=== PATIENT | female | born 1940 | race Caucasian/White ===

== ENCOUNTER 2017-11-30 01:10 | Inpatient (IN) | payer MEDICARE, OTHER ==
[~2017-11-30] VITALS: Ht 162.6 cm; Wt 40.8 kg
--- NOTE | 2017-11-30 02:29 | PHYS DOC ---
Past Medical History Past Medical History: Anxiety, Dementia, Hypertension, Other Additional Past Medical Histor: Aortic Valve Insufficiency, overactive bladder Past Surgical History: Other Additional Past Surgical Histo: Unknown Alcohol Use: None Drug Use: None Adult General Chief Complaint Chief Complaint: MECHANICAL FALL HPI HPI Patient is a 77 year old was found on the floor at the retirement this morning. Patient complaints of right-sided hip pain, not able to stand up. Patient denied headache, no neck pain. Patient could not tell this provider what happened to her. She denies any back pain. Patient is confused, not able to tell this provider who her doctor is or when she lives. Review of Systems Review of Systems Constitutional: Denies fever or chills [] Eyes: Denies change in visual acuity, redness, or eye pain [] HENT: Denies nasal congestion or sore throat [] Respiratory: Denies cough or shortness of breath [] Cardiovascular: No additional information not addressed in HPI [] GI: Denies abdominal pain, nausea, vomiting, bloody stools or diarrhea [] : Denies dysuria or hematuria [] Musculoskeletal: Positive for right hip pain, no back pain, no headache, no neck pain. Integument: Denies rash or skin lesions [] Neurologic: Denies headache, focal weakness or sensory changes [] Endocrine: Denies polyuria or polydipsia [] All other systems were reviewed and found to be within normal limits, except as documented in this note. Physical Exam Physical Exam Constitutional: Well developed, well nourished, no acute distress, non-toxic appearance. [] HENT: Normocephalic, atraumatic, bilateral external ears normal, oropharynx moist, no oral exudates, nose normal. [] Eyes: PERRLA, EOMI, conjunctiva normal, no discharge. [] Neck: Normal range of motion, no tenderness, supple, no stridor. [] Cardiovascular:Heart rate regular rhythm, no murmur [] Lungs & Thorax: Bilateral breath sounds clear to auscultation [] Abdomen: Bowel sounds normal, soft, no tenderness, no masses, no pulsatile masses. [] Skin: Warm, dry, no erythema, no rash. [] Back: No tenderness, no CVA tenderness. [] Extremities: RIGHT SIDE PELVIC AND HIP TENDER TO PALPATION, RIGHT LEG IS SHORTEN AND EXTERNALLY ROTATED. Neurologic: Alert BUT VERY CONFUSED, DISORIENTED TO PLACE, TIME AND PERSON, normal motor function, normal sensory function, no focal deficits noted. [] Psychologic: Affect normal, judgement normal, mood normal. [] Current Patient Data Vital Signs Vital Signs Date Time Temp Pulse Resp B/P (MAP) Pulse Ox O2 Delivery O2 Flow Rate FiO2 11/30/17 02:18 92 98 11/30/17 01:10 97.9 18 139/47 (77) Nasal Cannula 2.0 97.9 EKG EKG EKG: HEART RATE OF 93 BPM, NO STEMI. Radiology/Procedures Radiology/Procedures XRAY OF RIGHT HIP: FEMORAL NECK FRACTURE. XRAY CHEST: NO PNEUMOTHORAX, NO OBVIOUS RIBS FRACTURE [facility] [address] [place] [address] IMAGING REPORT Signed PATIENT: TIA AGUILAR ACCOUNT: [id number] : 1940 LOCATION: ER AGE: 77 SEX: F EXAM STATUS: REG ER ORD. PHYSICIAN: BRIAN AWAD DO REASON: fell, confused, neck pain, headache PROCEDURE: CT HEAD AND CERVICAL SPINE WO INDICATION: PT FELL; PAIN COMPARISON: None. TECHNIQUE: Axial CT images obtained through the head and cervical spine without intravenous contrast. Coronal and sagittal reformats processed of cervical spine. One or more of the following individualized dose reduction techniques were utilized for this examination: 1. Automated exposure control; 2. Adjustment of the mA and/or kV according to patient size; 3. Use of iterative reconstruction technique. FINDINGS: Head: No evidence of midline shift. Diffuse prominence of the ventricles and sulci. Suprasellar cistern is not effaced. Moderate low-attenuation within white matter. No definite acute intracranial hemorrhage. Cervical spine: Scoliotic curvature of the cervical spine. Degenerative changes the cervical spine with multilevel osteophyte formation at the vertebral body endplates with disc protrusions and facet hypertrophy contributing to central canal neural foraminal stenosis. Suspected old left clavicle fracture. Calcification left lobe of thyroid. There are some probable small thyroid nodules. Follow scarring at lung apices. IMPRESSION: 1. No acute intracranial hemorrhage. 2. Scattered foci of low-attenuation within the white matter. Nonspecific but can be seen with chronic small vessel ischemic disease. 3. No definite acute fracture or dislocation of the cervical spine. 4. Degenerative changes of the cervical spine with multilevel central canal and neural foraminal stenosis. Electronically signed by: Micheal Carter MD (11/30/2017 2:50 AM) [facility] DICTATED and SIGNED BY: MICHEAL CARTER MD DATE: 11/30/17 0237 Impressions: RIGHT FEMORAL NECK FRACTURE Course & Med Decision Making Course & Med Decision Making Pertinent Labs and Imaging studies reviewed. (See chart for details) Patient was found to have right femoral neck fracture. Orthopedic surgeon was consulted, agreed to see patient in AM, WANTED PATIENT TO BE NPO. WOULD LIKE HOSPITALIST TO CLEAR HER PRIOR TO SURGERY. Dragon Disclaimer Dragon Disclaimer This electronic medical record was generated, in whole or in part, using a voice recognition dictation system. Departure Departure Disposition: 09 ADMITTED INPATIENT Admitting Physician: Patty Turner Condition: STABLE BRIAN AWAD DO Nov 30, 2017 02:29
[2017-11-30] MEDS ORDERED: ONDANSETRON PF 4 MG/2 ML VIAL. IV PRN ×2 (02:45→09:30)
--- NOTE | 2017-11-30 02:54 | RAD ---
INDICATION: PT FELL; PAIN COMPARISON: None. TECHNIQUE: Axial CT images obtained through the head and cervical spine without intravenous contrast. Coronal and sagittal reformats processed of cervical spine. One or more of the following individualized dose reduction techniques were utilized for this examination: 1. Automated exposure control; 2. Adjustment of the mA and/or kV according to patient size; 3. Use of iterative reconstruction technique. FINDINGS: Head: No evidence of midline shift. Diffuse prominence of the ventricles and sulci. Suprasellar cistern is not effaced. Moderate low-attenuation within white matter. No definite acute intracranial hemorrhage. Cervical spine: Scoliotic curvature of the cervical spine. Degenerative changes the cervical spine with multilevel osteophyte formation at the vertebral body endplates with disc protrusions and facet hypertrophy contributing to central canal neural foraminal stenosis. Suspected old left clavicle fracture. Calcification left lobe of thyroid. There are some probable small thyroid nodules. Follow scarring at lung apices. IMPRESSION: 1. No acute intracranial hemorrhage. 2. Scattered foci of low-attenuation within the white matter. Nonspecific but can be seen with chronic small vessel ischemic disease. 3. No definite acute fracture or dislocation of the cervical spine. 4. Degenerative changes of the cervical spine with multilevel central canal and neural foraminal stenosis. Electronically signed by: Herrera Chong MD (11/30/2017 2:50 AM) [facility]
[2017-11-30 03:16] LABS: BASO % 0 % (0-3); EOS % 0 % (0-3); HEMATOCRIT 32.9 % (36.0-47.0); HEMOGLOBIN 11.2 g/dL (12.0-15.5); LYMPH # 0.6 x10^3/uL (1.0-4.8); LYMPH % 6 % (24-48); MEAN CORPUSCULAR HEMOGLOBIN 30 pg (25-35); MEAN CORPUSCULAR HGB CONC 34 g/dL (31-37); MEAN CORPUSCULAR VOLUME 89 fL (79-100); MONO # 0.6 x10^3/uL (0.0-1.1); MONO % 6 % (0-9); NEUT # 9.1 x10^3uL (1.8-7.7); NEUT % 88 % (31-73); PLATELET COUNT 251 x10^3/uL (140-400); RED BLOOD COUNT 3.69 x10^6/uL (3.50-5.40); WHITE BLOOD COUNT 10.3 x10^3/uL (4.0-11.0)
[2017-11-30 03:23] LABS: BILIRUBIN,URINE NEGATIVE (NEG); CLARITY,URINE CLOUDY; COLOR,URINE YELLOW; NITRITE,URINE NEGATIVE (NEG); PH,URINE 7.5; PROTEIN,URINE 100 mg/dL (NEG-TRACE); UROBILINOGEN,URINE 0.2 mg/dL (0.2 mg/dL)
[2017-11-30 03:24] LABS: CALCIUM 9.3 mg/dL (8.5-10.1); CREATININE 1.1 mg/dL (0.6-1.0); GFR 48.3; POTASSIUM 4.3 mmol/L (3.5-5.1)
[2017-11-30 03:31] LABS: ALBUMIN 3.4 g/dL (3.4-5.0); ALBUMIN/GLOBULIN RATIO 0.9 (1.0-1.7); TOTAL BILIRUBIN 0.4 mg/dL (0.2-1.0); TOTAL PROTEIN 7.4 g/dL (6.4-8.2)
[2017-11-30 03:32] LABS: PROTHROMBIN TIME PATIENT 13.3 SEC (11.7-14.0)
[2017-11-30] MEDS: MORPHINE SULFATE 2 MG/ML DISP.SYRIN. IV PRN ×4 (03:34→23:21)
[2017-11-30 03:43] LABS: BACTERIA,URINE FEW /HPF (0-FEW); SQUAMOUS EPITHELIAL CELL,UR FEW /LPF; WBC,URINE TNTC /HPF (0-4)
[2017-11-30 03:50] VITALS: BP 142/54
[2017-11-30] MEDS ORDERED: OXYB5TAB PO (05:00)
[2017-11-30] MEDS ORDERED: CALC600T4 PO (05:00)
[2017-11-30] MEDS ORDERED: LEVO50TA5 PO (05:00)
[2017-11-30] MEDS ORDERED: LISI-130 PO (05:00)
[2017-11-30] MEDS ORDERED: ACET500T68 PO (05:00)
[2017-11-30] MEDS ORDERED: GUAI100L27 PO (05:00)
[2017-11-30] MEDS ORDERED: MEMA10TA PO (05:00)
[2017-11-30] MEDS ORDERED: RIVA1PAT22 TP (05:00)
[2017-11-30] MEDS ORDERED: ALPR0.254 PO (05:00)
[2017-11-30] MEDS ORDERED: AMLO5TAB2 PO (05:00)
[2017-11-30] MEDS ORDERED: MULT1TAB77 PO (05:00)
[2017-11-30 07:00] VITALS: BP 132/55
--- NOTE | 2017-11-30 07:22 | EKG ---
[facility] [address] [place] [address] Test Date: 2017-11-30 Test Time: 02:03:58 Pat Name: TIA AGUILAR Department: Room: Gender: F Etcher Hand: : 1940 Requested By: BRIAN AWAD Order Number: [id number] Reading MD: Measurements Intervals [place] Rate: 93 P: 61 SD: 122 QRS: 31 QRSD: 90 T: 36 QT: 346 QTc: 433 Interpretive Statements SINUS RHYTHM LEFT ATRIAL ABNORMALITY QRS(T) CONTOUR ABNORMALITY CONSIDER ANTEROSEPTAL MYOCARDIAL DAMAGE ST & T ABNORMALITY, CONSIDER ANTEROLATERAL ISCHEMIA OR LEFT VENTRICULAR STRAIN INFEROLATERAL ISCHEMIA OR LEFT VENTRICULAR STRAIN ABNORMAL ECG RI6.01 No previous ECG available for comparison
--- NOTE | 2017-11-30 08:10 | RAD ---
Examination: 2 views of the right hip HISTORY: History of fall, right hip pain COMPARISON: None available FINDINGS: The right femoral head is within the acetabulum. Moderate joint space loss identified in the right hip joint. There is a superior displaced fracture of the right femoral neck. Osseous demineralization limits evaluation. IMPRESSION: Superiorly displaced right femoral neck fracture. Electronically signed by: Bobby Burks MD (11/30/2017 8:07 AM) [facility]
--- NOTE | 2017-11-30 08:11 | RAD ---
EXAM: CHEST 1 VIEW History: Chest pain COMPARISON: None available. TECHNIQUE: Single portable radiograph of the chest FINDINGS: The cardiac silhouette is unremarkable. Mild prominent appearing bilateral interstitial lung markings. The costophrenic sulci are clear and well demarcated. IMPRESSION: Mild prominent appearing bilateral interstitial lung markings could be chronic interstitial changes or mild edema. Electronically signed by: Bobby Burks MD (11/30/2017 8:08 AM) [facility]
[2017-11-30 08:20] LABS: % BANDS 14 % (0-9); % LYMPHS 9 % (24-48); % MONOS 5 % (0-10); % SEGS 72 % (35-66); PLT ESTIMATE ADEQUATE (ADEQUATE)
[2017-11-30 08:21] LABS: OVALOCYTES FEW
[2017-11-30] MEDS ORDERED: ACETAMINOPHEN 500 MG TABLET PO PRN (09:30)
[2017-11-30] MEDS: amLODIPine BESYLATE 5 MG TABLET PO SCH (10:00)
[2017-11-30] MEDS: LISINOPRIL 20 MG TABLET PO SCH (10:00)
[2017-11-30] MEDS: MULTIVITAMIN with MINERAL TABLET. PO SCH (10:00)
[2017-11-30] MEDS: CALCIUM CARBONATE 500 MG TABLET PO SCH ×2 (10:00→21:00)
[2017-11-30] MEDS ORDERED: PIP/TAZO PER PHARMACY MC PRN (10:15)
[2017-11-30] MEDS: OXYBUTYNIN CHLORIDE 5 MG TABLET PO SCH ×2 (10:30→21:00)
[2017-11-30] MEDS: MEMANTINE 10 MG TABLET. PO SCH ×2 (10:30→21:00)
[2017-11-30 11:00] VITALS: BP 120/61
[2017-11-30] MEDS: LEVOTHYROXINE 50 MCG TABLET PO SCH (11:36)
[2017-11-30] MEDS: RIVASTIGMINE 4.6MG PATCH. TD SCH (11:37)
[2017-11-30] MEDS: PIPERACILLIN/TAZOBACTAM 2.25 GM in IV NORMAL SALINE 50ML 50 ML IV SCH ×3 (11:40→23:20)
--- NOTE | 2017-11-30 12:36 | PDOC1 ---
History and Physical Date of Admission Date of Admission DATE: 11/30/17 TIME: 12:32 Identification/Chief Complaint Chief Complaint fell at the long term Source Source: Caregiver, Chart review History of Present Illness History of Present Illness Very poor historian, significant dementia and SNU resident, 77 year old female, most of the history obtained from the ER chart. SHe fell in the long term. Son helps to fill in the gaps, recent UTI at [place]?. Prolonged antibiotics. But then again now, UTI still on labs. Patient is a full code per chart. Has a hip fracture after a fall. Discussed with orthopedics, plan for OR tomorrow pending clearance. We are getting records from [place]. Home meds reviewed, no significant cardiac pulmonary diseases I could get based on home meds We'll treat UTI, follow urine cultures and get records from [place]. Discussed with Dr. Yadav and Gabbie of ID Past Medical History Cardiovascular: HTN, Hyperlipidemia CENTRAL NERVOUS SYSTEM: Dementia Endocrine: Hypothyroidism Past Surgical History Past Surgical History: No pertinent history Family History Family History: Family History Unknown Social History Smoke: No ALCOHOL: none Drugs: None Current Medications Current Medications Current Medications Ondansetron HCl (Zofran) 4 mg PRN Q8HRS PRN IV NAUSEA/VOMITING 1ST CHOICE Last administered on 11/30/17at 03:35; Start 11/30/17 at 02:45; Stop 11/30/17 at 09:20; Status DC Morphine Sulfate (Morphine Sulfate) 2 mg PRN Q2HR PRN IV SEVERE PAIN Last administered on 11/30/17at 05:36; Start 11/30/17 at 02:45; Stop 12/01/17 at 02:44 Ondansetron HCl (Zofran) 4 mg PRN Q6HRS PRN IV NAUSEA/VOMITING 1ST CHOICE; Start 11/30/17 at 09:30 Acetaminophen (Tylenol) 500 mg PRN Q6HRS PRN PO TEMP; Start 11/30/17 at 09:30 Oxycodone/ Acetaminophen (Percocet 5/325) 1 tab PRN Q4HRS PRN PO MODERATE PAIN ; Start 11/30/17 at 09:30 Acetaminophen (Tylenol) 500 mg TID PO ; Start 11/30/17 at 14:00 Alprazolam (Xanax) 0.25 mg PRN TID PRN PO ANXIETY; Start 11/30/17 at 09:30 Amlodipine Besylate (Norvasc) 5 mg DAILY PO ; Start 11/30/17 at 10:00 Guaifenesin (Robitussin) 200 mg PRN Q6HRS PRN PO COUGH; Start 11/30/17 at 09:30 Lisinopril (Prinivil) 40 mg DAILY PO ; Start 11/30/17 at 10:00 Calcium Carbonate/ Glycine (Oscal) 1,000 mg BID PO ; Start 11/30/17 at 10:00 Levothyroxine Sodium (Synthroid) 50 mcg DAILY07 PO Last administered on at 11:36; Start 11/30/17 at 10:00 Memantine (Namenda) 10 mg BID PO ; Start 11/30/17 at 10:30 Multivitamins (Thera M Plus) 1 tab DAILY PO ; Start 11/30/17 at 10:00 Oxybutynin Chloride (Ditropan) 2.5 mg BID PO ; Start 11/30/17 at 10:30 Rivastigmine (Exelon) 1 patch DAILY TD Last administered on 11/30/17at 11:37; Start 11/30/17 at 10:00 Piperacillin Sod/ Tazobactam Sod (Zosyn Per Pharmacy) 1 each PRN DAILY PRN MC SEE COMMENTS; Start 11/30/17 at 10:15 Piperacillin Sod/ Tazobactam Sod 2.25 gm/Sodium Chloride 50 ml @ 100 mls/hr Q6HRS IV Last administered on 11/30/17at 11:40; Start 11/30/17 at 12:00 Active Scripts Active Reported Robafen (Guaifenesin) 100 Mg/5 Ml Liquid 200 Mg PO PRN Q6HRS PRN Levothyroxine Sodium 50 Mcg Tablet 1 Tab PO DAILY Alprazolam 0.25 Mg Tablet 1 Tab PO TID PRN Acetaminophen 500 Mg Tablet 500 Mg PO TID Namenda (Memantine Hcl) 10 Mg Tablet 1 Tab PO BID Calcium (Calcium Carbonate) 600 Mg Tablet 1,200 Mg PO BID Thera Tablet (Multivitamin with Folic Acid) 400 Mcg Tablet 400 Mcg PO DAILY EXELON 4.6mg/24hr (Rivastigmine) 1 Each Patch.td24 1 Patch TP DAILY Oxybutynin Chloride Er (Oxybutynin Chloride) 5 Mg Tab.er.24 1 Tab PO DAILY Lisinopril 40 Mg Tablet 1 Tab PO DAILY Amlodipine Besylate 5 Mg Tablet 5 Mg PO DAILY Allergies Allergies: Coded Allergies: No Known Drug Allergies (Unverified , 11/30/17) ROS Review of System Dementia is limited ROS Physical Exam General: No acute distress HEENT: Atraumatic, PERRLA, EOMI Lungs: Clear to auscultation, Normal air movement Heart: S1S2, RRR, no thrills, no rubs, no gallops, no murmurs Cardiovascular: S1, S2 Breasts: Normal, Rt breast nml w/o mass, Lt breast nml w/o mass, Nipples normal Abdomen: Normal bowel sounds, Soft, No tenderness, No hepatosplenomegaly, No masses Rectal Exam: not examined PELVIC: Nml ext genitalia Extremities: Other (right leg is externally rotated) Skin: No rashes, No breakdown, No significant lesion Vitals Vitals Vital Signs Date Time Temp Pulse Resp B/P (MAP) Pulse Ox O2 Delivery O2 Flow Rate FiO2 11/30/17 11:00 98.3 84 14 120/61 (80) 95 Nasal Cannula 2.0 98.3 Labs Labs Laboratory Tests Test 11/30/17 03:00 11/30/17 03:11 White Blood Count 10.3 x10^3/uL (4.0-11.0) Red Blood Count 3.69 x10^6/uL (3.50-5.40) Hemoglobin 11.2 g/dL (12.0-15.5) Hematocrit 32.9 % (36.0-47.0) Mean Corpuscular Volume 89 fL (79-100) Mean Corpuscular Hemoglobin 30 pg (25-35) Mean Corpuscular Hemoglobin Concent 34 g/dL (31-37) Red Cell Distribution Width 14.0 % (11.5-14.5) Platelet Count 251 x10^3/uL (140-400) Neutrophils (%) (Auto) 88 % (31-73) Lymphocytes (%) (Auto) 6 % (24-48) Monocytes (%) (Auto) 6 % (0-9) Eosinophils (%) (Auto) 0 % (0-3) Basophils (%) (Auto) 0 % (0-3) Neutrophils # (Auto) 9.1 x10^3uL (1.8-7.7) Lymphocytes # (Auto) 0.6 x10^3/uL (1.0-4.8) Monocytes # (Auto) 0.6 x10^3/uL (0.0-1.1) Eosinophils # (Auto) 0.0 x10^3/uL (0.0-0.7) Basophils # (Auto) 0.0 x10^3/uL (0.0-0.2) Segmented Neutrophils % 72 % (35-66) Band Neutrophils % 14 % (0-9) Lymphocytes % 9 % (24-48) Monocytes % 5 % (0-10) Platelet Estimate Adequate (ADEQUATE) Ovalocytes Few Prothrombin Time 13.3 SEC (11.7-14.0) Prothromb Time International Ratio 1.1 (0.8-1.1) Activated Partial Thromboplast Time 32 SEC (24-38) Sodium Level 131 mmol/L (136-145) Potassium Level 4.3 mmol/L (3.5-5.1) Chloride Level 96 mmol/L (98-107) Carbon Dioxide Level 29 mmol/L (21-32) Anion Gap 6 (6-14) Blood Urea Nitrogen 27 mg/dL (7-20) Creatinine 1.1 mg/dL (0.6-1.0) Estimated GFR (Cockcroft-Gault) 48.3 BUN/Creatinine Ratio 25 (6-20) Glucose Level 115 mg/dL (70-99) Calcium Level 9.3 mg/dL (8.5-10.1) Total Bilirubin 0.4 mg/dL (0.2-1.0) Aspartate Amino Transf (AST/SGOT) 23 U/L (15-37) Alanine Aminotransferase (ALT/SGPT) 21 U/L (14-59) Alkaline Phosphatase 76 U/L (46-116) Total Protein 7.4 g/dL (6.4-8.2) Albumin 3.4 g/dL (3.4-5.0) Albumin/Globulin Ratio 0.9 (1.0-1.7) Urine Collection Type U cath Urine Color Yellow Urine Clarity Cloudy Urine pH 7.5 Urine Specific [place] 1.015 Urine Protein 100 mg/dL (NEG-TRACE) Urine Glucose (UA) Negative mg/dL (NEG) Urine Ketones (Stick) Negative mg/dL (NEG) Urine Blood Small (NEG) Urine Nitrite Negative (NEG) Urine Bilirubin Negative (NEG) Urine Urobilinogen Dipstick 0.2 mg/dL (0.2 mg/dL) Urine Leukocyte Esterase Large (NEG) Urine RBC 11-20 /HPF (0-2) Urine WBC Tntc /HPF (0-4) Urine Squamous Epithelial Cells Few /LPF Urine Bacteria Few /HPF (0-FEW) Laboratory Tests Test 11/30/17 03:00 11/30/17 03:11 White Blood Count 10.3 x10^3/uL (4.0-11.0) Red Blood Count 3.69 x10^6/uL (3.50-5.40) Hemoglobin 11.2 g/dL (12.0-15.5) Hematocrit 32.9 % (36.0-47.0) Mean Corpuscular Volume 89 fL (79-100) Mean Corpuscular Hemoglobin 30 pg (25-35) Mean Corpuscular Hemoglobin Concent 34 g/dL (31-37) Red Cell Distribution Width 14.0 % (11.5-14.5) Platelet Count 251 x10^3/uL (140-400) Neutrophils (%) (Auto) 88 % (31-73) Lymphocytes (%) (Auto) 6 % (24-48) Monocytes (%) (Auto) 6 % (0-9) Eosinophils (%) (Auto) 0 % (0-3) Basophils (%) (Auto) 0 % (0-3) Neutrophils # (Auto) 9.1 x10^3uL (1.8-7.7) Lymphocytes # (Auto) 0.6 x10^3/uL (1.0-4.8) Monocytes # (Auto) 0.6 x10^3/uL (0.0-1.1) Eosinophils # (Auto) 0.0 x10^3/uL (0.0-0.7) Basophils # (Auto) 0.0 x10^3/uL (0.0-0.2) Segmented Neutrophils % 72 % (35-66) Band Neutrophils % 14 % (0-9) Lymphocytes % 9 % (24-48) Monocytes % 5 % (0-10) Platelet Estimate Adequate (ADEQUATE) Ovalocytes Few Prothrombin Time 13.3 SEC (11.7-14.0) Prothromb Time International Ratio 1.1 (0.8-1.1) Activated Partial Thromboplast Time 32 SEC (24-38) Sodium Level 131 mmol/L (136-145) Potassium Level 4.3 mmol/L (3.5-5.1) Chloride Level 96 mmol/L (98-107) Carbon Dioxide Level 29 mmol/L (21-32) Anion Gap 6 (6-14) Blood Urea Nitrogen 27 mg/dL (7-20) Creatinine 1.1 mg/dL (0.6-1.0) Estimated GFR (Cockcroft-Gault) 48.3 BUN/Creatinine Ratio 25 (6-20) Glucose Level 115 mg/dL (70-99) Calcium Level 9.3 mg/dL (8.5-10.1) Total Bilirubin 0.4 mg/dL (0.2-1.0) Aspartate Amino Transf (AST/SGOT) 23 U/L (15-37) Alanine Aminotransferase (ALT/SGPT) 21 U/L (14-59) Alkaline Phosphatase 76 U/L (46-116) Total Protein 7.4 g/dL (6.4-8.2) Albumin 3.4 g/dL (3.4-5.0) Albumin/Globulin Ratio 0.9 (1.0-1.7) Urine Collection Type U cath Urine Color Yellow Urine Clarity Cloudy Urine pH 7.5 Urine Specific [place] 1.015 Urine Protein 100 mg/dL (NEG-TRACE) Urine Glucose (UA) Negative mg/dL (NEG) Urine Ketones (Stick) Negative mg/dL (NEG) Urine Blood Small (NEG) Urine Nitrite Negative (NEG) Urine Bilirubin Negative (NEG) Urine Urobilinogen Dipstick 0.2 mg/dL (0.2 mg/dL) Urine Leukocyte Esterase Large (NEG) Urine RBC 11-20 /HPF (0-2) Urine WBC Tntc /HPF (0-4) Urine Squamous Epithelial Cells Few /LPF Urine Bacteria Few /HPF (0-FEW) VTE Prophylaxis Ordered VTE Prophylaxis Devices: Yes VTE Pharmacological Prophylaxi: Yes Assessment/Plan Assessment/Plan Right hip fracture, after a fall Fall mechanical traumatic SNU resident Significant dementia Hypertension controlled History of complicated UTI Hypothyroidism on Synthroid Dyslipidemia statin Plan: Nothing by mouth, IV fluids, orthopedics consult Check a UA, get records from [facility] ID consult Home meds I have reconciled Fall risk Full code per chart Start IV Zosyn per pharmacy dw ortho and iD LURDES CORRALES MD Nov 30, 2017 12:36
--- NOTE | 2017-11-30 13:11 | PDOC ---
Infectious Disease Note Vital Sign Vital Signs Vital Signs Date Time Temp Pulse Resp B/P (MAP) Pulse Ox O2 Delivery O2 Flow Rate FiO2 11/30/17 11:00 98.3 84 14 120/61 (80) 95 Nasal Cannula 2.0 98.3 Labs Lab Laboratory Tests Test 11/30/17 03:00 11/30/17 03:11 White Blood Count 10.3 x10^3/uL (4.0-11.0) Red Blood Count 3.69 x10^6/uL (3.50-5.40) Hemoglobin 11.2 g/dL (12.0-15.5) Hematocrit 32.9 % (36.0-47.0) Mean Corpuscular Volume 89 fL (79-100) Mean Corpuscular Hemoglobin 30 pg (25-35) Mean Corpuscular Hemoglobin Concent 34 g/dL (31-37) Red Cell Distribution Width 14.0 % (11.5-14.5) Platelet Count 251 x10^3/uL (140-400) Neutrophils (%) (Auto) 88 % (31-73) Lymphocytes (%) (Auto) 6 % (24-48) Monocytes (%) (Auto) 6 % (0-9) Eosinophils (%) (Auto) 0 % (0-3) Basophils (%) (Auto) 0 % (0-3) Neutrophils # (Auto) 9.1 x10^3uL (1.8-7.7) Lymphocytes # (Auto) 0.6 x10^3/uL (1.0-4.8) Monocytes # (Auto) 0.6 x10^3/uL (0.0-1.1) Eosinophils # (Auto) 0.0 x10^3/uL (0.0-0.7) Basophils # (Auto) 0.0 x10^3/uL (0.0-0.2) Segmented Neutrophils % 72 % (35-66) Band Neutrophils % 14 % (0-9) Lymphocytes % 9 % (24-48) Monocytes % 5 % (0-10) Platelet Estimate Adequate (ADEQUATE) Ovalocytes Few Prothrombin Time 13.3 SEC (11.7-14.0) Prothromb Time International Ratio 1.1 (0.8-1.1) Activated Partial Thromboplast Time 32 SEC (24-38) Sodium Level 131 mmol/L (136-145) Potassium Level 4.3 mmol/L (3.5-5.1) Chloride Level 96 mmol/L (98-107) Carbon Dioxide Level 29 mmol/L (21-32) Anion Gap 6 (6-14) Blood Urea Nitrogen 27 mg/dL (7-20) Creatinine 1.1 mg/dL (0.6-1.0) Estimated GFR (Cockcroft-Gault) 48.3 BUN/Creatinine Ratio 25 (6-20) Glucose Level 115 mg/dL (70-99) Calcium Level 9.3 mg/dL (8.5-10.1) Total Bilirubin 0.4 mg/dL (0.2-1.0) Aspartate Amino Transf (AST/SGOT) 23 U/L (15-37) Alanine Aminotransferase (ALT/SGPT) 21 U/L (14-59) Alkaline Phosphatase 76 U/L (46-116) Total Protein 7.4 g/dL (6.4-8.2) Albumin 3.4 g/dL (3.4-5.0) Albumin/Globulin Ratio 0.9 (1.0-1.7) Urine Collection Type U cath Urine Color Yellow Urine Clarity Cloudy Urine pH 7.5 Urine Specific [place] 1.015 Urine Protein 100 mg/dL (NEG-TRACE) Urine Glucose (UA) Negative mg/dL (NEG) Urine Ketones (Stick) Negative mg/dL (NEG) Urine Blood Small (NEG) Urine Nitrite Negative (NEG) Urine Bilirubin Negative (NEG) Urine Urobilinogen Dipstick 0.2 mg/dL (0.2 mg/dL) Urine Leukocyte Esterase Large (NEG) Urine RBC 11-20 /HPF (0-2) Urine WBC Tntc /HPF (0-4) Urine Squamous Epithelial Cells Few /LPF Urine Bacteria Few /HPF (0-FEW) Objective Assessment Pyuria -h/o E. coli-pansensitive in urine from 11/11. D/w LMH micro Bandemia Right hip fracture following a fall Dementia Overactive bladder - on oxybutynin Hypothyroidism Hypertension Plan Plan of Care For now continue Zosyn Awaiting ortho evaluation f/u cultures Supportive care Thank you [id number] Pt seen and examined on 11/30/2017 Patient seen, examined, I agree with above. Assessment and plan was formulated with NAPPER GRINDER. CIELO KESSLER APRN Nov 30, 2017 13:11 GOLD CINTRON MD Dec 01, 2017 16:11
[2017-11-30 15:00] VITALS: BP 138/55
[2017-11-30] MEDS: IV NORMAL SALINE 1000ML BAG 1,000 ML IV SCH ×2 (16:49→23:21)
[2017-11-30] MEDS: ACETAMINOPHEN 500 MG TABLET PO SCH ×2 (16:49→21:00)
[2017-11-30 19:16] VITALS: BP 117/56
[2017-11-30 23:00] VITALS: BP 115/54
[2017-12-01] VITALS (14 sets, daily range): BP systolic 85–141; BP diastolic 41–93
[2017-12-01] MEDS: LEVOTHYROXINE 50 MCG TABLET PO SCH (01:09)
[2017-12-01 04:16] LABS: BASO % 0 % (0-3); EOS # 0.1 x10^3/uL (0.0-0.7); EOS % 1 % (0-3); HEMATOCRIT 34.4 % (36.0-47.0); HEMOGLOBIN 11.4 g/dL (12.0-15.5); LYMPH # 0.9 x10^3/uL (1.0-4.8); LYMPH % 11 % (24-48); MEAN CORPUSCULAR HEMOGLOBIN 30 pg (25-35); MEAN CORPUSCULAR HGB CONC 33 g/dL (31-37); MEAN CORPUSCULAR VOLUME 89 fL (79-100); MONO # 0.4 x10^3/uL (0.0-1.1); MONO % 5 % (0-9); NEUT # 7.1 x10^3uL (1.8-7.7); NEUT % 83 % (31-73); PLATELET COUNT 234 x10^3/uL (140-400); RED BLOOD COUNT 3.85 x10^6/uL (3.50-5.40); RED CELL DISTRIBUTION WIDTH 14.3 % (11.5-14.5); WHITE BLOOD COUNT 8.6 x10^3/uL (4.0-11.0)
[2017-12-01 05:17] LABS: CREATININE 0.8 mg/dL (0.6-1.0); GFR 69.7; POTASSIUM 4.4 mmol/L (3.5-5.1)
[2017-12-01] MEDS: PIPERACILLIN/TAZOBACTAM 2.25 GM in IV NORMAL SALINE 50ML 50 ML IV SCH ×4 (06:12→23:09)
[2017-12-01] MEDS ORDERED: MORPHINE SULFATE 2 MG/ML DISP.SYRIN. IV PRN (07:00)
[2017-12-01] MEDS ORDERED: IV RINGERS,LACTATED 1000ML 1,000 ML IV SCH (07:00)
[2017-12-01] MEDS ORDERED: LIDOCAINE 1% PF 2 ML VIAL. ID PRN (07:00)
[2017-12-01] MEDS ORDERED: ONDANSETRON PF 4 MG/2 ML VIAL. IV PRN ×2 (07:00→10:15)
[2017-12-01] MEDS ORDERED: fentaNYL PF VIAL 100 MCG/2 ML VIAL IV PRN ×3 (07:00→10:15)
[2017-12-01] MEDS ORDERED: PROCHLORPERAZINE 10 MG/2 ML VIAL. IV PRN (07:00)
[2017-12-01] MEDS ORDERED: ROCURONIUM 50 MG/5 ML VIAL. ONE (07:12)
[2017-12-01] MEDS ORDERED: PROPOFOL 20 ML IV ONE (07:14)
[2017-12-01] MEDS ORDERED: PHENYLEPHRINE in 0.9% NACL PF 1 MG/10 ML SYRINGE. IV ONE (07:15)
[2017-12-01] MEDS ORDERED: LIDOCAINE 2% PF Vial for OR 5 ML VIAL. ONE (07:15)
[2017-12-01] MEDS ORDERED: ONDANSETRON PF 4 MG/2 ML VIAL. ONE (07:15)
[2017-12-01] MEDS ORDERED: MORPHINE SULFATE 5 MG, KETOROLAC 30MG VIAL 30 MG, ROPIVacaine 0.5% PF 60 ML, EPINEPHrin... INT ART ONE ×5 (08:30)
[2017-12-01] MEDS ORDERED: SEVOFLURANE 31 TO 60 MINUTES. IH ONE (08:39)
[2017-12-01] MEDS ORDERED: DEXAMETHASONE SOD PHOS 20 MG/5 ML VIAL. ONE (08:39)
[2017-12-01] MEDS ORDERED: KETOROLAC 30 MG/ML INJ FOR OR. INJ ONE (08:49)
[2017-12-01] MEDS: MEMANTINE 10 MG TABLET. PO SCH ×2 (09:00→23:10)
[2017-12-01] MEDS: CALCIUM CARBONATE 500 MG TABLET PO SCH ×2 (09:00→23:09)
[2017-12-01] MEDS: LISINOPRIL 20 MG TABLET PO SCH (09:00)
[2017-12-01] MEDS: ACETAMINOPHEN 500 MG TABLET PO SCH ×3 (09:00→17:15)
[2017-12-01] MEDS: MULTIVITAMIN with MINERAL TABLET. PO SCH (09:00)
[2017-12-01] MEDS: OXYBUTYNIN CHLORIDE 5 MG TABLET PO SCH ×2 (09:00→23:10)
[2017-12-01] MEDS: amLODIPine BESYLATE 5 MG TABLET PO SCH (09:00)
[2017-12-01] MEDS ORDERED: fentaNYL PF VIAL 100 MCG/2 ML VIAL ONE (09:38)
[2017-12-01] MEDS ORDERED: DEXTROSE 50% 25 GM / 50ML DISP.SYRIN. IV PRN (10:15)
[2017-12-01] MEDS ORDERED: oxyCODONE IR 5 MG TABLET PO PRN (10:15)
[2017-12-01] MEDS ORDERED: POLYETHYLENE GLYCOL 3350 17 GM PACKET. PO PRN (10:15)
--- NOTE | 2017-12-01 10:25 | PDOC4 ---
Operative Note Operative Note Date of surgery: 12/01/2017 Preoperative diagnosis: Displaced right femoral neck fracture Postoperative diagnosis: Same Operative procedure: Right hip hemiarthroplasty Surgeon: Vicenta Anesthesia: GenJuvenal Estimated blood loss: 500 mL Complications: None Drains: Hemovac drain and intra-articular pain catheter Operative indications: Anna is a 77-year-old female that fell at the long term sustaining a displaced right femoral neck fracture. She also had recent bout with urinary tract infection that appears not to be resolved despite a couple of weeks of antibiotics and therefore her planned surgical treatment was delayed until 24 hours of appropriate antibiotics were administered after infectious disease consult and recommendations. I had covered with her son who is power of consumer attorney the rationale for the procedure the risks benefits postoperative course and the possibility of infection nerve or blood vessel damage leg length inequality instability medical or other anesthetic complications among others all her questions were answered consent was obtained and he agrees to proceed with operative evaluation and treatment Operative text: Patient was identified procedure verified patient placed in the supine position on the operating table. After adequate amounts of general endotracheal anesthesia were administered patient was placed in the decubitus position right side up using the Stulberg hip positioner all bony prominences were well-padded and the right hip was prepped and draped in standard sterile fashion. After timeout was performed patient procedure identified and verified a standard posterior approach was carried out to the hip with a curvilinear incision centered over the greater trochanter iliotibial band and gluteal fascia were split in line with their fibers Charnley retractor was placed external rotators were divided from their insertion hip capsule was split in a T fashion femoral head was removed and sized at size 44 femoral neck cut was made and the femur was reamed and broached up to a size 11 which resulted in excellent reproduction of leg length offset and stability with a +0 44 mm bipolar trial implant. Trial components were removed thorough irrigation carried out distal cement restrictor was placed and a size 11 Synergy cemented femoral component was cemented in place with a 28 mm inner diameter 44 mm outer diameter bipolar hemiarthroplasty which was reduced after cement verified to be dry and again showed excellent reproduction of leg length offset and stability. Hip capsule was repaired with #5 Ethibond suture external rotators reattached transosseously with #5 Ethibond Hemovac drain and pain catheter were placed pain catheter mixture was injected throughout the joint capsule and surrounding structures fascia was closed with #1 PDS strata fix suture subcutaneous closure with buried Vicryl suture subcuticular 3-0 strata fix Monocryl and a ozzie drain was placed patient was returned recovery room in stable condition having tolerated procedure well LADY WADE MD Dec 01, 2017 10:25
--- NOTE | 2017-12-01 12:04 | CONS ---
DATE OF CONSULTATION: 11/30/2017 REFERRING PHYSICIAN: Dr. Turner. REASON FOR CONSULTATION: Complicated UTI. HISTORY OF PRESENT ILLNESS: This is a 77-year-old female, a skilled nursing resident with dementia who was sent to the ER after found on the floor this morning with right hip pain. An x-ray revealed a right femoral neck fracture. She reportedly is scheduled to have a surgical repair tomorrow pending clearance. The patient is confused, unable to provide additional history of present illness, past medical history or review of systems. Apparently, she was recently hospitalized at [facility]. I contacted their Microbiology Department and was told an E. coli pansensitive grew out in the urine on 11/11/2017. Medical records have been requested. On arrival to the ER, she had normal white blood cell count of 10,300 with segs 72% and bands 14%. Urinalysis showed wbc's too numerous to count, large leukocyte esterase, a few squamous epithelial cells and bacteria. Urine culture is pending. She was dosed with Zosyn. ID has been asked to consult for further evaluation and antibiotic management. PAST MEDICAL HISTORY: Dementia, overactive bladder on oxybutynin, hypertension, valvular heart disease, hypothyroidism and hyperlipidemia. PAST SURGICAL HISTORY: Unknown. FAMILY HISTORY: Unknown. SOCIAL HISTORY: [facility] resident. ALLERGIES: No known drug allergies. MEDICATIONS: Include Zosyn. Other medications are available and have been reviewed on the MAR. REVIEW OF SYSTEMS: Unobtainable as the patient is confused. No fever, vomiting or diarrhea reported. PHYSICAL EXAMINATION: GENERAL: The patient is slightly propped up in bed, sleeping. VITAL SIGNS: Temperature 98.3, blood pressure 120/61, heart rate 84, respiratory rate 14, pulse oximetry is 95% on 2 liters via nasal cannula. HEENT: Normal conjunctivae. Oral mucosa is pink and dry. Halitosis. LUNGS: Clear to auscultation. HEART: S1 and S2. ABDOMEN: Mildly distended. Bowel sounds active, soft, no grimace or guarding to palpation. GENITOURINARY: Indwelling Delaney in place. EXTREMITIES: No gross edema or cyanosis. SKIN: Warm without rash. NEUROLOGIC: Arouses easily to name. She can state her first name correctly; otherwise, confused and poor historian. LABORATORY DATA: WBC 10.3, hemoglobin 11.2, platelet count 251,000, segs 72%, bands 14%. Creatinine 1.1, BUN 27, sodium 131, potassium 4.3, total bilirubin 0.4, AST 23, ALT 21, albumin 3.4. Urinalysis per HPI. Urine culture and MRSA PCR pending. Hip/pelvis x-ray revealed superiorly displaced right femoral neck fracture. Head/cervical spine CT showed no acute intracranial hemorrhage; no definite acute fracture or dislocation of the cervical spine; degenerative changes of the cervical spine with multilevel central canal and neural foraminal stenosis. She had scattered foci of low attenuation within the white matter. Chest x-ray shows mild prominent appearing bilateral interstitial lung markings, could be chronic interstitial changes or mild edema. IMPRESSION: 1. Pyuria. 2. Bandemia. 3. Right hip fracture following a fall. 4. Dementia. 5. Overactive bladder. 6. Hypothyroidism. 7. Hypertension. PLAN: For now, continue the Zosyn. Awaiting Ortho evaluation. We will follow up on cultures. Supportive care. Thank you, Dr. Turner for asking us to participate in this patient's care. Should you have further questions or concerns, please call. GOLD CINTRON MD DR: KONSTANTIN/van JOB#: [id number] / [id number]
--- NOTE | 2017-12-01 12:19 | PDOC ---
PROGRESS NOTES Chief Complaint Chief Complaint Right hip fracture, after a fall s/p R hip carina arthroplasry -11/30/17 fevers Fall mechanical traumatic [facility] resident Significant dementia Hypertension controlled History of complicated UTI Hypothyroidism on Synthroid Dyslipidemia statin History of Present Illness History of Present Illness Just got back from surgery Vitals okay Wakes up to name But low-grade temperatures last night ID on board History of complicated UTI, recently in [place] per son, complicated UTI, prolonged course/antibiotics On IV Zosyn started by me Plan: Check vitamin D levels Check postop labs Await cultures, getting records from [place] Follow ID recs PT OT, IS 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 Les Will verify with the son Vitals Vitals Vital Signs Date Time Temp Pulse Resp B/P (MAP) Pulse Ox O2 Delivery O2 Flow Rate FiO2 12/01/17 11:00 97.9 113 14 102/51 (68) 90 Nasal Cannula 2.0 97.9 Physical Exam General: No acute distress Heart: Regular rate, Normal S1, Normal S2 Lungs: Clear Abdomen: Normal bowel sounds, Soft, No tenderness, No hepatosplenomegaly, No masses Extremities: Other (right leg is externally rotated) Skin: No rashes, No breakdown, No significant lesion Labs LABS Laboratory Tests Test 12/01/17 04:00 White Blood Count 8.6 x10^3/uL (4.0-11.0) Red Blood Count 3.85 x10^6/uL (3.50-5.40) Hemoglobin 11.4 g/dL (12.0-15.5) Hematocrit 34.4 % (36.0-47.0) Mean Corpuscular Volume 89 fL (79-100) Mean Corpuscular Hemoglobin 30 pg (25-35) Mean Corpuscular Hemoglobin Concent 33 g/dL (31-37) Red Cell Distribution Width 14.3 % (11.5-14.5) Platelet Count 234 x10^3/uL (140-400) Neutrophils (%) (Auto) 83 % (31-73) Lymphocytes (%) (Auto) 11 % (24-48) Monocytes (%) (Auto) 5 % (0-9) Eosinophils (%) (Auto) 1 % (0-3) Basophils (%) (Auto) 0 % (0-3) Neutrophils # (Auto) 7.1 x10^3uL (1.8-7.7) Lymphocytes # (Auto) 0.9 x10^3/uL (1.0-4.8) Monocytes # (Auto) 0.4 x10^3/uL (0.0-1.1) Eosinophils # (Auto) 0.1 x10^3/uL (0.0-0.7) Basophils # (Auto) 0.0 x10^3/uL (0.0-0.2) Sodium Level 134 mmol/L (136-145) Potassium Level 4.4 mmol/L (3.5-5.1) Chloride Level 100 mmol/L (98-107) Carbon Dioxide Level 28 mmol/L (21-32) Anion Gap 6 (6-14) Blood Urea Nitrogen 10 mg/dL (7-20) Creatinine 0.8 mg/dL (0.6-1.0) Estimated GFR (Cockcroft-Gault) 69.7 Glucose Level 92 mg/dL (70-99) Calcium Level 9.0 mg/dL (8.5-10.1) Review of Systems Review of Systems Sleep, from anesthesia, I did not awaken Comment Review of Relevant I have reviewed the following items fabian (where applicable) has been applied. Labs Laboratory Tests Test 11/30/17 03:00 11/30/17 03:11 11/30/17 04:15 12/01/17 04:00 White Blood Count 10.3 x10^3/uL (4.0-11.0) 8.6 x10^3/uL (4.0-11.0) Red Blood Count 3.69 x10^6/uL (3.50-5.40) 3.85 x10^6/uL (3.50-5.40) Hemoglobin 11.2 g/dL (12.0-15.5) 11.4 g/dL (12.0-15.5) Hematocrit 32.9 % (36.0-47.0) 34.4 % (36.0-47.0) Mean Corpuscular Volume 89 fL (79-100) 89 fL (79-100) Mean Corpuscular Hemoglobin 30 pg (25-35) 30 pg (25-35) Mean Corpuscular Hemoglobin Concent 34 g/dL (31-37) 33 g/dL (31-37) Red Cell Distribution Width 14.0 % (11.5-14.5) 14.3 % (11.5-14.5) Platelet Count 251 x10^3/uL (140-400) 234 x10^3/uL (140-400) Neutrophils (%) (Auto) 88 % (31-73) 83 % (31-73) Lymphocytes (%) (Auto) 6 % (24-48) 11 % (24-48) Monocytes (%) (Auto) 6 % (0-9) 5 % (0-9) Eosinophils (%) (Auto) 0 % (0-3) 1 % (0-3) Basophils (%) (Auto) 0 % (0-3) 0 % (0-3) Neutrophils # (Auto) 9.1 x10^3uL (1.8-7.7) 7.1 x10^3uL (1.8-7.7) Lymphocytes # (Auto) 0.6 x10^3/uL (1.0-4.8) 0.9 x10^3/uL (1.0-4.8) Monocytes # (Auto) 0.6 x10^3/uL (0.0-1.1) 0.4 x10^3/uL (0.0-1.1) Eosinophils # (Auto) 0.0 x10^3/uL (0.0-0.7) 0.1 x10^3/uL (0.0-0.7) Basophils # (Auto) 0.0 x10^3/uL (0.0-0.2) 0.0 x10^3/uL (0.0-0.2) Segmented Neutrophils % 72 % (35-66) Band Neutrophils % 14 % (0-9) Lymphocytes % 9 % (24-48) Monocytes % 5 % (0-10) Platelet Estimate Adequate (ADEQUATE) Ovalocytes Few Prothrombin Time 13.3 SEC (11.7-14.0) Prothromb Time International Ratio 1.1 (0.8-1.1) Activated Partial Thromboplast Time 32 SEC (24-38) Sodium Level 131 mmol/L (136-145) 134 mmol/L (136-145) Potassium Level 4.3 mmol/L (3.5-5.1) 4.4 mmol/L (3.5-5.1) Chloride Level 96 mmol/L (98-107) 100 mmol/L (98-107) Carbon Dioxide Level 29 mmol/L (21-32) 28 mmol/L (21-32) Anion Gap 6 (6-14) 6 (6-14) Blood Urea Nitrogen 27 mg/dL (7-20) 10 mg/dL (7-20) Creatinine 1.1 mg/dL (0.6-1.0) 0.8 mg/dL (0.6-1.0) Estimated GFR (Cockcroft-Gault) 48.3 69.7 BUN/Creatinine Ratio 25 (6-20) Glucose Level 115 mg/dL (70-99) 92 mg/dL (70-99) Calcium Level 9.3 mg/dL (8.5-10.1) 9.0 mg/dL (8.5-10.1) Total Bilirubin 0.4 mg/dL (0.2-1.0) Aspartate Amino Transf (AST/SGOT) 23 U/L (15-37) Alanine Aminotransferase (ALT/SGPT) 21 U/L (14-59) Alkaline Phosphatase 76 U/L (46-116) Total Protein 7.4 g/dL (6.4-8.2) Albumin 3.4 g/dL (3.4-5.0) Albumin/Globulin Ratio 0.9 (1.0-1.7) Urine Collection Type U cath Urine Color Yellow Urine Clarity Cloudy Urine pH 7.5 Urine Specific [place] 1.015 Urine Protein 100 mg/dL (NEG-TRACE) Urine Glucose (UA) Negative mg/dL (NEG) Urine Ketones (Stick) Negative mg/dL (NEG) Urine Blood Small (NEG) Urine Nitrite Negative (NEG) Urine Bilirubin Negative (NEG) Urine Urobilinogen Dipstick 0.2 mg/dL (0.2 mg/dL) Urine Leukocyte Esterase Large (NEG) Urine RBC 11-20 /HPF (0-2) Urine WBC Tntc /HPF (0-4) Urine Squamous Epithelial Cells Few /LPF Urine Bacteria Few /HPF (0-FEW) Nasal Screen MRSA (PCR) Negative (Negative) Laboratory Tests Test 12/01/17 04:00 White Blood Count 8.6 x10^3/uL (4.0-11.0) Red Blood Count 3.85 x10^6/uL (3.50-5.40) Hemoglobin 11.4 g/dL (12.0-15.5) Hematocrit 34.4 % (36.0-47.0) Mean Corpuscular Volume 89 fL (79-100) Mean Corpuscular Hemoglobin 30 pg (25-35) Mean Corpuscular Hemoglobin Concent 33 g/dL (31-37) Red Cell Distribution Width 14.3 % (11.5-14.5) Platelet Count 234 x10^3/uL (140-400) Neutrophils (%) (Auto) 83 % (31-73) Lymphocytes (%) (Auto) 11 % (24-48) Monocytes (%) (Auto) 5 % (0-9) Eosinophils (%) (Auto) 1 % (0-3) Basophils (%) (Auto) 0 % (0-3) Neutrophils # (Auto) 7.1 x10^3uL (1.8-7.7) Lymphocytes # (Auto) 0.9 x10^3/uL (1.0-4.8) Monocytes # (Auto) 0.4 x10^3/uL (0.0-1.1) Eosinophils # (Auto) 0.1 x10^3/uL (0.0-0.7) Basophils # (Auto) 0.0 x10^3/uL (0.0-0.2) Sodium Level 134 mmol/L (136-145) Potassium Level 4.4 mmol/L (3.5-5.1) Chloride Level 100 mmol/L (98-107) Carbon Dioxide Level 28 mmol/L (21-32) Anion Gap 6 (6-14) Blood Urea Nitrogen 10 mg/dL (7-20) Creatinine 0.8 mg/dL (0.6-1.0) Estimated GFR (Cockcroft-Gault) 69.7 Glucose Level 92 mg/dL (70-99) Calcium Level 9.0 mg/dL (8.5-10.1) Medications Current Medications Ondansetron HCl (Zofran) 4 mg PRN Q8HRS PRN IV NAUSEA/VOMITING 1ST CHOICE Last administered on 11/30/17at 03:35; Start 11/30/17 at 02:45; Stop 11/30/17 at 09:20; Status DC Morphine Sulfate (Morphine Sulfate) 2 mg PRN Q2HR PRN IV SEVERE PAIN Last administered on 11/30/17at 23:21; Start 11/30/17 at 02:45; Stop 12/01/17 at 02:44; Status DC Ondansetron HCl (Zofran) 4 mg PRN Q6HRS PRN IV NAUSEA/VOMITING 1ST CHOICE; Start 11/30/17 at 09:30; Stop 12/01/17 at 10:16; Status DC Acetaminophen (Tylenol) 500 mg PRN Q6HRS PRN PO TEMP; Start 11/30/17 at 09:30 Oxycodone/ Acetaminophen (Percocet 5/325) 1 tab PRN Q4HRS PRN PO MODERATE PAIN ; Start 11/30/17 at 09:30 Acetaminophen (Tylenol) 500 mg TID PO Last administered on 11/30/17at 16:49; Start 11/30/17 at 14:00 Alprazolam (Xanax) 0.25 mg PRN TID PRN PO ANXIETY; Start 11/30/17 at 09:30 Amlodipine Besylate (Norvasc) 5 mg DAILY PO ; Start 11/30/17 at 10:00 Guaifenesin (Robitussin) 200 mg PRN Q6HRS PRN PO COUGH; Start 11/30/17 at 09:30 Lisinopril (Prinivil) 40 mg DAILY PO ; Start 11/30/17 at 10:00 Calcium Carbonate/ Glycine (Oscal) 1,000 mg BID PO ; Start 11/30/17 at 10:00 Levothyroxine Sodium (Synthroid) 50 mcg DAILY07 PO Last administered on at 11:36; Start 11/30/17 at 10:00 Memantine (Namenda) 10 mg BID PO ; Start 11/30/17 at 10:30 Multivitamins (Thera M Plus) 1 tab DAILY PO ; Start 11/30/17 at 10:00 Oxybutynin Chloride (Ditropan) 2.5 mg BID PO ; Start 11/30/17 at 10:30 Rivastigmine (Exelon) 1 patch DAILY TD Last administered on 11/30/17at 11:37; Start 11/30/17 at 10:00 Piperacillin Sod/ Tazobactam Sod (Zosyn Per Pharmacy) 1 each PRN DAILY PRN MC SEE COMMENTS; Start 11/30/17 at 10:15 Piperacillin Sod/ Tazobactam Sod 2.25 gm/Sodium Chloride 50 ml @ 100 mls/hr Q6HRS IV Last administered on 12/01/17at 12:12; Start 11/30/17 at 12:00 Sodium Chloride 1,000 ml @ 80 mls/hr [id number] IV Last administered on 11/30/17at 23:21; Start 11/30/17 at 12:45 Prochlorperazine Edisylate (Compazine) 5 mg PACU PRN PRN IV NAUSEA, MRX1; Start 12/01/17 at 07:00; Stop 12/01/17 at 15:00 Lidocaine HCl (Xylocaine-Mpf 1% Vial) 2 ml PRN 1X PRN ID IV START; Start at 07:00; Stop 12/01/17 at 12:00; Status DC Ringer's Solution 1,000 ml @ 30 mls/hr Q24H IV ; Start 12/01/17 at 07:00; Stop 12/01/17 at 11:38; Status DC Morphine Sulfate (Morphine Sulfate) 1 mg PRN Q10MIN PRN IV SEVERE PAIN; Start 12/01/17 at 07:00; Stop 12/01/17 at 15:00 Fentanyl Citrate (Fentanyl 2ml Vial) 50 mcg PRN Q5MIN PRN IV MODERATE TO SEVERE PAIN; Start 12/01/17 at 07:00; Stop 12/01/17 at 15:00 Fentanyl Citrate (Fentanyl 2ml Vial) 25 mcg PRN Q5MIN PRN IV MILD PAIN; Start 12/01/17 at 07:00; Stop 12/01/17 at 15:00 Ondansetron HCl (Zofran) 4 mg PRN Q6HRS PRN IV NAUSEA/VOMITING; Start 12/01/17 at 07:00; Stop 12/01/17 at 15:00 Rocuronium [place] (Zemuron) 50 mg STK-MED ONCE .ROUTE ; Start 12/01/17 at 07:12 ; Stop 12/01/17 at 07:13; Status DC Propofol 20 ml @ As Directed STK-MED ONCE IV ; Start 12/01/17 at 07:14; Stop 12/01 at 07:16; Status DC Lidocaine HCl (Lidocaine Pf 2% Vial) 5 ml STK-MED ONCE .ROUTE ; Start 12/01/17 at 07:15; Stop 12/01/17 at 07:16; Status DC Ondansetron HCl (Zofran) 4 mg STK-MED ONCE .ROUTE ; Start 12/01/17 at 07:15; Stop 12/01/17 at 07:16; Status DC Phenylephrine HCl (PHENYLEPHRINE in 0.9% NACL PF) 1 mg STK-MED ONCE IV ; Start 12/01/17 at 07:15; Stop 12/01/17 at 07:16; Status DC Morphine Sulfate 5 mg/Ketorolac Tromethamine 30 mg/Ropivacaine 60 ml/ Epinephrine HCl 0.5 mg/Sodium Chloride 100 ml @ 100 mls/hr 1X ONCE INT ART Last administered on 12/01/17at 08:36; Start 12/01/17 at 08:30; Stop 12/01/17 at 09: 29; Status DC Sevoflurane (Ultane) 30 ml STK-MED ONCE IH ; Start 12/01/17 at 08:39; Stop at 08:40; Status DC Dexamethasone Sodium Phosphate (Decadron) 20 mg STK-MED ONCE .ROUTE ; Start 12/01 at 08:39; Stop 12/01/17 at 08:40; Status DC Ketorolac Tromethamine (Toradol For Or Only) 30 mg STK-MED ONCE INJ ; Start 12/01 at 08:49; Stop 12/01/17 at 08:50; Status DC Fentanyl Citrate (Fentanyl 2ml Vial) 100 mcg STK-MED ONCE .ROUTE ; Start at 09:38; Stop 12/01/17 at 09:39; Status DC Oxycodone HCl (Roxicodone) 5 mg PRN Q3HRS PRN PO PAIN; Start 12/01/17 at 10:15 Morphine Sulfate (Morphine Sulfate) 2 mg PRN Q1HR PRN IV PAIN; Start 12/01/17 at 10:15 Fentanyl Citrate (Fentanyl 2ml Vial) 25 mcg PRN Q1HR PRN IV PAIN; Start at 10:15 Senna/Docusate Sodium (Senna Plus) 1 tab DAILY PO ; Start 12/02/17 at 09:00 Polyethylene Glycol (miraLAX PACKET) 17 gm PRN DAILY PRN PO CONSTIPATION; Start 12/01/17 at 10:15 Ondansetron HCl (Zofran) 4 mg PRN Q4HRS PRN IV NAUSEA/VOMITING; Start 12/01/17 at 10:15 Warfarin Sodium (Coumadin) 5 mg 1X ONCE PO ; Start 12/01/17 at 16:00; Stop at 16:01 Warfarin Sodium (Coumadin Per Pharmacy) 1 each PRN DAILY PRN MC SEE COMMENTS; Start 12/02/17 at 10:15 Magnesium Hydroxide (Milk Of Magnesia) 2,400 mg 1X PRN PRN PO CONSTIPATION; Start 12/02/17 at 06:00; Stop 12/03/17 at 05:59 Bisacodyl (Dulcolax Supp) 10 mg 1X PRN PRN [place] CONSTIPATION; Start 12/02/17 at 16 :00; Stop 12/03/17 at 15:59 Acetaminophen/ Hydrocodone Bitart (Lortab 7.5/325) 1 tab PRN Q4HRS PRN PO PAIN ; Start 12/01/17 at 10:15 Dextrose (Dextrose 50%-Water Syringe) 12.5 gm PRN Q15MIN PRN IV SEE COMMENTS; Start 12/01/17 at 10:15 Cefazolin Sodium 1 gm/Dextrose 50 ml @ 100 mls/hr Q6H IV ; Start 12/01/17 at 15: 00; Stop 12/02/17 at 03:29; Status UNV Cefazolin Sodium (Ancef) 1 gm Q6H IVP ; Start 12/01/17 at 15:00; Stop 12/02/17 at 03:01 Active Scripts Active Reported Robafen (Guaifenesin) 100 Mg/5 Ml Liquid 200 Mg PO PRN Q6HRS PRN Levothyroxine Sodium 50 Mcg Tablet 1 Tab PO DAILY Alprazolam 0.25 Mg Tablet 1 Tab PO TID PRN Acetaminophen 500 Mg Tablet 500 Mg PO TID Namenda (Memantine Hcl) 10 Mg Tablet 1 Tab PO BID Calcium (Calcium Carbonate) 600 Mg Tablet 1,200 Mg PO BID Thera Tablet (Multivitamin with Folic Acid) 400 Mcg Tablet 400 Mcg PO DAILY EXELON 4.6mg/24hr (Rivastigmine) 1 Each Patch.td24 1 Patch TP DAILY Oxybutynin Chloride Er (Oxybutynin Chloride) 5 Mg Tab.er.24 1 Tab PO DAILY Lisinopril 40 Mg Tablet 1 Tab PO DAILY Amlodipine Besylate 5 Mg Tablet 5 Mg PO DAILY Vitals/I & O Vital Sign - Last 24 Hours 11/30/17 11/30/17 11/30/17 11/30/17 15:00 16:42 16:50 17:20 Temp 97.8 101.0 97.8 101.0 Pulse 92 Resp 14 22 20 B/P (MAP) 138/55 (82) Pulse Ox 97 O2 Delivery Nasal Cannula Room Air O2 Flow Rate 2.0 11/30/17 11/30/17 11/30/17 11/30/17 17:44 19:16 20:00 23:00 Temp 101.0 98.8 97.7 101.0 98.8 97.7 Pulse 92 81 Resp 18 18 B/P (MAP) 117/56 (76) 115/54 (74) Pulse Ox 91 96 O2 Delivery Room Air Nasal Cannula Nasal Cannula O2 Flow Rate 2.0 2.0 2.0 11/30/17 11/30/17 12/01/17 12/01/17 23:21 23:51 03:15 07:00 Temp 98.7 98.1 98.7 98.1 Pulse 89 92 Resp 18 16 B/P (MAP) 125/60 (81) 141/93 (109) Pulse Ox 99 94 O2 Delivery Nasal Cannula Nasal Cannula Nasal Cannula Nasal Cannula O2 Flow Rate 2.0 2.0 2.0 2.0 12/01/17 12/01/17 12/01/17 12/01/17 09:00 09:00 09:49 09:50 Temp 99.2 99.2 Pulse 105 105 104 Resp 16 B/P (MAP) 98/46 98/46 108/35 Pulse Ox 100 O2 Delivery Nasal Cannula Mask O2 Flow Rate 10 10 12/01/17 12/01/17 12/01/17 12/01/17 10:04 10:19 10:34 10:49 Temp 99.2 99.2 100.1 99.2 99.2 100.1 Pulse 92 105 109 105 Resp 17 18 18 18 B/P (MAP) 89/50 102/75 102/56 98/46 Pulse Ox 100 96 96 96 O2 Delivery Nasal Cannula Nasal Cannula Nasal Cannula Nasal Cannula O2 Flow Rate 10 2 2 2 12/01/17 11:00 Temp 97.9 97.9 Pulse 113 Resp 14 B/P (MAP) 102/51 (68) Pulse Ox 90 O2 Delivery Nasal Cannula O2 Flow Rate 2.0 Intake and Output 11/30/17 11/30/17 12/01/17 15:00 23:00 07:00 Intake Total 240 ml Output Total 1100 ml 300 ml Balance -1100 ml -60 ml LURDES CORRALES MD Dec 01, 2017 12:19
[2017-12-01] MEDS: IV NORMAL SALINE 1000ML BAG 1,000 ML IV SCH ×2 (13:45→23:10)
[2017-12-01] MEDS ORDERED: ceFAZolin SODIUM 1 GM in IV DEXTROSE 5% 50 ML IV SCH (15:00)
[2017-12-01] MEDS: RIVASTIGMINE 4.6MG PATCH. TD SCH (15:09)
[2017-12-01] MEDS: ceFAZolin SODIUM IV Push 1 GM VIAL. IVP SCH ×2 (15:16→23:09)
--- NOTE | 2017-12-01 15:24 | PDOC ---
Infectious Disease Note Subjective Subjective Fever Tmax 101.0 yesterday S/p hip repair this morning SpO2 95% on 2L O2 Vital Sign Vital Signs Vital Signs Date Time Temp Pulse Resp B/P (MAP) Pulse Ox O2 Delivery O2 Flow Rate FiO2 12/01/17 13:56 71 14 85/43 (57) 97 Nasal Cannula 2.0 12/01/17 11:00 97.9 97.9 Physical Exam PHYSICAL EXAM GENERAL: Sleeping, appears comfortable HEENT: Normal conjunctivae. Oral mucosa is pink and dry. Halitosis. LUNGS: Clear to auscultation. HEART: S1 and S2. ABDOMEN: Mildly distended. Bowel sounds active, soft, no grimace or guarding to palpation. GENITOURINARY: Indwelling Delaney in place. EXTREMITIES: No gross edema or cyanosis. Right lateral hip post-op dressing dry /intact. Hemovac and intra-articular cath intact. SKIN: Warm without rash. NEUROLOGIC: Arouses easily to name, confused. Labs Lab Laboratory Tests Test 12/01/17 04:00 White Blood Count 8.6 x10^3/uL (4.0-11.0) Red Blood Count 3.85 x10^6/uL (3.50-5.40) Hemoglobin 11.4 g/dL (12.0-15.5) Hematocrit 34.4 % (36.0-47.0) Mean Corpuscular Volume 89 fL (79-100) Mean Corpuscular Hemoglobin 30 pg (25-35) Mean Corpuscular Hemoglobin Concent 33 g/dL (31-37) Red Cell Distribution Width 14.3 % (11.5-14.5) Platelet Count 234 x10^3/uL (140-400) Neutrophils (%) (Auto) 83 % (31-73) Lymphocytes (%) (Auto) 11 % (24-48) Monocytes (%) (Auto) 5 % (0-9) Eosinophils (%) (Auto) 1 % (0-3) Basophils (%) (Auto) 0 % (0-3) Neutrophils # (Auto) 7.1 x10^3uL (1.8-7.7) Lymphocytes # (Auto) 0.9 x10^3/uL (1.0-4.8) Monocytes # (Auto) 0.4 x10^3/uL (0.0-1.1) Eosinophils # (Auto) 0.1 x10^3/uL (0.0-0.7) Basophils # (Auto) 0.0 x10^3/uL (0.0-0.2) Sodium Level 134 mmol/L (136-145) Potassium Level 4.4 mmol/L (3.5-5.1) Chloride Level 100 mmol/L (98-107) Carbon Dioxide Level 28 mmol/L (21-32) Anion Gap 6 (6-14) Blood Urea Nitrogen 10 mg/dL (7-20) Creatinine 0.8 mg/dL (0.6-1.0) Estimated GFR (Cockcroft-Gault) 69.7 Glucose Level 92 mg/dL (70-99) Calcium Level 9.0 mg/dL (8.5-10.1) Objective Assessment Fever Pyuria -h/o E. coli-pansensitive in urine from 11/11. D/w LMH micro Bandemia Right hip fracture following a fall. s/p Right hip hemiarthroplasty on 12/01 Dementia Overactive bladder - on oxybutynin Hypothyroidism Hypertension Warfarin therapy Plan Plan of Care Continue Zosyn s/p Decadron in OR BC UC pending Monitor temp/lab values Supportive care D/w RN Patient seen, examined, I agree with above. Assessment and plan was formulated with [employer]ANGING OPERATOR. CIELO KESSLER APRN Dec 01, 2017 15:24 GOLD CINTRON MD Dec 01, 2017 16:12
[2017-12-01] MEDS ORDERED: WARFARIN 5 MG TABLET. PO ONE (16:00)
--- NOTE | 2017-12-01 22:00 | CONS ---
DATE OF CONSULTATION: 11/30/2017 REQUESTING PHYSICIAN: Dr. Turner. REASON FOR CONSULTATION: Right hip fracture. HISTORY OF PRESENT ILLNESS: The patient is a 77-year-old female who is a custodial resident and fell at her custodial. History was obtained really from her son and medical record as she has significant dementia and really does not respond. Nevertheless, she has significant right hip pain, inability to bear weight since the injury. She had been reasonably ambulatory until a recent medical issue where she was admitted to [facility] with a urinary tract infection and subsequently has been treated on antibiotics, but still has been a bit more lethargic recently and has not really ambulated significantly since that setback. PAST MEDICAL HISTORY: Also significant for hypertension, hyperlipidemia, dementia, hypothyroidism. PAST SURGICAL HISTORY: Denies any significant past surgical history. FAMILY HISTORY: Unknown. SOCIAL HISTORY: A custodial resident. Denies smoking, alcohol or drug use. MEDICATIONS: List is reviewed. ALLERGIES: She has no known drug allergies. REVIEW OF SYSTEMS: Extremely limited due to her dementia, although there is an obvious facial grimacing with any attempted examination or motion of the right hip. PHYSICAL EXAMINATION: She is resting comfortably in bed, no ability to food runner her oriented status. She does spontaneously move her upper extremities, shoulder, elbow and wrist and has no obvious discomfort. No tenderness on palpation of her neck or back. There is obvious discomfort with any palpation or attempted motion or weightbearing of her right hip. Normal alignment and stability of bilateral knees and ankles. Normal examination of the contralateral left hip. IMAGING: X-rays of the right hip show a displaced femoral neck fracture. TREATMENT PLAN: I had a detailed discussion with the patient's son who is her power of compliance attorney about the significance of the fracture, the blood supply issues to the fracture, the usual treatment of hemiarthroplasty if this is going to be surgically treated and nonoperative complications that are immobility related, the possible surgical complications of infection, leg length inequality, instability, nerve or blood vessel damage, medical or other anesthetic complications among others, and the fact that we would attempt to further evaluate her urinary tract infection in particular as it does seem to be resistant and persistent despite her previous treatment. He agrees to proceed with hemiarthroplasty of the hip following administration of adequate antibiotics for a day per recommended guidelines. Therefore, surgery is scheduled for tomorrow. LADY WADE MD DR: URBAN/van JOB#: [id number] / [id number]
[2017-12-01] MEDS: oxyCODONE/APAP 5/325 1 TAB TABLET PO PRN (23:10)
[2017-12-02] VITALS (7 sets, daily range): BP systolic 85–139; BP diastolic 42–76
[2017-12-02] MEDS: MORPHINE SULFATE 2 MG/ML DISP.SYRIN. IV PRN ×2 (00:28→15:19)
[2017-12-02 05:14] LABS: BASO % 0 % (0-3); EOS % 0 % (0-3); HEMATOCRIT 24.6 % (36.0-47.0); HEMOGLOBIN 8.2 g/dL (12.0-15.5); LYMPH # 0.6 x10^3/uL (1.0-4.8); LYMPH % 5 % (24-48); MEAN CORPUSCULAR HEMOGLOBIN 30 pg (25-35); MEAN CORPUSCULAR HGB CONC 33 g/dL (31-37); MEAN CORPUSCULAR VOLUME 89 fL (79-100); MONO # 0.6 x10^3/uL (0.0-1.1); MONO % 5 % (0-9); NEUT # 10.8 x10^3uL (1.8-7.7); NEUT % 90 % (31-73); PLATELET COUNT 179 x10^3/uL (140-400); RED BLOOD COUNT 2.76 x10^6/uL (3.50-5.40); RED CELL DISTRIBUTION WIDTH 13.9 % (11.5-14.5); WHITE BLOOD COUNT 11.9 x10^3/uL (4.0-11.0)
[2017-12-02 05:20] LABS: PROTHROMBIN TIME PATIENT 15.9 SEC (11.7-14.0)
[2017-12-02 05:27] LABS: CALCIUM 8.3 mg/dL (8.5-10.1); CREATININE 1.1 mg/dL (0.6-1.0); GFR 48.3; POTASSIUM 4.1 mmol/L (3.5-5.1)
[2017-12-02] MEDS ORDERED: BUPIVACAINE MPF 0.25% INT ART ONE (06:00)
[2017-12-02] MEDS ORDERED: [UNRECOGNIZED DRUG - OTHER] INT ART ONE (06:00)
[2017-12-02] MEDS ORDERED: KETOROLAC INT ART ONE (06:00)
[2017-12-02] MEDS ORDERED: MAGNESIUM HYDROXIDE 2,400 MG/30 ML ORAL.SUSP. PO PRN (06:00)
[2017-12-02] MEDS ORDERED: EPINEPHRINE INT ART ONE (06:00)
[2017-12-02] MEDS: PIPERACILLIN/TAZOBACTAM 2.25 GM in IV NORMAL SALINE 50ML 50 ML IV SCH ×3 (06:05→18:21)
[2017-12-02] MEDS: ceFAZolin SODIUM IV Push 1 GM VIAL. IVP SCH (06:21)
[2017-12-02] MEDS: OXYBUTYNIN CHLORIDE 5 MG TABLET PO SCH ×2 (09:10→22:01)
[2017-12-02] MEDS: MEMANTINE 10 MG TABLET. PO SCH ×2 (09:10→22:01)
[2017-12-02] MEDS: IV NORMAL SALINE 1000ML BAG 1,000 ML IV SCH ×2 (09:10→22:02)
[2017-12-02] MEDS: ACETAMINOPHEN 500 MG TABLET PO SCH ×3 (09:11→22:02)
[2017-12-02] MEDS: LEVOTHYROXINE 50 MCG TABLET PO SCH (09:11)
[2017-12-02] MEDS: MULTIVITAMIN with MINERAL TABLET. PO SCH (09:13)
[2017-12-02] MEDS: CALCIUM CARBONATE 500 MG TABLET PO SCH ×2 (09:13→22:01)
[2017-12-02] MEDS: RIVASTIGMINE 4.6MG PATCH. TD SCH (09:15)
[2017-12-02] MEDS: SENNOSIDES/DOCUSATE 8.6/50MG TABLET. PO SCH (09:17)
[2017-12-02 10:49] LABS: % BANDS 7 % (0-9); % LYMPHS 3 % (24-48); % MONOS 5 % (0-10); % SEGS 85 % (35-66); PLT ESTIMATE ADEQUATE (ADEQUATE)
--- NOTE | 2017-12-02 12:45 | PDOC ---
Infectious Disease Note Subjective Subjective Being fed Only mumbles CHRISTIAN GONZALES Unable to obtain Vital Sign Vital Signs Vital Signs Date Time Temp Pulse Resp B/P (MAP) Pulse Ox O2 Delivery O2 Flow Rate FiO2 12/02/17 11:00 98.0 135 18 114/73 (87) 90 Room Air 98.0 12/01/17 16:02 2.0 Physical Exam PHYSICAL EXAM GENERAL: Alert but in a chair and eating HEENT: Normal conjunctivae. Oral mucosa is pink and dry. LUNGS: Clear to auscultation. HEART: S1 and S2. ABDOMEN: Mildly distended. Bowel sounds active, soft, no grimace or guarding to palpation. GENITOURINARY: Indwelling Delaney in place. EXTREMITIES: No gross edema or cyanosis. Right lateral hip post-op dressing dry /intact. Hemovac and intra-articular cath intact. SKIN: Warm without rash. NEUROLOGIC: Arouses easily to name, confused. Follows simple commands - opened mouth Labs Lab Laboratory Tests Test 12/02/17 03:10 12/02/17 03:15 12/02/17 03:35 Sodium Level 134 mmol/L (136-145) Potassium Level 4.1 mmol/L (3.5-5.1) Chloride Level 100 mmol/L (98-107) Carbon Dioxide Level 27 mmol/L (21-32) Anion Gap 7 (6-14) Blood Urea Nitrogen 20 mg/dL (7-20) Creatinine 1.1 mg/dL (0.6-1.0) Estimated GFR (Cockcroft-Gault) 48.3 Glucose Level 150 mg/dL (70-99) Calcium Level 8.3 mg/dL (8.5-10.1) White Blood Count 11.9 x10^3/uL (4.0-11.0) Red Blood Count 2.76 x10^6/uL (3.50-5.40) Hemoglobin 8.2 g/dL (12.0-15.5) Hematocrit 24.6 % (36.0-47.0) Mean Corpuscular Volume 89 fL (79-100) Mean Corpuscular Hemoglobin 30 pg (25-35) Mean Corpuscular Hemoglobin Concent 33 g/dL (31-37) Red Cell Distribution Width 13.9 % (11.5-14.5) Platelet Count 179 x10^3/uL (140-400) Neutrophils (%) (Auto) 90 % (31-73) Lymphocytes (%) (Auto) 5 % (24-48) Monocytes (%) (Auto) 5 % (0-9) Eosinophils (%) (Auto) 0 % (0-3) Basophils (%) (Auto) 0 % (0-3) Neutrophils # (Auto) 10.8 x10^3uL (1.8-7.7) Lymphocytes # (Auto) 0.6 x10^3/uL (1.0-4.8) Monocytes # (Auto) 0.6 x10^3/uL (0.0-1.1) Eosinophils # (Auto) 0.0 x10^3/uL (0.0-0.7) Basophils # (Auto) 0.0 x10^3/uL (0.0-0.2) Segmented Neutrophils % 85 % (35-66) Band Neutrophils % 7 % (0-9) Lymphocytes % 3 % (24-48) Monocytes % 5 % (0-10) Platelet Estimate Adequate (ADEQUATE) Prothrombin Time 15.9 SEC (11.7-14.0) Prothromb Time International Ratio 1.3 (0.8-1.1) Objective Assessment Fever - improved. ? post op vs ID Pyuria -h/o E. coli-pansensitive in urine from 11/11. D/w LMH micro Bandemia Right hip fracture following a fall. s/p Right hip hemiarthroplasty on 12/01 Dementia Overactive bladder - on oxybutynin Hypothyroidism Hypertension Warfarin therapy Plan Plan of Care Continue Zosyn s/p Decadron in OR BC pending Monitor temp/lab values Supportive care D/w MELISSA ARNDT MD Dec 02, 2017 12:45
[2017-12-02] MEDS: oxyCODONE/APAP 5/325 1 TAB TABLET PO PRN (13:33)
--- NOTE | 2017-12-02 14:20 | PDOC ---
PROGRESS NOTES Chief Complaint Chief Complaint Right hip fracture, after a fall s/p R hip carina arthroplasry -11/30/17 fevers with possible UTI Fall mechanical traumatic Hypertension now hypotension History of complicated UTI Hypothyroidism on Synthroid Dyslipidemia statin vitd deficiency [facility] resident Significant dementia plan: fu with ID, on zosyn, fu ucx fu with ortho has wound vac on ptot dc HTN meds cont IVF for now, consider dc if cont afebrile and eats well dvt ppx with coumadin as per ortho, INR daily told nurse to verify code status with family when available add vitd History of Present Illness History of Present Illness severe demented, arousable, but not follow commands or answer questions rt leg s/p sx, has wound vac on low BP yesterday eats ok afebrile, fever 11/30 ROS: no fever, chills, sob or chest pain Vitals Vitals Vital Signs Date Time Temp Pulse Resp B/P (MAP) Pulse Ox O2 Delivery O2 Flow Rate FiO2 12/02/17 13:33 Room Air 12/02/17 11:00 98.0 135 18 114/73 (87) 90 98.0 12/01/17 16:02 2.0 Physical Exam Physical Exam GENERAL: Alert but in a chair and eating HEENT: Normal conjunctivae. Oral mucosa is pink and dry. LUNGS: Clear to auscultation. HEART: S1 and S2. ABDOMEN: Mildly distended. Bowel sounds active, soft, no grimace or guarding to palpation. GENITOURINARY: Indwelling Delaney in place. EXTREMITIES: No gross edema or cyanosis. Right lateral hip post-op dressing dry /intact. Hemovac and intra-articular cath intact. SKIN: Warm without rash. NEUROLOGIC: Arouses easily to name, confused. Follows simple commands - opened mouth General: No acute distress Heart: Regular rate, Normal S1, Normal S2 Lungs: Clear Abdomen: Normal bowel sounds, Soft, No tenderness, No hepatosplenomegaly, No masses Extremities: Other (right leg is externally rotated) Skin: No rashes, No breakdown, No significant lesion Labs LABS Laboratory Tests Test 12/02/17 03:10 12/02/17 03:15 12/02/17 03:35 Sodium Level 134 mmol/L (136-145) Potassium Level 4.1 mmol/L (3.5-5.1) Chloride Level 100 mmol/L (98-107) Carbon Dioxide Level 27 mmol/L (21-32) Anion Gap 7 (6-14) Blood Urea Nitrogen 20 mg/dL (7-20) Creatinine 1.1 mg/dL (0.6-1.0) Estimated GFR (Cockcroft-Gault) 48.3 Glucose Level 150 mg/dL (70-99) Calcium Level 8.3 mg/dL (8.5-10.1) White Blood Count 11.9 x10^3/uL (4.0-11.0) Red Blood Count 2.76 x10^6/uL (3.50-5.40) Hemoglobin 8.2 g/dL (12.0-15.5) Hematocrit 24.6 % (36.0-47.0) Mean Corpuscular Volume 89 fL (79-100) Mean Corpuscular Hemoglobin 30 pg (25-35) Mean Corpuscular Hemoglobin Concent 33 g/dL (31-37) Red Cell Distribution Width 13.9 % (11.5-14.5) Platelet Count 179 x10^3/uL (140-400) Neutrophils (%) (Auto) 90 % (31-73) Lymphocytes (%) (Auto) 5 % (24-48) Monocytes (%) (Auto) 5 % (0-9) Eosinophils (%) (Auto) 0 % (0-3) Basophils (%) (Auto) 0 % (0-3) Neutrophils # (Auto) 10.8 x10^3uL (1.8-7.7) Lymphocytes # (Auto) 0.6 x10^3/uL (1.0-4.8) Monocytes # (Auto) 0.6 x10^3/uL (0.0-1.1) Eosinophils # (Auto) 0.0 x10^3/uL (0.0-0.7) Basophils # (Auto) 0.0 x10^3/uL (0.0-0.2) Segmented Neutrophils % 85 % (35-66) Band Neutrophils % 7 % (0-9) Lymphocytes % 3 % (24-48) Monocytes % 5 % (0-10) Platelet Estimate Adequate (ADEQUATE) Prothrombin Time 15.9 SEC (11.7-14.0) Prothromb Time International Ratio 1.3 (0.8-1.1) Comment Review of Relevant I have reviewed the following items fabian (where applicable) has been applied. Labs Laboratory Tests Test 12/01/17 04:00 12/02/17 03:10 12/02/17 03:15 12/02/17 03:35 White Blood Count 8.6 x10^3/uL (4.0-11.0) 11.9 x10^3/uL (4.0-11.0) Red Blood Count 3.85 x10^6/uL (3.50-5.40) 2.76 x10^6/uL (3.50-5.40) Hemoglobin 11.4 g/dL (12.0-15.5) 8.2 g/dL (12.0-15.5) Hematocrit 34.4 % (36.0-47.0) 24.6 % (36.0-47.0) Mean Corpuscular Volume 89 fL (79-100) 89 fL (79-100) Mean Corpuscular Hemoglobin 30 pg (25-35) 30 pg (25-35) Mean Corpuscular Hemoglobin Concent 33 g/dL (31-37) 33 g/dL (31-37) Red Cell Distribution Width 14.3 % (11.5-14.5) 13.9 % (11.5-14.5) Platelet Count 234 x10^3/uL (140-400) 179 x10^3/uL (140-400) Neutrophils (%) (Auto) 83 % (31-73) 90 % (31-73) Lymphocytes (%) (Auto) 11 % (24-48) 5 % (24-48) Monocytes (%) (Auto) 5 % (0-9) 5 % (0-9) Eosinophils (%) (Auto) 1 % (0-3) 0 % (0-3) Basophils (%) (Auto) 0 % (0-3) 0 % (0-3) Neutrophils # (Auto) 7.1 x10^3uL (1.8-7.7) 10.8 x10^3uL (1.8-7.7) Lymphocytes # (Auto) 0.9 x10^3/uL (1.0-4.8) 0.6 x10^3/uL (1.0-4.8) Monocytes # (Auto) 0.4 x10^3/uL (0.0-1.1) 0.6 x10^3/uL (0.0-1.1) Eosinophils # (Auto) 0.1 x10^3/uL (0.0-0.7) 0.0 x10^3/uL (0.0-0.7) Basophils # (Auto) 0.0 x10^3/uL (0.0-0.2) 0.0 x10^3/uL (0.0-0.2) Sodium Level 134 mmol/L (136-145) 134 mmol/L (136-145) Potassium Level 4.4 mmol/L (3.5-5.1) 4.1 mmol/L (3.5-5.1) Chloride Level 100 mmol/L (98-107) 100 mmol/L (98-107) Carbon Dioxide Level 28 mmol/L (21-32) 27 mmol/L (21-32) Anion Gap 6 (6-14) 7 (6-14) Blood Urea Nitrogen 10 mg/dL (7-20) 20 mg/dL (7-20) Creatinine 0.8 mg/dL (0.6-1.0) 1.1 mg/dL (0.6-1.0) Estimated GFR (Cockcroft-Gault) 69.7 48.3 Glucose Level 92 mg/dL (70-99) 150 mg/dL (70-99) Calcium Level 9.0 mg/dL (8.5-10.1) 8.3 mg/dL (8.5-10.1) Segmented Neutrophils % 85 % (35-66) Band Neutrophils % 7 % (0-9) Lymphocytes % 3 % (24-48) Monocytes % 5 % (0-10) Platelet Estimate Adequate (ADEQUATE) Prothrombin Time 15.9 SEC (11.7-14.0) Prothromb Time International Ratio 1.3 (0.8-1.1) Laboratory Tests Test 12/02/17 03:10 12/02/17 03:15 12/02/17 03:35 Sodium Level 134 mmol/L (136-145) Potassium Level 4.1 mmol/L (3.5-5.1) Chloride Level 100 mmol/L (98-107) Carbon Dioxide Level 27 mmol/L (21-32) Anion Gap 7 (6-14) Blood Urea Nitrogen 20 mg/dL (7-20) Creatinine 1.1 mg/dL (0.6-1.0) Estimated GFR (Cockcroft-Gault) 48.3 Glucose Level 150 mg/dL (70-99) Calcium Level 8.3 mg/dL (8.5-10.1) White Blood Count 11.9 x10^3/uL (4.0-11.0) Red Blood Count 2.76 x10^6/uL (3.50-5.40) Hemoglobin 8.2 g/dL (12.0-15.5) Hematocrit 24.6 % (36.0-47.0) Mean Corpuscular Volume 89 fL (79-100) Mean Corpuscular Hemoglobin 30 pg (25-35) Mean Corpuscular Hemoglobin Concent 33 g/dL (31-37) Red Cell Distribution Width 13.9 % (11.5-14.5) Platelet Count 179 x10^3/uL (140-400) Neutrophils (%) (Auto) 90 % (31-73) Lymphocytes (%) (Auto) 5 % (24-48) Monocytes (%) (Auto) 5 % (0-9) Eosinophils (%) (Auto) 0 % (0-3) Basophils (%) (Auto) 0 % (0-3) Neutrophils # (Auto) 10.8 x10^3uL (1.8-7.7) Lymphocytes # (Auto) 0.6 x10^3/uL (1.0-4.8) Monocytes # (Auto) 0.6 x10^3/uL (0.0-1.1) Eosinophils # (Auto) 0.0 x10^3/uL (0.0-0.7) Basophils # (Auto) 0.0 x10^3/uL (0.0-0.2) Segmented Neutrophils % 85 % (35-66) Band Neutrophils % 7 % (0-9) Lymphocytes % 3 % (24-48) Monocytes % 5 % (0-10) Platelet Estimate Adequate (ADEQUATE) Prothrombin Time 15.9 SEC (11.7-14.0) Prothromb Time International Ratio 1.3 (0.8-1.1) Medications Current Medications Ondansetron HCl (Zofran) 4 mg PRN Q8HRS PRN IV NAUSEA/VOMITING 1ST CHOICE Last administered on 11/30/17at 03:35; Start 11/30/17 at 02:45; Stop 11/30/17 at 09:20; Status DC Morphine Sulfate (Morphine Sulfate) 2 mg PRN Q2HR PRN IV SEVERE PAIN Last administered on 11/30/17at 23:21; Start 11/30/17 at 02:45; Stop 12/01/17 at 02:44; Status DC Ondansetron HCl (Zofran) 4 mg PRN Q6HRS PRN IV NAUSEA/VOMITING 1ST CHOICE; Start 11/30/17 at 09:30; Stop 12/01/17 at 10:16; Status DC Acetaminophen (Tylenol) 500 mg PRN Q6HRS PRN PO TEMP; Start 11/30/17 at 09:30 Oxycodone/ Acetaminophen (Percocet 5/325) 1 tab PRN Q4HRS PRN PO MODERATE PAIN Last administered on 12/02/17at 13:33; Start 11/30/17 at 09:30 Acetaminophen (Tylenol) 500 mg TID PO Last administered on 12/02/17at 13:33; Start 11/30/17 at 14:00 Alprazolam (Xanax) 0.25 mg PRN TID PRN PO ANXIETY; Start 11/30/17 at 09:30 Amlodipine Besylate (Norvasc) 5 mg DAILY PO ; Start 11/30/17 at 10:00; Stop at 08:04; Status DC Guaifenesin (Robitussin) 200 mg PRN Q6HRS PRN PO COUGH; Start 11/30/17 at 09:30 Lisinopril (Prinivil) 40 mg DAILY PO ; Start 11/30/17 at 10:00; Stop 12/02/17 at 08:04; Status DC Calcium Carbonate/ Glycine (Oscal) 1,000 mg BID PO Last administered on at 09:13; Start 11/30/17 at 10:00 Levothyroxine Sodium (Synthroid) 50 mcg DAILY07 PO Last administered on at 09:11; Start 11/30/17 at 10:00 Memantine (Namenda) 10 mg BID PO Last administered on 12/02/17at 09:10; Start 11/30/17 at 10:30 Multivitamins (Thera M Plus) 1 tab DAILY PO Last administered on 12/02/17at 09:13 ; Start 11/30/17 at 10:00 Oxybutynin Chloride (Ditropan) 2.5 mg BID PO Last administered on 12/02/17at 09: 10; Start 11/30/17 at 10:30 Rivastigmine (Exelon) 1 patch DAILY TD Last administered on 12/02/17at 09:15; Start 11/30/17 at 10:00 Piperacillin Sod/ Tazobactam Sod (Zosyn Per Pharmacy) 1 each PRN DAILY PRN MC SEE COMMENTS; Start 11/30/17 at 10:15 Piperacillin Sod/ Tazobactam Sod 2.25 gm/Sodium Chloride 50 ml @ 100 mls/hr Q6HRS IV Last administered on 12/02/17at 13:34; Start 11/30/17 at 12:00 Sodium Chloride 1,000 ml @ 80 mls/hr [id number] IV Last administered on 12/02/17at 09:10; Start 11/30/17 at 12:45 Prochlorperazine Edisylate (Compazine) 5 mg PACU PRN PRN IV NAUSEA, MRX1; Start 12/01/17 at 07:00; Stop 12/01/17 at 15:00; Status DC Lidocaine HCl (Xylocaine-Mpf 1% Vial) 2 ml PRN 1X PRN ID IV START; Start at 07:00; Stop 12/01/17 at 12:00; Status DC Ringer's Solution 1,000 ml @ 30 mls/hr Q24H IV ; Start 12/01/17 at 07:00; Stop 12/01/17 at 11:38; Status DC Morphine Sulfate (Morphine Sulfate) 1 mg PRN Q10MIN PRN IV SEVERE PAIN; Start 12/01/17 at 07:00; Stop 12/01/17 at 15:00; Status DC Fentanyl Citrate (Fentanyl 2ml Vial) 50 mcg PRN Q5MIN PRN IV MODERATE TO SEVERE PAIN; Start 12/01/17 at 07:00; Stop 12/01/17 at 15:00; Status DC Fentanyl Citrate (Fentanyl 2ml Vial) 25 mcg PRN Q5MIN PRN IV MILD PAIN; Start 12/01/17 at 07:00; Stop 12/01/17 at 15:00; Status DC Ondansetron HCl (Zofran) 4 mg PRN Q6HRS PRN IV NAUSEA/VOMITING; Start 12/01/17 at 07:00; Stop 12/01/17 at 15:00; Status DC Rocuronium [place] (Zemuron) 50 mg STK-MED ONCE .ROUTE ; Start 12/01/17 at 07:12 ; Stop 12/01/17 at 07:13; Status DC Propofol 20 ml @ As Directed STK-MED ONCE IV ; Start 12/01/17 at 07:14; Stop 12/01 at 07:16; Status DC Lidocaine HCl (Lidocaine Pf 2% Vial) 5 ml STK-MED ONCE .ROUTE ; Start 12/01/17 at 07:15; Stop 12/01/17 at 07:16; Status DC Ondansetron HCl (Zofran) 4 mg STK-MED ONCE .ROUTE ; Start 12/01/17 at 07:15; Stop 12/01/17 at 07:16; Status DC Phenylephrine HCl (PHENYLEPHRINE in 0.9% NACL PF) 1 mg STK-MED ONCE IV ; Start 12/01/17 at 07:15; Stop 12/01/17 at 07:16; Status DC Morphine Sulfate 5 mg/Ketorolac Tromethamine 30 mg/Ropivacaine 60 ml/ Epinephrine HCl 0.5 mg/Sodium Chloride 100 ml @ 100 mls/hr 1X ONCE INT ART Last administered on 12/01/17at 08:36; Start 12/01/17 at 08:30; Stop 12/01/17 at 09: 29; Status DC Sevoflurane (Ultane) 30 ml STK-MED ONCE IH ; Start 12/01/17 at 08:39; Stop at 08:40; Status DC Dexamethasone Sodium Phosphate (Decadron) 20 mg STK-MED ONCE .ROUTE ; Start 12/01 at 08:39; Stop 12/01/17 at 08:40; Status DC Ketorolac Tromethamine (Toradol For Or Only) 30 mg STK-MED ONCE INJ ; Start 12/01 at 08:49; Stop 12/01/17 at 08:50; Status DC Fentanyl Citrate (Fentanyl 2ml Vial) 100 mcg STK-MED ONCE .ROUTE ; Start at 09:38; Stop 12/01/17 at 09:39; Status DC Oxycodone HCl (Roxicodone) 5 mg PRN Q3HRS PRN PO PAIN; Start 12/01/17 at 10:15 Morphine Sulfate (Morphine Sulfate) 2 mg PRN Q1HR PRN IV PAIN Last administered on 12/02/17at 00:28; Start 12/01/17 at 10:15 Fentanyl Citrate (Fentanyl 2ml Vial) 25 mcg PRN Q1HR PRN IV PAIN; Start at 10:15 Senna/Docusate Sodium (Senna Plus) 1 tab DAILY PO Last administered on at 09:17; Start 12/02/17 at 09:00 Polyethylene Glycol (miraLAX PACKET) 17 gm PRN DAILY PRN PO CONSTIPATION; Start 12/01/17 at 10:15 Ondansetron HCl (Zofran) 4 mg PRN Q4HRS PRN IV NAUSEA/VOMITING Last administered on 12/02/17at 13:43; Start 12/01/17 at 10:15 Warfarin Sodium (Coumadin) 5 mg 1X ONCE PO Last administered on 12/01/17at 17:16 ; Start 12/01/17 at 16:00; Stop 12/01/17 at 16:01; Status DC Warfarin Sodium (Coumadin Per Pharmacy) 1 each PRN DAILY PRN MC SEE COMMENTS Last administered on 12/02/17at 10:32; Start 12/02/17 at 10:15 Magnesium Hydroxide (Milk Of Magnesia) 2,400 mg 1X PRN PRN PO CONSTIPATION; Start 12/02/17 at 06:00; Stop 12/03/17 at 05:59 Bisacodyl (Dulcolax Supp) 10 mg 1X PRN PRN IA CONSTIPATION; Start 12/02/17 at 16 :00; Stop 12/03/17 at 15:59 Acetaminophen/ Hydrocodone Bitart (Lortab 7.5/325) 1 tab PRN Q4HRS PRN PO PAIN ; Start 12/01/17 at 10:15 Dextrose (Dextrose 50%-Water Syringe) 12.5 gm PRN Q15MIN PRN IV SEE COMMENTS; Start 12/01/17 at 10:15 Cefazolin Sodium 1 gm/Dextrose 50 ml @ 100 mls/hr Q6H IV ; Start 12/01/17 at 15: 00; Stop 12/02/17 at 03:29; Status UNV Cefazolin Sodium (Ancef) 1 gm Q6H IVP Last administered on 12/02/17at 06:21; Start 12/01/17 at 15:00; Stop 12/02/17 at 03:01; Status DC Lorazepam (Ativan) 2 mg STK-MED ONCE .ROUTE ; Start 12/01/17 at 23:53; Stop at 23:54; Status DC Lorazepam (Ativan) 2 mg 1X ONCE IM Last administered on 12/02/17at 00:42; Start 12/02/17 at 01:00; Stop 12/02/17 at 01:01; Status DC Lorazepam (Ativan) 1 mg PRN Q4HRS PRN IV ANXIETY / AGITATION Last administered on 12/02/17at 06:27; Start 12/02/17 at 00:30 Haloperidol Lactate (Haldol Inj) 5 mg PRN Q6HRS PRN IVP AGITATION; Start at 00:30 Ketorolac Tromethamine 30 mg/Bupivacaine HCl 20 ml/ Epinephrine HCl 1 mg/ Miscellaneous 43.5 ml @ 522 mls/hr 1X ONCE INT ART Last administered on at 06:15; Start 12/02/17 at 06:00; Stop 12/02/17 at 06:04; Status DC Warfarin Sodium (Coumadin) 2.5 mg 1X WARF ONCE PO ; Start 12/02/17 at 16:00; Stop 12/02/17 at 16:01 Active Scripts Active Reported Robafen (Guaifenesin) 100 Mg/5 Ml Liquid 200 Mg PO PRN Q6HRS PRN Levothyroxine Sodium 50 Mcg Tablet 1 Tab PO DAILY Alprazolam 0.25 Mg Tablet 1 Tab PO TID PRN Acetaminophen 500 Mg Tablet 500 Mg PO TID Namenda (Memantine Hcl) 10 Mg Tablet 1 Tab PO BID Calcium (Calcium Carbonate) 600 Mg Tablet 1,200 Mg PO BID Thera Tablet (Multivitamin with Folic Acid) 400 Mcg Tablet 400 Mcg PO DAILY EXELON 4.6mg/24hr (Rivastigmine) 1 Each Patch.td24 1 Patch TP DAILY Oxybutynin Chloride Er (Oxybutynin Chloride) 5 Mg Tab.er.24 1 Tab PO DAILY Lisinopril 40 Mg Tablet 1 Tab PO DAILY Amlodipine Besylate 5 Mg Tablet 5 Mg PO DAILY Vitals/I & O Vital Sign - Last 24 Hours 12/01/17 12/01/17 12/01/17 12/01/17 14:56 15:00 16:02 17:20 Temp 99.1 99.1 Pulse 75 75 Resp 14 14 B/P (MAP) 95/44 (61) 95/44 (61) Pulse Ox 97 97 98 O2 Delivery Nasal Cannula Nasal Cannula Nasal Cannula O2 Flow Rate 2.0 2.0 2.0 12/01/17 12/01/17 12/01/17 12/02/17 19:00 23:00 23:10 00:10 Temp 97.5 98.4 97.5 98.4 Pulse 92 101 Resp 16 16 B/P (MAP) 127/56 (79) 131/84 (100) Pulse Ox 93 93 O2 Delivery Room Air Room Air Room Air Room Air 12/02/17 12/02/17 12/02/17 12/02/17 00:28 00:58 03:00 06:37 Temp 97.8 97.8 Pulse 72 119 Resp 12 B/P (MAP) 85/42 (56) 139/76 (97) Pulse Ox 96 O2 Delivery Room Air Room Air Room Air 12/02/17 12/02/17 11:00 13:33 Temp 98.0 98.0 Pulse 135 Resp 18 B/P (MAP) 114/73 (87) Pulse Ox 90 O2 Delivery Room Air Room Air Intake and Output 12/01/17 12/01/17 12/02/17 15:00 23:00 07:00 Intake Total 1350 ml 300 ml Output Total 700 ml 350 ml 100 ml Balance 650 ml -50 ml -100 ml LEO ZAIDI MD Dec 02, 2017 14:20
[2017-12-02] MEDS ORDERED: BISACODYL 10 MG SUPP.RECT. PR PRN (16:00)
[2017-12-02] MEDS ORDERED: WARFARIN 2.5 MG TABLET. PO ONE (16:00)
[2017-12-02] MEDS ORDERED: ONDANSETRON PF 4 MG/2 ML VIAL. IV PRN (16:30)
[2017-12-02] MEDS: PROCHLORPERAZINE 10 MG/2 ML VIAL. IV PRN (18:21)
[2017-12-02] MEDS: CHOLECALCIFEROL (VITAMIN D3) 1,000 UNIT TABLET PO SCH (18:21)
[2017-12-02] MEDS ORDERED: IV NORMAL SALINE 250ML 250 ML IV ONE (20:30)
[2017-12-02 20:40] LABS: BASO % 0 % (0-3); EOS % 0 % (0-3); HEMATOCRIT 22.7 % (36.0-47.0); HEMOGLOBIN 7.7 g/dL (12.0-15.5); LYMPH % 10 % (24-48); MEAN CORPUSCULAR HEMOGLOBIN 30 pg (25-35); MEAN CORPUSCULAR HGB CONC 34 g/dL (31-37); MEAN CORPUSCULAR VOLUME 89 fL (79-100); MONO # 0.7 x10^3/uL (0.0-1.1); MONO % 6 % (0-9); NEUT % 84 % (31-73); PLATELET COUNT 177 x10^3/uL (140-400); RED BLOOD COUNT 2.54 x10^6/uL (3.50-5.40); RED CELL DISTRIBUTION WIDTH 14.2 % (11.5-14.5); WHITE BLOOD COUNT 10.8 x10^3/uL (4.0-11.0)
[2017-12-02 21:28] LABS: CALCIUM 8.1 mg/dL (8.5-10.1); GFR 53.9; POTASSIUM 4.1 mmol/L (3.5-5.1)
[2017-12-02] MEDS ORDERED: ERTAPENEM 1GM IVPB FOR OMNI 50 ML IV SCH (21:45)
[2017-12-03] VITALS (11 sets, daily range): BP systolic 112–144; BP diastolic 62–88
[2017-12-03] MEDS: PIPERACILLIN/TAZOBACTAM 2.25 GM in IV NORMAL SALINE 50ML 50 ML IV SCH ×4 (00:39→17:15)
[2017-12-03 01:00] LABS: BASO % 0 % (0-3); EOS # 0.1 x10^3/uL (0.0-0.7); EOS % 1 % (0-3); HEMATOCRIT 21.7 % (36.0-47.0); HEMOGLOBIN 7.4 g/dL (12.0-15.5); LYMPH # 1.3 x10^3/uL (1.0-4.8); LYMPH % 16 % (24-48); MEAN CORPUSCULAR HEMOGLOBIN 30 pg (25-35); MEAN CORPUSCULAR HGB CONC 34 g/dL (31-37); MEAN CORPUSCULAR VOLUME 89 fL (79-100); MONO # 0.5 x10^3/uL (0.0-1.1); MONO % 7 % (0-9); NEUT # 5.9 x10^3uL (1.8-7.7); NEUT % 76 % (31-73); PLATELET COUNT 166 x10^3/uL (140-400); RED BLOOD COUNT 2.44 x10^6/uL (3.50-5.40); RED CELL DISTRIBUTION WIDTH 14.4 % (11.5-14.5); WHITE BLOOD COUNT 7.8 x10^3/uL (4.0-11.0)
[2017-12-03 01:12] LABS: CALCIUM 8.3 mg/dL (8.5-10.1); GFR 53.9; POTASSIUM 4.1 mmol/L (3.5-5.1)
[2017-12-03 01:14] LABS: PROTHROMBIN TIME PATIENT 24.9 SEC (11.7-14.0)
[2017-12-03] MEDS: MORPHINE SULFATE 2 MG/ML DISP.SYRIN. IV PRN ×4 (03:15→15:24)
[2017-12-03] MEDS: IV NORMAL SALINE 1000ML BAG 1,000 ML IV SCH ×2 (03:15→11:52)
--- NOTE | 2017-12-03 07:04 | PDOC ---
Infectious Disease Note Subjective Subjective Smiling. Feels better ROS ROS difficult to ascertain Vital Sign Vital Signs Vital Signs Date Time Temp Pulse Resp B/P (MAP) Pulse Ox O2 Delivery O2 Flow Rate FiO2 12/03/17 03:45 Room Air 12/03/17 03:00 96.4 107 18 134/62 (86) 96 96.4 12/02/17 18:07 2.0 Physical Exam PHYSICAL EXAM GENERAL: Alert, coop. smiling HEENT: Normal conjunctivae. Oral mucosa is pink and dry. LUNGS: Clear to auscultation. HEART: S1 and S2. ABDOMEN: Bowel sounds active but slightly decreased, soft, no grimace or guarding to palpation. GENITOURINARY: Indwelling Delaney in place. EXTREMITIES: No gross edema or cyanosis. Right lateral hip post-op dressing dry /intact. Hemovac and intra-articular cath intact. SKIN: Warm without rash. NEUROLOGIC: Seems less confused. Follows simple commands - opened mouth Labs Lab Laboratory Tests Test 12/02/17 20:20 12/03/17 00:50 White Blood Count 10.8 x10^3/uL (4.0-11.0) 7.8 x10^3/uL (4.0-11.0) Red Blood Count 2.54 x10^6/uL (3.50-5.40) 2.44 x10^6/uL (3.50-5.40) Hemoglobin 7.7 g/dL (12.0-15.5) 7.4 g/dL (12.0-15.5) Hematocrit 22.7 % (36.0-47.0) 21.7 % (36.0-47.0) Mean Corpuscular Volume 89 fL (79-100) 89 fL (79-100) Mean Corpuscular Hemoglobin 30 pg (25-35) 30 pg (25-35) Mean Corpuscular Hemoglobin Concent 34 g/dL (31-37) 34 g/dL (31-37) Red Cell Distribution Width 14.2 % (11.5-14.5) 14.4 % (11.5-14.5) Platelet Count 177 x10^3/uL (140-400) 166 x10^3/uL (140-400) Neutrophils (%) (Auto) 84 % (31-73) 76 % (31-73) Lymphocytes (%) (Auto) 10 % (24-48) 16 % (24-48) Monocytes (%) (Auto) 6 % (0-9) 7 % (0-9) Eosinophils (%) (Auto) 0 % (0-3) 1 % (0-3) Basophils (%) (Auto) 0 % (0-3) 0 % (0-3) Neutrophils # (Auto) 9.0 x10^3uL (1.8-7.7) 5.9 x10^3uL (1.8-7.7) Lymphocytes # (Auto) 1.0 x10^3/uL (1.0-4.8) 1.3 x10^3/uL (1.0-4.8) Monocytes # (Auto) 0.7 x10^3/uL (0.0-1.1) 0.5 x10^3/uL (0.0-1.1) Eosinophils # (Auto) 0.0 x10^3/uL (0.0-0.7) 0.1 x10^3/uL (0.0-0.7) Basophils # (Auto) 0.0 x10^3/uL (0.0-0.2) 0.0 x10^3/uL (0.0-0.2) Sodium Level 135 mmol/L (136-145) 133 mmol/L (136-145) Potassium Level 4.1 mmol/L (3.5-5.1) 4.1 mmol/L (3.5-5.1) Chloride Level 101 mmol/L (98-107) 102 mmol/L (98-107) Carbon Dioxide Level 26 mmol/L (21-32) 26 mmol/L (21-32) Anion Gap 8 (6-14) 5 (6-14) Blood Urea Nitrogen 18 mg/dL (7-20) 16 mg/dL (7-20) Creatinine 1.0 mg/dL (0.6-1.0) 1.0 mg/dL (0.6-1.0) Estimated GFR (Cockcroft-Gault) 53.9 53.9 Glucose Level 107 mg/dL (70-99) 92 mg/dL (70-99) Lactic Acid Level 2.2 mmol/L (0.4-2.0) 1.2 mmol/L (0.4-2.0) Calcium Level 8.1 mg/dL (8.5-10.1) 8.3 mg/dL (8.5-10.1) Prothrombin Time 24.9 SEC (11.7-14.0) Prothromb Time International Ratio 2.3 (0.8-1.1) Micro Microbiology 12/01/17 Blood Culture - Preliminary, Resulted NO GROWTH AFTER 1 DAY 11/30/17 Urine Culture - Preliminary, Resulted 11/30/17 Urine Culture Result 1 ([facility]) - Preliminary, Resulted Objective Assessment Fever - improved. ? post op vs ID Pyuria -h/o E. coli-pansensitive in urine from 11/11. D/w LMH micro now with Ecoli from 11/30 Bandemia - from fracture/UTI/steroids Right hip fracture following a fall. s/p Right hip hemiarthroplasty on 12/01 Dementia Overactive bladder - on oxybutynin Hypothyroidism Hypertension Warfarin therapy Plan Plan of Care Continue Zosyn f/u sensitivities s/p Decadron in OR BC UC pending Monitor temp/lab values Supportive care D/w MELISSA ARNDT MD Dec 03, 2017 07:04
[2017-12-03] MEDS: LEVOTHYROXINE 50 MCG TABLET PO SCH (07:25)
[2017-12-03] MEDS: RIVASTIGMINE 4.6MG PATCH. TD SCH (08:33)
[2017-12-03] MEDS: MEMANTINE 10 MG TABLET. PO SCH ×2 (08:34→20:23)
[2017-12-03] MEDS: SENNOSIDES/DOCUSATE 8.6/50MG TABLET. PO SCH ×2 (08:34→20:28)
[2017-12-03] MEDS: ACETAMINOPHEN 500 MG TABLET PO SCH ×3 (08:34→20:24)
[2017-12-03] MEDS: CHOLECALCIFEROL (VITAMIN D3) 1,000 UNIT TABLET PO SCH (08:34)
[2017-12-03] MEDS: CALCIUM CARBONATE 500 MG TABLET PO SCH ×2 (08:34→20:24)
[2017-12-03] MEDS: MULTIVITAMIN with MINERAL TABLET. PO SCH (08:34)
[2017-12-03] MEDS: OXYBUTYNIN CHLORIDE 5 MG TABLET PO SCH ×2 (08:35→20:24)
[2017-12-03] MEDS ORDERED: MAGNESIUM HYDROXIDE 2,400 MG/30 ML ORAL.SUSP. PO PRN (11:15)
[2017-12-03] MEDS: DOCUSATE SODIUM 100 MG CAPSULE. PO SCH ×2 (11:52→20:23)
--- NOTE | 2017-12-03 12:49 | PDOC ---
PROGRESS NOTES Chief Complaint Chief Complaint Right hip fracture, after a fall s/p R hip carina arthroplasry -11/30/17 fevers with possible UTI Fall mechanical traumatic Hypertension now hypotension History of complicated UTI Hypothyroidism on Synthroid Dyslipidemia statin vitd deficiency [facility] resident Significant dementia constipation anemia, post op plan: fu with ID, on zosyn, fu ucx + pseudomonas, hope change to po soon fu with ortho has wound vac on ptot dc HTN meds cont IVF, decreased to 80cc/h, add 1u PRBC transfusion, iron po dvt ppx with coumadin as per ortho, INR daily told nurse to verify code status with family when available add vitd add stool softner dc in 1-2 ds. History of Present Illness History of Present Illness severe demented, arousable, but not follow commands or answer questions rt leg s/p sx, has wound vac on, 50cc low BP better, hb 7.7 low po intake afebrile, fever /, still tachycardia some abd pain early today, now no pain, + gas, last BM 3ds ago ROS: no fever, chills, sob or chest pain Vitals Vitals Vital Signs Date Time Temp Pulse Resp B/P (MAP) Pulse Ox O2 Delivery O2 Flow Rate FiO2 12/03/17 12:03 18 Room Air 12/03/17 11:03 98.6 120 132/66 (88) 92 98.6 12/02/17 18:07 2.0 Physical Exam Physical Exam GENERAL: Alert, coop. smiling HEENT: Normal conjunctivae. Oral mucosa is pink and dry. LUNGS: Clear to auscultation. HEART: S1 and S2. ABDOMEN: Bowel sounds active soft, no grimace or guarding to palpation. mild distended. GENITOURINARY: Indwelling Delaney in place. EXTREMITIES: No gross edema or cyanosis. Right lateral hip post-op dressing dry /intact. Hemovac and intra-articular cath intact. SKIN: Warm without rash. NEUROLOGIC: Seems less confused. Follows simple commands - opened mouth General: No acute distress Heart: Regular rate, Normal S1, Normal S2 Lungs: Clear Abdomen: Normal bowel sounds, Soft, No tenderness, No hepatosplenomegaly, No masses Extremities: Other (right leg is externally rotated) Skin: No rashes, No breakdown, No significant lesion Labs LABS Laboratory Tests Test 12/02/17 20:20 8/7/18 00:50 White Blood Count 10.8 x10^3/uL (4.0-11.0) 7.8 x10^3/uL (4.0-11.0) Red Blood Count 2.54 x10^6/uL (3.50-5.40) 2.44 x10^6/uL (3.50-5.40) Hemoglobin 7.7 g/dL (12.0-15.5) 7.4 g/dL (12.0-15.5) Hematocrit 22.7 % (36.0-47.0) 21.7 % (36.0-47.0) Mean Corpuscular Volume 89 fL (79-100) 89 fL (79-100) Mean Corpuscular Hemoglobin 30 pg (25-35) 30 pg (25-35) Mean Corpuscular Hemoglobin Concent 34 g/dL (31-37) 34 g/dL (31-37) Red Cell Distribution Width 14.2 % (11.5-14.5) 14.4 % (11.5-14.5) Platelet Count 177 x10^3/uL (140-400) 166 x10^3/uL (140-400) Neutrophils (%) (Auto) 84 % (31-73) 76 % (31-73) Lymphocytes (%) (Auto) 10 % (24-48) 16 % (24-48) Monocytes (%) (Auto) 6 % (0-9) 7 % (0-9) Eosinophils (%) (Auto) 0 % (0-3) 1 % (0-3) Basophils (%) (Auto) 0 % (0-3) 0 % (0-3) Neutrophils # (Auto) 9.0 x10^3uL (1.8-7.7) 5.9 x10^3uL (1.8-7.7) Lymphocytes # (Auto) 1.0 x10^3/uL (1.0-4.8) 1.3 x10^3/uL (1.0-4.8) Monocytes # (Auto) 0.7 x10^3/uL (0.0-1.1) 0.5 x10^3/uL (0.0-1.1) Eosinophils # (Auto) 0.0 x10^3/uL (0.0-0.7) 0.1 x10^3/uL (0.0-0.7) Basophils # (Auto) 0.0 x10^3/uL (0.0-0.2) 0.0 x10^3/uL (0.0-0.2) Sodium Level 135 mmol/L (136-145) 133 mmol/L (136-145) Potassium Level 4.1 mmol/L (3.5-5.1) 4.1 mmol/L (3.5-5.1) Chloride Level 101 mmol/L (98-107) 102 mmol/L (98-107) Carbon Dioxide Level 26 mmol/L (21-32) 26 mmol/L (21-32) Anion Gap 8 (6-14) 5 (6-14) Blood Urea Nitrogen 18 mg/dL (7-20) 16 mg/dL (7-20) Creatinine 1.0 mg/dL (0.6-1.0) 1.0 mg/dL (0.6-1.0) Estimated GFR (Cockcroft-Gault) 53.9 53.9 Glucose Level 107 mg/dL (70-99) 92 mg/dL (70-99) Lactic Acid Level 2.2 mmol/L (0.4-2.0) 1.2 mmol/L (0.4-2.0) Calcium Level 8.1 mg/dL (8.5-10.1) 8.3 mg/dL (8.5-10.1) Prothrombin Time 24.9 SEC (11.7-14.0) Prothromb Time International Ratio 2.3 (0.8-1.1) Comment Review of Relevant I have reviewed the following items fabian (where applicable) has been applied. Labs Laboratory Tests Test 12/02/17 03:10 12/02/17 03:15 12/02/17 03:35 12/02/17 20:20 Sodium Level 134 mmol/L (136-145) 135 mmol/L (136-145) Potassium Level 4.1 mmol/L (3.5-5.1) 4.1 mmol/L (3.5-5.1) Chloride Level 100 mmol/L (98-107) 101 mmol/L (98-107) Carbon Dioxide Level 27 mmol/L (21-32) 26 mmol/L (21-32) Anion Gap 7 (6-14) 8 (6-14) Blood Urea Nitrogen 20 mg/dL (7-20) 18 mg/dL (7-20) Creatinine 1.1 mg/dL (0.6-1.0) 1.0 mg/dL (0.6-1.0) Estimated GFR (Cockcroft-Gault) 48.3 53.9 Glucose Level 150 mg/dL (70-99) 107 mg/dL (70-99) Calcium Level 8.3 mg/dL (8.5-10.1) 8.1 mg/dL (8.5-10.1) White Blood Count 11.9 x10^3/uL (4.0-11.0) 10.8 x10^3/uL (4.0-11.0) Red Blood Count 2.76 x10^6/uL (3.50-5.40) 2.54 x10^6/uL (3.50-5.40) Hemoglobin 8.2 g/dL (12.0-15.5) 7.7 g/dL (12.0-15.5) Hematocrit 24.6 % (36.0-47.0) 22.7 % (36.0-47.0) Mean Corpuscular Volume 89 fL (79-100) 89 fL (79-100) Mean Corpuscular Hemoglobin 30 pg (25-35) 30 pg (25-35) Mean Corpuscular Hemoglobin Concent 33 g/dL (31-37) 34 g/dL (31-37) Red Cell Distribution Width 13.9 % (11.5-14.5) 14.2 % (11.5-14.5) Platelet Count 179 x10^3/uL (140-400) 177 x10^3/uL (140-400) Neutrophils (%) (Auto) 90 % (31-73) 84 % (31-73) Lymphocytes (%) (Auto) 5 % (24-48) 10 % (24-48) Monocytes (%) (Auto) 5 % (0-9) 6 % (0-9) Eosinophils (%) (Auto) 0 % (0-3) 0 % (0-3) Basophils (%) (Auto) 0 % (0-3) 0 % (0-3) Neutrophils # (Auto) 10.8 x10^3uL (1.8-7.7) 9.0 x10^3uL (1.8-7.7) Lymphocytes # (Auto) 0.6 x10^3/uL (1.0-4.8) 1.0 x10^3/uL (1.0-4.8) Monocytes # (Auto) 0.6 x10^3/uL (0.0-1.1) 0.7 x10^3/uL (0.0-1.1) Eosinophils # (Auto) 0.0 x10^3/uL (0.0-0.7) 0.0 x10^3/uL (0.0-0.7) Basophils # (Auto) 0.0 x10^3/uL (0.0-0.2) 0.0 x10^3/uL (0.0-0.2) Segmented Neutrophils % 85 % (35-66) Band Neutrophils % 7 % (0-9) Lymphocytes % 3 % (24-48) Monocytes % 5 % (0-10) Platelet Estimate Adequate (ADEQUATE) Prothrombin Time 15.9 SEC (11.7-14.0) Prothromb Time International Ratio 1.3 (0.8-1.1) Lactic Acid Level 2.2 mmol/L (0.4-2.0) Test 12/03/17 00:50 White Blood Count 7.8 x10^3/uL (4.0-11.0) Red Blood Count 2.44 x10^6/uL (3.50-5.40) Hemoglobin 7.4 g/dL (12.0-15.5) Hematocrit 21.7 % (36.0-47.0) Mean Corpuscular Volume 89 fL (79-100) Mean Corpuscular Hemoglobin 30 pg (25-35) Mean Corpuscular Hemoglobin Concent 34 g/dL (31-37) Red Cell Distribution Width 14.4 % (11.5-14.5) Platelet Count 166 x10^3/uL (140-400) Neutrophils (%) (Auto) 76 % (31-73) Lymphocytes (%) (Auto) 16 % (24-48) Monocytes (%) (Auto) 7 % (0-9) Eosinophils (%) (Auto) 1 % (0-3) Basophils (%) (Auto) 0 % (0-3) Neutrophils # (Auto) 5.9 x10^3uL (1.8-7.7) Lymphocytes # (Auto) 1.3 x10^3/uL (1.0-4.8) Monocytes # (Auto) 0.5 x10^3/uL (0.0-1.1) Eosinophils # (Auto) 0.1 x10^3/uL (0.0-0.7) Basophils # (Auto) 0.0 x10^3/uL (0.0-0.2) Prothrombin Time 24.9 SEC (11.7-14.0) Prothromb Time International Ratio 2.3 (0.8-1.1) Sodium Level 133 mmol/L (136-145) Potassium Level 4.1 mmol/L (3.5-5.1) Chloride Level 102 mmol/L (98-107) Carbon Dioxide Level 26 mmol/L (21-32) Anion Gap 5 (6-14) Blood Urea Nitrogen 16 mg/dL (7-20) Creatinine 1.0 mg/dL (0.6-1.0) Estimated GFR (Cockcroft-Gault) 53.9 Glucose Level 92 mg/dL (70-99) Lactic Acid Level 1.2 mmol/L (0.4-2.0) Calcium Level 8.3 mg/dL (8.5-10.1) Laboratory Tests Test 12/02/17 20:20 12/03/17 00:50 White Blood Count 10.8 x10^3/uL (4.0-11.0) 7.8 x10^3/uL (4.0-11.0) Red Blood Count 2.54 x10^6/uL (3.50-5.40) 2.44 x10^6/uL (3.50-5.40) Hemoglobin 7.7 g/dL (12.0-15.5) 7.4 g/dL (12.0-15.5) Hematocrit 22.7 % (36.0-47.0) 21.7 % (36.0-47.0) Mean Corpuscular Volume 89 fL (79-100) 89 fL (79-100) Mean Corpuscular Hemoglobin 30 pg (25-35) 30 pg (25-35) Mean Corpuscular Hemoglobin Concent 34 g/dL (31-37) 34 g/dL (31-37) Red Cell Distribution Width 14.2 % (11.5-14.5) 14.4 % (11.5-14.5) Platelet Count 177 x10^3/uL (140-400) 166 x10^3/uL (140-400) Neutrophils (%) (Auto) 84 % (31-73) 76 % (31-73) Lymphocytes (%) (Auto) 10 % (24-48) 16 % (24-48) Monocytes (%) (Auto) 6 % (0-9) 7 % (0-9) Eosinophils (%) (Auto) 0 % (0-3) 1 % (0-3) Basophils (%) (Auto) 0 % (0-3) 0 % (0-3) Neutrophils # (Auto) 9.0 x10^3uL (1.8-7.7) 5.9 x10^3uL (1.8-7.7) Lymphocytes # (Auto) 1.0 x10^3/uL (1.0-4.8) 1.3 x10^3/uL (1.0-4.8) Monocytes # (Auto) 0.7 x10^3/uL (0.0-1.1) 0.5 x10^3/uL (0.0-1.1) Eosinophils # (Auto) 0.0 x10^3/uL (0.0-0.7) 0.1 x10^3/uL (0.0-0.7) Basophils # (Auto) 0.0 x10^3/uL (0.0-0.2) 0.0 x10^3/uL (0.0-0.2) Sodium Level 135 mmol/L (136-145) 133 mmol/L (136-145) Potassium Level 4.1 mmol/L (3.5-5.1) 4.1 mmol/L (3.5-5.1) Chloride Level 101 mmol/L (98-107) 102 mmol/L (98-107) Carbon Dioxide Level 26 mmol/L (21-32) 26 mmol/L (21-32) Anion Gap 8 (6-14) 5 (6-14) Blood Urea Nitrogen 18 mg/dL (7-20) 16 mg/dL (7-20) Creatinine 1.0 mg/dL (0.6-1.0) 1.0 mg/dL (0.6-1.0) Estimated GFR (Cockcroft-Gault) 53.9 53.9 Glucose Level 107 mg/dL (70-99) 92 mg/dL (70-99) Lactic Acid Level 2.2 mmol/L (0.4-2.0) 1.2 mmol/L (0.4-2.0) Calcium Level 8.1 mg/dL (8.5-10.1) 8.3 mg/dL (8.5-10.1) Prothrombin Time 24.9 SEC (11.7-14.0) Prothromb Time International Ratio 2.3 (0.8-1.1) Microbiology 12/01/17 Blood Culture - Preliminary, Resulted NO GROWTH AFTER 1 DAY 11/30/17 Urine Culture - Final, Complete 11/30/17 Urine Culture Result 1 (OLGA) - Final, Complete 11/30/17 Antimicrobic Susceptibility - Final, Complete Medications Current Medications Ondansetron HCl (Zofran) 4 mg PRN Q8HRS PRN IV NAUSEA/VOMITING 1ST CHOICE Last administered on 11/30/17at 03:35; Start 11/30/17 at 02:45; Stop 11/30/17 at 09:20; Status DC Morphine Sulfate (Morphine Sulfate) 2 mg PRN Q2HR PRN IV SEVERE PAIN Last administered on 11/30/17at 23:21; Start 11/30/17 at 02:45; Stop 12/01/17 at 02:44; Status DC Ondansetron HCl (Zofran) 4 mg PRN Q6HRS PRN IV NAUSEA/VOMITING 1ST CHOICE; Start 11/30/17 at 09:30; Stop 12/01/17 at 10:16; Status DC Acetaminophen (Tylenol) 500 mg PRN Q6HRS PRN PO TEMP; Start 11/30/17 at 09:30 Oxycodone/ Acetaminophen (Percocet 5/325) 1 tab PRN Q4HRS PRN PO MODERATE PAIN Last administered on 12/02/17at 13:33; Start 11/30/17 at 09:30 Acetaminophen (Tylenol) 500 mg TID PO Last administered on 12/03/17at 08:34; Start 11/30/17 at 14:00 Alprazolam (Xanax) 0.25 mg PRN TID PRN PO ANXIETY; Start 11/30/17 at 09:30 Amlodipine Besylate (Norvasc) 5 mg DAILY PO ; Start 11/30/17 at 10:00; Stop at 08:04; Status DC Guaifenesin (Robitussin) 200 mg PRN Q6HRS PRN PO COUGH; Start 11/30/17 at 09:30 Lisinopril (Prinivil) 40 mg DAILY PO ; Start 11/30/17 at 10:00; Stop 12/02/17 at 08:04; Status DC Calcium Carbonate/ Glycine (Oscal) 1,000 mg BID PO Last administered on at 08:34; Start 11/30/17 at 10:00 Levothyroxine Sodium (Synthroid) 50 mcg DAILY07 PO Last administered on at 07:25; Start 11/30/17 at 10:00 Memantine (Namenda) 10 mg BID PO Last administered on 12/03/17 08:34; Start 11/30/17 at 10:30 Multivitamins (Thera M Plus) 1 tab DAILY PO Last administered on 12/03/17 08:34 ; Start 11/30/17 at 10:00 Oxybutynin Chloride (Ditropan) 2.5 mg BID PO Last administered on 12/03/17at 08: 35; Start 11/30/17 at 10:30 Rivastigmine (Exelon) 1 patch DAILY TD Last administered on 12/03/17at 08:33; Start 11/30/17 at 10:00 Piperacillin Sod/ Tazobactam Sod (Zosyn Per Pharmacy) 1 each PRN DAILY PRN MC SEE COMMENTS; Start 11/30/17 at 10:15 Piperacillin Sod/ Tazobactam Sod 2.25 gm/Sodium Chloride 50 ml @ 100 mls/hr Q6HRS IV Last administered on 12/02/17at 18:21; Start 11/30/17 at 12:00; Stop 12/02 at 21:38; Status DC Sodium Chloride 1,000 ml @ 80 mls/hr [id number] IV Last administered on 12/02/17at 09:10; Start 11/30/17 at 12:45; Stop 12/02/17 at 22:01; Status DC Prochlorperazine Edisylate (Compazine) 5 mg PACU PRN PRN IV NAUSEA, MRX1; Start 12/01/17 at 07:00; Stop 12/01/17 at 15:00; Status DC Lidocaine HCl (Xylocaine-Mpf 1% Vial) 2 ml PRN 1X PRN ID IV START; Start at 07:00; Stop 12/01/17 at 12:00; Status DC Ringer's Solution 1,000 ml @ 30 mls/hr Q24H IV ; Start 12/01/17 at 07:00; Stop 12/01/17 at 11:38; Status DC Morphine Sulfate (Morphine Sulfate) 1 mg PRN Q10MIN PRN IV SEVERE PAIN; Start 12/01/17 at 07:00; Stop 12/01/17 at 15:00; Status DC Fentanyl Citrate (Fentanyl 2ml Vial) 50 mcg PRN Q5MIN PRN IV MODERATE TO SEVERE PAIN; Start 12/01/17 at 07:00; Stop 12/01/17 at 15:00; Status DC Fentanyl Citrate (Fentanyl 2ml Vial) 25 mcg PRN Q5MIN PRN IV MILD PAIN; Start 12/01/17 at 07:00; Stop 12/01/17 at 15:00; Status DC Ondansetron HCl (Zofran) 4 mg PRN Q6HRS PRN IV NAUSEA/VOMITING; Start 12/01/17 at 07:00; Stop 12/01/17 at 15:00; Status DC Rocuronium [place] (Zemuron) 50 mg STK-MED ONCE .ROUTE ; Start 12/01/17 at 07:12 ; Stop 12/01/17 at 07:13; Status DC Propofol 20 ml @ As Directed STK-MED ONCE IV ; Start 12/01/17 at 07:14; Stop 12/01 at 07:16; Status DC Lidocaine HCl (Lidocaine Pf 2% Vial) 5 ml STK-MED ONCE .ROUTE ; Start 12/01/17 at 07:15; Stop 12/01/17 at 07:16; Status DC Ondansetron HCl (Zofran) 4 mg STK-MED ONCE .ROUTE ; Start 12/01/17 at 07:15; Stop 12/01/17 at 07:16; Status DC Phenylephrine HCl (PHENYLEPHRINE in 0.9% NACL PF) 1 mg STK-MED ONCE IV ; Start 12/01/17 at 07:15; Stop 12/01/17 at 07:16; Status DC Morphine Sulfate 5 mg/Ketorolac Tromethamine 30 mg/Ropivacaine 60 ml/ Epinephrine HCl 0.5 mg/Sodium Chloride 100 ml @ 100 mls/hr 1X ONCE INT ART Last administered on 12/01/17at 08:36; Start 12/01/17 at 08:30; Stop 12/01/17 at 09: 29; Status DC Sevoflurane (Ultane) 30 ml STK-MED ONCE IH ; Start 12/01/17 at 08:39; Stop at 08:40; Status DC Dexamethasone Sodium Phosphate (Decadron) 20 mg STK-MED ONCE .ROUTE ; Start 12/01 at 08:39; Stop 12/01/17 at 08:40; Status DC Ketorolac Tromethamine (Toradol For Or Only) 30 mg STK-MED ONCE INJ ; Start 12/01 at 08:49; Stop 12/01/17 at 08:50; Status DC Fentanyl Citrate (Fentanyl 2ml Vial) 100 mcg STK-MED ONCE .ROUTE ; Start at 09:38; Stop 12/01/17 at 09:39; Status DC Oxycodone HCl (Roxicodone) 5 mg PRN Q3HRS PRN PO PAIN; Start 12/01/17 at 10:15 Morphine Sulfate (Morphine Sulfate) 2 mg PRN Q1HR PRN IV PAIN Last administered on 12/03/17at 12:03; Start 12/01/17 at 10:15 Fentanyl Citrate (Fentanyl 2ml Vial) 25 mcg PRN Q1HR PRN IV PAIN; Start at 10:15 Senna/Docusate Sodium (Senna Plus) 1 tab DAILY PO Last administered on at 08:34; Start 12/02/17 at 09:00 Polyethylene Glycol (miraLAX PACKET) 17 gm PRN DAILY PRN PO CONSTIPATION; Start 12/01/17 at 10:15 Ondansetron HCl (Zofran) 4 mg PRN Q4HRS PRN IV NAUSEA/VOMITING Last administered on 12/02/17at 13:43; Start 12/01/17 at 10:15; Stop 12/02/17 at 16:31; Status DC Warfarin Sodium (Coumadin) 5 mg 1X ONCE PO Last administered on 12/01/17at 17:16 ; Start 12/01/17 at 16:00; Stop 12/01/17 at 16:01; Status DC Warfarin Sodium (Coumadin Per Pharmacy) 1 each PRN DAILY PRN MC SEE COMMENTS Last administered on 12/02/17at 10:32; Start 12/02/17 at 10:15 Magnesium Hydroxide (Milk Of Magnesia) 2,400 mg 1X PRN PRN PO CONSTIPATION; Start 12/02/17 at 06:00; Stop 12/03/17 at 06:00; Status DC Bisacodyl (Dulcolax Supp) 10 mg 1X PRN PRN [place] CONSTIPATION; Start 12/02/17 at 16 :00; Stop 12/03/17 at 15:59 Acetaminophen/ Hydrocodone Bitart (Lortab 7.5/325) 1 tab PRN Q4HRS PRN PO PAIN ; Start 12/01/17 at 10:15 Dextrose (Dextrose 50%-Water Syringe) 12.5 gm PRN Q15MIN PRN IV SEE COMMENTS; Start 12/01/17 at 10:15 Cefazolin Sodium 1 gm/Dextrose 50 ml @ 100 mls/hr Q6H IV ; Start 12/01/17 at 15: 00; Stop 12/02/17 at 03:29; Status UNV Cefazolin Sodium (Ancef) 1 gm Q6H IVP Last administered on 12/02/17at 06:21; Start 12/01/17 at 15:00; Stop 12/02/17 at 03:01; Status DC Lorazepam (Ativan) 2 mg STK-MED ONCE .ROUTE ; Start 12/01/17 at 23:53; Stop at 23:54; Status DC Lorazepam (Ativan) 2 mg 1X ONCE IM Last administered on 12/02/17at 00:42; Start 12/02/17 at 01:00; Stop 12/02/17 at 01:01; Status DC Lorazepam (Ativan) 1 mg PRN Q4HRS PRN IV ANXIETY / AGITATION Last administered on 12/02/17at 06:27; Start 12/02/17 at 00:30 Haloperidol Lactate (Haldol Inj) 5 mg PRN Q6HRS PRN IVP AGITATION; Start at 00:30 Ketorolac Tromethamine 30 mg/Bupivacaine HCl 20 ml/ Epinephrine HCl 1 mg/ Miscellaneous 43.5 ml @ 522 mls/hr 1X ONCE INT ART Last administered on at 06:15; Start 12/02/17 at 06:00; Stop 12/02/17 at 06:04; Status DC Warfarin Sodium (Coumadin) 2.5 mg 1X WARF ONCE PO Last administered on at 18:20; Start 12/02/17 at 16:00; Stop 12/02/17 at 16:01; Status DC Vitamin D (Vitamin D3) 1,000 unit DAILY PO Last administered on 12/03/17at 08:34 ; Start 12/02/17 at 15:00 Ondansetron HCl (Zofran) 4 mg PRN Q6HRS PRN IV NAUSEA/VOMITING 1ST CHOICE Last administered on 12/03/17at 12:01; Start 12/02/17 at 16:30 Prochlorperazine Edisylate (Compazine) 10 mg PRN Q6HRS PRN IV NAUSEA/VOMITING 2ND CHOICE Last administered on 12/02/17at 18:21; Start 12/02/17 at 18:00 Sodium Chloride 250 ml @ 250 mls/hr 1X ONCE IV Last administered on 12/02/17at 20:30; Start 12/02/17 at 20:30; Stop 12/02/17 at 21:29; Status DC Sodium Chloride 1,000 ml @ 125 mls/hr Q8H IV Last administered on 12/03/17at 11: 52; Start 12/02/17 at 20:30 Ertapenem 50 ml @ 100 mls/hr DAILY IV ; Start 12/02/17 at 21:45; Status UNV Piperacillin Sod/ Tazobactam Sod 2.25 gm/Sodium Chloride 50 ml @ 100 mls/hr Q6HRS IV Last administered on 12/03/17at 11:48; Start 12/03/17 at 00:00 Lactobacillus Rhamnosus (Culturelle) 1 cap BID PO ; Start 12/03/17 at 21:00 Senna/Docusate Sodium (Senna Plus) 1 tab BID PO ; Start 12/03/17 at 21:00 Docusate Sodium (Colace) 100 mg BID PO Last administered on 12/03/17at 11:52; Start 12/03/17 at 11:00 Magnesium Hydroxide (Milk Of Magnesia) 2,400 mg PRN Q12HR PRN PO CONSTIPATION; Start 12/03/17 at 11:15 Ferrous Sulfate (Feosol) 325 mg BID PO ; Start 12/03/17 at 21:00 Active Scripts Active Reported Robafen (Guaifenesin) 100 Mg/5 Ml Liquid 200 Mg PO PRN Q6HRS PRN Levothyroxine Sodium 50 Mcg Tablet 1 Tab PO DAILY Alprazolam 0.25 Mg Tablet 1 Tab PO TID PRN Acetaminophen 500 Mg Tablet 500 Mg PO TID Namenda (Memantine Hcl) 10 Mg Tablet 1 Tab PO BID Calcium (Calcium Carbonate) 600 Mg Tablet 1,200 Mg PO BID Thera Tablet (Multivitamin with Folic Acid) 400 Mcg Tablet 400 Mcg PO DAILY EXELON 4.6mg/24hr (Rivastigmine) 1 Each Patch.td24 1 Patch TP DAILY Oxybutynin Chloride Er (Oxybutynin Chloride) 5 Mg Tab.er.24 1 Tab PO DAILY Lisinopril 40 Mg Tablet 1 Tab PO DAILY Amlodipine Besylate 5 Mg Tablet 5 Mg PO DAILY Vitals/I & O Vital Sign - Last 24 Hours 12/02/17 12/02/17 12/02/17 12/02/17 13:33 14:52 15:00 15:19 Temp 97.9 97.9 Pulse 113 Resp 18 B/P (MAP) 100/58 (72) Pulse Ox 90 O2 Delivery Room Air Room Air Room Air Room Air 12/02/17 12/02/17 12/02/17 12/03/17 18:07 19:00 23:00 03:00 Temp 97.9 97.5 97.7 96.4 97.9 97.5 97.7 96.4 Pulse 113 117 80 107 Resp 18 18 18 B/P (MAP) 100/58 (72) 92/53 (66) 92/53 (66) 134/62 (86) Pulse Ox 90 93 94 96 O2 Delivery Room Air Room Air Room Air Room Air O2 Flow Rate 2.0 12/03/17 12/03/17 12/03/17 12/03/17 03:15 07:00 07:26 07:56 Temp 98.5 98.5 Pulse 107 Resp B/P (MAP) 112/71 (85) Pulse Ox 91 O2 Delivery Room Air Room Air Room Air Room Air 12/03/17 12/03/17 12/03/17 08:00 11:03 12:03 Temp 98.6 98.6 Pulse 120 Resp 18 B/P (MAP) 132/66 (88) Pulse Ox 92 O2 Delivery Room Air Room Air Room Air Intake and Output 12/02/17 12/02/17 12/03/17 15:00 23:00 07:00 Intake Total 1100 ml Output Total 300 ml 300 ml Balance 1100 ml -300 ml -300 ml LEO ZAIDI MD Dec 03, 2017 12:49
[2017-12-03] MEDS: PROCHLORPERAZINE 10 MG/2 ML VIAL. IV PRN (15:24)
[2017-12-03 18:10] LABS: HEMATOCRIT 32.7 % (36.0-47.0); HEMOGLOBIN 10.8 g/dL (12.0-15.5)
[2017-12-03] MEDS: FERROUS SULFATE 325 MG TABLET. PO SCH (20:23)
[2017-12-03] MEDS: LACTOBACILLUS RHAMNOSUS GG 1 CAPSULE. PO SCH (20:23)
[2017-12-04] MEDS: PIPERACILLIN/TAZOBACTAM 2.25 GM in IV NORMAL SALINE 50ML 50 ML IV SCH ×2 (00:39→06:05)
[2017-12-04] MEDS: IV NORMAL SALINE 1000ML BAG 1,000 ML IV SCH ×2 (00:39→13:21)
[2017-12-04 03:00] VITALS: BP 134/75
[2017-12-04 05:06] LABS: BASO % 0 % (0-3); EOS # 0.1 x10^3/uL (0.0-0.7); EOS % 1 % (0-3); HEMATOCRIT 31.4 % (36.0-47.0); HEMOGLOBIN 10.7 g/dL (12.0-15.5); LYMPH % 10 % (24-48); MEAN CORPUSCULAR HEMOGLOBIN 30 pg (25-35); MEAN CORPUSCULAR HGB CONC 34 g/dL (31-37); MEAN CORPUSCULAR VOLUME 87 fL (79-100); MONO # 0.5 x10^3/uL (0.0-1.1); MONO % 6 % (0-9); NEUT % 83 % (31-73); PLATELET COUNT 230 x10^3/uL (140-400); RED BLOOD COUNT 3.63 x10^6/uL (3.50-5.40); RED CELL DISTRIBUTION WIDTH 15.6 % (11.5-14.5); WHITE BLOOD COUNT 9.7 x10^3/uL (4.0-11.0)
[2017-12-04 05:28] LABS: CREATININE 0.8 mg/dL (0.6-1.0); GFR 69.7
[2017-12-04 07:00] VITALS: BP 146/93
[2017-12-04] MEDS: HALOPERIDOL LACTATE 5 MG/ML VIAL. IVP PRN ×2 (08:19→16:48)
--- NOTE | 2017-12-04 08:20 | PDOC ---
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 LUNGS: Clear to auscultation. HEART: S1 and S2. ABDOMEN: Bowel sounds active soft, no grimace or guarding to palpation. mild distended. GENITOURINARY: Indwelling John in place. EXTREMITIES: No gross edema or cyanosis. Right lateral hip post-op dressing dry /intact SKIN: Warm without rash. NEUROLOGIC: Confused. Follows but follows simple commands. A little agitated Labs Lab Laboratory Tests Test 12/03/17 17:55 12/04/17 04:15 Hemoglobin 10.8 g/dL (12.0-15.5) 10.7 g/dL (12.0-15.5) Hematocrit 32.7 % (36.0-47.0) 31.4 % (36.0-47.0) White Blood Count 9.7 x10^3/uL (4.0-11.0) Red Blood Count 3.63 x10^6/uL (3.50-5.40) Mean Corpuscular Volume 87 fL (79-100) Mean Corpuscular Hemoglobin 30 pg (25-35) Mean Corpuscular Hemoglobin Concent 34 g/dL (31-37) Red Cell Distribution Width 15.6 % (11.5-14.5) Platelet Count 230 x10^3/uL (140-400) Neutrophils (%) (Auto) 83 % (31-73) Lymphocytes (%) (Auto) 10 % (24-48) Monocytes (%) (Auto) 6 % (0-9) Eosinophils (%) (Auto) 1 % (0-3) Basophils (%) (Auto) 0 % (0-3) Neutrophils # (Auto) 8.0 x10^3uL (1.8-7.7) Lymphocytes # (Auto) 1.0 x10^3/uL (1.0-4.8) Monocytes # (Auto) 0.5 x10^3/uL (0.0-1.1) Eosinophils # (Auto) 0.1 x10^3/uL (0.0-0.7) Basophils # (Auto) 0.0 x10^3/uL (0.0-0.2) Prothrombin Time 26.0 SEC (11.7-14.0) Prothromb Time International Ratio 2.5 (0.8-1.1) Sodium Level 133 mmol/L (136-145) Potassium Level 4.0 mmol/L (3.5-5.1) Chloride Level 102 mmol/L (98-107) Carbon Dioxide Level 25 mmol/L (21-32) Anion Gap 6 (6-14) Blood Urea Nitrogen 9 mg/dL (7-20) Creatinine 0.8 mg/dL (0.6-1.0) Estimated GFR (Cockcroft-Gault) 69.7 Glucose Level 105 mg/dL (70-99) Calcium Level 8.0 mg/dL (8.5-10.1) Micro Microbiology 12/01/17 Blood Culture - Preliminary, Resulted NO GROWTH AFTER 1 DAY 11/30/17 Urine Culture - Preliminary, Resulted 11/30/17 Urine Culture Result 1 ([facility]) - Preliminary, Resulted Pseudomonas aeruginosa 50,000-100,000 colony forming units per mL ANTIMICROBIAL SUSCEPTIBILITY Final Comment S = Susceptible; I = Intermediate; R = Resistant P = Positive; N = Negative MICS are expressed in micrograms per mL Antibiotic RSLT#1 RSLT#2 RSLT#3 RSLT#4 Amikacin S<=2 Cefepime S<=1 Ceftazidime S =4 Ciprofloxacin S<=0.25 Gentamicin S<=1 Imipenem S =2 Levofloxacin S =0.25 Meropenem S =0.5 Piperacillin S<=4 Ticarcillin S =32 Tobramycin S<=1 Performed at: [facility] Objective Assessment Fever - improved. ? post op vs ID Pyuria -h/o E. coli-pansensitive in urine from 11/11. D/w LMH micro now with Ecoli from 11/30 Bandemia - from fracture/UTI/steroids Right hip fracture following a fall. s/p Right hip hemiarthroplasty on 12/01 Dementia Overactive bladder - on oxybutynin Hypothyroidism Hypertension Warfarin therapy Plan Plan of Care Discontinue Zosyn Would dose Cipro for 4 days given Pseudomonas and use 500 mg but given rapid increase in INR will change to Cefepime to narrow therapy - d/w pharmacy to remove Cipro. Currently in process and would not allow me to remove. Will need 4 days of abx from today Hopefully INR may stabilize and can change to po Cipro Will need to monitor INR - per primary ? d/c john Monitor temp/lab values Supportive care D/w MELISSA ARNDT MD Dec 04, 2017 08:20
[2017-12-04] MEDS ORDERED: CEFEPIME HCL 1 GM in IV DEXTROSE 5% 50 ML IV SCH (08:30)
[2017-12-04] MEDS: SENNOSIDES/DOCUSATE 8.6/50MG TABLET. PO SCH ×2 (09:00→20:00)
[2017-12-04] MEDS ORDERED: CIPROFLOXACIN HCL 250 MG TABLET. PO SCH (09:00)
[2017-12-04] MEDS: ACETAMINOPHEN 500 MG TABLET PO SCH ×3 (09:00→20:01)
[2017-12-04] MEDS: FERROUS SULFATE 325 MG TABLET. PO SCH ×2 (09:00→20:01)
[2017-12-04] MEDS: CHOLECALCIFEROL (VITAMIN D3) 1,000 UNIT TABLET PO SCH (09:00)
[2017-12-04] MEDS: MULTIVITAMIN with MINERAL TABLET. PO SCH (09:00)
[2017-12-04] MEDS: CALCIUM CARBONATE 500 MG TABLET PO SCH ×2 (09:00→20:01)
[2017-12-04] MEDS: DOCUSATE SODIUM 100 MG CAPSULE. PO SCH ×2 (09:00→20:01)
[2017-12-04 11:00] VITALS: BP 130/70
[2017-12-04] MEDS: RIVASTIGMINE 4.6MG PATCH. TD SCH (11:55)
[2017-12-04] MEDS: MEMANTINE 10 MG TABLET. PO SCH ×2 (11:55→20:01)
[2017-12-04] MEDS: LACTOBACILLUS RHAMNOSUS GG 1 CAPSULE. PO SCH ×2 (11:56→20:01)
[2017-12-04] MEDS: LEVOTHYROXINE 50 MCG TABLET PO SCH (11:57)
[2017-12-04] MEDS: OXYBUTYNIN CHLORIDE 5 MG TABLET PO SCH ×2 (11:57→20:01)
[2017-12-04] MEDS: ALPRAZolam 0.25 MG TABLET PO PRN (11:58)
[2017-12-04] MEDS: CEFEPIME HCL IV Push 1 GM VIAL. IVP SCH ×3 (12:52→22:16)
--- NOTE | 2017-12-04 13:05 | PDOC ---
PROGRESS NOTES Chief Complaint Chief Complaint Right hip fracture, after a fall s/p R hip carina arthroplasry -11/30/17 fevers with possible UTI Fall mechanical traumatic Hypertension now hypotension History of complicated UTI Hypothyroidism on Synthroid Dyslipidemia statin vitd deficiency [facility] resident Significant dementia constipation anemia, post op plan: fu with ID, iv cefipime q 8 hrs 1 gm, fu ucx + pseudomonas, hope change to po soon fu with ortho has wound vac on ptot dc HTN meds cont IVF, decreased to 80cc/h, add 1u PRBC transfusion, iron po dvt ppx with coumadin as per ortho, INR daily add vitd add stool softner dc in 1-2 ds. History of Present Illness History of Present Illness severe demented, arousable, but not follow commands or answer questions rt leg s/p sx, has wound vac on, 50cc low BP better, hb 7.7 low po intake afebrile, fever 8/4, still tachycardia some abd pain early today, now no pain, + gas, last BM 3ds ago ROS: no fever, chills, sob or chest pain Vitals Vitals Vital Signs Date Time Temp Pulse Resp B/P (MAP) Pulse Ox O2 Delivery O2 Flow Rate FiO2 12/04/17 11:00 98.1 104 16 130/70 (90) 95 Room Air 98.1 Physical Exam Physical Exam GENERAL: Alert, NAD, in chair HEENT: Normal conjunctivae. LUNGS: Clear to auscultation. HEART: S1 and S2. ABDOMEN: Bowel sounds active soft, no grimace or guarding to palpation. mild distended. GENITOURINARY: Indwelling Delaney in place. EXTREMITIES: No gross edema or cyanosis. Right lateral hip post-op dressing dry /intact SKIN: Warm without rash. NEUROLOGIC: Confused. Follows but follows simple commands. A little agitated General: Cooperative, No acute distress Heart: Regular rate, Normal S1, Normal S2 Lungs: Clear Abdomen: Normal bowel sounds, Soft, No tenderness, No hepatosplenomegaly, No masses Extremities: Other (right leg is externally rotated) Skin: No rashes, No breakdown, No significant lesion Labs LABS Pseudomonas aeruginosa 50,000-100,000 colony forming units per mL ANTIMICROBIAL SUSCEPTIBILITY Final Comment S = Susceptible; I = Intermediate; R = Resistant P = Positive; N = Negative MICS are expressed in micrograms per mL Antibiotic RSLT#1 RSLT#2 RSLT#3 RSLT#4 Amikacin S<=2 Cefepime S<=1 Ceftazidime S =4 Ciprofloxacin S<=0.25 Gentamicin S<=1 Imipenem S =2 Levofloxacin S =0.25 Meropenem S =0.5 Piperacillin S<=4 Ticarcillin S =32 Tobramycin S<=1 [facility]: [facility] Test 12/03/17 17:55 12/04/17 04:15 Hemoglobin 10.8 g/dL (12.0-15.5) 10.7 g/dL (12.0-15.5) Hematocrit 32.7 % (36.0-47.0) 31.4 % (36.0-47.0) White Blood Count 9.7 x10^3/uL (4.0-11.0) Red Blood Count 3.63 x10^6/uL (3.50-5.40) Mean Corpuscular Volume 87 fL (79-100) Mean Corpuscular Hemoglobin 30 pg (25-35) Mean Corpuscular Hemoglobin Concent 34 g/dL (31-37) Red Cell Distribution Width 15.6 % (11.5-14.5) Platelet Count 230 x10^3/uL (140-400) Neutrophils (%) (Auto) 83 % (31-73) Lymphocytes (%) (Auto) 10 % (24-48) Monocytes (%) (Auto) 6 % (0-9) Eosinophils (%) (Auto) 1 % (0-3) Basophils (%) (Auto) 0 % (0-3) Neutrophils # (Auto) 8.0 x10^3uL (1.8-7.7) Lymphocytes # (Auto) 1.0 x10^3/uL (1.0-4.8) Monocytes # (Auto) 0.5 x10^3/uL (0.0-1.1) Eosinophils # (Auto) 0.1 x10^3/uL (0.0-0.7) Basophils # (Auto) 0.0 x10^3/uL (0.0-0.2) Prothrombin Time 26.0 SEC (11.7-14.0) Prothromb Time International Ratio 2.5 (0.8-1.1) Sodium Level 133 mmol/L (136-145) Potassium Level 4.0 mmol/L (3.5-5.1) Chloride Level 102 mmol/L (98-107) Carbon Dioxide Level 25 mmol/L (21-32) Anion Gap 6 (6-14) Blood Urea Nitrogen 9 mg/dL (7-20) Creatinine 0.8 mg/dL (0.6-1.0) Estimated GFR (Cockcroft-Gault) 69.7 Glucose Level 105 mg/dL (70-99) Calcium Level 8.0 mg/dL (8.5-10.1) Comment Review of Relevant I have reviewed the following items fabian (where applicable) has been applied. Labs Laboratory Tests Test 12/02/17 20:20 12/03/17 00:50 12/03/17 17:55 12/04/17 04:15 White Blood Count 10.8 x10^3/uL (4.0-11.0) 7.8 x10^3/uL (4.0-11.0) 9.7 x10^3/uL (4.0-11.0) Red Blood Count 2.54 x10^6/uL (3.50-5.40) 2.44 x10^6/uL (3.50-5.40) 3.63 x10^6/uL (3.50-5.40) Hemoglobin 7.7 g/dL (12.0-15.5) 7.4 g/dL (12.0-15.5) 10.8 g/dL (12.0-15.5) 10.7 g/dL (12.0-15.5) Hematocrit 22.7 % (36.0-47.0) 21.7 % (36.0-47.0) 32.7 % (36.0-47.0) 31.4 % (36.0-47.0) Mean Corpuscular Volume 89 fL (79-100) 89 fL (79-100) 87 fL (79-100) Mean Corpuscular Hemoglobin 30 pg (25-35) 30 pg (25-35) 30 pg (25-35) Mean Corpuscular Hemoglobin Concent 34 g/dL (31-37) 34 g/dL (31-37) 34 g/dL (31-37) Red Cell Distribution Width 14.2 % (11.5-14.5) 14.4 % (11.5-14.5) 15.6 % (11.5-14.5) Platelet Count 177 x10^3/uL (140-400) 166 x10^3/uL (140-400) 230 x10^3/uL (140-400) Neutrophils (%) (Auto) 84 % (31-73) 76 % (31-73) 83 % (31-73) Lymphocytes (%) (Auto) 10 % (24-48) 16 % (24-48) 10 % (24-48) Monocytes (%) (Auto) 6 % (0-9) 7 % (0-9) 6 % (0-9) Eosinophils (%) (Auto) 0 % (0-3) 1 % (0-3) 1 % (0-3) Basophils (%) (Auto) 0 % (0-3) 0 % (0-3) 0 % (0-3) Neutrophils # (Auto) 9.0 x10^3uL (1.8-7.7) 5.9 x10^3uL (1.8-7.7) 8.0 x10^3uL (1.8-7.7) Lymphocytes # (Auto) 1.0 x10^3/uL (1.0-4.8) 1.3 x10^3/uL (1.0-4.8) 1.0 x10^3/uL (1.0-4.8) Monocytes # (Auto) 0.7 x10^3/uL (0.0-1.1) 0.5 x10^3/uL (0.0-1.1) 0.5 x10^3/uL (0.0-1.1) Eosinophils # (Auto) 0.0 x10^3/uL (0.0-0.7) 0.1 x10^3/uL (0.0-0.7) 0.1 x10^3/uL (0.0-0.7) Basophils # (Auto) 0.0 x10^3/uL (0.0-0.2) 0.0 x10^3/uL (0.0-0.2) 0.0 x10^3/uL (0.0-0.2) Sodium Level 135 mmol/L (136-145) 133 mmol/L (136-145) 133 mmol/L (136-145) Potassium Level 4.1 mmol/L (3.5-5.1) 4.1 mmol/L (3.5-5.1) 4.0 mmol/L (3.5-5.1) Chloride Level 101 mmol/L (98-107) 102 mmol/L (98-107) 102 mmol/L (98-107) Carbon Dioxide Level 26 mmol/L (21-32) 26 mmol/L (21-32) 25 mmol/L (21-32) Anion Gap 8 (6-14) 5 (6-14) 6 (6-14) Blood Urea Nitrogen 18 mg/dL (7-20) 16 mg/dL (7-20) 9 mg/dL (7-20) Creatinine 1.0 mg/dL (0.6-1.0) 1.0 mg/dL (0.6-1.0) 0.8 mg/dL (0.6-1.0) Estimated GFR (Cockcroft-Gault) 53.9 53.9 69.7 Glucose Level 107 mg/dL (70-99) 92 mg/dL (70-99) 105 mg/dL (70-99) Lactic Acid Level 2.2 mmol/L (0.4-2.0) 1.2 mmol/L (0.4-2.0) Calcium Level 8.1 mg/dL (8.5-10.1) 8.3 mg/dL (8.5-10.1) 8.0 mg/dL (8.5-10.1) Prothrombin Time 24.9 SEC (11.7-14.0) 26.0 SEC (11.7-14.0) Prothromb Time International Ratio 2.3 (0.8-1.1) 2.5 (0.8-1.1) Laboratory Tests Test 12/03/17 17:55 12/04/17 04:15 Hemoglobin 10.8 g/dL (12.0-15.5) 10.7 g/dL (12.0-15.5) Hematocrit 32.7 % (36.0-47.0) 31.4 % (36.0-47.0) White Blood Count 9.7 x10^3/uL (4.0-11.0) Red Blood Count 3.63 x10^6/uL (3.50-5.40) Mean Corpuscular Volume 87 fL (79-100) Mean Corpuscular Hemoglobin 30 pg (25-35) Mean Corpuscular Hemoglobin Concent 34 g/dL (31-37) Red Cell Distribution Width 15.6 % (11.5-14.5) Platelet Count 230 x10^3/uL (140-400) Neutrophils (%) (Auto) 83 % (31-73) Lymphocytes (%) (Auto) 10 % (24-48) Monocytes (%) (Auto) 6 % (0-9) Eosinophils (%) (Auto) 1 % (0-3) Basophils (%) (Auto) 0 % (0-3) Neutrophils # (Auto) 8.0 x10^3uL (1.8-7.7) Lymphocytes # (Auto) 1.0 x10^3/uL (1.0-4.8) Monocytes # (Auto) 0.5 x10^3/uL (0.0-1.1) Eosinophils # (Auto) 0.1 x10^3/uL (0.0-0.7) Basophils # (Auto) 0.0 x10^3/uL (0.0-0.2) Prothrombin Time 26.0 SEC (11.7-14.0) Prothromb Time International Ratio 2.5 (0.8-1.1) Sodium Level 133 mmol/L (136-145) Potassium Level 4.0 mmol/L (3.5-5.1) Chloride Level 102 mmol/L (98-107) Carbon Dioxide Level 25 mmol/L (21-32) Anion Gap 6 (6-14) Blood Urea Nitrogen 9 mg/dL (7-20) Creatinine 0.8 mg/dL (0.6-1.0) Estimated GFR (Cockcroft-Gault) 69.7 Glucose Level 105 mg/dL (70-99) Calcium Level 8.0 mg/dL (8.5-10.1) Microbiology 12/02/17 Blood Culture - Preliminary, Resulted NO GROWTH AFTER 1 DAY 11/30/17 Urine Culture - Final, Complete 11/30/17 Urine Culture Result 1 ([facility]) - Final, Complete 11/30/17 Antimicrobic Susceptibility - Final, Complete Medications Current Medications Ondansetron HCl (Zofran) 4 mg PRN Q8HRS PRN IV NAUSEA/VOMITING 1ST CHOICE Last administered on 11/30/17at 03:35; Start 11/30/17 at 02:45; Stop 11/30/17 at 09:20; Status DC Morphine Sulfate (Morphine Sulfate) 2 mg PRN Q2HR PRN IV SEVERE PAIN Last administered on 11/30/17at 23:21; Start 11/30/17 at 02:45; Stop 12/01/17 at 02:44; Status DC Ondansetron HCl (Zofran) 4 mg PRN Q6HRS PRN IV NAUSEA/VOMITING 1ST CHOICE; Start 11/30/17 at 09:30; Stop 12/01/17 at 10:16; Status DC Acetaminophen (Tylenol) 500 mg PRN Q6HRS PRN PO TEMP; Start 11/30/17 at 09:30 Oxycodone/ Acetaminophen (Percocet 5/325) 1 tab PRN Q4HRS PRN PO MODERATE PAIN Last administered on 12/02/17at 13:33; Start 11/30/17 at 09:30 Acetaminophen (Tylenol) 500 mg TID PO Last administered on 12/03/17at 20:24; Start 11/30/17 at 14:00 Alprazolam (Xanax) 0.25 mg PRN TID PRN PO ANXIETY Last administered on at 11:58; Start 11/30/17 at 09:30 Amlodipine Besylate (Norvasc) 5 mg DAILY PO ; Start 11/30/17 at 10:00; Stop at 08:04; Status DC Guaifenesin (Robitussin) 200 mg PRN Q6HRS PRN PO COUGH; Start 11/30/17 at 09:30 Lisinopril (Prinivil) 40 mg DAILY PO ; Start 11/30/17 at 10:00; Stop 12/02/17 at 08:04; Status DC Calcium Carbonate/ Glycine (Oscal) 1,000 mg BID PO Last administered on at 20:24; Start 11/30/17 at 10:00 Levothyroxine Sodium (Synthroid) 50 mcg DAILY07 PO Last administered on at 11:57; Start 11/30/17 at 10:00 Memantine (Namenda) 10 mg BID PO Last administered on 12/04/17at 11:55; Start 11/30/17 at 10:30 Multivitamins (Thera M Plus) 1 tab DAILY PO Last administered on 12/03/17at 08:34 ; Start 11/30/17 at 10:00 Oxybutynin Chloride (Ditropan) 2.5 mg BID PO Last administered on 12/04/17 11: 57; Start 11/30/17 at 10:30 Rivastigmine (Exelon) 1 patch DAILY TD Last administered on 12/04/17at 11:55; Start 11/30/17 at 10:00 Piperacillin Sod/ Tazobactam Sod (Zosyn Per Pharmacy) 1 each PRN DAILY PRN MC SEE COMMENTS; Start 11/30/17 at 10:15 Piperacillin Sod/ Tazobactam Sod 2.25 gm/Sodium Chloride 50 ml @ 100 mls/hr Q6HRS IV Last administered on 12/02/17at 18:21; Start 11/30/17 at 12:00; Stop 12/02 at 21:38; Status DC Sodium Chloride 1,000 ml @ 80 mls/hr [id number] IV Last administered on 12/02/17at 09:10; Start 11/30/17 at 12:45; Stop 12/02/17 at 22:01; Status DC Prochlorperazine Edisylate (Compazine) 5 mg PACU PRN PRN IV NAUSEA, MRX1; Start 12/01/17 at 07:00; Stop 12/01/17 at 15:00; Status DC Lidocaine HCl (Xylocaine-Mpf 1% Vial) 2 ml PRN 1X PRN ID IV START; Start at 07:00; Stop 12/01/17 at 12:00; Status DC Ringer's Solution 1,000 ml @ 30 mls/hr Q24H IV ; Start 12/01/17 at 07:00; Stop 12/01/17 at 11:38; Status DC Morphine Sulfate (Morphine Sulfate) 1 mg PRN Q10MIN PRN IV SEVERE PAIN; Start 12/01/17 at 07:00; Stop 12/01/17 at 15:00; Status DC Fentanyl Citrate (Fentanyl 2ml Vial) 50 mcg PRN Q5MIN PRN IV MODERATE TO SEVERE PAIN; Start 12/01/17 at 07:00; Stop 12/01/17 at 15:00; Status DC Fentanyl Citrate (Fentanyl 2ml Vial) 25 mcg PRN Q5MIN PRN IV MILD PAIN; Start 12/01/17 at 07:00; Stop 12/01/17 at 15:00; Status DC Ondansetron HCl (Zofran) 4 mg PRN Q6HRS PRN IV NAUSEA/VOMITING; Start 12/01/17 at 07:00; Stop 12/01/17 at 15:00; Status DC Rocuronium Wells (Zemuron) 50 mg STK-MED ONCE .ROUTE ; Start 12/01/17 at 07:12 ; Stop 12/01/17 at 07:13; Status DC Propofol 20 ml @ As Directed STK-MED ONCE IV ; Start 12/01/17 at 07:14; Stop 12/01 at 07:16; Status DC Lidocaine HCl (Lidocaine Pf 2% Vial) 5 ml STK-MED ONCE .ROUTE ; Start 12/01/17 at 07:15; Stop 12/01/17 at 07:16; Status DC Ondansetron HCl (Zofran) 4 mg STK-MED ONCE .ROUTE ; Start 12/01/17 at 07:15; Stop 12/01/17 at 07:16; Status DC Phenylephrine HCl (PHENYLEPHRINE in 0.9% NACL PF) 1 mg STK-MED ONCE IV ; Start 12/01/17 at 07:15; Stop 12/01/17 at 07:16; Status DC Morphine Sulfate 5 mg/Ketorolac Tromethamine 30 mg/Ropivacaine 60 ml/ Epinephrine HCl 0.5 mg/Sodium Chloride 100 ml @ 100 mls/hr 1X ONCE INT ART Last administered on 12/01/17at 08:36; Start 12/01/17 at 08:30; Stop 12/01/17 at 09: 29; Status DC Sevoflurane (Ultane) 30 ml STK-MED ONCE IH ; Start 12/01/17 at 08:39; Stop at 08:40; Status DC Dexamethasone Sodium Phosphate (Decadron) 20 mg STK-MED ONCE .ROUTE ; Start 12/01 at 08:39; Stop 12/01/17 at 08:40; Status DC Ketorolac Tromethamine (Toradol For Or Only) 30 mg STK-MED ONCE INJ ; Start 12/01 at 08:49; Stop 12/01/17 at 08:50; Status DC Fentanyl Citrate (Fentanyl 2ml Vial) 100 mcg STK-MED ONCE .ROUTE ; Start at 09:38; Stop 12/01/17 at 09:39; Status DC Oxycodone HCl (Roxicodone) 5 mg PRN Q3HRS PRN PO PAIN Moderate 2nd Choice; Start 12/01/17 at 10:15 Morphine Sulfate (Morphine Sulfate) 2 mg PRN Q1HR PRN IV PAIN SEVERE 1st CHOICE Last administered on 12/03/17at 15:24; Start 12/01/17 at 10:15 Fentanyl Citrate (Fentanyl 2ml Vial) 25 mcg PRN Q1HR PRN IV PAIN Severe 2nd Choice; Start 12/01/17 at 10:15 Senna/Docusate Sodium (Senna Plus) 1 tab DAILY PO Last administered on at 08:34; Start 12/02/17 at 09:00; Stop 12/04/17 at 11:02; Status DC Polyethylene Glycol (miraLAX PACKET) 17 gm PRN DAILY PRN PO CONSTIPATION; Start 12/01/17 at 10:15 Ondansetron HCl (Zofran) 4 mg PRN Q4HRS PRN IV NAUSEA/VOMITING Last administered on 12/02/17at 13:43; Start 12/01/17 at 10:15; Stop 12/02/17 at 16:31; Status DC Warfarin Sodium (Coumadin) 5 mg 1X ONCE PO Last administered on 12/01/17at 17:16 ; Start 12/01/17 at 16:00; Stop 12/01/17 at 16:01; Status DC Warfarin Sodium (Coumadin Per Pharmacy) 1 each PRN DAILY PRN MC SEE COMMENTS Last administered on 12/04/17at 11:22; Start 12/02/17 at 10:15 Magnesium Hydroxide (Milk Of Magnesia) 2,400 mg 1X PRN PRN PO CONSTIPATION; Start 12/02/17 at 06:00; Stop 12/03/17 at 06:00; Status DC Bisacodyl (Dulcolax Supp) 10 mg 1X PRN PRN NE CONSTIPATION; Start 12/02/17 at 16 :00; Stop 12/03/17 at 15:59; Status DC Acetaminophen/ Hydrocodone Bitart (Lortab 7.5/325) 1 tab PRN Q4HRS PRN PO PAIN Mod to Severe 3rd Choice; Start 12/01/17 at 10:15 Dextrose (Dextrose 50%-Water Syringe) 12.5 gm PRN Q15MIN PRN IV SEE COMMENTS; Start 12/01/17 at 10:15 Cefazolin Sodium 1 gm/Dextrose 50 ml @ 100 mls/hr Q6H IV ; Start 12/01/17 at 15: 00; Stop 12/02/17 at 03:29; Status UNV Cefazolin Sodium (Ancef) 1 gm Q6H IVP Last administered on 12/02/17at 06:21; Start 12/01/17 at 15:00; Stop 12/02/17 at 03:01; Status DC Lorazepam (Ativan) 2 mg STK-MED ONCE .ROUTE ; Start 12/01/17 at 23:53; Stop at 23:54; Status DC Lorazepam (Ativan) 2 mg 1X ONCE IM Last administered on 12/02/17at 00:42; Start 12/02/17 at 01:00; Stop 12/02/17 at 01:01; Status DC Lorazepam (Ativan) 1 mg PRN Q4HRS PRN IV ANXIETY / AGITATION Last administered on 12/02/17at 06:27; Start 12/02/17 at 00:30 Haloperidol Lactate (Haldol Inj) 5 mg PRN Q6HRS PRN IVP AGITATION Last administered on 12/04/17at 08:19; Start 12/02/17 at 00:30 Ketorolac Tromethamine 30 mg/Bupivacaine HCl 20 ml/ Epinephrine HCl 1 mg/ Miscellaneous 43.5 ml @ 522 mls/hr 1X ONCE INT ART Last administered on at 06:15; Start 12/02/17 at 06:00; Stop 12/02/17 at 06:04; Status DC Warfarin Sodium (Coumadin) 2.5 mg 1X WARF ONCE PO Last administered on 18:20; Start 12/02/17 at 16:00; Stop 12/02/17 at 16:01; Status DC Vitamin D (Vitamin D3) 1,000 unit DAILY PO Last administered on 12/03/17at 08:34 ; Start 12/02/17 at 15:00 Ondansetron HCl (Zofran) 4 mg PRN Q6HRS PRN IV NAUSEA/VOMITING 1ST CHOICE Last administered on 12/03/17at 12:01; Start 12/02/17 at 16:30 Prochlorperazine Edisylate (Compazine) 10 mg PRN Q6HRS PRN IV NAUSEA/VOMITING 2ND CHOICE Last administered on 12/03/17 15:24; Start 12/02/17 at 18:00 Sodium Chloride 250 ml @ 250 mls/hr 1X ONCE IV Last administered on 12/02/17 20:30; Start 12/02/17 at 20:30; Stop 12/02/17 at 21:29; Status DC Sodium Chloride 1,000 ml @ 80 mls/hr [id number] IV Last administered on 12/04/17 00:39; Start 12/02/17 at 20:30 Ertapenem 50 ml @ 100 mls/hr DAILY IV ; Start 12/02/17 at 21:45; Status UNV Piperacillin Sod/ Tazobactam Sod 2.25 gm/Sodium Chloride 50 ml @ 100 mls/hr Q6HRS IV Last administered on 12/04/17 06:05; Start 12/03/17 at 00:00; Stop 12/04 at 08:23; Status DC Lactobacillus Rhamnosus (Culturelle) 1 cap BID PO Last administered on 11:56; Start 12/03/17 at 21:00 Senna/Docusate Sodium (Senna Plus) 1 tab BID PO Last administered on 12/03/17 20:28; Start 12/03/17 at 21:00 Docusate Sodium (Colace) 100 mg BID PO Last administered on 12/03/17at 20:23; Start 12/03/17 at 11:00 Magnesium Hydroxide (Milk Of Magnesia) 2,400 mg PRN Q12HR PRN PO CONSTIPATION; Start 12/03/17 at 11:15 Ferrous Sulfate (Feosol) 325 mg BID PO Last administered on 12/03/17at 20:23; Start 12/03/17 at 21:00 Warfarin Sodium (Coumadin - No Dose Today) 1 each 1X WARF ONCE MC ; Start at 16:00; Stop 12/03/17 at 16:01; Status DC Ciprofloxacin (Cipro) 500 mg BID PO ; Start 12/04/17 at 09:00; Status UNV Cefepime HCl 1 gm/ Dextrose 50 ml @ 100 mls/hr Q8HRS IV ; Start 12/04/17 at 08: 30; Status UNV Cefepime HCl (Maxipime) 1 gm Q8HRS IVP Last administered on 12/04/17at 12:52; Start 12/04/17 at 09:00 Warfarin Sodium (Coumadin) 1 mg 1X WARF ONCE PO ; Start 12/04/17 at 16:00; Stop 12/04/17 at 16:01 Active Scripts Active Reported Robafen (Guaifenesin) 100 Mg/5 Ml Liquid 200 Mg PO PRN Q6HRS PRN Levothyroxine Sodium 50 Mcg Tablet 1 Tab PO DAILY Alprazolam 0.25 Mg Tablet 1 Tab PO TID PRN Acetaminophen 500 Mg Tablet 500 Mg PO TID Namenda (Memantine Hcl) 10 Mg Tablet 1 Tab PO BID Calcium (Calcium Carbonate) 600 Mg Tablet 1,200 Mg PO BID Thera Tablet (Multivitamin with Folic Acid) 400 Mcg Tablet 400 Mcg PO DAILY EXELON 4.6mg/24hr (Rivastigmine) 1 Each Patch.td24 1 Patch TP DAILY Oxybutynin Chloride Er (Oxybutynin Chloride) 5 Mg Tab.er.24 1 Tab PO DAILY Lisinopril 40 Mg Tablet 1 Tab PO DAILY Amlodipine Besylate 5 Mg Tablet 5 Mg PO DAILY Vitals/I & O Vital Sign - Last 24 Hours 12/03/17 12/03/17 12/03/17 12/03/17 14:26 14:41 15:04 15:24 Temp 97.9 96.9 97.2 97.9 96.9 97.2 Pulse 109 105 108 Resp 18 18 16 18 B/P (MAP) 128/68 130/69 127/64 (85) Pulse Ox 94 O2 Delivery Room Air Room Air 12/03/17 12/03/17 12/03/17 12/03/17 15:41 15:55 16:41 17:41 Temp 97.9 97.9 98.1 97.9 97.9 98.1 Pulse 119 125 113 Resp 18 18 20 18 B/P (MAP) 136/73 144/78 136/82 O2 Delivery Room Air 12/03/17 12/03/17 12/03/17 12/04/17 19:00 20:00 23:00 03:00 Temp 97.9 98.1 97.9 97.9 98.1 97.9 Pulse 117 117 115 Resp 18 B/P (MAP) 135/87 (103) 134/88 (103) 134/75 (94) Pulse Ox 92 92 94 O2 Delivery Room Air Room Air Room Air Room Air 12/04/17 12/04/17 12/04/17 07:00 08:00 11:00 Temp 97.7 98.1 97.7 98.1 Pulse 81 104 Resp 18 16 B/P (MAP) 146/93 (110) 130/70 (90) Pulse Ox 90 95 O2 Delivery Room Air Room Air Room Air Intake and Output 12/03/17 12/03/17 12/04/17 15:00 23:00 07:00 Intake Total 300 ml 825 ml 120 ml Output Total 400 ml 1250 ml Balance 300 ml 425 ml -1130 ml STEPHANI QUIJANO MD Dec 04, 2017 13:05
[2017-12-04 14:52] VITALS: BP 121/66
[2017-12-04] MEDS ORDERED: WARFARIN 1 MG TABLET. PO ONE (16:00)
[2017-12-04 19:00] VITALS: BP 127/65
[2017-12-04 23:00] VITALS: BP 119/72
[2017-12-05 03:00] VITALS: BP 134/75
[2017-12-05] MEDS: ACETAMINOPHEN 500 MG TABLET PO SCH ×3 (03:38→21:28)
[2017-12-05] MEDS: IV NORMAL SALINE 1000ML BAG 1,000 ML IV SCH ×2 (03:42→14:21)
[2017-12-05] MEDS: CEFEPIME HCL IV Push 1 GM VIAL. IVP SCH ×3 (06:00→22:10)
[2017-12-05 07:25] VITALS: BP 133/76
[2017-12-05 07:45] LABS: PROTHROMBIN TIME PATIENT 27.5 SEC (11.7-14.0)
[2017-12-05] MEDS: LEVOTHYROXINE 50 MCG TABLET PO SCH (07:49)
[2017-12-05] MEDS: CALCIUM CARBONATE 500 MG TABLET PO SCH ×2 (07:49→21:28)
[2017-12-05] MEDS: LACTOBACILLUS RHAMNOSUS GG 1 CAPSULE. PO SCH ×2 (07:49→21:28)
[2017-12-05] MEDS: CHOLECALCIFEROL (VITAMIN D3) 1,000 UNIT TABLET PO SCH (07:50)
[2017-12-05] MEDS: RIVASTIGMINE 4.6MG PATCH. TD SCH (07:50)
[2017-12-05] MEDS: DOCUSATE SODIUM 100 MG CAPSULE. PO SCH ×2 (07:50→21:29)
[2017-12-05] MEDS: SENNOSIDES/DOCUSATE 8.6/50MG TABLET. PO SCH ×2 (07:50→21:29)
[2017-12-05] MEDS: MEMANTINE 10 MG TABLET. PO SCH ×2 (07:51→21:29)
[2017-12-05] MEDS: OXYBUTYNIN CHLORIDE 5 MG TABLET PO SCH ×2 (07:51→21:29)
[2017-12-05] MEDS: MULTIVITAMIN with MINERAL TABLET. PO SCH (07:52)
[2017-12-05] MEDS: HYDROcodone/APAP 7.5/325MG 1 TAB TABLET PO PRN (07:52)
[2017-12-05] MEDS: FERROUS SULFATE 325 MG TABLET. PO SCH ×2 (07:52→21:29)
[2017-12-05] MEDS: ALPRAZolam 0.25 MG TABLET PO PRN ×2 (08:16→16:05)
--- NOTE | 2017-12-05 10:09 | PDOC ---
Infectious Disease Note Subjective Subjective Appears doing ok ROS ROS unable to obtain Vital Sign Vital Signs Vital Signs Date Time Temp Pulse Resp B/P (MAP) Pulse Ox O2 Delivery O2 Flow Rate FiO2 12/05/17 09:30 Room Air 12/05/17 07:25 97.9 112 14 133/76 (95) 100 97.9 Physical Exam PHYSICAL EXAM GENERAL: Alert, NAD, in bed HEENT: Normal conjunctivae. LUNGS: Clear to auscultation. HEART: S1 and S2. ABDOMEN: Bowel sounds active soft, no grimace or guarding to palpation. mild distended. GENITOURINARY: Indwelling Delaney in place. EXTREMITIES: No gross edema or cyanosis. Right lateral hip post-op dressing dry /intact SKIN: Warm without rash. NEUROLOGIC: Confused. Follows but follows simple commands. Labs Lab Laboratory Tests Test 12/05/17 06:53 Prothrombin Time 27.5 SEC (11.7-14.0) Prothromb Time International Ratio 2.7 (0.8-1.1) Micro Microbiology 12/01/17 Blood Culture - Preliminary, Resulted NO GROWTH AFTER 1 DAY 11/30/17 Urine Culture - Preliminary, Resulted 11/30/17 Urine Culture Result 1 ([facility]) - Preliminary, Resulted Pseudomonas aeruginosa 50,000-100,000 colony forming units per mL ANTIMICROBIAL SUSCEPTIBILITY Final Comment S = Susceptible; I = Intermediate; R = Resistant P = Positive; N = Negative MICS are expressed in micrograms per mL Antibiotic RSLT#1 RSLT#2 RSLT#3 RSLT#4 Amikacin S<=2 Cefepime S<=1 Ceftazidime S =4 Ciprofloxacin S<=0.25 Gentamicin S<=1 Imipenem S =2 Levofloxacin S =0.25 Meropenem S =0.5 Piperacillin S<=4 Ticarcillin S =32 Tobramycin S<=1 [facility] Fever - improved. ? post op vs ID Pyuria -h/o E. coli-pansensitive in urine from 11/11. D/w LMH micro now with Ecoli from 11/30 Bandemia - from fracture/UTI/steroids Right hip fracture following a fall. s/p Right hip hemiarthroplasty on 12/01 Dementia Overactive bladder - on oxybutynin Hypothyroidism Hypertension Warfarin therapy Plan Plan of Care Discontinue Zosyn Will need 3 days of abx from today Hopefully INR may stabilize and can change to po Cipro currently still increasing Will need to monitor INR - per primary bladder scan pending Monitor temp/lab values Supportive care D/w MELISSA ARNDT MD Dec 05, 2017 10:09
[2017-12-05 10:43] VITALS: BP 137/75
--- NOTE | 2017-12-05 10:58 | PDOC ---
PROGRESS NOTES Chief Complaint Chief Complaint Right hip fracture, after a fall s/p R hip carina arthroplasTy -12/01/17 fevers with possible UTI Fall mechanical traumatic Hypertension now hypotension History of complicated UTI Hypothyroidism on Synthroid Dyslipidemia statin ACUTE encephalopathy vitd deficiency [facility] resident mod-severe dementia constipation anemia, post op Pyuria -h/o E. coli-pansensitive in urine from 11/11. D/w LMH micro now with Ecoli from 11/30 Bandemia - from fracture/UTI/steroids Right hip fracture following a fall. s/p Right hip hemiarthroplasty on 12/01 plan: coumadin per pharmacy fu with ID, iv cefipime q 8 hrs 1 gm, fu ucx + pseudomonas, change to po soon fu with ortho has wound vac on ptot dc HTN meds cont IVF, decreased to 80cc/h, iron po dvt ppx with coumadin as per ortho, INR daily add vitd add stool softner dc SNF SOON History of Present Illness History of Present Illness severe demented, arousable, but not follow commands or answer questions rt leg s/p sx, has wound vac on, 50cc low BP better, hb 7.7 low po intake afebrile, fever 11/30, still tachycardia some abd pain early today, now no pain, + gas, last BM 3ds ago ROS: no fever, chills, sob or chest pain Vitals Vitals Vital Signs Date Time Temp Pulse Resp B/P (MAP) Pulse Ox O2 Delivery O2 Flow Rate FiO2 12/05/17 10:43 97.9 127 18 137/75 (95) 96 Room Air 97.9 Physical Exam Physical Exam GENERAL: Alert, NAD, in bed HEENT: Normal conjunctivae. LUNGS: Clear to auscultation. HEART: S1 and S2. ABDOMEN: Bowel sounds active soft, no grimace or guarding to palpation. mild distended. GENITOURINARY: Indwelling Delaney in place. EXTREMITIES: No gross edema or cyanosis. Right lateral hip post-op dressing dry /intact SKIN: Warm without rash. NEUROLOGIC: Confused. Follows but follows simple commands. General: Cooperative, No acute distress, mild distress Heart: Regular rate, Normal S1, Normal S2 Lungs: Clear Abdomen: Normal bowel sounds, Soft, No tenderness, No hepatosplenomegaly, No masses Extremities: Other (right leg is externally rotated) Skin: No rashes, No breakdown, No significant lesion Labs LABS Laboratory Tests Test 12/05/17 06:53 Prothrombin Time 27.5 SEC (11.7-14.0) Prothromb Time International Ratio 2.7 (0.8-1.1) Comment Review of Relevant I have reviewed the following items fabian (where applicable) has been applied. Labs Laboratory Tests Test 12/03/17 17:55 12/04/17 04:15 12/05/17 06:53 Hemoglobin 10.8 g/dL (12.0-15.5) 10.7 g/dL (12.0-15.5) Hematocrit 32.7 % (36.0-47.0) 31.4 % (36.0-47.0) White Blood Count 9.7 x10^3/uL (4.0-11.0) Red Blood Count 3.63 x10^6/uL (3.50-5.40) Mean Corpuscular Volume 87 fL (79-100) Mean Corpuscular Hemoglobin 30 pg (25-35) Mean Corpuscular Hemoglobin Concent 34 g/dL (31-37) Red Cell Distribution Width 15.6 % (11.5-14.5) Platelet Count 230 x10^3/uL (140-400) Neutrophils (%) (Auto) 83 % (31-73) Lymphocytes (%) (Auto) 10 % (24-48) Monocytes (%) (Auto) 6 % (0-9) Eosinophils (%) (Auto) 1 % (0-3) Basophils (%) (Auto) 0 % (0-3) Neutrophils # (Auto) 8.0 x10^3uL (1.8-7.7) Lymphocytes # (Auto) 1.0 x10^3/uL (1.0-4.8) Monocytes # (Auto) 0.5 x10^3/uL (0.0-1.1) Eosinophils # (Auto) 0.1 x10^3/uL (0.0-0.7) Basophils # (Auto) 0.0 x10^3/uL (0.0-0.2) Prothrombin Time 26.0 SEC (11.7-14.0) 27.5 SEC (11.7-14.0) Prothromb Time International Ratio 2.5 (0.8-1.1) 2.7 (0.8-1.1) Sodium Level 133 mmol/L (136-145) Potassium Level 4.0 mmol/L (3.5-5.1) Chloride Level 102 mmol/L (98-107) Carbon Dioxide Level 25 mmol/L (21-32) Anion Gap 6 (6-14) Blood Urea Nitrogen 9 mg/dL (7-20) Creatinine 0.8 mg/dL (0.6-1.0) Estimated GFR (Cockcroft-Gault) 69.7 Glucose Level 105 mg/dL (70-99) Calcium Level 8.0 mg/dL (8.5-10.1) Laboratory Tests Test 12/05/17 06:53 Prothrombin Time 27.5 SEC (11.7-14.0) Prothromb Time International Ratio 2.7 (0.8-1.1) Microbiology 12/02/17 Blood Culture - Preliminary, Resulted NO GROWTH AFTER 2 DAYS 11/30/17 Urine Culture - Final, Complete 11/30/17 Urine Culture Result 1 (OLGA) - Final, Complete 11/30/17 Antimicrobic Susceptibility - Final, Complete Medications Current Medications Ondansetron HCl (Zofran) 4 mg PRN Q8HRS PRN IV NAUSEA/VOMITING 1ST CHOICE Last administered on 11/30/17at 03:35; Start 11/30/17 at 02:45; Stop 11/30/17 at 09:20; Status DC Morphine Sulfate (Morphine Sulfate) 2 mg PRN Q2HR PRN IV SEVERE PAIN Last administered on 11/30/17at 23:21; Start 11/30/17 at 02:45; Stop 12/01/17 at 02:44; Status DC Ondansetron HCl (Zofran) 4 mg PRN Q6HRS PRN IV NAUSEA/VOMITING 1ST CHOICE; Start 11/30/17 at 09:30; Stop 12/01/17 at 10:16; Status DC Acetaminophen (Tylenol) 500 mg PRN Q6HRS PRN PO TEMP; Start 11/30/17 at 09:30 Oxycodone/ Acetaminophen (Percocet 5/325) 1 tab PRN Q4HRS PRN PO MODERATE PAIN Last administered on 12/02/17at 13:33; Start 11/30/17 at 09:30 Acetaminophen (Tylenol) 500 mg TID PO Last administered on 12/05/17at 03:38; Start 11/30/17 at 14:00 Alprazolam (Xanax) 0.25 mg PRN TID PRN PO ANXIETY Last administered on at 08:16; Start 11/30/17 at 09:30 Amlodipine Besylate (Norvasc) 5 mg DAILY PO ; Start 11/30/17 at 10:00; Stop at 08:04; Status DC Guaifenesin (Robitussin) 200 mg PRN Q6HRS PRN PO COUGH; Start 11/30/17 at 09:30 Lisinopril (Prinivil) 40 mg DAILY PO ; Start 11/30/17 at 10:00; Stop 12/02/17 at 08:04; Status DC Calcium Carbonate/ Glycine (Oscal) 1,000 mg BID PO Last administered on at 07:49; Start 11/30/17 at 10:00 Levothyroxine Sodium (Synthroid) 50 mcg DAILY07 PO Last administered on at 07:49; Start 11/30/17 at 10:00 Memantine (Namenda) 10 mg BID PO Last administered on 12/05/17 07:51; Start 11/30/17 at 10:30 Multivitamins (Thera M Plus) 1 tab DAILY PO Last administered on 12/05/17at 07:52 ; Start 11/30/17 at 10:00 Oxybutynin Chloride (Ditropan) 2.5 mg BID PO Last administered on 12/05/17at 07: 51; Start 11/30/17 at 10:30 Rivastigmine (Exelon) 1 patch DAILY TD Last administered on 12/05/17at 07:50; Start 11/30/17 at 10:00 Piperacillin Sod/ Tazobactam Sod (Zosyn Per Pharmacy) 1 each PRN DAILY PRN MC SEE COMMENTS; Start 11/30/17 at 10:15; Stop 12/04/17 at 18:57; Status DC Piperacillin Sod/ Tazobactam Sod 2.25 gm/Sodium Chloride 50 ml @ 100 mls/hr Q6HRS IV Last administered on 12/02/17at 18:21; Start 11/30/17 at 12:00; Stop 12/02 at 21:38; Status DC Sodium Chloride 1,000 ml @ 80 mls/hr [id number] IV Last administered on 12/02/17at 09:10; Start 11/30/17 at 12:45; Stop 12/02/17 at 22:01; Status DC Prochlorperazine Edisylate (Compazine) 5 mg PACU PRN PRN IV NAUSEA, MRX1; Start 12/01/17 at 07:00; Stop 12/01/17 at 15:00; Status DC Lidocaine HCl (Xylocaine-Mpf 1% Vial) 2 ml PRN 1X PRN ID IV START; Start at 07:00; Stop 12/01/17 at 12:00; Status DC Ringer's Solution 1,000 ml @ 30 mls/hr Q24H IV ; Start 12/01/17 at 07:00; Stop 12/01/17 at 11:38; Status DC Morphine Sulfate (Morphine Sulfate) 1 mg PRN Q10MIN PRN IV SEVERE PAIN; Start 12/01/17 at 07:00; Stop 12/01/17 at 15:00; Status DC Fentanyl Citrate (Fentanyl 2ml Vial) 50 mcg PRN Q5MIN PRN IV MODERATE TO SEVERE PAIN; Start 12/01/17 at 07:00; Stop 12/01/17 at 15:00; Status DC Fentanyl Citrate (Fentanyl 2ml Vial) 25 mcg PRN Q5MIN PRN IV MILD PAIN; Start 12/01/17 at 07:00; Stop 12/01/17 at 15:00; Status DC Ondansetron HCl (Zofran) 4 mg PRN Q6HRS PRN IV NAUSEA/VOMITING; Start 12/01/17 at 07:00; Stop 12/01/17 at 15:00; Status DC Rocuronium Preston (Zemuron) 50 mg STK-MED ONCE .ROUTE ; Start 12/01/17 at 07:12 ; Stop 12/01/17 at 07:13; Status DC Propofol 20 ml @ As Directed STK-MED ONCE IV ; Start 12/01/17 at 07:14; Stop 12/01 at 07:16; Status DC Lidocaine HCl (Lidocaine Pf 2% Vial) 5 ml STK-MED ONCE .ROUTE ; Start 12/01/17 at 07:15; Stop 12/01/17 at 07:16; Status DC Ondansetron HCl (Zofran) 4 mg STK-MED ONCE .ROUTE ; Start 12/01/17 at 07:15; Stop 12/01/17 at 07:16; Status DC Phenylephrine HCl (PHENYLEPHRINE in 0.9% NACL PF) 1 mg STK-MED ONCE IV ; Start 12/01/17 at 07:15; Stop 12/01/17 at 07:16; Status DC Morphine Sulfate 5 mg/Ketorolac Tromethamine 30 mg/Ropivacaine 60 ml/ Epinephrine HCl 0.5 mg/Sodium Chloride 100 ml @ 100 mls/hr 1X ONCE INT ART Last administered on 12/01/17at 08:36; Start 12/01/17 at 08:30; Stop 12/01/17 at 09: 29; Status DC Sevoflurane (Ultane) 30 ml STK-MED ONCE IH ; Start 12/01/17 at 08:39; Stop at 08:40; Status DC Dexamethasone Sodium Phosphate (Decadron) 20 mg STK-MED ONCE .ROUTE ; Start 12/01 at 08:39; Stop 12/01/17 at 08:40; Status DC Ketorolac Tromethamine (Toradol For Or Only) 30 mg STK-MED ONCE INJ ; Start 12/01 at 08:49; Stop 12/01/17 at 08:50; Status DC Fentanyl Citrate (Fentanyl 2ml Vial) 100 mcg STK-MED ONCE .ROUTE ; Start at 09:38; Stop 12/01/17 at 09:39; Status DC Oxycodone HCl (Roxicodone) 5 mg PRN Q3HRS PRN PO PAIN Moderate 2nd Choice; Start 12/01/17 at 10:15 Morphine Sulfate (Morphine Sulfate) 2 mg PRN Q1HR PRN IV PAIN SEVERE 1st CHOICE Last administered on 12/03/17at 15:24; Start 12/01/17 at 10:15 Fentanyl Citrate (Fentanyl 2ml Vial) 25 mcg PRN Q1HR PRN IV PAIN Severe 2nd Choice; Start 12/01/17 at 10:15 Senna/Docusate Sodium (Senna Plus) 1 tab DAILY PO Last administered on at 08:34; Start 12/02/17 at 09:00; Stop 12/04/17 at 11:02; Status DC Polyethylene Glycol (miraLAX PACKET) 17 gm PRN DAILY PRN PO CONSTIPATION; Start 12/01/17 at 10:15 Ondansetron HCl (Zofran) 4 mg PRN Q4HRS PRN IV NAUSEA/VOMITING Last administered on 12/02/17at 13:43; Start 12/01/17 at 10:15; Stop 12/02/17 at 16:31; Status DC Warfarin Sodium (Coumadin) 5 mg 1X ONCE PO Last administered on 12/01/17at 17:16 ; Start 12/01/17 at 16:00; Stop 12/01/17 at 16:01; Status DC Warfarin Sodium (Coumadin Per Pharmacy) 1 each PRN DAILY PRN MC SEE COMMENTS Last administered on 12/05/17at 10:36; Start 12/02/17 at 10:15 Magnesium Hydroxide (Milk Of Magnesia) 2,400 mg 1X PRN PRN PO CONSTIPATION; Start 12/02/17 at 06:00; Stop 12/03/17 at 06:00; Status DC Bisacodyl (Dulcolax Supp) 10 mg 1X PRN PRN IN CONSTIPATION; Start 12/02/17 at 16 :00; Stop 12/03/17 at 15:59; Status DC Acetaminophen/ Hydrocodone Bitart (Lortab 7.5/325) 1 tab PRN Q4HRS PRN PO PAIN Mod to Severe 3rd Choice Last administered on 12/05/17at 07:52; Start 12/01/17 at 10:15 Dextrose (Dextrose 50%-Water Syringe) 12.5 gm PRN Q15MIN PRN IV SEE COMMENTS; Start 12/01/17 at 10:15 Cefazolin Sodium 1 gm/Dextrose 50 ml @ 100 mls/hr Q6H IV ; Start 12/01/17 at 15: 00; Stop 12/02/17 at 03:29; Status UNV Cefazolin Sodium (Ancef) 1 gm Q6H IVP Last administered on 12/02/17at 06:21; Start 12/01/17 at 15:00; Stop 12/02/17 at 03:01; Status DC Lorazepam (Ativan) 2 mg STK-MED ONCE .ROUTE ; Start 12/01/17 at 23:53; Stop at 23:54; Status DC Lorazepam (Ativan) 2 mg 1X ONCE IM Last administered on 12/02/17at 00:42; Start 12/02/17 at 01:00; Stop 12/02/17 at 01:01; Status DC Lorazepam (Ativan) 1 mg PRN Q4HRS PRN IV ANXIETY / AGITATION Last administered on 12/02/17 06:27; Start 12/02/17 at 00:30 Haloperidol Lactate (Haldol Inj) 5 mg PRN Q6HRS PRN IVP AGITATION Last administered on 12/04/17 16:48; Start 12/02/17 at 00:30 Ketorolac Tromethamine 30 mg/Bupivacaine HCl 20 ml/ Epinephrine HCl 1 mg/ Miscellaneous 43.5 ml @ 522 mls/hr 1X ONCE INT ART Last administered on 06:15; Start 12/02/17 at 06:00; Stop 12/02/17 at 06:04; Status DC Warfarin Sodium (Coumadin) 2.5 mg 1X WARF ONCE PO Last administered on 18:20; Start 12/02/17 at 16:00; Stop 12/02/17 at 16:01; Status DC Vitamin D (Vitamin D3) 1,000 unit DAILY PO Last administered on 12/05/17 07:50 ; Start 12/02/17 at 15:00 Ondansetron HCl (Zofran) 4 mg PRN Q6HRS PRN IV NAUSEA/VOMITING 1ST CHOICE Last administered on 12/03/17 12:01; Start 12/02/17 at 16:30 Prochlorperazine Edisylate (Compazine) 10 mg PRN Q6HRS PRN IV NAUSEA/VOMITING 2ND CHOICE Last administered on 12/03/17 15:24; Start 12/02/17 at 18:00 Sodium Chloride 250 ml @ 250 mls/hr 1X ONCE IV Last administered on 12/02/17at 20:30; Start 12/02/17 at 20:30; Stop 12/02/17 at 21:29; Status DC Sodium Chloride 1,000 ml @ 80 mls/hr [id number] IV Last administered on 12/05/17 03:42; Start 12/02/17 at 20:30 Ertapenem 50 ml @ 100 mls/hr DAILY IV ; Start 12/02/17 at 21:45; Status UNV Piperacillin Sod/ Tazobactam Sod 2.25 gm/Sodium Chloride 50 ml @ 100 mls/hr Q6HRS IV Last administered on 12/04/17at 06:05; Start 12/03/17 at 00:00; Stop 12/04 at 08:23; Status DC Lactobacillus Rhamnosus (Culturelle) 1 cap BID PO Last administered on at 07:49; Start 12/03/17 at 21:00 Senna/Docusate Sodium (Senna Plus) 1 tab BID PO Last administered on 12/05/17at 07:50; Start 12/03/17 at 21:00 Docusate Sodium (Colace) 100 mg BID PO Last administered on 12/05/17at 07:50; Start 12/03/17 at 11:00 Magnesium Hydroxide (Milk Of Magnesia) 2,400 mg PRN Q12HR PRN PO CONSTIPATION; Start 12/03/17 at 11:15 Ferrous Sulfate (Feosol) 325 mg BID PO Last administered on 12/05/17at 07:52; Start 12/03/17 at 21:00 Warfarin Sodium (Coumadin - No Dose Today) 1 each 1X WARF ONCE MC ; Start at 16:00; Stop 12/03/17 at 16:01; Status DC Ciprofloxacin (Cipro) 500 mg BID PO ; Start 12/04/17 at 09:00; Status UNV Cefepime HCl 1 gm/ Dextrose 50 ml @ 100 mls/hr Q8HRS IV ; Start 12/04/17 at 08: 30; Status UNV Cefepime HCl (Maxipime) 1 gm Q8HRS IVP Last administered on 12/05/17at 06:00; Start 12/04/17 at 09:00 Warfarin Sodium (Coumadin) 1 mg 1X WARF ONCE PO Last administered on 12/04/17at 16:46; Start 12/04/17 at 16:00; Stop 12/04/17 at 16:01; Status DC Warfarin Sodium (Coumadin) 1 mg 1X WARF ONCE PO ; Start 12/05/17 at 16:00; Stop 12/05/17 at 16:01 Active Scripts Active Reported Robafen (Guaifenesin) 100 Mg/5 Ml Liquid 200 Mg PO PRN Q6HRS PRN Levothyroxine Sodium 50 Mcg Tablet 1 Tab PO DAILY Alprazolam 0.25 Mg Tablet 1 Tab PO TID PRN Acetaminophen 500 Mg Tablet 500 Mg PO TID Namenda (Memantine Hcl) 10 Mg Tablet 1 Tab PO BID Calcium (Calcium Carbonate) 600 Mg Tablet 1,200 Mg PO BID Thera Tablet (Multivitamin with Folic Acid) 400 Mcg Tablet 400 Mcg PO DAILY EXELON 4.6mg/24hr (Rivastigmine) 1 Each Patch.td24 1 Patch TP DAILY Oxybutynin Chloride Er (Oxybutynin Chloride) 5 Mg Tab.er.24 1 Tab PO DAILY Lisinopril 40 Mg Tablet 1 Tab PO DAILY Amlodipine Besylate 5 Mg Tablet 5 Mg PO DAILY Vitals/I & O Vital Sign - Last 24 Hours 12/04/17 12/04/17 12/04/17 12/04/17 11:00 14:52 19:00 20:00 Temp 98.1 98.1 98.1 98.1 98.1 98.1 Pulse 104 100 102 Resp 16 16 18 B/P (MAP) 130/70 (90) 121/66 (84) 127/65 (85) Pulse Ox 95 96 97 O2 Delivery Room Air Room Air Room Air Room Air 12/04/17 12/05/17 12/05/17 12/05/17 23:00 03:00 07:25 07:37 Temp 97.7 98.1 97.9 97.7 98.1 97.9 Pulse 108 107 112 Resp 16 16 14 B/P (MAP) 119/72 (88) 134/75 (94) 133/76 (95) Pulse Ox 97 95 100 O2 Delivery Room Air Room Air Room Air Room Air 12/05/17 12/05/17 12/05/17 07:52 09:30 10:43 Temp 97.9 97.9 Pulse 127 Resp 18 B/P (MAP) 137/75 (95) Pulse Ox 96 O2 Delivery Room Air Room Air Room Air Intake and Output 12/04/17 12/04/17 12/05/17 15:00 23:00 07:00 Intake Total 100 ml 1308 ml Output Total 750 ml Balance 100 ml 558 ml STEPHANI QUIJANO MD Dec 05, 2017 10:58
[2017-12-05] MEDS: oxyCODONE/APAP 5/325 1 TAB TABLET PO PRN ×2 (14:06→21:29)
[2017-12-05] MEDS: guaiFENesin ORAL 200 MG/10 ML LIQUID. PO PRN (14:10)
--- NOTE | 2017-12-05 14:14 | PATHOLOGY ---
[facility] Accession Number: [id number] . 01 Material submitted: . RIGHT HIP BONE AND TISSUE . 01 Clinical history: . Right hip fracture . 02 Diagnosis: Femoral head and segments of bone and soft tissue, right hip hemiarthroplasty: - Focal fragmentation of bony trabeculae and recent intertrabecular hemorrhage consistent with fracture. [facility]/12/05/2017 . 02 Comment: There is no evidence of malignancy. . (JPM:mml; 12/05/17) . 02 Electronically signed: . Feng Baca MD, Pathologist NPI- [id number] . 01 Gross description: . The specimen is received in formalin, labeled "Anna Pleitez and right hip bone and tissue", is a femoral head measuring 4.2 x 4.0 x 3.3 cm with a lee, predominantly smooth articular surface. There is a 3.1 x 0.8 x 0.2 cm lee-white fibrous area present. Sectioning reveals a predominantly lee--red trabeculated bone with the distal most aspect hemorrhagic, consistent with a fracture site. Also received within the container are several irregular fragments of predominantly hemorrhagic bone and a fragment of neck measuring 3.7 x 3.0 x 1.2 cm in aggregate. Top Spotter sections are submitted in A1 after decalcification. . ([facility]; 12/03/2017) SHS/SHS . 02 Pathologist provided ICD-10: S72.091A . 02 CPT . 308116, [id number] Performed at: 01 [facility] [address] [facility] [address], [place] [id number] MD Hayden Rubio MD Phone: [phone] Performed at: 02 [facility] [address] [place], [place] [id number] MD Feng Baca MD Phone: [phone]
[2017-12-05 15:00] VITALS: BP 138/77
[2017-12-05] MEDS ORDERED: WARFARIN 1 MG TABLET. PO ONE (16:00)
[2017-12-05] MEDS ORDERED: BISACODYL 10 MG SUPP.RECT. PR PRN (16:15)
[2017-12-05 19:00] VITALS: BP 142/80
--- NOTE | 2017-12-05 20:10 | EKG ---
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
[2017-12-05] MEDS: METOPROLOL TARTRATE 5 MG/5 ML VIAL. IVP PRN (21:42)
[2017-12-05 23:00] VITALS: BP 127/70
[2017-12-06] MEDS: ALPRAZolam 0.25 MG TABLET PO PRN ×2 (01:25→20:18)
[2017-12-06] MEDS: IV NORMAL SALINE 1000ML BAG 1,000 ML IV SCH ×2 (03:05→15:13)
[2017-12-06] MEDS: CEFEPIME HCL IV Push 1 GM VIAL. IVP SCH ×4 (05:24→22:18)
[2017-12-06] MEDS: oxyCODONE/APAP 5/325 1 TAB TABLET PO PRN (06:04)
[2017-12-06] MEDS: LEVOTHYROXINE 50 MCG TABLET PO SCH (06:05)
[2017-12-06 06:12] VITALS: BP 143/80
[2017-12-06] MEDS: METOPROLOL TARTRATE 5 MG/5 ML VIAL. IVP PRN (06:17)
[2017-12-06 07:00] VITALS: BP 132/70
[2017-12-06 08:08] LABS: ALBUMIN 2.1 g/dL (3.4-5.0); ALBUMIN/GLOBULIN RATIO 0.6 (1.0-1.7); CALCIUM 7.8 mg/dL (8.5-10.1); CREATININE 0.7 mg/dL (0.6-1.0); GFR 81.4; POTASSIUM 3.7 mmol/L (3.5-5.1); TOTAL BILIRUBIN 0.5 mg/dL (0.2-1.0); TOTAL PROTEIN 5.4 g/dL (6.4-8.2)
[2017-12-06 08:10] LABS: BASO # 0.1 x10^3/uL (0.0-0.2); BASO % 0 % (0-3); EOS # 0.2 x10^3/uL (0.0-0.7); EOS % 1 % (0-3); HEMATOCRIT 32.8 % (36.0-47.0); LYMPH # 1.6 x10^3/uL (1.0-4.8); LYMPH % 8 % (24-48); MEAN CORPUSCULAR HEMOGLOBIN 29 pg (25-35); MEAN CORPUSCULAR HGB CONC 34 g/dL (31-37); MEAN CORPUSCULAR VOLUME 87 fL (79-100); MONO # 0.8 x10^3/uL (0.0-1.1); MONO % 4 % (0-9); NEUT # 16.4 x10^3uL (1.8-7.7); NEUT % 86 % (31-73); PLATELET COUNT 302 x10^3/uL (140-400); RED BLOOD COUNT 3.76 x10^6/uL (3.50-5.40); RED CELL DISTRIBUTION WIDTH 15.7 % (11.5-14.5); WHITE BLOOD COUNT 19.1 x10^3/uL (4.0-11.0)
[2017-12-06 08:38] LABS: PROTHROMBIN TIME PATIENT 30.9 SEC (11.7-14.0)
--- NOTE | 2017-12-06 09:08 | PDOC ---
PROGRESS NOTES Chief Complaint Chief Complaint Right hip fracture, after a fall s/p R hip carina arthroplasTy -12/01/17 Pseudomonas UTI Fall mechanical traumatic Hypertension now hypotension History of complicated UTI Hypothyroidism on Synthroid Dyslipidemia statin ACUTE encephalopathy vitd deficiency SNU resident mod-severe dementia constipation anemia, post op History of Present Illness History of Present Illness severe demented, arousable, but not follow commands or answer questions sitter at bedside Very weak, appears confused Pseudomonas UTI, needs IV cefepime until 12/07/17 then can DC to snu Full code on chart Plan: Keep in house for IV cefepime until 12/07/17 per ID Involve palliative, CODE STATUS, Goals of care? Patient is nonambulatory, confused, no quality of life Otherwise , cleared by ortho for SNU Vitals Vitals Vital Signs Date Time Temp Pulse Resp B/P (MAP) Pulse Ox O2 Delivery O2 Flow Rate FiO2 12/06/17 07:04 Room Air 12/06/17 07:00 98.2 106 18 132/70 (90) 97 98.2 Physical Exam Physical Exam GENERAL: Alert, NAD, in bed HEENT: Normal conjunctivae. LUNGS: Clear to auscultation. HEART: S1 and S2. ABDOMEN: Bowel sounds active soft, no grimace or guarding to palpation. mild distended. GENITOURINARY: Indwelling Delaney in place. EXTREMITIES: No gross edema or cyanosis. Right lateral hip post-op dressing dry /intact SKIN: Warm without rash. NEUROLOGIC: Confused. Follows but follows simple commands. General: Cooperative, No acute distress, mild distress Heart: Regular rate, Normal S1, Normal S2 Lungs: Clear Abdomen: Normal bowel sounds, Soft, No tenderness, No hepatosplenomegaly, No masses Extremities: Other (right leg is externally rotated) Skin: No rashes, No breakdown, No significant lesion Labs LABS Laboratory Tests Test 12/06/17 07:25 White Blood Count 19.1 x10^3/uL (4.0-11.0) Red Blood Count 3.76 x10^6/uL (3.50-5.40) Hemoglobin 11.0 g/dL (12.0-15.5) Hematocrit 32.8 % (36.0-47.0) Mean Corpuscular Volume 87 fL (79-100) Mean Corpuscular Hemoglobin 29 pg (25-35) Mean Corpuscular Hemoglobin Concent 34 g/dL (31-37) Red Cell Distribution Width 15.7 % (11.5-14.5) Platelet Count 302 x10^3/uL (140-400) Neutrophils (%) (Auto) 86 % (31-73) Lymphocytes (%) (Auto) 8 % (24-48) Monocytes (%) (Auto) 4 % (0-9) Eosinophils (%) (Auto) 1 % (0-3) Basophils (%) (Auto) 0 % (0-3) Neutrophils # (Auto) 16.4 x10^3uL (1.8-7.7) Lymphocytes # (Auto) 1.6 x10^3/uL (1.0-4.8) Monocytes # (Auto) 0.8 x10^3/uL (0.0-1.1) Eosinophils # (Auto) 0.2 x10^3/uL (0.0-0.7) Basophils # (Auto) 0.1 x10^3/uL (0.0-0.2) Prothrombin Time 30.9 SEC (11.7-14.0) Prothromb Time International Ratio 3.1 (0.8-1.1) Sodium Level 131 mmol/L (136-145) Potassium Level 3.7 mmol/L (3.5-5.1) Chloride Level 100 mmol/L (98-107) Carbon Dioxide Level 23 mmol/L (21-32) Anion Gap 8 (6-14) Blood Urea Nitrogen 7 mg/dL (7-20) Creatinine 0.7 mg/dL (0.6-1.0) Estimated GFR (Cockcroft-Gault) 81.4 BUN/Creatinine Ratio 10 (6-20) Glucose Level 116 mg/dL (70-99) Calcium Level 7.8 mg/dL (8.5-10.1) Total Bilirubin 0.5 mg/dL (0.2-1.0) Aspartate Amino Transf (AST/SGOT) 35 U/L (15-37) Alanine Aminotransferase (ALT/SGPT) 19 U/L (14-59) Alkaline Phosphatase 73 U/L (46-116) Total Protein 5.4 g/dL (6.4-8.2) Albumin 2.1 g/dL (3.4-5.0) Albumin/Globulin Ratio 0.6 (1.0-1.7) Review of Systems Review of Systems confused demented Comment Review of Relevant I have reviewed the following items fabian (where applicable) has been applied. Labs Laboratory Tests Test 12/05/17 06:53 12/06/17 07:25 Prothrombin Time 27.5 SEC (11.7-14.0) 30.9 SEC (11.7-14.0) Prothromb Time International Ratio 2.7 (0.8-1.1) 3.1 (0.8-1.1) White Blood Count 19.1 x10^3/uL (4.0-11.0) Red Blood Count 3.76 x10^6/uL (3.50-5.40) Hemoglobin 11.0 g/dL (12.0-15.5) Hematocrit 32.8 % (36.0-47.0) Mean Corpuscular Volume 87 fL (79-100) Mean Corpuscular Hemoglobin 29 pg (25-35) Mean Corpuscular Hemoglobin Concent 34 g/dL (31-37) Red Cell Distribution Width 15.7 % (11.5-14.5) Platelet Count 302 x10^3/uL (140-400) Neutrophils (%) (Auto) 86 % (31-73) Lymphocytes (%) (Auto) 8 % (24-48) Monocytes (%) (Auto) 4 % (0-9) Eosinophils (%) (Auto) 1 % (0-3) Basophils (%) (Auto) 0 % (0-3) Neutrophils # (Auto) 16.4 x10^3uL (1.8-7.7) Lymphocytes # (Auto) 1.6 x10^3/uL (1.0-4.8) Monocytes # (Auto) 0.8 x10^3/uL (0.0-1.1) Eosinophils # (Auto) 0.2 x10^3/uL (0.0-0.7) Basophils # (Auto) 0.1 x10^3/uL (0.0-0.2) Sodium Level 131 mmol/L (136-145) Potassium Level 3.7 mmol/L (3.5-5.1) Chloride Level 100 mmol/L (98-107) Carbon Dioxide Level 23 mmol/L (21-32) Anion Gap 8 (6-14) Blood Urea Nitrogen 7 mg/dL (7-20) Creatinine 0.7 mg/dL (0.6-1.0) Estimated GFR (Cockcroft-Gault) 81.4 BUN/Creatinine Ratio 10 (6-20) Glucose Level 116 mg/dL (70-99) Calcium Level 7.8 mg/dL (8.5-10.1) Total Bilirubin 0.5 mg/dL (0.2-1.0) Aspartate Amino Transf (AST/SGOT) 35 U/L (15-37) Alanine Aminotransferase (ALT/SGPT) 19 U/L (14-59) Alkaline Phosphatase 73 U/L (46-116) Total Protein 5.4 g/dL (6.4-8.2) Albumin 2.1 g/dL (3.4-5.0) Albumin/Globulin Ratio 0.6 (1.0-1.7) Laboratory Tests Test 12/06/17 07:25 White Blood Count 19.1 x10^3/uL (4.0-11.0) Red Blood Count 3.76 x10^6/uL (3.50-5.40) Hemoglobin 11.0 g/dL (12.0-15.5) Hematocrit 32.8 % (36.0-47.0) Mean Corpuscular Volume 87 fL (79-100) Mean Corpuscular Hemoglobin 29 pg (25-35) Mean Corpuscular Hemoglobin Concent 34 g/dL (31-37) Red Cell Distribution Width 15.7 % (11.5-14.5) Platelet Count 302 x10^3/uL (140-400) Neutrophils (%) (Auto) 86 % (31-73) Lymphocytes (%) (Auto) 8 % (24-48) Monocytes (%) (Auto) 4 % (0-9) Eosinophils (%) (Auto) 1 % (0-3) Basophils (%) (Auto) 0 % (0-3) Neutrophils # (Auto) 16.4 x10^3uL (1.8-7.7) Lymphocytes # (Auto) 1.6 x10^3/uL (1.0-4.8) Monocytes # (Auto) 0.8 x10^3/uL (0.0-1.1) Eosinophils # (Auto) 0.2 x10^3/uL (0.0-0.7) Basophils # (Auto) 0.1 x10^3/uL (0.0-0.2) Prothrombin Time 30.9 SEC (11.7-14.0) Prothromb Time International Ratio 3.1 (0.8-1.1) Sodium Level 131 mmol/L (136-145) Potassium Level 3.7 mmol/L (3.5-5.1) Chloride Level 100 mmol/L (98-107) Carbon Dioxide Level 23 mmol/L (21-32) Anion Gap 8 (6-14) Blood Urea Nitrogen 7 mg/dL (7-20) Creatinine 0.7 mg/dL (0.6-1.0) Estimated GFR (Cockcroft-Gault) 81.4 BUN/Creatinine Ratio 10 (6-20) Glucose Level 116 mg/dL (70-99) Calcium Level 7.8 mg/dL (8.5-10.1) Total Bilirubin 0.5 mg/dL (0.2-1.0) Aspartate Amino Transf (AST/SGOT) 35 U/L (15-37) Alanine Aminotransferase (ALT/SGPT) 19 U/L (14-59) Alkaline Phosphatase 73 U/L (46-116) Total Protein 5.4 g/dL (6.4-8.2) Albumin 2.1 g/dL (3.4-5.0) Albumin/Globulin Ratio 0.6 (1.0-1.7) Microbiology 12/02/17 Blood Culture - Preliminary, Resulted NO GROWTH AFTER 3 DAYS 11/30/17 Urine Culture - Final, Complete 11/30/17 Urine Culture Result 1 ([facility]) - Final, Complete 11/30/17 Antimicrobic Susceptibility - Final, Complete Medications Current Medications Ondansetron HCl (Zofran) 4 mg PRN Q8HRS PRN IV NAUSEA/VOMITING 1ST CHOICE Last administered on 11/30/17at 03:35; Start 11/30/17 at 02:45; Stop 11/30/17 at 09:20; Status DC Morphine Sulfate (Morphine Sulfate) 2 mg PRN Q2HR PRN IV SEVERE PAIN Last administered on 11/30/17at 23:21; Start 11/30/17 at 02:45; Stop 12/01/17 at 02:44; Status DC Ondansetron HCl (Zofran) 4 mg PRN Q6HRS PRN IV NAUSEA/VOMITING 1ST CHOICE; Start 11/30/17 at 09:30; Stop 12/01/17 at 10:16; Status DC Acetaminophen (Tylenol) 500 mg PRN Q6HRS PRN PO TEMP; Start 11/30/17 at 09:30 Oxycodone/ Acetaminophen (Percocet 5/325) 1 tab PRN Q4HRS PRN PO MODERATE PAIN Last administered on 12/06/17 06:04; Start 11/30/17 at 09:30 Acetaminophen (Tylenol) 500 mg TID PO Last administered on 12/05/17 21:28; Start 11/30/17 at 14:00 Alprazolam (Xanax) 0.25 mg PRN TID PRN PO ANXIETY Last administered on 01:25; Start 11/30/17 at 09:30 Amlodipine Besylate (Norvasc) 5 mg DAILY PO ; Start 11/30/17 at 10:00; Stop at 08:04; Status DC Guaifenesin (Robitussin) 200 mg PRN Q6HRS PRN PO COUGH Last administered on 12/05 14:10; Start 11/30/17 at 09:30 Lisinopril (Prinivil) 40 mg DAILY PO ; Start 11/30/17 at 10:00; Stop 12/02/17 at 08:04; Status DC Calcium Carbonate/ Glycine (Oscal) 1,000 mg BID PO Last administered on 21:28; Start 11/30/17 at 10:00 Levothyroxine Sodium (Synthroid) 50 mcg DAILY07 PO Last administered on 06:05; Start 11/30/17 at 10:00 Memantine (Namenda) 10 mg BID PO Last administered on 12/05/17 21:29; Start 11/30/17 at 10:30 Multivitamins (Thera M Plus) 1 tab DAILY PO Last administered on 12/05/17 07:52 ; Start 11/30/17 at 10:00 Oxybutynin Chloride (Ditropan) 2.5 mg BID PO Last administered on 8/9/18at 21: 29; Start 11/30/17 at 10:30 Rivastigmine (Exelon) 1 patch DAILY TD Last administered on 12/05/17at 07:50; Start 11/30/17 at 10:00 Piperacillin Sod/ Tazobactam Sod (Zosyn Per Pharmacy) 1 each PRN DAILY PRN MC SEE COMMENTS; Start 11/30/17 at 10:15; Stop 12/04/17 at 18:57; Status DC Piperacillin Sod/ Tazobactam Sod 2.25 gm/Sodium Chloride 50 ml @ 100 mls/hr Q6HRS IV Last administered on 12/02/17at 18:21; Start 11/30/17 at 12:00; Stop 12/02 at 21:38; Status DC Sodium Chloride 1,000 ml @ 80 mls/hr [id number] IV Last administered on 12/02/17at 09:10; Start 11/30/17 at 12:45; Stop 12/02/17 at 22:01; Status DC Prochlorperazine Edisylate (Compazine) 5 mg PACU PRN PRN IV NAUSEA, MRX1; Start 12/01/17 at 07:00; Stop 12/01/17 at 15:00; Status DC Lidocaine HCl (Xylocaine-Mpf 1% Vial) 2 ml PRN 1X PRN ID IV START; Start at 07:00; Stop 12/01/17 at 12:00; Status DC Ringer's Solution 1,000 ml @ 30 mls/hr Q24H IV ; Start 12/01/17 at 07:00; Stop 12/01/17 at 11:38; Status DC Morphine Sulfate (Morphine Sulfate) 1 mg PRN Q10MIN PRN IV SEVERE PAIN; Start 12/01/17 at 07:00; Stop 12/01/17 at 15:00; Status DC Fentanyl Citrate (Fentanyl 2ml Vial) 50 mcg PRN Q5MIN PRN IV MODERATE TO SEVERE PAIN; Start 12/01/17 at 07:00; Stop 12/01/17 at 15:00; Status DC Fentanyl Citrate (Fentanyl 2ml Vial) 25 mcg PRN Q5MIN PRN IV MILD PAIN; Start 12/01/17 at 07:00; Stop 12/01/17 at 15:00; Status DC Ondansetron HCl (Zofran) 4 mg PRN Q6HRS PRN IV NAUSEA/VOMITING; Start 12/01/17 at 07:00; Stop 12/01/17 at 15:00; Status DC Rocuronium [place] (Zemuron) 50 mg STK-MED ONCE .ROUTE ; Start 12/01/17 at 07:12 ; Stop 12/01/17 at 07:13; Status DC Propofol 20 ml @ As Directed STK-MED ONCE IV ; Start 12/01/17 at 07:14; Stop 12/01 at 07:16; Status DC Lidocaine HCl (Lidocaine Pf 2% Vial) 5 ml STK-MED ONCE .ROUTE ; Start 12/01/17 at 07:15; Stop 12/01/17 at 07:16; Status DC Ondansetron HCl (Zofran) 4 mg STK-MED ONCE .ROUTE ; Start 12/01/17 at 07:15; Stop 12/01/17 at 07:16; Status DC Phenylephrine HCl (PHENYLEPHRINE in 0.9% NACL PF) 1 mg STK-MED ONCE IV ; Start 12/01/17 at 07:15; Stop 12/01/17 at 07:16; Status DC Morphine Sulfate 5 mg/Ketorolac Tromethamine 30 mg/Ropivacaine 60 ml/ Epinephrine HCl 0.5 mg/Sodium Chloride 100 ml @ 100 mls/hr 1X ONCE INT ART Last administered on 12/01/17at 08:36; Start 12/01/17 at 08:30; Stop 12/01/17 at 09: 29; Status DC Sevoflurane (Ultane) 30 ml STK-MED ONCE IH ; Start 12/01/17 at 08:39; Stop at 08:40; Status DC Dexamethasone Sodium Phosphate (Decadron) 20 mg STK-MED ONCE .ROUTE ; Start 12/01 at 08:39; Stop 12/01/17 at 08:40; Status DC Ketorolac Tromethamine (Toradol For Or Only) 30 mg STK-MED ONCE INJ ; Start 12/01 at 08:49; Stop 12/01/17 at 08:50; Status DC Fentanyl Citrate (Fentanyl 2ml Vial) 100 mcg STK-MED ONCE .ROUTE ; Start at 09:38; Stop 12/01/17 at 09:39; Status DC Oxycodone HCl (Roxicodone) 5 mg PRN Q3HRS PRN PO PAIN Moderate 2nd Choice; Start 12/01/17 at 10:15 Morphine Sulfate (Morphine Sulfate) 2 mg PRN Q1HR PRN IV PAIN SEVERE 1st CHOICE Last administered on 12/03/17at 15:24; Start 12/01/17 at 10:15 Fentanyl Citrate (Fentanyl 2ml Vial) 25 mcg PRN Q1HR PRN IV PAIN Severe 2nd Choice; Start 12/01/17 at 10:15 Senna/Docusate Sodium (Senna Plus) 1 tab DAILY PO Last administered on at 08:34; Start 12/02/17 at 09:00; Stop 12/04/17 at 11:02; Status DC Polyethylene Glycol (miraLAX PACKET) 17 gm PRN DAILY PRN PO CONSTIPATION Last administered on 12/05/17at 14:06; Start 12/01/17 at 10:15 Ondansetron HCl (Zofran) 4 mg PRN Q4HRS PRN IV NAUSEA/VOMITING Last administered on 12/02/17at 13:43; Start 12/01/17 at 10:15; Stop 12/02/17 at 16:31; Status DC Warfarin Sodium (Coumadin) 5 mg 1X ONCE PO Last administered on 12/01/17at 17:16 ; Start 12/01/17 at 16:00; Stop 12/01/17 at 16:01; Status DC Warfarin Sodium (Coumadin Per Pharmacy) 1 each PRN DAILY PRN MC SEE COMMENTS Last administered on 12/05/17at 10:36; Start 12/02/17 at 10:15 Magnesium Hydroxide (Milk Of Magnesia) 2,400 mg 1X PRN PRN PO CONSTIPATION; Start 12/02/17 at 06:00; Stop 12/03/17 at 06:00; Status DC Bisacodyl (Dulcolax Supp) 10 mg 1X PRN PRN [place] CONSTIPATION; Start 12/02/17 at 16 :00; Stop 12/03/17 at 15:59; Status DC Acetaminophen/ Hydrocodone Bitart (Lortab 7.5/325) 1 tab PRN Q4HRS PRN PO PAIN Mod to Severe 3rd Choice Last administered on 12/05/17at 07:52; Start 12/01/17 at 10:15 Dextrose (Dextrose 50%-Water Syringe) 12.5 gm PRN Q15MIN PRN IV SEE COMMENTS; Start 12/01/17 at 10:15 Cefazolin Sodium 1 gm/Dextrose 50 ml @ 100 mls/hr Q6H IV ; Start 12/01/17 at 15: 00; Stop 12/02/17 at 03:29; Status UNV Cefazolin Sodium (Ancef) 1 gm Q6H IVP Last administered on 12/02/17at 06:21; Start 12/01/17 at 15:00; Stop 12/02/17 at 03:01; Status DC Lorazepam (Ativan) 2 mg STK-MED ONCE .ROUTE ; Start 12/01/17 at 23:53; Stop at 23:54; Status DC Lorazepam (Ativan) 2 mg 1X ONCE IM Last administered on 12/02/17at 00:42; Start 12/02/17 at 01:00; Stop 12/02/17 at 01:01; Status DC Lorazepam (Ativan) 1 mg PRN Q4HRS PRN IV ANXIETY / AGITATION Last administered on 12/02/17at 06:27; Start 12/02/17 at 00:30 Haloperidol Lactate (Haldol Inj) 5 mg PRN Q6HRS PRN IVP AGITATION Last administered on 12/04/17at 16:48; Start 12/02/17 at 00:30 Ketorolac Tromethamine 30 mg/Bupivacaine HCl 20 ml/ Epinephrine HCl 1 mg/ Miscellaneous 43.5 ml @ 522 mls/hr 1X ONCE INT ART Last administered on at 06:15; Start 12/02/17 at 06:00; Stop 12/02/17 at 06:04; Status DC Warfarin Sodium (Coumadin) 2.5 mg 1X WARF ONCE PO Last administered on at 18:20; Start 12/02/17 at 16:00; Stop 12/02/17 at 16:01; Status DC Vitamin D (Vitamin D3) 1,000 unit DAILY PO Last administered on 12/05/17at 07:50 ; Start 12/02/17 at 15:00 Ondansetron HCl (Zofran) 4 mg PRN Q6HRS PRN IV NAUSEA/VOMITING 1ST CHOICE Last administered on 12/03/17 12:01; Start 12/02/17 at 16:30 Prochlorperazine Edisylate (Compazine) 10 mg PRN Q6HRS PRN IV NAUSEA/VOMITING 2ND CHOICE Last administered on 12/03/17 15:24; Start 12/02/17 at 18:00 Sodium Chloride 250 ml @ 250 mls/hr 1X ONCE IV Last administered on 12/02/17at 20:30; Start 12/02/17 at 20:30; Stop 12/02/17 at 21:29; Status DC Sodium Chloride 1,000 ml @ 80 mls/hr [id number] IV Last administered on 03:05; Start 12/02/17 at 20:30 Ertapenem 50 ml @ 100 mls/hr DAILY IV ; Start 12/02/17 at 21:45; Status UNV Piperacillin Sod/ Tazobactam Sod 2.25 gm/Sodium Chloride 50 ml @ 100 mls/hr Q6HRS IV Last administered on 12/04/17at 06:05; Start 12/03/17 at 00:00; Stop 12/04 at 08:23; Status DC Lactobacillus Rhamnosus (Culturelle) 1 cap BID PO Last administered on 21:28; Start 12/03/17 at 21:00 Senna/Docusate Sodium (Senna Plus) 1 tab BID PO Last administered on 12/05/17at 07:50; Start 12/03/17 at 21:00 Docusate Sodium (Colace) 100 mg BID PO Last administered on 12/05/17at 07:50; Start 12/03/17 at 11:00 Magnesium Hydroxide (Milk Of Magnesia) 2,400 mg PRN Q12HR PRN PO CONSTIPATION Last administered on 12/05/17 14:10; Start 12/03/17 at 11:15 Ferrous Sulfate (Feosol) 325 mg BID PO Last administered on 12/05/17 21:29; Start 12/03/17 at 21:00 Warfarin Sodium (Coumadin - No Dose Today) 1 each 1X WARF ONCE MC ; Start at 16:00; Stop 12/03/17 at 16:01; Status DC Ciprofloxacin (Cipro) 500 mg BID PO ; Start 12/04/17 at 09:00; Status UNV Cefepime HCl 1 gm/ Dextrose 50 ml @ 100 mls/hr Q8HRS IV ; Start 12/04/17 at 08: 30; Status UNV Cefepime HCl (Maxipime) 1 gm Q8HRS IVP Last administered on 12/06/17at 05:24; Start 12/04/17 at 09:00 Warfarin Sodium (Coumadin) 1 mg 1X WARF ONCE PO Last administered on 12/04/17at 16:46; Start 12/04/17 at 16:00; Stop 12/04/17 at 16:01; Status DC Warfarin Sodium (Coumadin) 1 mg 1X WARF ONCE PO Last administered on 12/05/17at 15:10; Start 12/05/17 at 16:00; Stop 12/05/17 at 16:01; Status DC Bisacodyl (Dulcolax Supp) 10 mg PRN DAILY PRN [place] CONSTIPATION Last administered on 12/05/17at 17:45; Start 12/05/17 at 16:15 Metoprolol Tartrate (Lopressor Vial) 5 mg Q8HRS PRN IVP TACYCARDIA; HR > 120 Last administered on 12/06/17at 06:17; Start 12/05/17 at 21:00 Active Scripts Active Reported Robafen (Guaifenesin) 100 Mg/5 Ml Liquid 200 Mg PO PRN Q6HRS PRN Levothyroxine Sodium 50 Mcg Tablet 1 Tab PO DAILY Alprazolam 0.25 Mg Tablet 1 Tab PO TID PRN Acetaminophen 500 Mg Tablet 500 Mg PO TID Namenda (Memantine Hcl) 10 Mg Tablet 1 Tab PO BID Calcium (Calcium Carbonate) 600 Mg Tablet 1,200 Mg PO BID Thera Tablet (Multivitamin with Folic Acid) 400 Mcg Tablet 400 Mcg PO DAILY EXELON 4.6mg/24hr (Rivastigmine) 1 Each Patch.td24 1 Patch TP DAILY Oxybutynin Chloride Er (Oxybutynin Chloride) 5 Mg Tab.er.24 1 Tab PO DAILY Lisinopril 40 Mg Tablet 1 Tab PO DAILY Amlodipine Besylate 5 Mg Tablet 5 Mg PO DAILY Vitals/I & O Vital Sign - Last 24 Hours 12/05/17 12/05/17 12/05/17 12/05/17 09:30 10:43 14:06 15:00 Temp 97.9 97.7 97.9 97.7 Pulse 127 128 Resp 18 16 B/P (MAP) 137/75 (95) 138/77 (97) Pulse Ox 96 97 O2 Delivery Room Air Room Air Room Air Room Air 12/05/17 12/05/17 12/05/17 12/05/17 19:00 20:00 21:29 21:42 Temp 97.9 97.9 Pulse 125 128 Resp 18 B/P (MAP) 142/80 (100) 141/87 Pulse Ox 95 95 O2 Delivery Room Air Room Air Room Air 12/05/17 12/05/17 12/06/17 12/06/17 22:29 23:00 06:04 06:12 Temp 98.2 98.2 Pulse 97 118 Resp 18 18 B/P (MAP) 127/70 (89) 143/80 (101) Pulse Ox 95 94 94 93 O2 Delivery Room Air Room Air Room Air 12/06/17 12/06/17 12/06/17 06:17 07:00 07:04 Temp 98.2 98.2 Pulse 118 106 Resp 18 B/P (MAP) 143/80 132/70 (90) Pulse Ox 97 O2 Delivery Room Air Room Air Intake and Output 12/05/17 12/05/17 12/06/17 15:00 23:00 07:00 Intake Total 50 ml Output Total 720 ml 1200 ml Balance -670 ml -1200 ml LURDES CORRALES MD Dec 06, 2017 09:08
--- NOTE | 2017-12-06 09:09 | PDOC ---
Infectious Disease Note Subjective Subjective Appears doing ok. in bed ROS ROS unobtainable Vital Sign Vital Signs Vital Signs Date Time Temp Pulse Resp B/P (MAP) Pulse Ox O2 Delivery O2 Flow Rate FiO2 12/06/17 07:04 Room Air 12/06/17 07:00 98.2 106 18 132/70 (90) 97 98.2 Physical Exam PHYSICAL EXAM GENERAL: Alert, NAD, in bed, smiling HEENT: Normal conjunctivae. LUNGS: Clear to auscultation. HEART: S1 and S2. ABDOMEN: Bowel sounds active soft, no grimace or guarding to palpation. mild distended. GENITOURINARY: Indwelling Delaney in place.again EXTREMITIES: No gross edema or cyanosis. Right lateral hip post-op dressing dry /intact SKIN: Warm without rash. NEUROLOGIC: Confused. Follows but follows simple commands. Labs Lab Laboratory Tests Test 12/06/17 07:25 White Blood Count 19.1 x10^3/uL (4.0-11.0) Red Blood Count 3.76 x10^6/uL (3.50-5.40) Hemoglobin 11.0 g/dL (12.0-15.5) Hematocrit 32.8 % (36.0-47.0) Mean Corpuscular Volume 87 fL (79-100) Mean Corpuscular Hemoglobin 29 pg (25-35) Mean Corpuscular Hemoglobin Concent 34 g/dL (31-37) Red Cell Distribution Width 15.7 % (11.5-14.5) Platelet Count 302 x10^3/uL (140-400) Neutrophils (%) (Auto) 86 % (31-73) Lymphocytes (%) (Auto) 8 % (24-48) Monocytes (%) (Auto) 4 % (0-9) Eosinophils (%) (Auto) 1 % (0-3) Basophils (%) (Auto) 0 % (0-3) Neutrophils # (Auto) 16.4 x10^3uL (1.8-7.7) Lymphocytes # (Auto) 1.6 x10^3/uL (1.0-4.8) Monocytes # (Auto) 0.8 x10^3/uL (0.0-1.1) Eosinophils # (Auto) 0.2 x10^3/uL (0.0-0.7) Basophils # (Auto) 0.1 x10^3/uL (0.0-0.2) Prothrombin Time 30.9 SEC (11.7-14.0) Prothromb Time International Ratio 3.1 (0.8-1.1) Sodium Level 131 mmol/L (136-145) Potassium Level 3.7 mmol/L (3.5-5.1) Chloride Level 100 mmol/L (98-107) Carbon Dioxide Level 23 mmol/L (21-32) Anion Gap 8 (6-14) Blood Urea Nitrogen 7 mg/dL (7-20) Creatinine 0.7 mg/dL (0.6-1.0) Estimated GFR (Cockcroft-Gault) 81.4 BUN/Creatinine Ratio 10 (6-20) Glucose Level 116 mg/dL (70-99) Calcium Level 7.8 mg/dL (8.5-10.1) Total Bilirubin 0.5 mg/dL (0.2-1.0) Aspartate Amino Transf (AST/SGOT) 35 U/L (15-37) Alanine Aminotransferase (ALT/SGPT) 19 U/L (14-59) Alkaline Phosphatase 73 U/L (46-116) Total Protein 5.4 g/dL (6.4-8.2) Albumin 2.1 g/dL (3.4-5.0) Albumin/Globulin Ratio 0.6 (1.0-1.7) Micro Microbiology 12/01/17 Blood Culture - Preliminary, Resulted NO GROWTH AFTER 1 DAY 11/30/17 Urine Culture - Preliminary, Resulted 11/30/17 Urine Culture Result 1 ([facility]) - Preliminary, Resulted Pseudomonas aeruginosa 50,000-100,000 colony forming units per mL ANTIMICROBIAL SUSCEPTIBILITY Final Comment S = Susceptible; I = Intermediate; R = Resistant P = Positive; N = Negative MICS are expressed in micrograms per mL Antibiotic RSLT#1 RSLT#2 RSLT#3 RSLT#4 Amikacin S<=2 Cefepime S<=1 Ceftazidime S =4 Ciprofloxacin S<=0.25 Gentamicin S<=1 Imipenem S =2 Levofloxacin S =0.25 Meropenem S =0.5 Piperacillin S<=4 Ticarcillin S =32 Tobramycin S<=1 Performed at: [facility] [place] Objective Assessment Fever - improved. ? post op vs ID Pyuria -h/o E. coli-pansensitive in urine from 11/11. D/w LMH micro now with Ecoli from 11/30 Bandemia - from fracture/UTI/steroids Right hip fracture following a fall. s/p Right hip hemiarthroplasty on 12/01 Dementia Overactive bladder - on oxybutynin Hypothyroidism Hypertension Warfarin therapy Plan Plan of Care Cont Cefepime through tomorrow then can d/c ID to sign off MELISSA NEWSOME MD Dec 06, 2017 09:09
[2017-12-06] MEDS: ACETAMINOPHEN 500 MG TABLET PO SCH ×3 (09:29→20:19)
[2017-12-06] MEDS: LACTOBACILLUS RHAMNOSUS GG 1 CAPSULE. PO SCH ×2 (09:30→20:18)
[2017-12-06] MEDS: MEMANTINE 10 MG TABLET. PO SCH ×2 (09:30→20:18)
[2017-12-06] MEDS: DOCUSATE SODIUM 100 MG CAPSULE. PO SCH ×2 (09:30→20:20)
[2017-12-06] MEDS: MULTIVITAMIN with MINERAL TABLET. PO SCH (09:30)
[2017-12-06] MEDS: CHOLECALCIFEROL (VITAMIN D3) 1,000 UNIT TABLET PO SCH (09:30)
[2017-12-06] MEDS: SENNOSIDES/DOCUSATE 8.6/50MG TABLET. PO SCH ×2 (09:30→20:20)
[2017-12-06] MEDS: FERROUS SULFATE 325 MG TABLET. PO SCH ×2 (09:31→20:19)
[2017-12-06] MEDS: OXYBUTYNIN CHLORIDE 5 MG TABLET PO SCH ×2 (09:31→20:19)
[2017-12-06] MEDS: CALCIUM CARBONATE 500 MG TABLET PO SCH ×2 (09:31→20:18)
[2017-12-06] MEDS: RIVASTIGMINE 4.6MG PATCH. TD SCH (09:33)
--- NOTE | 2017-12-06 09:35 | PDOC2 ---
PALLIATIVE CARE Palliative Care Note Palliative Care Consult requested by Dr. Turner to address Code Status and goals of care. Medical Assessment per record Fall --fractured R hip post op arthroplasty 12/01/2017 Dementia UTI Hypothyroidism Encephalopathy Vit D deficiency hypothyroidism Constipation Anemia--post transfusion Patient 1:1. Resting quietly Attempted to reach Annette to arrange family meeting. No answer Reviewed copy of Living Will on record. Full Code LULY MEANRD Dec 06, 2017 09:35
[2017-12-06 11:00] VITALS: BP 130/80
--- NOTE | 2017-12-06 14:19 | RAD ---
Portable chest, 12/06/2017: HISTORY: Aspiration Comparison is made to a study from 11/30/2017. Moderate bilateral lower chest pulmonary opacities have developed obscuring the hemidiaphragms and the cardiac margins. The appearance suggests a combination of infiltrate and probable pleural fluid. Prominent pulmonary interstitial markings persist. IMPRESSION: Worsening congestive heart failure with moderate bibasilar pulmonary edema and probable pleural effusions. Pneumonia is less likely. Electronically signed by: Betito Guillaume MD (12/06/2017 2:16 PM) [facility]
[2017-12-06 15:00] VITALS: BP 126/72
[2017-12-06 19:00] VITALS: BP 147/89
[2017-12-06] MEDS: guaiFENesin ORAL 200 MG/10 ML LIQUID. PO PRN (22:28)
[2017-12-06 23:00] VITALS: BP 142/73
[2017-12-07] MEDS: IV NORMAL SALINE 1000ML BAG 1,000 ML IV SCH ×2 (03:19→15:34)
[2017-12-07] MEDS: CEFEPIME HCL IV Push 1 GM VIAL. IVP SCH ×2 (05:38→13:43)
[2017-12-07 06:09] LABS: PROTHROMBIN TIME PATIENT 26.8 SEC (11.7-14.0)
[2017-12-07] MEDS: LEVOTHYROXINE 50 MCG TABLET PO SCH (07:19)
[2017-12-07 07:27] VITALS: BP 140/75
[2017-12-07] MEDS: FERROUS SULFATE 325 MG TABLET. PO SCH ×2 (08:03→22:36)
[2017-12-07] MEDS: CALCIUM CARBONATE 500 MG TABLET PO SCH ×2 (08:03→22:36)
[2017-12-07] MEDS: RIVASTIGMINE 4.6MG PATCH. TD SCH (08:03)
[2017-12-07] MEDS: MULTIVITAMIN with MINERAL TABLET. PO SCH (08:04)
[2017-12-07] MEDS: LACTOBACILLUS RHAMNOSUS GG 1 CAPSULE. PO SCH ×2 (08:04→22:36)
[2017-12-07] MEDS: ACETAMINOPHEN 500 MG TABLET PO SCH ×3 (08:04→22:36)
[2017-12-07] MEDS: OXYBUTYNIN CHLORIDE 5 MG TABLET PO SCH ×2 (08:04→22:36)
[2017-12-07] MEDS: CHOLECALCIFEROL (VITAMIN D3) 1,000 UNIT TABLET PO SCH (08:04)
[2017-12-07] MEDS: MEMANTINE 10 MG TABLET. PO SCH ×2 (08:05→22:36)
[2017-12-07] MEDS: SENNOSIDES/DOCUSATE 8.6/50MG TABLET. PO SCH ×2 (08:05→22:36)
[2017-12-07] MEDS: DOCUSATE SODIUM 100 MG CAPSULE. PO SCH ×2 (08:05→22:36)
--- NOTE | 2017-12-07 08:18 | PDOC ---
Infectious Disease Note Subjective Subjective Appears doing ok. in bed Vital Sign Vital Signs Vital Signs Date Time Temp Pulse Resp B/P (MAP) Pulse Ox O2 Delivery O2 Flow Rate FiO2 12/07/17 07:27 98.6 105 16 140/75 (96) 96 Room Air 98.6 Physical Exam PHYSICAL EXAM GENERAL: Alert, NAD, in bed, smiling HEENT: Normal conjunctivae. LUNGS: Clear to auscultation. HEART: S1 and S2. ABDOMEN: Bowel sounds active soft, no grimace or guarding to palpation. mild distended. GENITOURINARY: Indwelling Delaney in place.again EXTREMITIES: No gross edema or cyanosis. Right lateral hip post-op dressing dry /intact SKIN: Warm without rash. NEUROLOGIC: Confused. Follows but follows simple commands. Labs Lab Laboratory Tests Test 12/07/17 04:50 Prothrombin Time 26.8 SEC (11.7-14.0) Prothromb Time International Ratio 2.6 (0.8-1.1) Micro Microbiology 12/01/17 Blood Culture - Preliminary, Resulted NO GROWTH AFTER 1 DAY 11/30/17 Urine Culture - Preliminary, Resulted 11/30/17 Urine Culture Result 1 ([facility]) - Preliminary, Resulted Pseudomonas aeruginosa 50,000-100,000 colony forming units per mL ANTIMICROBIAL SUSCEPTIBILITY Final Comment S = Susceptible; I = Intermediate; R = Resistant P = Positive; N = Negative MICS are expressed in micrograms per mL Antibiotic RSLT#1 RSLT#2 RSLT#3 RSLT#4 Amikacin S<=2 Cefepime S<=1 Ceftazidime S =4 Ciprofloxacin S<=0.25 Gentamicin S<=1 Imipenem S =2 Levofloxacin S =0.25 Meropenem S =0.5 Piperacillin S<=4 Ticarcillin S =32 Tobramycin S<=1 [facility]: [facility] Leukocytosis ? reactive to urinary retention clinically looks well. CXR CHF Fever - improved. ? post op vs ID Pyuria -h/o E. coli-pansensitive in urine from 11/11. D/w LMH micro now with Ecoli from 11/30 Bandemia - from fracture/UTI/steroids Right hip fracture following a fall. s/p Right hip hemiarthroplasty on 12/01 Dementia Overactive bladder - on oxybutynin Hypothyroidism Hypertension Warfarin therapy Plan Plan of Care Cont Cefepime Labs this am MELISSA NEWSOME MD Dec 07, 2017 08:18
[2017-12-07 08:23] LABS: CALCIUM 7.9 mg/dL (8.5-10.1); CREATININE 0.6 mg/dL (0.6-1.0); GFR 97.2; POTASSIUM 3.6 mmol/L (3.5-5.1)
[2017-12-07 08:28] LABS: BASO # 0.1 x10^3/uL (0.0-0.2); BASO % 1 % (0-3); EOS # 0.2 x10^3/uL (0.0-0.7); EOS % 2 % (0-3); HEMATOCRIT 29.2 % (36.0-47.0); HEMOGLOBIN 9.8 g/dL (12.0-15.5); LYMPH # 1.2 x10^3/uL (1.0-4.8); LYMPH % 12 % (24-48); MEAN CORPUSCULAR HEMOGLOBIN 30 pg (25-35); MEAN CORPUSCULAR HGB CONC 34 g/dL (31-37); MEAN CORPUSCULAR VOLUME 88 fL (79-100); MONO # 0.6 x10^3/uL (0.0-1.1); MONO % 5 % (0-9); NEUT # 8.6 x10^3uL (1.8-7.7); NEUT % 81 % (31-73); PLATELET COUNT 229 x10^3/uL (140-400); RED BLOOD COUNT 3.33 x10^6/uL (3.50-5.40); RED CELL DISTRIBUTION WIDTH 15.6 % (11.5-14.5); WHITE BLOOD COUNT 10.7 x10^3/uL (4.0-11.0)
[2017-12-07 10:25] VITALS: BP 151/86
[2017-12-07 14:45] VITALS: BP 132/70
--- NOTE | 2017-12-07 14:58 | PDOC ---
PROGRESS NOTES Chief Complaint Chief Complaint Right hip fracture, after a fall s/p R hip carina arthroplasTy -12/01/17 Pseudomonas UTI Fall mechanical traumatic Hypertension now hypotension History of complicated UTI Hypothyroidism on Synthroid Dyslipidemia statin ACUTE encephalopathy vitd deficiency [facility] resident mod-severe dementia constipation anemia, post op urinary retention, john now plan: fu with ID, on cefepime, PTOT gentle IVf with low po intake pain control plan dc on Saturday History of Present Illness History of Present Illness severe demented, arousable, but not follow commands or answer questions sitter at bedside Very weak, appears confused, albe to walk with PT with a walker Pseudomonas UTI, needs IV cefepime until 12/07/17 then can DC to [facility] Full code on chart Vitals Vitals Vital Signs Date Time Temp Pulse Resp B/P (MAP) Pulse Ox O2 Delivery O2 Flow Rate FiO2 12/07/17 14:45 98.1 100 17 132/70 (90) 96 Room Air 98.1 Physical Exam Physical Exam GENERAL: Alert, NAD, in bed, smiling HEENT: Normal conjunctivae. LUNGS: Clear to auscultation. HEART: S1 and S2. ABDOMEN: Bowel sounds active soft, no grimace or guarding to palpation. mild distended. GENITOURINARY: Indwelling John in place.again EXTREMITIES: No gross edema or cyanosis. Right lateral hip post-op dressing dry /intact SKIN: Warm without rash. NEUROLOGIC: Confused. Follows but follows simple commands. General: Cooperative, No acute distress, mild distress Heart: Regular rate, Normal S1, Normal S2 Lungs: Clear Abdomen: Normal bowel sounds, Soft, No tenderness, No hepatosplenomegaly, No masses Extremities: Other (right leg is externally rotated) Skin: No rashes, No breakdown, No significant lesion Labs LABS Laboratory Tests Test 12/07/17 04:50 White Blood Count 10.7 x10^3/uL (4.0-11.0) Red Blood Count 3.33 x10^6/uL (3.50-5.40) Hemoglobin 9.8 g/dL (12.0-15.5) Hematocrit 29.2 % (36.0-47.0) Mean Corpuscular Volume 88 fL (79-100) Mean Corpuscular Hemoglobin 30 pg (25-35) Mean Corpuscular Hemoglobin Concent 34 g/dL (31-37) Red Cell Distribution Width 15.6 % (11.5-14.5) Platelet Count 229 x10^3/uL (140-400) Neutrophils (%) (Auto) 81 % (31-73) Lymphocytes (%) (Auto) 12 % (24-48) Monocytes (%) (Auto) 5 % (0-9) Eosinophils (%) (Auto) 2 % (0-3) Basophils (%) (Auto) 1 % (0-3) Neutrophils # (Auto) 8.6 x10^3uL (1.8-7.7) Lymphocytes # (Auto) 1.2 x10^3/uL (1.0-4.8) Monocytes # (Auto) 0.6 x10^3/uL (0.0-1.1) Eosinophils # (Auto) 0.2 x10^3/uL (0.0-0.7) Basophils # (Auto) 0.1 x10^3/uL (0.0-0.2) Prothrombin Time 26.8 SEC (11.7-14.0) Prothromb Time International Ratio 2.6 (0.8-1.1) Sodium Level 132 mmol/L (136-145) Potassium Level 3.6 mmol/L (3.5-5.1) Chloride Level 102 mmol/L (98-107) Carbon Dioxide Level 24 mmol/L (21-32) Anion Gap 6 (6-14) Blood Urea Nitrogen 8 mg/dL (7-20) Creatinine 0.6 mg/dL (0.6-1.0) Estimated GFR (Cockcroft-Gault) 97.2 Glucose Level 87 mg/dL (70-99) Calcium Level 7.9 mg/dL (8.5-10.1) Comment Review of Relevant I have reviewed the following items fabian (where applicable) has been applied. Labs Laboratory Tests Test 12/06/17 07:25 12/07/17 04:50 White Blood Count 19.1 x10^3/uL (4.0-11.0) 10.7 x10^3/uL (4.0-11.0) Red Blood Count 3.76 x10^6/uL (3.50-5.40) 3.33 x10^6/uL (3.50-5.40) Hemoglobin 11.0 g/dL (12.0-15.5) 9.8 g/dL (12.0-15.5) Hematocrit 32.8 % (36.0-47.0) 29.2 % (36.0-47.0) Mean Corpuscular Volume 87 fL (79-100) 88 fL (79-100) Mean Corpuscular Hemoglobin 29 pg (25-35) 30 pg (25-35) Mean Corpuscular Hemoglobin Concent 34 g/dL (31-37) 34 g/dL (31-37) Red Cell Distribution Width 15.7 % (11.5-14.5) 15.6 % (11.5-14.5) Platelet Count 302 x10^3/uL (140-400) 229 x10^3/uL (140-400) Neutrophils (%) (Auto) 86 % (31-73) 81 % (31-73) Lymphocytes (%) (Auto) 8 % (24-48) 12 % (24-48) Monocytes (%) (Auto) 4 % (0-9) 5 % (0-9) Eosinophils (%) (Auto) 1 % (0-3) 2 % (0-3) Basophils (%) (Auto) 0 % (0-3) 1 % (0-3) Neutrophils # (Auto) 16.4 x10^3uL (1.8-7.7) 8.6 x10^3uL (1.8-7.7) Lymphocytes # (Auto) 1.6 x10^3/uL (1.0-4.8) 1.2 x10^3/uL (1.0-4.8) Monocytes # (Auto) 0.8 x10^3/uL (0.0-1.1) 0.6 x10^3/uL (0.0-1.1) Eosinophils # (Auto) 0.2 x10^3/uL (0.0-0.7) 0.2 x10^3/uL (0.0-0.7) Basophils # (Auto) 0.1 x10^3/uL (0.0-0.2) 0.1 x10^3/uL (0.0-0.2) Prothrombin Time 30.9 SEC (11.7-14.0) 26.8 SEC (11.7-14.0) Prothromb Time International Ratio 3.1 (0.8-1.1) 2.6 (0.8-1.1) Sodium Level 131 mmol/L (136-145) 132 mmol/L (136-145) Potassium Level 3.7 mmol/L (3.5-5.1) 3.6 mmol/L (3.5-5.1) Chloride Level 100 mmol/L (98-107) 102 mmol/L (98-107) Carbon Dioxide Level 23 mmol/L (21-32) 24 mmol/L (21-32) Anion Gap 8 (6-14) 6 (6-14) Blood Urea Nitrogen 7 mg/dL (7-20) 8 mg/dL (7-20) Creatinine 0.7 mg/dL (0.6-1.0) 0.6 mg/dL (0.6-1.0) Estimated GFR (Cockcroft-Gault) 81.4 97.2 BUN/Creatinine Ratio 10 (6-20) Glucose Level 116 mg/dL (70-99) 87 mg/dL (70-99) Calcium Level 7.8 mg/dL (8.5-10.1) 7.9 mg/dL (8.5-10.1) Total Bilirubin 0.5 mg/dL (0.2-1.0) Aspartate Amino Transf (AST/SGOT) 35 U/L (15-37) Alanine Aminotransferase (ALT/SGPT) 19 U/L (14-59) Alkaline Phosphatase 73 U/L (46-116) Total Protein 5.4 g/dL (6.4-8.2) Albumin 2.1 g/dL (3.4-5.0) Albumin/Globulin Ratio 0.6 (1.0-1.7) Laboratory Tests Test 12/07/17 04:50 White Blood Count 10.7 x10^3/uL (4.0-11.0) Red Blood Count 3.33 x10^6/uL (3.50-5.40) Hemoglobin 9.8 g/dL (12.0-15.5) Hematocrit 29.2 % (36.0-47.0) Mean Corpuscular Volume 88 fL (79-100) Mean Corpuscular Hemoglobin 30 pg (25-35) Mean Corpuscular Hemoglobin Concent 34 g/dL (31-37) Red Cell Distribution Width 15.6 % (11.5-14.5) Platelet Count 229 x10^3/uL (140-400) Neutrophils (%) (Auto) 81 % (31-73) Lymphocytes (%) (Auto) 12 % (24-48) Monocytes (%) (Auto) 5 % (0-9) Eosinophils (%) (Auto) 2 % (0-3) Basophils (%) (Auto) 1 % (0-3) Neutrophils # (Auto) 8.6 x10^3uL (1.8-7.7) Lymphocytes # (Auto) 1.2 x10^3/uL (1.0-4.8) Monocytes # (Auto) 0.6 x10^3/uL (0.0-1.1) Eosinophils # (Auto) 0.2 x10^3/uL (0.0-0.7) Basophils # (Auto) 0.1 x10^3/uL (0.0-0.2) Prothrombin Time 26.8 SEC (11.7-14.0) Prothromb Time International Ratio 2.6 (0.8-1.1) Sodium Level 132 mmol/L (136-145) Potassium Level 3.6 mmol/L (3.5-5.1) Chloride Level 102 mmol/L (98-107) Carbon Dioxide Level 24 mmol/L (21-32) Anion Gap 6 (6-14) Blood Urea Nitrogen 8 mg/dL (7-20) Creatinine 0.6 mg/dL (0.6-1.0) Estimated GFR (Cockcroft-Gault) 97.2 Glucose Level 87 mg/dL (70-99) Calcium Level 7.9 mg/dL (8.5-10.1) Microbiology 12/02/17 Blood Culture - Preliminary, Resulted NO GROWTH AFTER 4 DAYS 11/30/17 Urine Culture - Final, Complete 11/30/17 Urine Culture Result 1 ([facility]) - Final, Complete 11/30/17 Antimicrobic Susceptibility - Final, Complete Medications Current Medications Ondansetron HCl (Zofran) 4 mg PRN Q8HRS PRN IV NAUSEA/VOMITING 1ST CHOICE Last administered on 11/30/17at 03:35; Start 11/30/17 at 02:45; Stop 11/30/17 at 09:20; Status DC Morphine Sulfate (Morphine Sulfate) 2 mg PRN Q2HR PRN IV SEVERE PAIN Last administered on 11/30/17at 23:21; Start 11/30/17 at 02:45; Stop 12/01/17 at 02:44; Status DC Ondansetron HCl (Zofran) 4 mg PRN Q6HRS PRN IV NAUSEA/VOMITING 1ST CHOICE; Start 11/30/17 at 09:30; Stop 12/01/17 at 10:16; Status DC Acetaminophen (Tylenol) 500 mg PRN Q6HRS PRN PO TEMP; Start 11/30/17 at 09:30 Oxycodone/ Acetaminophen (Percocet 5/325) 1 tab PRN Q4HRS PRN PO MODERATE PAIN 1st Choice Last administered on 12/06/17at 06:04; Start 11/30/17 at 09:30 Acetaminophen (Tylenol) 500 mg TID PO Last administered on 12/07/17at 13:41; Start 11/30/17 at 14:00 Alprazolam (Xanax) 0.25 mg PRN TID PRN PO ANXIETY Last administered on at 20:18; Start 11/30/17 at 09:30 Amlodipine Besylate (Norvasc) 5 mg DAILY PO ; Start 11/30/17 at 10:00; Stop at 08:04; Status DC Guaifenesin (Robitussin) 200 mg PRN Q6HRS PRN PO COUGH Last administered on 02/13at 22:28; Start 11/30/17 at 09:30 Lisinopril (Prinivil) 40 mg DAILY PO ; Start 11/30/17 at 10:00; Stop 12/02/17 at 08:04; Status DC Calcium Carbonate/ Glycine (Oscal) 1,000 mg BID PO Last administered on at 08:03; Start 11/30/17 at 10:00 Levothyroxine Sodium (Synthroid) 50 mcg DAILY07 PO Last administered on at 07:19; Start 11/30/17 at 10:00 Memantine (Namenda) 10 mg BID PO Last administered on 12/07/17at 08:05; Start at 10:30 Multivitamins (Thera M Plus) 1 tab DAILY PO Last administered on 12/07/17at 08: 04; Start 11/30/17 at 10:00 Oxybutynin Chloride (Ditropan) 2.5 mg BID PO Last administered on 12/07/17at 08: 04; Start 11/30/17 at 10:30 Rivastigmine (Exelon) 1 patch DAILY TD Last administered on 12/07/17at 08:03; Start 11/30/17 at 10:00 Piperacillin Sod/ Tazobactam Sod (Zosyn Per Pharmacy) 1 each PRN DAILY PRN MC SEE COMMENTS; Start 11/30/17 at 10:15; Stop 12/04/17 at 18:57; Status DC Piperacillin Sod/ Tazobactam Sod 2.25 gm/Sodium Chloride 50 ml @ 100 mls/hr Q6HRS IV Last administered on 12/02/17at 18:21; Start 11/30/17 at 12:00; Stop 12/02 at 21:38; Status DC Sodium Chloride 1,000 ml @ 80 mls/hr [id number] IV Last administered on 12/02/17at 09:10; Start 11/30/17 at 12:45; Stop 12/02/17 at 22:01; Status DC Prochlorperazine Edisylate (Compazine) 5 mg PACU PRN PRN IV NAUSEA, MRX1; Start 12/01/17 at 07:00; Stop 12/01/17 at 15:00; Status DC Lidocaine HCl (Xylocaine-Mpf 1% Vial) 2 ml PRN 1X PRN ID IV START; Start at 07:00; Stop 12/01/17 at 12:00; Status DC Ringer's Solution 1,000 ml @ 30 mls/hr Q24H IV ; Start 12/01/17 at 07:00; Stop 12/01/17 at 11:38; Status DC Morphine Sulfate (Morphine Sulfate) 1 mg PRN Q10MIN PRN IV SEVERE PAIN; Start 12/01/17 at 07:00; Stop 12/01/17 at 15:00; Status DC Fentanyl Citrate (Fentanyl 2ml Vial) 50 mcg PRN Q5MIN PRN IV MODERATE TO SEVERE PAIN; Start 12/01/17 at 07:00; Stop 12/01/17 at 15:00; Status DC Fentanyl Citrate (Fentanyl 2ml Vial) 25 mcg PRN Q5MIN PRN IV MILD PAIN; Start 12/01/17 at 07:00; Stop 12/01/17 at 15:00; Status DC Ondansetron HCl (Zofran) 4 mg PRN Q6HRS PRN IV NAUSEA/VOMITING; Start 12/01/17 at 07:00; Stop 12/01/17 at 15:00; Status DC Rocuronium [place] (Zemuron) 50 mg STK-MED ONCE .ROUTE ; Start 12/01/17 at 07:12 ; Stop 12/01/17 at 07:13; Status DC Propofol 20 ml @ As Directed STK-MED ONCE IV ; Start 12/01/17 at 07:14; Stop 12/01 at 07:16; Status DC Lidocaine HCl (Lidocaine Pf 2% Vial) 5 ml STK-MED ONCE .ROUTE ; Start 12/01/17 at 07:15; Stop 12/01/17 at 07:16; Status DC Ondansetron HCl (Zofran) 4 mg STK-MED ONCE .ROUTE ; Start 12/01/17 at 07:15; Stop 12/01/17 at 07:16; Status DC Phenylephrine HCl (PHENYLEPHRINE in 0.9% NACL PF) 1 mg STK-MED ONCE IV ; Start 12/01/17 at 07:15; Stop 12/01/17 at 07:16; Status DC Morphine Sulfate 5 mg/Ketorolac Tromethamine 30 mg/Ropivacaine 60 ml/ Epinephrine HCl 0.5 mg/Sodium Chloride 100 ml @ 100 mls/hr 1X ONCE INT ART Last administered on 12/01/17at 08:36; Start 12/01/17 at 08:30; Stop 12/01/17 at 09: 29; Status DC Sevoflurane (Ultane) 30 ml STK-MED ONCE IH ; Start 12/01/17 at 08:39; Stop at 08:40; Status DC Dexamethasone Sodium Phosphate (Decadron) 20 mg STK-MED ONCE .ROUTE ; Start 12/01 at 08:39; Stop 12/01/17 at 08:40; Status DC Ketorolac Tromethamine (Toradol For Or Only) 30 mg STK-MED ONCE INJ ; Start 12/01 at 08:49; Stop 12/01/17 at 08:50; Status DC Fentanyl Citrate (Fentanyl 2ml Vial) 100 mcg STK-MED ONCE .ROUTE ; Start at 09:38; Stop 12/01/17 at 09:39; Status DC Oxycodone HCl (Roxicodone) 5 mg PRN Q3HRS PRN PO PAIN Moderate 2nd Choice; Start 12/01/17 at 10:15 Morphine Sulfate (Morphine Sulfate) 2 mg PRN Q1HR PRN IV PAIN SEVERE 1st CHOICE Last administered on 12/03/17at 15:24; Start 12/01/17 at 10:15 Fentanyl Citrate (Fentanyl 2ml Vial) 25 mcg PRN Q1HR PRN IV PAIN Severe 2nd Choice; Start 12/01/17 at 10:15 Senna/Docusate Sodium (Senna Plus) 1 tab DAILY PO Last administered on at 08:34; Start 12/02/17 at 09:00; Stop 12/04/17 at 11:02; Status DC Polyethylene Glycol (miraLAX PACKET) 17 gm PRN DAILY PRN PO CONSTIPATION 1st Choice Last administered on 12/05/17at 14:06; Start 12/01/17 at 10:15 Ondansetron HCl (Zofran) 4 mg PRN Q4HRS PRN IV NAUSEA/VOMITING Last administered on 12/02/17at 13:43; Start 12/01/17 at 10:15; Stop 12/02/17 at 16:31; Status DC Warfarin Sodium (Coumadin) 5 mg 1X ONCE PO Last administered on 12/01/17at 17:16 ; Start 12/01/17 at 16:00; Stop 12/01/17 at 16:01; Status DC Warfarin Sodium (Coumadin Per Pharmacy) 1 each PRN DAILY PRN MC SEE COMMENTS Last administered on 12/07/17at 12:04; Start 12/02/17 at 10:15 Magnesium Hydroxide (Milk Of Magnesia) 2,400 mg 1X PRN PRN PO CONSTIPATION; Start 12/02/17 at 06:00; Stop 12/03/17 at 06:00; Status DC Bisacodyl (Dulcolax Supp) 10 mg 1X PRN PRN [place] CONSTIPATION; Start 12/02/17 at 16 :00; Stop 12/03/17 at 15:59; Status DC Acetaminophen/ Hydrocodone Bitart (Lortab 7.5/325) 1 tab PRN Q4HRS PRN PO PAIN Mod to Severe 3rd Choice Last administered on 12/05/17at 07:52; Start 12/01/17 at 10:15 Dextrose (Dextrose 50%-Water Syringe) 12.5 gm PRN Q15MIN PRN IV SEE COMMENTS; Start 12/01/17 at 10:15 Cefazolin Sodium 1 gm/Dextrose 50 ml @ 100 mls/hr Q6H IV ; Start 12/01/17 at 15: 00; Stop 12/02/17 at 03:29; Status UNV Cefazolin Sodium (Ancef) 1 gm Q6H IVP Last administered on 12/02/17at 06:21; Start 12/01/17 at 15:00; Stop 12/02/17 at 03:01; Status DC Lorazepam (Ativan) 2 mg STK-MED ONCE .ROUTE ; Start 12/01/17 at 23:53; Stop at 23:54; Status DC Lorazepam (Ativan) 2 mg 1X ONCE IM Last administered on 12/02/17at 00:42; Start 12/02/17 at 01:00; Stop 12/02/17 at 01:01; Status DC Lorazepam (Ativan) 1 mg PRN Q4HRS PRN IV ANXIETY / AGITATION Last administered on 12/02/17at 06:27; Start 12/02/17 at 00:30 Haloperidol Lactate (Haldol Inj) 5 mg PRN Q6HRS PRN IVP AGITATION Last administered on 12/04/17at 16:48; Start 12/02/17 at 00:30 Ketorolac Tromethamine 30 mg/Bupivacaine HCl 20 ml/ Epinephrine HCl 1 mg/ Miscellaneous 43.5 ml @ 522 mls/hr 1X ONCE INT ART Last administered on at 06:15; Start 12/02/17 at 06:00; Stop 12/02/17 at 06:04; Status DC Warfarin Sodium (Coumadin) 2.5 mg 1X WARF ONCE PO Last administered on at 18:20; Start 12/02/17 at 16:00; Stop 12/02/17 at 16:01; Status DC Vitamin D (Vitamin D3) 1,000 unit DAILY PO Last administered on 12/07/17 08:04 ; Start 12/02/17 at 15:00 Ondansetron HCl (Zofran) 4 mg PRN Q6HRS PRN IV NAUSEA/VOMITING 1ST CHOICE Last administered on 12/03/17 12:01; Start 12/02/17 at 16:30 Prochlorperazine Edisylate (Compazine) 10 mg PRN Q6HRS PRN IV NAUSEA/VOMITING 2ND CHOICE Last administered on 12/03/17 15:24; Start 12/02/17 at 18:00 Sodium Chloride 250 ml @ 250 mls/hr 1X ONCE IV Last administered on 12/02/17 20:30; Start 12/02/17 at 20:30; Stop 12/02/17 at 21:29; Status DC Sodium Chloride 1,000 ml @ 80 mls/hr [id number] IV Last administered on 03:19; Start 12/02/17 at 20:30 Ertapenem 50 ml @ 100 mls/hr DAILY IV ; Start 12/02/17 at 21:45; Status UNV Piperacillin Sod/ Tazobactam Sod 2.25 gm/Sodium Chloride 50 ml @ 100 mls/hr Q6HRS IV Last administered on 12/04/17 06:05; Start 12/03/17 at 00:00; Stop 12/04 at 08:23; Status DC Lactobacillus Rhamnosus (Culturelle) 1 cap BID PO Last administered on at 08:04; Start 12/03/17 at 21:00 Senna/Docusate Sodium (Senna Plus) 1 tab BID PO Last administered on 12/06/17 09:30; Start 12/03/17 at 21:00 Docusate Sodium (Colace) 100 mg BID PO Last administered on 12/06/17 09:30; Start 12/03/17 at 11:00 Magnesium Hydroxide (Milk Of Magnesia) 2,400 mg PRN Q12HR PRN PO CONSTIPATION 2nd Choice Last administered on 12/05/17 14:10; Start 12/03/17 at 11:15 Ferrous Sulfate (Feosol) 325 mg BID PO Last administered on 12/07/17at 08:03; Start 12/03/17 at 21:00 Warfarin Sodium (Coumadin - No Dose Today) 1 each 1X WARF ONCE MC ; Start at 16:00; Stop 12/03/17 at 16:01; Status DC Ciprofloxacin (Cipro) 500 mg BID PO ; Start 12/04/17 at 09:00; Status UNV Cefepime HCl 1 gm/ Dextrose 50 ml @ 100 mls/hr Q8HRS IV ; Start 12/04/17 at 08: 30; Status UNV Cefepime HCl (Maxipime) 1 gm Q8HRS IVP Last administered on 12/07/17at 13:43; Start 12/04/17 at 09:00; Stop 12/07/17 at 19:00 Warfarin Sodium (Coumadin) 1 mg 1X WARF ONCE PO Last administered on 12/04/17at 16:46; Start 12/04/17 at 16:00; Stop 12/04/17 at 16:01; Status DC Warfarin Sodium (Coumadin) 1 mg 1X WARF ONCE PO Last administered on 12/05/17at 15:10; Start 12/05/17 at 16:00; Stop 12/05/17 at 16:01; Status DC Bisacodyl (Dulcolax Supp) 10 mg PRN DAILY PRN [place] CONSTIPATION Last administered on 12/05/17at 17:45; Start 12/05/17 at 16:15 Metoprolol Tartrate (Lopressor Vial) 5 mg Q8HRS PRN IVP TACYCARDIA; HR > 120 Last administered on 12/06/17at 06:17; Start 12/05/17 at 21:00 Warfarin Sodium (Coumadin - No Dose Today) 1 each 1X WARF ONCE MC Last administered on 12/06/17at 15:13; Start 12/06/17 at 16:00; Stop 12/06/17 at 16:01 ; Status DC Warfarin Sodium (Coumadin) 1 mg 1X WARF ONCE PO ; Start 12/07/17 at 16:00; Stop 12/07/17 at 16:01 Active Scripts Active Reported Robafen (Guaifenesin) 100 Mg/5 Ml Liquid 200 Mg PO PRN Q6HRS PRN Levothyroxine Sodium 50 Mcg Tablet 1 Tab PO DAILY Alprazolam 0.25 Mg Tablet 1 Tab PO TID PRN Acetaminophen 500 Mg Tablet 500 Mg PO TID Namenda (Memantine Hcl) 10 Mg Tablet 1 Tab PO BID Calcium (Calcium Carbonate) 600 Mg Tablet 1,200 Mg PO BID Thera Tablet (Multivitamin with Folic Acid) 400 Mcg Tablet 400 Mcg PO DAILY EXELON 4.6mg/24hr (Rivastigmine) 1 Each Patch.td24 1 Patch TP DAILY Oxybutynin Chloride Er (Oxybutynin Chloride) 5 Mg Tab.er.24 1 Tab PO DAILY Lisinopril 40 Mg Tablet 1 Tab PO DAILY Amlodipine Besylate 5 Mg Tablet 5 Mg PO DAILY Vitals/I & O Vital Sign - Last 24 Hours 12/06/17 12/06/17 12/06/17 12/06/17 15:00 19:00 19:25 23:00 Temp 98.0 97.5 97.9 98.0 97.5 97.9 Pulse 106 117 112 Resp 18 18 18 B/P (MAP) 126/72 (90) 147/89 (108) 142/73 (96) Pulse Ox 92 95 96 O2 Delivery Room Air Room Air Room Air Room Air 12/07/17 12/07/17 12/07/17 12/07/17 03:00 05:40 07:27 08:00 Temp 98.6 98.6 Pulse 88 105 Resp 16 B/P (MAP) 140/75 (96) Pulse Ox 96 O2 Delivery Room Air Room Air Room Air 12/07/17 12/07/17 10:25 14:45 Temp 98.8 98.1 98.8 98.1 Pulse 111 100 Resp 18 17 B/P (MAP) 151/86 (107) 132/70 (90) Pulse Ox 95 96 O2 Delivery Room Air Room Air Intake and Output 12/06/17 12/06/17 12/07/17 15:00 23:00 07:00 Intake Total 1244 ml Output Total 1250 ml 700 ml Balance -6 ml -700 ml Nutrition Consultation Dietary Evaluation: Recommendations by RD: Increase Calorie Intake, Protein supplementation Comments: rec add supplements per [employer] diet recommendations Expected Outcomes/Goals: to meet > 75% est nutr needs via po diet Malnutrition Findings: Body Fat Depletion (Non Severe: Mild Depletion Weight Status: Underweight LEO ZAIDI MD Dec 07, 2017 14:58
[2017-12-07] MEDS: HYDROcodone/APAP 7.5/325MG 1 TAB TABLET PO PRN (15:32)
[2017-12-07] MEDS ORDERED: WARFARIN 1 MG TABLET. PO ONE (16:00)
[2017-12-07 19:00] VITALS: BP 138/79
[2017-12-07 22:31] VITALS: BP 155/83
[2017-12-08] MEDS: oxyCODONE/APAP 5/325 1 TAB TABLET PO PRN ×3 (00:41→16:14)
[2017-12-08 03:00] VITALS: BP 145/80
[2017-12-08] MEDS: IV NORMAL SALINE 1000ML BAG 1,000 ML IV SCH ×2 (04:08→23:31)
[2017-12-08 05:25] LABS: BASO # 0.1 x10^3/uL (0.0-0.2); BASO % 0 % (0-3); EOS # 0.2 x10^3/uL (0.0-0.7); EOS % 2 % (0-3); HEMATOCRIT 30.9 % (36.0-47.0); HEMOGLOBIN 10.4 g/dL (12.0-15.5); LYMPH # 1.2 x10^3/uL (1.0-4.8); LYMPH % 10 % (24-48); MEAN CORPUSCULAR HEMOGLOBIN 30 pg (25-35); MEAN CORPUSCULAR HGB CONC 34 g/dL (31-37); MEAN CORPUSCULAR VOLUME 88 fL (79-100); MONO # 0.7 x10^3/uL (0.0-1.1); MONO % 5 % (0-9); NEUT # 10.4 x10^3uL (1.8-7.7); NEUT % 83 % (31-73); PLATELET COUNT 272 x10^3/uL (140-400); RED BLOOD COUNT 3.51 x10^6/uL (3.50-5.40); RED CELL DISTRIBUTION WIDTH 15.8 % (11.5-14.5); WHITE BLOOD COUNT 12.6 x10^3/uL (4.0-11.0)
[2017-12-08 05:35] LABS: PROTHROMBIN TIME PATIENT 21.2 SEC (11.7-14.0)
[2017-12-08 05:41] LABS: CALCIUM 8.3 mg/dL (8.5-10.1); CREATININE 0.7 mg/dL (0.6-1.0); GFR 81.4; POTASSIUM 3.3 mmol/L (3.5-5.1)
[2017-12-08 07:13] VITALS: BP 146/80
[2017-12-08] MEDS: LEVOTHYROXINE 50 MCG TABLET PO SCH (08:49)
[2017-12-08] MEDS: DOCUSATE SODIUM 100 MG CAPSULE. PO SCH ×2 (08:50→23:31)
[2017-12-08] MEDS: FERROUS SULFATE 325 MG TABLET. PO SCH ×2 (08:52→23:31)
[2017-12-08] MEDS: MULTIVITAMIN with MINERAL TABLET. PO SCH (08:52)
[2017-12-08] MEDS: CHOLECALCIFEROL (VITAMIN D3) 1,000 UNIT TABLET PO SCH (08:52)
[2017-12-08] MEDS: ACETAMINOPHEN 500 MG TABLET PO SCH ×3 (08:52→23:31)
[2017-12-08] MEDS: SENNOSIDES/DOCUSATE 8.6/50MG TABLET. PO SCH ×2 (08:53→23:31)
[2017-12-08] MEDS: CALCIUM CARBONATE 500 MG TABLET PO SCH ×2 (08:53→23:30)
[2017-12-08] MEDS: RIVASTIGMINE 4.6MG PATCH. TD SCH (08:54)
[2017-12-08] MEDS: MEMANTINE 10 MG TABLET. PO SCH ×2 (08:55→23:30)
[2017-12-08] MEDS: LACTOBACILLUS RHAMNOSUS GG 1 CAPSULE. PO SCH ×2 (08:57→23:31)
[2017-12-08] MEDS: OXYBUTYNIN CHLORIDE 5 MG TABLET PO SCH ×2 (08:58→23:31)
[2017-12-08 10:49] VITALS: BP 123/65
[2017-12-08] MEDS ORDERED: POTASSIUM CHLORIDE 20 MEQ TABLET.ER. PO ONE (12:30)
--- NOTE | 2017-12-08 14:30 | PDOC ---
PROGRESS NOTES Chief Complaint Chief Complaint Right hip fracture, after a fall s/p R hip carina arthroplasTy -12/01/17 Pseudomonas UTI Fall mechanical traumatic Hypertension now hypotension History of complicated UTI Hypothyroidism on Synthroid Dyslipidemia statin ACUTE encephalopathy vitd deficiency [facility] resident mod-severe dementia constipation anemia, post op urinary retention, john now plan: fu with ID, on cefepime, PTOT gentle IVf with low po intake, decrease to 50cc/h pain control plan dc on Saturday History of Present Illness History of Present Illness severe demented, arousable, but not follow commands or answer questions sitter at bedside Very weak, appears confused, albe to walk with PT with a walker Pseudomonas UTI, needs IV cefepime until 12/07/17 then can DC to [facility] Full code on chart low po intake, looks calm, no sob, mild crackles Vitals Vitals Vital Signs Date Time Temp Pulse Resp B/P (MAP) Pulse Ox O2 Delivery O2 Flow Rate FiO2 12/08/17 10:49 97.8 111 18 123/65 (84) 95 Room Air 97.8 Physical Exam Physical Exam GENERAL: Alert, NAD, in bed, smiling HEENT: Normal conjunctivae. LUNGS: Clear to auscultation. HEART: S1 and S2. ABDOMEN: Bowel sounds active soft, no grimace or guarding to palpation. mild distended. GENITOURINARY: Indwelling John in place.again EXTREMITIES: No gross edema or cyanosis. Right lateral hip post-op dressing dry /intact SKIN: Warm without rash. NEUROLOGIC: Confused. Follows but follows simple commands. General: Cooperative, No acute distress, mild distress Heart: Regular rate, Normal S1, Normal S2 Lungs: Clear Abdomen: Normal bowel sounds, Soft, No tenderness, No hepatosplenomegaly, No masses Extremities: Other (right leg is externally rotated) Skin: No rashes, No breakdown, No significant lesion Labs LABS Laboratory Tests Test 12/08/17 03:50 White Blood Count 12.6 x10^3/uL (4.0-11.0) Red Blood Count 3.51 x10^6/uL (3.50-5.40) Hemoglobin 10.4 g/dL (12.0-15.5) Hematocrit 30.9 % (36.0-47.0) Mean Corpuscular Volume 88 fL (79-100) Mean Corpuscular Hemoglobin 30 pg (25-35) Mean Corpuscular Hemoglobin Concent 34 g/dL (31-37) Red Cell Distribution Width 15.8 % (11.5-14.5) Platelet Count 272 x10^3/uL (140-400) Neutrophils (%) (Auto) 83 % (31-73) Lymphocytes (%) (Auto) 10 % (24-48) Monocytes (%) (Auto) 5 % (0-9) Eosinophils (%) (Auto) 2 % (0-3) Basophils (%) (Auto) 0 % (0-3) Neutrophils # (Auto) 10.4 x10^3uL (1.8-7.7) Lymphocytes # (Auto) 1.2 x10^3/uL (1.0-4.8) Monocytes # (Auto) 0.7 x10^3/uL (0.0-1.1) Eosinophils # (Auto) 0.2 x10^3/uL (0.0-0.7) Basophils # (Auto) 0.1 x10^3/uL (0.0-0.2) Prothrombin Time 21.2 SEC (11.7-14.0) Prothromb Time International Ratio 1.9 (0.8-1.1) Sodium Level 132 mmol/L (136-145) Potassium Level 3.3 mmol/L (3.5-5.1) Chloride Level 102 mmol/L (98-107) Carbon Dioxide Level 24 mmol/L (21-32) Anion Gap 6 (6-14) Blood Urea Nitrogen 7 mg/dL (7-20) Creatinine 0.7 mg/dL (0.6-1.0) Estimated GFR (Cockcroft-Gault) 81.4 Glucose Level 92 mg/dL (70-99) Calcium Level 8.3 mg/dL (8.5-10.1) Comment Review of Relevant I have reviewed the following items fabian (where applicable) has been applied. Labs Laboratory Tests Test 12/07/17 04:50 12/08/17 03:50 White Blood Count 10.7 x10^3/uL (4.0-11.0) 12.6 x10^3/uL (4.0-11.0) Red Blood Count 3.33 x10^6/uL (3.50-5.40) 3.51 x10^6/uL (3.50-5.40) Hemoglobin 9.8 g/dL (12.0-15.5) 10.4 g/dL (12.0-15.5) Hematocrit 29.2 % (36.0-47.0) 30.9 % (36.0-47.0) Mean Corpuscular Volume 88 fL (79-100) 88 fL (79-100) Mean Corpuscular Hemoglobin 30 pg (25-35) 30 pg (25-35) Mean Corpuscular Hemoglobin Concent 34 g/dL (31-37) 34 g/dL (31-37) Red Cell Distribution Width 15.6 % (11.5-14.5) 15.8 % (11.5-14.5) Platelet Count 229 x10^3/uL (140-400) 272 x10^3/uL (140-400) Neutrophils (%) (Auto) 81 % (31-73) 83 % (31-73) Lymphocytes (%) (Auto) 12 % (24-48) 10 % (24-48) Monocytes (%) (Auto) 5 % (0-9) 5 % (0-9) Eosinophils (%) (Auto) 2 % (0-3) 2 % (0-3) Basophils (%) (Auto) 1 % (0-3) 0 % (0-3) Neutrophils # (Auto) 8.6 x10^3uL (1.8-7.7) 10.4 x10^3uL (1.8-7.7) Lymphocytes # (Auto) 1.2 x10^3/uL (1.0-4.8) 1.2 x10^3/uL (1.0-4.8) Monocytes # (Auto) 0.6 x10^3/uL (0.0-1.1) 0.7 x10^3/uL (0.0-1.1) Eosinophils # (Auto) 0.2 x10^3/uL (0.0-0.7) 0.2 x10^3/uL (0.0-0.7) Basophils # (Auto) 0.1 x10^3/uL (0.0-0.2) 0.1 x10^3/uL (0.0-0.2) Prothrombin Time 26.8 SEC (11.7-14.0) 21.2 SEC (11.7-14.0) Prothromb Time International Ratio 2.6 (0.8-1.1) 1.9 (0.8-1.1) Sodium Level 132 mmol/L (136-145) 132 mmol/L (136-145) Potassium Level 3.6 mmol/L (3.5-5.1) 3.3 mmol/L (3.5-5.1) Chloride Level 102 mmol/L (98-107) 102 mmol/L (98-107) Carbon Dioxide Level 24 mmol/L (21-32) 24 mmol/L (21-32) Anion Gap 6 (6-14) 6 (6-14) Blood Urea Nitrogen 8 mg/dL (7-20) 7 mg/dL (7-20) Creatinine 0.6 mg/dL (0.6-1.0) 0.7 mg/dL (0.6-1.0) Estimated GFR (Cockcroft-Gault) 97.2 81.4 Glucose Level 87 mg/dL (70-99) 92 mg/dL (70-99) Calcium Level 7.9 mg/dL (8.5-10.1) 8.3 mg/dL (8.5-10.1) Laboratory Tests Test 12/08/17 03:50 White Blood Count 12.6 x10^3/uL (4.0-11.0) Red Blood Count 3.51 x10^6/uL (3.50-5.40) Hemoglobin 10.4 g/dL (12.0-15.5) Hematocrit 30.9 % (36.0-47.0) Mean Corpuscular Volume 88 fL (79-100) Mean Corpuscular Hemoglobin 30 pg (25-35) Mean Corpuscular Hemoglobin Concent 34 g/dL (31-37) Red Cell Distribution Width 15.8 % (11.5-14.5) Platelet Count 272 x10^3/uL (140-400) Neutrophils (%) (Auto) 83 % (31-73) Lymphocytes (%) (Auto) 10 % (24-48) Monocytes (%) (Auto) 5 % (0-9) Eosinophils (%) (Auto) 2 % (0-3) Basophils (%) (Auto) 0 % (0-3) Neutrophils # (Auto) 10.4 x10^3uL (1.8-7.7) Lymphocytes # (Auto) 1.2 x10^3/uL (1.0-4.8) Monocytes # (Auto) 0.7 x10^3/uL (0.0-1.1) Eosinophils # (Auto) 0.2 x10^3/uL (0.0-0.7) Basophils # (Auto) 0.1 x10^3/uL (0.0-0.2) Prothrombin Time 21.2 SEC (11.7-14.0) Prothromb Time International Ratio 1.9 (0.8-1.1) Sodium Level 132 mmol/L (136-145) Potassium Level 3.3 mmol/L (3.5-5.1) Chloride Level 102 mmol/L (98-107) Carbon Dioxide Level 24 mmol/L (21-32) Anion Gap 6 (6-14) Blood Urea Nitrogen 7 mg/dL (7-20) Creatinine 0.7 mg/dL (0.6-1.0) Estimated GFR (Cockcroft-Gault) 81.4 Glucose Level 92 mg/dL (70-99) Calcium Level 8.3 mg/dL (8.5-10.1) Microbiology 12/02/17 Blood Culture - Final, Complete NO GROWTH AFTER 5 DAYS 11/30/17 Urine Culture - Final, Complete 11/30/17 Urine Culture Result 1 (OLGA) - Final, Complete 11/30/17 Antimicrobic Susceptibility - Final, Complete Medications Current Medications Ondansetron HCl (Zofran) 4 mg PRN Q8HRS PRN IV NAUSEA/VOMITING 1ST CHOICE Last administered on 11/30/17at 03:35; Start 11/30/17 at 02:45; Stop 11/30/17 at 09:20; Status DC Morphine Sulfate (Morphine Sulfate) 2 mg PRN Q2HR PRN IV SEVERE PAIN Last administered on 11/30/17at 23:21; Start 11/30/17 at 02:45; Stop 12/01/17 at 02:44; Status DC Ondansetron HCl (Zofran) 4 mg PRN Q6HRS PRN IV NAUSEA/VOMITING 1ST CHOICE; Start 11/30/17 at 09:30; Stop 12/01/17 at 10:16; Status DC Acetaminophen (Tylenol) 500 mg PRN Q6HRS PRN PO TEMP; Start 11/30/17 at 09:30 Oxycodone/ Acetaminophen (Percocet 5/325) 1 tab PRN Q4HRS PRN PO MODERATE PAIN 1st Choice Last administered on 12/08/17at 09:46; Start 11/30/17 at 09:30 Acetaminophen (Tylenol) 500 mg TID PO Last administered on 12/08/17 08:52; Start 11/30/17 at 14:00 Alprazolam (Xanax) 0.25 mg PRN TID PRN PO ANXIETY Last administered on 20:18; Start 11/30/17 at 09:30 Amlodipine Besylate (Norvasc) 5 mg DAILY PO ; Start 11/30/17 at 10:00; Stop at 08:04; Status DC Guaifenesin (Robitussin) 200 mg PRN Q6HRS PRN PO COUGH Last administered on 02/13at 22:28; Start 11/30/17 at 09:30 Lisinopril (Prinivil) 40 mg DAILY PO ; Start 11/30/17 at 10:00; Stop 12/02/17 at 08:04; Status DC Calcium Carbonate/ Glycine (Oscal) 1,000 mg BID PO Last administered on at 08:53; Start 11/30/17 at 10:00 Levothyroxine Sodium (Synthroid) 50 mcg DAILY07 PO Last administered on at 08:49; Start 11/30/17 at 10:00 Memantine (Namenda) 10 mg BID PO Last administered on 12/08/17 08:55; Start at 10:30 Multivitamins (Thera M Plus) 1 tab DAILY PO Last administered on 12/08/17at 08: 52; Start 11/30/17 at 10:00 Oxybutynin Chloride (Ditropan) 2.5 mg BID PO Last administered on 12/08/17at 08: 58; Start 11/30/17 at 10:30 Rivastigmine (Exelon) 1 patch DAILY TD Last administered on 12/08/17at 08:54; Start 11/30/17 at 10:00 Piperacillin Sod/ Tazobactam Sod (Zosyn Per Pharmacy) 1 each PRN DAILY PRN MC SEE COMMENTS; Start 11/30/17 at 10:15; Stop 12/04/17 at 18:57; Status DC Piperacillin Sod/ Tazobactam Sod 2.25 gm/Sodium Chloride 50 ml @ 100 mls/hr Q6HRS IV Last administered on 12/02/17at 18:21; Start 11/30/17 at 12:00; Stop 12/02 at 21:38; Status DC Sodium Chloride 1,000 ml @ 80 mls/hr [id number] IV Last administered on 12/02/17at 09:10; Start 11/30/17 at 12:45; Stop 12/02/17 at 22:01; Status DC Prochlorperazine Edisylate (Compazine) 5 mg PACU PRN PRN IV NAUSEA, MRX1; Start 12/01/17 at 07:00; Stop 12/01/17 at 15:00; Status DC Lidocaine HCl (Xylocaine-Mpf 1% Vial) 2 ml PRN 1X PRN ID IV START; Start at 07:00; Stop 12/01/17 at 12:00; Status DC Ringer's Solution 1,000 ml @ 30 mls/hr Q24H IV ; Start 12/01/17 at 07:00; Stop 12/01/17 at 11:38; Status DC Morphine Sulfate (Morphine Sulfate) 1 mg PRN Q10MIN PRN IV SEVERE PAIN; Start 12/01/17 at 07:00; Stop 12/01/17 at 15:00; Status DC Fentanyl Citrate (Fentanyl 2ml Vial) 50 mcg PRN Q5MIN PRN IV MODERATE TO SEVERE PAIN; Start 12/01/17 at 07:00; Stop 12/01/17 at 15:00; Status DC Fentanyl Citrate (Fentanyl 2ml Vial) 25 mcg PRN Q5MIN PRN IV MILD PAIN; Start 12/01/17 at 07:00; Stop 12/01/17 at 15:00; Status DC Ondansetron HCl (Zofran) 4 mg PRN Q6HRS PRN IV NAUSEA/VOMITING; Start 12/01/17 at 07:00; Stop 12/01/17 at 15:00; Status DC Rocuronium [place] (Zemuron) 50 mg STK-MED ONCE .ROUTE ; Start 12/01/17 at 07:12 ; Stop 12/01/17 at 07:13; Status DC Propofol 20 ml @ As Directed STK-MED ONCE IV ; Start 12/01/17 at 07:14; Stop 12/01 at 07:16; Status DC Lidocaine HCl (Lidocaine Pf 2% Vial) 5 ml STK-MED ONCE .ROUTE ; Start 12/01/17 at 07:15; Stop 12/01/17 at 07:16; Status DC Ondansetron HCl (Zofran) 4 mg STK-MED ONCE .ROUTE ; Start 12/01/17 at 07:15; Stop 12/01/17 at 07:16; Status DC Phenylephrine HCl (PHENYLEPHRINE in 0.9% NACL PF) 1 mg STK-MED ONCE IV ; Start 12/01/17 at 07:15; Stop 12/01/17 at 07:16; Status DC Morphine Sulfate 5 mg/Ketorolac Tromethamine 30 mg/Ropivacaine 60 ml/ Epinephrine HCl 0.5 mg/Sodium Chloride 100 ml @ 100 mls/hr 1X ONCE INT ART Last administered on 12/01/17at 08:36; Start 12/01/17 at 08:30; Stop 12/01/17 at 09: 29; Status DC Sevoflurane (Ultane) 30 ml STK-MED ONCE IH ; Start 12/01/17 at 08:39; Stop at 08:40; Status DC Dexamethasone Sodium Phosphate (Decadron) 20 mg STK-MED ONCE .ROUTE ; Start 12/01 at 08:39; Stop 12/01/17 at 08:40; Status DC Ketorolac Tromethamine (Toradol For Or Only) 30 mg STK-MED ONCE INJ ; Start 12/01 at 08:49; Stop 12/01/17 at 08:50; Status DC Fentanyl Citrate (Fentanyl 2ml Vial) 100 mcg STK-MED ONCE .ROUTE ; Start at 09:38; Stop 12/01/17 at 09:39; Status DC Oxycodone HCl (Roxicodone) 5 mg PRN Q3HRS PRN PO PAIN Moderate 2nd Choice; Start 12/01/17 at 10:15 Morphine Sulfate (Morphine Sulfate) 2 mg PRN Q1HR PRN IV PAIN SEVERE 1st CHOICE Last administered on 12/03/17at 15:24; Start 12/01/17 at 10:15 Fentanyl Citrate (Fentanyl 2ml Vial) 25 mcg PRN Q1HR PRN IV PAIN Severe 2nd Choice; Start 12/01/17 at 10:15 Senna/Docusate Sodium (Senna Plus) 1 tab DAILY PO Last administered on at 08:34; Start 12/02/17 at 09:00; Stop 12/04/17 at 11:02; Status DC Polyethylene Glycol (miraLAX PACKET) 17 gm PRN DAILY PRN PO CONSTIPATION 1st Choice Last administered on 12/05/17at 14:06; Start 12/01/17 at 10:15 Ondansetron HCl (Zofran) 4 mg PRN Q4HRS PRN IV NAUSEA/VOMITING Last administered on 12/02/17at 13:43; Start 12/01/17 at 10:15; Stop 12/02/17 at 16:31; Status DC Warfarin Sodium (Coumadin) 5 mg 1X ONCE PO Last administered on 12/01/17at 17:16 ; Start 12/01/17 at 16:00; Stop 12/01/17 at 16:01; Status DC Warfarin Sodium (Coumadin Per Pharmacy) 1 each PRN DAILY PRN MC SEE COMMENTS Last administered on 12/08/17at 12:30; Start 12/02/17 at 10:15 Magnesium Hydroxide (Milk Of Magnesia) 2,400 mg 1X PRN PRN PO CONSTIPATION; Start 12/02/17 at 06:00; Stop 12/03/17 at 06:00; Status DC Bisacodyl (Dulcolax Supp) 10 mg 1X PRN PRN ID CONSTIPATION; Start 12/02/17 at 16 :00; Stop 12/03/17 at 15:59; Status DC Acetaminophen/ Hydrocodone Bitart (Lortab 7.5/325) 1 tab PRN Q4HRS PRN PO PAIN Mod to Severe 3rd Choice Last administered on 12/07/17at 15:32; Start 12/01/17 at 10:15 Dextrose (Dextrose 50%-Water Syringe) 12.5 gm PRN Q15MIN PRN IV SEE COMMENTS; Start 12/01/17 at 10:15 Cefazolin Sodium 1 gm/Dextrose 50 ml @ 100 mls/hr Q6H IV ; Start 12/01/17 at 15: 00; Stop 12/02/17 at 03:29; Status UNV Cefazolin Sodium (Ancef) 1 gm Q6H IVP Last administered on 12/02/17at 06:21; Start 12/01/17 at 15:00; Stop 12/02/17 at 03:01; Status DC Lorazepam (Ativan) 2 mg STK-MED ONCE .ROUTE ; Start 12/01/17 at 23:53; Stop at 23:54; Status DC Lorazepam (Ativan) 2 mg 1X ONCE IM Last administered on 12/02/17at 00:42; Start 12/02/17 at 01:00; Stop 12/02/17 at 01:01; Status DC Lorazepam (Ativan) 1 mg PRN Q4HRS PRN IV ANXIETY / AGITATION Last administered on 12/02/17at 06:27; Start 12/02/17 at 00:30 Haloperidol Lactate (Haldol Inj) 5 mg PRN Q6HRS PRN IVP AGITATION Last administered on 12/04/17at 16:48; Start 12/02/17 at 00:30 Ketorolac Tromethamine 30 mg/Bupivacaine HCl 20 ml/ Epinephrine HCl 1 mg/ Miscellaneous 43.5 ml @ 522 mls/hr 1X ONCE INT ART Last administered on at 06:15; Start 12/02/17 at 06:00; Stop 12/02/17 at 06:04; Status DC Warfarin Sodium (Coumadin) 2.5 mg 1X WARF ONCE PO Last administered on at 18:20; Start 12/02/17 at 16:00; Stop 12/02/17 at 16:01; Status DC Vitamin D (Vitamin D3) 1,000 unit DAILY PO Last administered on 12/08/17at 08:52 ; Start 12/02/17 at 15:00 Ondansetron HCl (Zofran) 4 mg PRN Q6HRS PRN IV NAUSEA/VOMITING 1ST CHOICE Last administered on 12/03/17at 12:01; Start 12/02/17 at 16:30 Prochlorperazine Edisylate (Compazine) 10 mg PRN Q6HRS PRN IV NAUSEA/VOMITING 2ND CHOICE Last administered on 12/03/17 15:24; Start 12/02/17 at 18:00 Sodium Chloride 250 ml @ 250 mls/hr 1X ONCE IV Last administered on 12/02/17at 20:30; Start 12/02/17 at 20:30; Stop 12/02/17 at 21:29; Status DC Sodium Chloride 1,000 ml @ 50 mls/hr Q20H IV Last administered on 12/08/17at 04 :08; Start 12/02/17 at 20:30 Ertapenem 50 ml @ 100 mls/hr DAILY IV ; Start 12/02/17 at 21:45; Status UNV Piperacillin Sod/ Tazobactam Sod 2.25 gm/Sodium Chloride 50 ml @ 100 mls/hr Q6HRS IV Last administered on 12/04/17at 06:05; Start 12/03/17 at 00:00; Stop 12/04 at 08:23; Status DC Lactobacillus Rhamnosus (Culturelle) 1 cap BID PO Last administered on at 08:57; Start 12/03/17 at 21:00 Senna/Docusate Sodium (Senna Plus) 1 tab BID PO Last administered on 12/07/17at 22:36; Start 12/03/17 at 21:00 Docusate Sodium (Colace) 100 mg BID PO Last administered on 12/07/17at 22:36; Start 12/03/17 at 11:00 Magnesium Hydroxide (Milk Of Magnesia) 2,400 mg PRN Q12HR PRN PO CONSTIPATION 2nd Choice Last administered on 12/05/17at 14:10; Start 12/03/17 at 11:15 Ferrous Sulfate (Feosol) 325 mg BID PO Last administered on 12/08/17at 08:52; Start 12/03/17 at 21:00 Warfarin Sodium (Coumadin - No Dose Today) 1 each 1X WARF ONCE MC ; Start at 16:00; Stop 12/03/17 at 16:01; Status DC Ciprofloxacin (Cipro) 500 mg BID PO ; Start 12/04/17 at 09:00; Status UNV Cefepime HCl 1 gm/ Dextrose 50 ml @ 100 mls/hr Q8HRS IV ; Start 12/04/17 at 08: 30; Status UNV Cefepime HCl (Maxipime) 1 gm Q8HRS IVP Last administered on 12/07/17at 13:43; Start 12/04/17 at 09:00; Stop 12/07/17 at 19:00; Status DC Warfarin Sodium (Coumadin) 1 mg 1X WARF ONCE PO Last administered on 12/04/17at 16:46; Start 12/04/17 at 16:00; Stop 12/04/17 at 16:01; Status DC Warfarin Sodium (Coumadin) 1 mg 1X WARF ONCE PO Last administered on 12/05/17at 15:10; Start 12/05/17 at 16:00; Stop 12/05/17 at 16:01; Status DC Bisacodyl (Dulcolax Supp) 10 mg PRN DAILY PRN ID CONSTIPATION Last administered on 12/05/17at 17:45; Start 12/05/17 at 16:15 Metoprolol Tartrate (Lopressor Vial) 5 mg Q8HRS PRN IVP TACYCARDIA; HR > 120 Last administered on 12/06/17at 06:17; Start 12/05/17 at 21:00 Warfarin Sodium (Coumadin - No Dose Today) 1 each 1X WARF ONCE MC Last administered on 12/06/17at 15:13; Start 12/06/17 at 16:00; Stop 12/06/17 at 16:01 ; Status DC Warfarin Sodium (Coumadin) 1 mg 1X WARF ONCE PO Last administered on at 15:33; Start 12/07/17 at 16:00; Stop 12/07/17 at 16:01; Status DC Potassium Chloride (Klor-Con) 40 meq 1X ONCE PO ; Start 12/08/17 at 12:30; Stop 12/08/17 at 12:31; Status DC Warfarin Sodium (Coumadin) 2 mg 1X WARF ONCE PO ; Start 12/08/17 at 16:00; Stop 12/08/17 at 16:01 Active Scripts Active Reported Robafen (Guaifenesin) 100 Mg/5 Ml Liquid 200 Mg PO PRN Q6HRS PRN Levothyroxine Sodium 50 Mcg Tablet 1 Tab PO DAILY Alprazolam 0.25 Mg Tablet 1 Tab PO TID PRN Acetaminophen 500 Mg Tablet 500 Mg PO TID Namenda (Memantine Hcl) 10 Mg Tablet 1 Tab PO BID Calcium (Calcium Carbonate) 600 Mg Tablet 1,200 Mg PO BID Thera Tablet (Multivitamin with Folic Acid) 400 Mcg Tablet 400 Mcg PO DAILY EXELON 4.6mg/24hr (Rivastigmine) 1 Each Patch.td24 1 Patch TP DAILY Oxybutynin Chloride Er (Oxybutynin Chloride) 5 Mg Tab.er.24 1 Tab PO DAILY Lisinopril 40 Mg Tablet 1 Tab PO DAILY Amlodipine Besylate 5 Mg Tablet 5 Mg PO DAILY Vitals/I & O Vital Sign - Last 24 Hours 12/07/17 12/07/17 12/07/17 12/07/17 14:45 15:32 16:27 19:00 Temp 98.1 98.4 98.1 98.4 Pulse 100 108 Resp 17 18 B/P (MAP) 132/70 (90) 138/79 (98) Pulse Ox 96 94 O2 Delivery Room Air Room Air Room Air 12/07/17 12/07/17 12/08/17 12/08/17 20:00 22:31 03:00 07:13 Temp 98.1 98.1 98.1 98.1 98.1 98.1 Pulse 117 105 105 Resp 18 B/P (MAP) 155/83 (107) 145/80 (101) 146/80 (102) Pulse Ox 94 95 95 O2 Delivery Room Air Room Air Room Air Room Air 12/08/17 12/08/17 12/08/17 12/08/17 08:00 09:46 10:46 10:49 Temp 97.8 97.8 Pulse 111 Resp 18 B/P (MAP) 123/65 (84) Pulse Ox 95 95 95 O2 Delivery Room Air Room Air Room Air Room Air Intake and Output 12/07/17 12/07/17 12/08/17 15:00 23:00 07:00 Intake Total 330 ml 1510 ml 120 ml Output Total 520 ml 700 ml Balance 330 ml 990 ml -580 ml Nutrition Consultation Dietary Evaluation: Recommendations by RD: Increase Calorie Intake, Protein supplementation Comments: rec add supplements per [employer] diet recommendations Expected Outcomes/Goals: to meet > 75% est nutr needs via po diet Malnutrition Findings: Body Fat Depletion (Non Severe: Mild Depletion Weight Status: Underweight LEO ZAIDI MD Dec 08, 2017 14:30
[2017-12-08 15:15] VITALS: BP 147/83
[2017-12-08] MEDS ORDERED: WARFARIN 2 MG TABLET. PO ONE (16:00)
[2017-12-08 19:00] VITALS: BP 140/81
[2017-12-08 22:55] VITALS: BP 147/86
[2017-12-09 02:59] VITALS: BP 141/73
[2017-12-09 04:31] LABS: BASO % 0 % (0-3); EOS # 0.1 x10^3/uL (0.0-0.7); EOS % 1 % (0-3); HEMATOCRIT 30.7 % (36.0-47.0); HEMOGLOBIN 10.4 g/dL (12.0-15.5); LYMPH % 8 % (24-48); MEAN CORPUSCULAR HEMOGLOBIN 30 pg (25-35); MEAN CORPUSCULAR HGB CONC 34 g/dL (31-37); MEAN CORPUSCULAR VOLUME 88 fL (79-100); MONO # 0.5 x10^3/uL (0.0-1.1); MONO % 4 % (0-9); NEUT # 10.9 x10^3uL (1.8-7.7); NEUT % 87 % (31-73); PLATELET COUNT 285 x10^3/uL (140-400); RED BLOOD COUNT 3.48 x10^6/uL (3.50-5.40); RED CELL DISTRIBUTION WIDTH 15.7 % (11.5-14.5); WHITE BLOOD COUNT 12.7 x10^3/uL (4.0-11.0)
[2017-12-09 04:44] LABS: CALCIUM 8.7 mg/dL (8.5-10.1); CREATININE 0.7 mg/dL (0.6-1.0); GFR 81.4; POTASSIUM 3.8 mmol/L (3.5-5.1)
[2017-12-09 05:08] LABS: PROTHROMBIN TIME PATIENT 21.6 SEC (11.7-14.0)
[2017-12-09 07:00] VITALS: BP 147/76
[2017-12-09] MEDS: LEVOTHYROXINE 50 MCG TABLET PO SCH ×2 (07:00→11:27)
--- NOTE | 2017-12-09 08:37 | PDOC ---
Infectious Disease Note Subjective Subjective Appears doing ok. in bed ROS ROS no n/v/d/sob/fever Vital Sign Vital Signs Vital Signs Date Time Temp Pulse Resp B/P (MAP) Pulse Ox O2 Delivery O2 Flow Rate FiO2 12/09/17 07:00 99.1 105 18 147/76 (99) 95 Room Air 99.1 Physical Exam PHYSICAL EXAM GENERAL: Alert, NAD, in bed, smiling HEENT: Normal conjunctivae. LUNGS: Clear to auscultation. HEART: S1 and S2. ABDOMEN: Bowel sounds active soft, no grimace or guarding to palpation. mild distended. GENITOURINARY: Indwelling Delaney in place.again EXTREMITIES: No gross edema or cyanosis. Right lateral hip post-op dressing dry /intact SKIN: Warm without rash. NEUROLOGIC: Confused. Follows but follows simple commands. Labs Lab Laboratory Tests Test 12/09/17 03:15 White Blood Count 12.7 x10^3/uL (4.0-11.0) Red Blood Count 3.48 x10^6/uL (3.50-5.40) Hemoglobin 10.4 g/dL (12.0-15.5) Hematocrit 30.7 % (36.0-47.0) Mean Corpuscular Volume 88 fL (79-100) Mean Corpuscular Hemoglobin 30 pg (25-35) Mean Corpuscular Hemoglobin Concent 34 g/dL (31-37) Red Cell Distribution Width 15.7 % (11.5-14.5) Platelet Count 285 x10^3/uL (140-400) Neutrophils (%) (Auto) 87 % (31-73) Lymphocytes (%) (Auto) 8 % (24-48) Monocytes (%) (Auto) 4 % (0-9) Eosinophils (%) (Auto) 1 % (0-3) Basophils (%) (Auto) 0 % (0-3) Neutrophils # (Auto) 10.9 x10^3uL (1.8-7.7) Lymphocytes # (Auto) 1.0 x10^3/uL (1.0-4.8) Monocytes # (Auto) 0.5 x10^3/uL (0.0-1.1) Eosinophils # (Auto) 0.1 x10^3/uL (0.0-0.7) Basophils # (Auto) 0.0 x10^3/uL (0.0-0.2) Prothrombin Time 21.6 SEC (11.7-14.0) Prothromb Time International Ratio 2.0 (0.8-1.1) Sodium Level 131 mmol/L (136-145) Potassium Level 3.8 mmol/L (3.5-5.1) Chloride Level 101 mmol/L (98-107) Carbon Dioxide Level 25 mmol/L (21-32) Anion Gap 5 (6-14) Blood Urea Nitrogen 6 mg/dL (7-20) Creatinine 0.7 mg/dL (0.6-1.0) Estimated GFR (Cockcroft-Gault) 81.4 Glucose Level 91 mg/dL (70-99) Calcium Level 8.7 mg/dL (8.5-10.1) Micro Microbiology 12/02/17 Blood Culture - Final, Complete NO GROWTH AFTER 5 DAYS 11/30/17 Urine Culture - Final, Complete 11/30/17 Urine Culture Result 1 (OLGA) - Final, Complete 11/30/17 Antimicrobic Susceptibility - Final, Complete Objective Assessment Leukocytosis ? reactive to urinary retention clinically looks well. CXR CHF Fever - improved. ? post op vs ID Pyuria -h/o E. coli-pansensitive in urine from 11/11. D/w LMH micro now with Ecoli from 11/30 Bandemia - from fracture/UTI/steroids Right hip fracture following a fall. s/p Right hip hemiarthroplasty on 12/01 Dementia Overactive bladder - on oxybutynin Hypothyroidism Hypertension Warfarin therapy Plan Plan of Care off antibiotics now Labs this am ok to d/c to [facility] MD Dec 09, 2017 08:37
[2017-12-09 11:00] VITALS: BP 152/78
[2017-12-09] MEDS: ALPRAZolam 0.25 MG TABLET PO PRN (11:14)
[2017-12-09] MEDS: RIVASTIGMINE 4.6MG PATCH. TD SCH (11:14)
[2017-12-09] MEDS: OXYBUTYNIN CHLORIDE 5 MG TABLET PO SCH (11:16)
[2017-12-09] MEDS: ACETAMINOPHEN 500 MG TABLET PO SCH ×2 (11:19→16:28)
[2017-12-09] MEDS: FERROUS SULFATE 325 MG TABLET. PO SCH (11:22)
[2017-12-09] MEDS: LACTOBACILLUS RHAMNOSUS GG 1 CAPSULE. PO SCH (11:22)
[2017-12-09] MEDS: MEMANTINE 10 MG TABLET. PO SCH (11:24)
[2017-12-09] MEDS: SENNOSIDES/DOCUSATE 8.6/50MG TABLET. PO SCH (11:24)
[2017-12-09] MEDS: DOCUSATE SODIUM 100 MG CAPSULE. PO SCH (11:25)
[2017-12-09] MEDS: MULTIVITAMIN with MINERAL TABLET. PO SCH (11:25)
[2017-12-09] MEDS: CHOLECALCIFEROL (VITAMIN D3) 1,000 UNIT TABLET PO SCH (11:25)
[2017-12-09] MEDS: CALCIUM CARBONATE 500 MG TABLET PO SCH (11:25)
--- NOTE | 2017-12-09 11:40 | PDOC ---
PROGRESS NOTES Chief Complaint Chief Complaint Right hip fracture, after a fall s/p R hip carina arthroplasTy -12/01/17 Pseudomonas UTI Fall mechanical traumatic Hypertension now hypotension History of complicated UTI Hypothyroidism on Synthroid Dyslipidemia statin ACUTE encephalopathy vitd deficiency [facility] resident mod-severe dementia constipation anemia, post op urinary retention, john now plan: fu with ID, on cefepime, PTOT gentle IVf with low po intake, decrease to 50cc/h pain control plan dc on Saturday History of Present Illness History of Present Illness Pt is resting in bed NAD Moderate to severe dementia, unable to answer questions MARIA L RN Full code on chart Vitals Vitals Vital Signs Date Time Temp Pulse Resp B/P (MAP) Pulse Ox O2 Delivery O2 Flow Rate FiO2 12/09/17 07:00 99.1 105 18 147/76 (99) 95 Room Air 99.1 Physical Exam Physical Exam GENERAL: Alert, NAD, in bed, smiling HEENT: Normal conjunctivae. LUNGS: Clear to auscultation. HEART: S1 and S2. ABDOMEN: Bowel sounds active soft, no grimace or guarding to palpation. mild distended. GENITOURINARY: Indwelling John in place.again EXTREMITIES: No gross edema or cyanosis. Right lateral hip post-op dressing dry /intact SKIN: Warm without rash. NEUROLOGIC: Confused. Follows but follows simple commands. General: Cooperative, No acute distress Heart: Regular rate, Normal S1, Normal S2 Lungs: Clear Abdomen: Normal bowel sounds, Soft, No tenderness, No hepatosplenomegaly, No masses Extremities: Other (right leg is externally rotated) Skin: No rashes, No breakdown, No significant lesion Labs LABS Laboratory Tests Test 12/09/17 03:15 White Blood Count 12.7 x10^3/uL (4.0-11.0) Red Blood Count 3.48 x10^6/uL (3.50-5.40) Hemoglobin 10.4 g/dL (12.0-15.5) Hematocrit 30.7 % (36.0-47.0) Mean Corpuscular Volume 88 fL (79-100) Mean Corpuscular Hemoglobin 30 pg (25-35) Mean Corpuscular Hemoglobin Concent 34 g/dL (31-37) Red Cell Distribution Width 15.7 % (11.5-14.5) Platelet Count 285 x10^3/uL (140-400) Neutrophils (%) (Auto) 87 % (31-73) Lymphocytes (%) (Auto) 8 % (24-48) Monocytes (%) (Auto) 4 % (0-9) Eosinophils (%) (Auto) 1 % (0-3) Basophils (%) (Auto) 0 % (0-3) Neutrophils # (Auto) 10.9 x10^3uL (1.8-7.7) Lymphocytes # (Auto) 1.0 x10^3/uL (1.0-4.8) Monocytes # (Auto) 0.5 x10^3/uL (0.0-1.1) Eosinophils # (Auto) 0.1 x10^3/uL (0.0-0.7) Basophils # (Auto) 0.0 x10^3/uL (0.0-0.2) Prothrombin Time 21.6 SEC (11.7-14.0) Prothromb Time International Ratio 2.0 (0.8-1.1) Sodium Level 131 mmol/L (136-145) Potassium Level 3.8 mmol/L (3.5-5.1) Chloride Level 101 mmol/L (98-107) Carbon Dioxide Level 25 mmol/L (21-32) Anion Gap 5 (6-14) Blood Urea Nitrogen 6 mg/dL (7-20) Creatinine 0.7 mg/dL (0.6-1.0) Estimated GFR (Cockcroft-Gault) 81.4 Glucose Level 91 mg/dL (70-99) Calcium Level 8.7 mg/dL (8.5-10.1) Review of Systems Review of Systems Denies N/V complains of leg/hip discomfort Assessment and Plan Assessmemt and Plan Right hip fracture, after a fall s/p R hip carina arthroplasTy -12/01/17 Pseudomonas UTI Fall mechanical traumatic Hypertension now hypotension History of complicated UTI Hypothyroidism on Synthroid Dyslipidemia statin ACUTE encephalopathy vitd deficiency [facility]U resident mod-severe dementia constipation anemia, post op urinary retention, john now plan: Labs PT/OT IV Fluids outpatient urology probable D/C to LTC Comment Review of Relevant I have reviewed the following items fabian (where applicable) has been applied. Labs Laboratory Tests Test 12/08/17 03:50 12/09/17 03:15 White Blood Count 12.6 x10^3/uL (4.0-11.0) 12.7 x10^3/uL (4.0-11.0) Red Blood Count 3.51 x10^6/uL (3.50-5.40) 3.48 x10^6/uL (3.50-5.40) Hemoglobin 10.4 g/dL (12.0-15.5) 10.4 g/dL (12.0-15.5) Hematocrit 30.9 % (36.0-47.0) 30.7 % (36.0-47.0) Mean Corpuscular Volume 88 fL (79-100) 88 fL (79-100) Mean Corpuscular Hemoglobin 30 pg (25-35) 30 pg (25-35) Mean Corpuscular Hemoglobin Concent 34 g/dL (31-37) 34 g/dL (31-37) Red Cell Distribution Width 15.8 % (11.5-14.5) 15.7 % (11.5-14.5) Platelet Count 272 x10^3/uL (140-400) 285 x10^3/uL (140-400) Neutrophils (%) (Auto) 83 % (31-73) 87 % (31-73) Lymphocytes (%) (Auto) 10 % (24-48) 8 % (24-48) Monocytes (%) (Auto) 5 % (0-9) 4 % (0-9) Eosinophils (%) (Auto) 2 % (0-3) 1 % (0-3) Basophils (%) (Auto) 0 % (0-3) 0 % (0-3) Neutrophils # (Auto) 10.4 x10^3uL (1.8-7.7) 10.9 x10^3uL (1.8-7.7) Lymphocytes # (Auto) 1.2 x10^3/uL (1.0-4.8) 1.0 x10^3/uL (1.0-4.8) Monocytes # (Auto) 0.7 x10^3/uL (0.0-1.1) 0.5 x10^3/uL (0.0-1.1) Eosinophils # (Auto) 0.2 x10^3/uL (0.0-0.7) 0.1 x10^3/uL (0.0-0.7) Basophils # (Auto) 0.1 x10^3/uL (0.0-0.2) 0.0 x10^3/uL (0.0-0.2) Prothrombin Time 21.2 SEC (11.7-14.0) 21.6 SEC (11.7-14.0) Prothromb Time International Ratio 1.9 (0.8-1.1) 2.0 (0.8-1.1) Sodium Level 132 mmol/L (136-145) 131 mmol/L (136-145) Potassium Level 3.3 mmol/L (3.5-5.1) 3.8 mmol/L (3.5-5.1) Chloride Level 102 mmol/L (98-107) 101 mmol/L (98-107) Carbon Dioxide Level 24 mmol/L (21-32) 25 mmol/L (21-32) Anion Gap 6 (6-14) 5 (6-14) Blood Urea Nitrogen 7 mg/dL (7-20) 6 mg/dL (7-20) Creatinine 0.7 mg/dL (0.6-1.0) 0.7 mg/dL (0.6-1.0) Estimated GFR (Cockcroft-Gault) 81.4 81.4 Glucose Level 92 mg/dL (70-99) 91 mg/dL (70-99) Calcium Level 8.3 mg/dL (8.5-10.1) 8.7 mg/dL (8.5-10.1) Laboratory Tests Test 12/09/17 03:15 White Blood Count 12.7 x10^3/uL (4.0-11.0) Red Blood Count 3.48 x10^6/uL (3.50-5.40) Hemoglobin 10.4 g/dL (12.0-15.5) Hematocrit 30.7 % (36.0-47.0) Mean Corpuscular Volume 88 fL (79-100) Mean Corpuscular Hemoglobin 30 pg (25-35) Mean Corpuscular Hemoglobin Concent 34 g/dL (31-37) Red Cell Distribution Width 15.7 % (11.5-14.5) Platelet Count 285 x10^3/uL (140-400) Neutrophils (%) (Auto) 87 % (31-73) Lymphocytes (%) (Auto) 8 % (24-48) Monocytes (%) (Auto) 4 % (0-9) Eosinophils (%) (Auto) 1 % (0-3) Basophils (%) (Auto) 0 % (0-3) Neutrophils # (Auto) 10.9 x10^3uL (1.8-7.7) Lymphocytes # (Auto) 1.0 x10^3/uL (1.0-4.8) Monocytes # (Auto) 0.5 x10^3/uL (0.0-1.1) Eosinophils # (Auto) 0.1 x10^3/uL (0.0-0.7) Basophils # (Auto) 0.0 x10^3/uL (0.0-0.2) Prothrombin Time 21.6 SEC (11.7-14.0) Prothromb Time International Ratio 2.0 (0.8-1.1) Sodium Level 131 mmol/L (136-145) Potassium Level 3.8 mmol/L (3.5-5.1) Chloride Level 101 mmol/L (98-107) Carbon Dioxide Level 25 mmol/L (21-32) Anion Gap 5 (6-14) Blood Urea Nitrogen 6 mg/dL (7-20) Creatinine 0.7 mg/dL (0.6-1.0) Estimated GFR (Cockcroft-Gault) 81.4 Glucose Level 91 mg/dL (70-99) Calcium Level 8.7 mg/dL (8.5-10.1) Microbiology 12/02/17 Blood Culture - Final, Complete NO GROWTH AFTER 5 DAYS 11/30/17 Urine Culture - Final, Complete 11/30/17 Urine Culture Result 1 (OLGA) - Final, Complete 11/30/17 Antimicrobic Susceptibility - Final, Complete Medications Current Medications Ondansetron HCl (Zofran) 4 mg PRN Q8HRS PRN IV NAUSEA/VOMITING 1ST CHOICE Last administered on 11/30/17at 03:35; Start 11/30/17 at 02:45; Stop 11/30/17 at 09:20; Status DC Morphine Sulfate (Morphine Sulfate) 2 mg PRN Q2HR PRN IV SEVERE PAIN Last administered on 11/30/17at 23:21; Start 11/30/17 at 02:45; Stop 12/01/17 at 02:44; Status DC Ondansetron HCl (Zofran) 4 mg PRN Q6HRS PRN IV NAUSEA/VOMITING 1ST CHOICE; Start 11/30/17 at 09:30; Stop 12/01/17 at 10:16; Status DC Acetaminophen (Tylenol) 500 mg PRN Q6HRS PRN PO TEMP; Start 11/30/17 at 09:30 Oxycodone/ Acetaminophen (Percocet 5/325) 1 tab PRN Q4HRS PRN PO MODERATE PAIN 1st Choice Last administered on 12/08/17 16:14; Start 11/30/17 at 09:30 Acetaminophen (Tylenol) 500 mg TID PO Last administered on 12/09/17 11:19; Start 11/30/17 at 14:00 Alprazolam (Xanax) 0.25 mg PRN TID PRN PO ANXIETY Last administered on at 11:14; Start 11/30/17 at 09:30 Amlodipine Besylate (Norvasc) 5 mg DAILY PO ; Start 11/30/17 at 10:00; Stop at 08:04; Status DC Guaifenesin (Robitussin) 200 mg PRN Q6HRS PRN PO COUGH Last administered on 02/13at 22:28; Start 11/30/17 at 09:30 Lisinopril (Prinivil) 40 mg DAILY PO ; Start 11/30/17 at 10:00; Stop 12/02/17 at 08:04; Status DC Calcium Carbonate/ Glycine (Oscal) 1,000 mg BID PO Last administered on 11:25; Start 11/30/17 at 10:00 Levothyroxine Sodium (Synthroid) 50 mcg DAILY07 PO Last administered on 11:27; Start 11/30/17 at 10:00 Memantine (Namenda) 10 mg BID PO Last administered on 12/09/17at 11:24; Start at 10:30 Multivitamins (Thera M Plus) 1 tab DAILY PO Last administered on 12/09/17 11: 25; Start 11/30/17 at 10:00 Oxybutynin Chloride (Ditropan) 2.5 mg BID PO Last administered on 12/09/17at 11: 16; Start 11/30/17 at 10:30 Rivastigmine (Exelon) 1 patch DAILY TD Last administered on 12/09/17at 11:14; Start 11/30/17 at 10:00 Piperacillin Sod/ Tazobactam Sod (Zosyn Per Pharmacy) 1 each PRN DAILY PRN MC SEE COMMENTS; Start 11/30/17 at 10:15; Stop 12/04/17 at 18:57; Status DC Piperacillin Sod/ Tazobactam Sod 2.25 gm/Sodium Chloride 50 ml @ 100 mls/hr Q6HRS IV Last administered on 12/02/17at 18:21; Start 11/30/17 at 12:00; Stop 12/02 at 21:38; Status DC Sodium Chloride 1,000 ml @ 80 mls/hr [id number] IV Last administered on 12/02/17at 09:10; Start 11/30/17 at 12:45; Stop 12/02/17 at 22:01; Status DC Prochlorperazine Edisylate (Compazine) 5 mg PACU PRN PRN IV NAUSEA, MRX1; Start 12/01/17 at 07:00; Stop 12/01/17 at 15:00; Status DC Lidocaine HCl (Xylocaine-Mpf 1% Vial) 2 ml PRN 1X PRN ID IV START; Start at 07:00; Stop 12/01/17 at 12:00; Status DC Ringer's Solution 1,000 ml @ 30 mls/hr Q24H IV ; Start 12/01/17 at 07:00; Stop 12/01/17 at 11:38; Status DC Morphine Sulfate (Morphine Sulfate) 1 mg PRN Q10MIN PRN IV SEVERE PAIN; Start 12/01/17 at 07:00; Stop 12/01/17 at 15:00; Status DC Fentanyl Citrate (Fentanyl 2ml Vial) 50 mcg PRN Q5MIN PRN IV MODERATE TO SEVERE PAIN; Start 12/01/17 at 07:00; Stop 12/01/17 at 15:00; Status DC Fentanyl Citrate (Fentanyl 2ml Vial) 25 mcg PRN Q5MIN PRN IV MILD PAIN; Start 12/01/17 at 07:00; Stop 12/01/17 at 15:00; Status DC Ondansetron HCl (Zofran) 4 mg PRN Q6HRS PRN IV NAUSEA/VOMITING; Start 12/01/17 at 07:00; Stop 12/01/17 at 15:00; Status DC Rocuronium [place] (Zemuron) 50 mg STK-MED ONCE .ROUTE ; Start 12/01/17 at 07:12 ; Stop 12/01/17 at 07:13; Status DC Propofol 20 ml @ As Directed STK-MED ONCE IV ; Start 12/01/17 at 07:14; Stop 12/01 at 07:16; Status DC Lidocaine HCl (Lidocaine Pf 2% Vial) 5 ml STK-MED ONCE .ROUTE ; Start 12/01/17 at 07:15; Stop 12/01/17 at 07:16; Status DC Ondansetron HCl (Zofran) 4 mg STK-MED ONCE .ROUTE ; Start 12/01/17 at 07:15; Stop 12/01/17 at 07:16; Status DC Phenylephrine HCl (PHENYLEPHRINE in 0.9% NACL PF) 1 mg STK-MED ONCE IV ; Start 12/01/17 at 07:15; Stop 12/01/17 at 07:16; Status DC Morphine Sulfate 5 mg/Ketorolac Tromethamine 30 mg/Ropivacaine 60 ml/ Epinephrine HCl 0.5 mg/Sodium Chloride 100 ml @ 100 mls/hr 1X ONCE INT ART Last administered on 12/01/17at 08:36; Start 12/01/17 at 08:30; Stop 12/01/17 at 09: 29; Status DC Sevoflurane (Ultane) 30 ml STK-MED ONCE IH ; Start 12/01/17 at 08:39; Stop at 08:40; Status DC Dexamethasone Sodium Phosphate (Decadron) 20 mg STK-MED ONCE .ROUTE ; Start 12/01 at 08:39; Stop 12/01/17 at 08:40; Status DC Ketorolac Tromethamine (Toradol For Or Only) 30 mg STK-MED ONCE INJ ; Start 12/01 at 08:49; Stop 12/01/17 at 08:50; Status DC Fentanyl Citrate (Fentanyl 2ml Vial) 100 mcg STK-MED ONCE .ROUTE ; Start at 09:38; Stop 12/01/17 at 09:39; Status DC Oxycodone HCl (Roxicodone) 5 mg PRN Q3HRS PRN PO PAIN Moderate 2nd Choice; Start 12/01/17 at 10:15 Morphine Sulfate (Morphine Sulfate) 2 mg PRN Q1HR PRN IV PAIN SEVERE 1st CHOICE Last administered on 12/03/17at 15:24; Start 12/01/17 at 10:15 Fentanyl Citrate (Fentanyl 2ml Vial) 25 mcg PRN Q1HR PRN IV PAIN Severe 2nd Choice; Start 12/01/17 at 10:15 Senna/Docusate Sodium (Senna Plus) 1 tab DAILY PO Last administered on at 08:34; Start 12/02/17 at 09:00; Stop 12/04/17 at 11:02; Status DC Polyethylene Glycol (miraLAX PACKET) 17 gm PRN DAILY PRN PO CONSTIPATION 1st Choice Last administered on 12/05/17at 14:06; Start 12/01/17 at 10:15 Ondansetron HCl (Zofran) 4 mg PRN Q4HRS PRN IV NAUSEA/VOMITING Last administered on 12/02/17at 13:43; Start 12/01/17 at 10:15; Stop 12/02/17 at 16:31; Status DC Warfarin Sodium (Coumadin) 5 mg 1X ONCE PO Last administered on 12/01/17at 17:16 ; Start 12/01/17 at 16:00; Stop 12/01/17 at 16:01; Status DC Warfarin Sodium (Coumadin Per Pharmacy) 1 each PRN DAILY PRN MC SEE COMMENTS Last administered on 12/09/17at 10:49; Start 12/02/17 at 10:15 Magnesium Hydroxide (Milk Of Magnesia) 2,400 mg 1X PRN PRN PO CONSTIPATION; Start 12/02/17 at 06:00; Stop 12/03/17 at 06:00; Status DC Bisacodyl (Dulcolax Supp) 10 mg 1X PRN PRN NC CONSTIPATION; Start 12/02/17 at 16 :00; Stop 12/03/17 at 15:59; Status DC Acetaminophen/ Hydrocodone Bitart (Lortab 7.5/325) 1 tab PRN Q4HRS PRN PO PAIN Mod to Severe 3rd Choice Last administered on 12/07/17at 15:32; Start 12/01/17 at 10:15 Dextrose (Dextrose 50%-Water Syringe) 12.5 gm PRN Q15MIN PRN IV SEE COMMENTS; Start 12/01/17 at 10:15 Cefazolin Sodium 1 gm/Dextrose 50 ml @ 100 mls/hr Q6H IV ; Start 12/01/17 at 15: 00; Stop 12/02/17 at 03:29; Status UNV Cefazolin Sodium (Ancef) 1 gm Q6H IVP Last administered on 12/02/17at 06:21; Start 12/01/17 at 15:00; Stop 12/02/17 at 03:01; Status DC Lorazepam (Ativan) 2 mg STK-MED ONCE .ROUTE ; Start 12/01/17 at 23:53; Stop at 23:54; Status DC Lorazepam (Ativan) 2 mg 1X ONCE IM Last administered on 12/02/17at 00:42; Start 12/02/17 at 01:00; Stop 12/02/17 at 01:01; Status DC Lorazepam (Ativan) 1 mg PRN Q4HRS PRN IV ANXIETY / AGITATION 1ST CHOICE Last administered on 12/02/17at 06:27; Start 12/02/17 at 00:30 Haloperidol Lactate (Haldol Inj) 5 mg PRN Q6HRS PRN IVP AGITATION 2ND CHOICE Last administered on 12/04/17at 16:48; Start 12/02/17 at 00:30 Ketorolac Tromethamine 30 mg/Bupivacaine HCl 20 ml/ Epinephrine HCl 1 mg/ Miscellaneous 43.5 ml @ 522 mls/hr 1X ONCE INT ART Last administered on at 06:15; Start 12/02/17 at 06:00; Stop 12/02/17 at 06:04; Status DC Warfarin Sodium (Coumadin) 2.5 mg 1X WARF ONCE PO Last administered on at 18:20; Start 12/02/17 at 16:00; Stop 12/02/17 at 16:01; Status DC Vitamin D (Vitamin D3) 1,000 unit DAILY PO Last administered on 12/09/17at 11:25 ; Start 12/02/17 at 15:00 Ondansetron HCl (Zofran) 4 mg PRN Q6HRS PRN IV NAUSEA/VOMITING 1ST CHOICE Last administered on 12/03/17 12:01; Start 12/02/17 at 16:30 Prochlorperazine Edisylate (Compazine) 10 mg PRN Q6HRS PRN IV NAUSEA/VOMITING 2ND CHOICE Last administered on 12/03/17 15:24; Start 12/02/17 at 18:00 Sodium Chloride 250 ml @ 250 mls/hr 1X ONCE IV Last administered on 12/02/17at 20:30; Start 12/02/17 at 20:30; Stop 12/02/17 at 21:29; Status DC Sodium Chloride 1,000 ml @ 50 mls/hr Q20H IV Last administered on 12/08/17 23 :31; Start 12/02/17 at 20:30 Ertapenem 50 ml @ 100 mls/hr DAILY IV ; Start 12/02/17 at 21:45; Status UNV Piperacillin Sod/ Tazobactam Sod 2.25 gm/Sodium Chloride 50 ml @ 100 mls/hr Q6HRS IV Last administered on 12/04/17 06:05; Start 12/03/17 at 00:00; Stop 12/04 at 08:23; Status DC Lactobacillus Rhamnosus (Culturelle) 1 cap BID PO Last administered on 11:22; Start 12/03/17 at 21:00 Senna/Docusate Sodium (Senna Plus) 1 tab BID PO Last administered on 12/09/17 11:24; Start 12/03/17 at 21:00 Docusate Sodium (Colace) 100 mg BID PO Last administered on 12/09/17 11:25; Start 12/03/17 at 11:00 Magnesium Hydroxide (Milk Of Magnesia) 2,400 mg PRN Q12HR PRN PO CONSTIPATION 2nd Choice Last administered on 12/05/17 14:10; Start 12/03/17 at 11:15 Ferrous Sulfate (Feosol) 325 mg BID PO Last administered on 12/09/17 11:22; Start 12/03/17 at 21:00 Warfarin Sodium (Coumadin - No Dose Today) 1 each 1X WARF ONCE MC ; Start at 16:00; Stop 12/03/17 at 16:01; Status DC Ciprofloxacin (Cipro) 500 mg BID PO ; Start 12/04/17 at 09:00; Status UNV Cefepime HCl 1 gm/ Dextrose 50 ml @ 100 mls/hr Q8HRS IV ; Start 12/04/17 at 08: 30; Status UNV Cefepime HCl (Maxipime) 1 gm Q8HRS IVP Last administered on 12/07/17at 13:43; Start 12/04/17 at 09:00; Stop 12/07/17 at 19:00; Status DC Warfarin Sodium (Coumadin) 1 mg 1X WARF ONCE PO Last administered on 12/04/17at 16:46; Start 12/04/17 at 16:00; Stop 12/04/17 at 16:01; Status DC Warfarin Sodium (Coumadin) 1 mg 1X WARF ONCE PO Last administered on 12/05/17at 15:10; Start 12/05/17 at 16:00; Stop 12/05/17 at 16:01; Status DC Bisacodyl (Dulcolax Supp) 10 mg PRN DAILY PRN NC CONSTIPATION Last administered on 12/05/17at 17:45; Start 12/05/17 at 16:15 Metoprolol Tartrate (Lopressor Vial) 5 mg Q8HRS PRN IVP TACYCARDIA; HR > 120 Last administered on 12/06/17at 06:17; Start 12/05/17 at 21:00 Warfarin Sodium (Coumadin - No Dose Today) 1 each 1X WARF ONCE MC Last administered on 12/06/17at 15:13; Start 12/06/17 at 16:00; Stop 12/06/17 at 16:01 ; Status DC Warfarin Sodium (Coumadin) 1 mg 1X WARF ONCE PO Last administered on at 15:33; Start 12/07/17 at 16:00; Stop 12/07/17 at 16:01; Status DC Potassium Chloride (Klor-Con) 40 meq 1X ONCE PO Last administered on at 16:15; Start 12/08/17 at 12:30; Stop 12/08/17 at 12:31; Status DC Warfarin Sodium (Coumadin) 2 mg 1X WARF ONCE PO Last administered on at 16:16; Start 12/08/17 at 16:00; Stop 12/08/17 at 16:01; Status DC Warfarin Sodium (Coumadin) 2 mg 1X WARF ONCE PO ; Start 12/09/17 at 16:00; Stop 12/09/17 at 16:01 Active Scripts Active Reported Robafen (Guaifenesin) 100 Mg/5 Ml Liquid 200 Mg PO PRN Q6HRS PRN Levothyroxine Sodium 50 Mcg Tablet 1 Tab PO DAILY Alprazolam 0.25 Mg Tablet 1 Tab PO TID PRN Acetaminophen 500 Mg Tablet 500 Mg PO TID Namenda (Memantine Hcl) 10 Mg Tablet 1 Tab PO BID Calcium (Calcium Carbonate) 600 Mg Tablet 1,200 Mg PO BID Thera Tablet (Multivitamin with Folic Acid) 400 Mcg Tablet 400 Mcg PO DAILY EXELON 4.6mg/24hr (Rivastigmine) 1 Each Patch.td24 1 Patch TP DAILY Oxybutynin Chloride Er (Oxybutynin Chloride) 5 Mg Tab.er.24 1 Tab PO DAILY Lisinopril 40 Mg Tablet 1 Tab PO DAILY Amlodipine Besylate 5 Mg Tablet 5 Mg PO DAILY Vitals/I & O Vital Sign - Last 24 Hours 12/08/17 12/08/17 12/08/17 12/08/17 15:15 16:14 17:14 19:00 Temp 97.5 98.2 97.5 98.2 Pulse 115 115 Resp 18 18 18 18 B/P (MAP) 147/83 (104) 140/81 (100) Pulse Ox 96 95 95 94 O2 Delivery Room Air Room Air Room Air Room Air 12/08/17 12/08/17 12/09/17 12/09/17 20:00 22:55 02:59 07:00 Temp 98.8 98.8 99.1 98.8 98.8 99.1 Pulse 120 114 105 Resp 18 18 18 B/P (MAP) 147/86 (106) 141/73 (95) 147/76 (99) Pulse Ox 94 92 95 O2 Delivery Room Air Room Air Room Air Room Air Intake and Output 12/08/17 12/08/17 12/09/17 15:00 23:00 07:00 Intake Total 120 ml Output Total 750 ml 650 ml Balance -630 ml -650 ml Nutrition Consultation Dietary Evaluation: Recommendations by RD: Increase Calorie Intake, Protein supplementation Comments: added magic cup bid Expected Outcomes/Goals: to meet > 75% est nutr needs via po diet- goal ongoing Malnutrition Findings: Body Fat Depletion (Non Severe: Mild Depletion Weight Status: Underweight HELEN ZAMORA III DO Dec 09, 2017 11:40
[2017-12-09 15:00] VITALS: BP 137/77
[2017-12-09] MEDS ORDERED: WARFARIN 2 MG TABLET. PO ONE (16:00)
[2017-12-09] MEDS: IV NORMAL SALINE 1000ML BAG 1,000 ML IV SCH (16:22)
--- NOTE | 2017-12-09 16:48 | DS ---
DATE OF DISCHARGE: 12/09/2017 ADMISSION DIAGNOSIS: Fall with right femoral neck fracture. DISCHARGE DIAGNOSIS: Postop open reduction internal fixation of the femoral neck fracture, advanced dementia. HOSPITAL COURSE: The patient is a pleasant 77-year-old female who has advanced dementia. She fell and broke her arm. She was admitted. We consulted Orthopedics. She was taken for ORIF. Post-procedure, she has done well. We plan to discharge back to long-term care. DISPOSITION: Monitor long-term [facility]. ACTIVITY: As tolerated. DIET: Low sodium. MEDICATIONS: Please see the MRAD. TOTAL TIME: 34 minutes. HELEN ZAMORA DO DR: FRANCISCO/van JOB#: [id number] / [id number]
== END 2017-12-09 16:50 | DRG 853 ==
LOC: ER 01:10 → 4 NORTH 02:28
PROVIDERS: ADMIT Internal Medicine; ATTEND Internal Medicine
PROC: 0SRR0J9 Replacement of Right Hip Joint, Femoral Surface with Synthetic Substitute, Cemented, Open Approach (ICD-10-PCS; principal; 2017-12-01 08:00)
PROC: 30233N1 Transfusion of Nonautologous Red Blood Cells into Peripheral Vein, Percutaneous Approach (ICD-10-PCS; 2017-12-02)
DX: A41.9 Sepsis, unspecified organism (principal); S72.001A Fracture of unspecified part of neck of right femur, initial encounter for closed fracture; G93.40 Encephalopathy, unspecified; N39.0 Urinary tract infection, site not specified; B96.5 Pseudomonas (aeruginosa) (mallei) (pseudomallei) as the cause of diseases classified elsewhere; D64.9 Anemia, unspecified; E03.9 Hypothyroidism, unspecified; E78.5 Hyperlipidemia, unspecified; F03.90 Unspecified dementia, unspecified severity, without behavioral disturbance, psychotic disturbance, mood disturbance, and anxiety; I11.0 Hypertensive heart disease with heart failure; I35.1 Nonrheumatic aortic (valve) insufficiency; I50.9 Heart failure, unspecified; B96.20 Unspecified Escherichia coli [E. coli] as the cause of diseases classified elsewhere; W18.39XA Other fall on same level, initial encounter; F41.9 Anxiety disorder, unspecified; Z79.899 Other long term (current) drug therapy; I95.9 Hypotension, unspecified; K59.00 Constipation, unspecified; Z96.641 Presence of right artificial hip joint; M48.00 Spinal stenosis, site unspecified; N32.81 Overactive bladder; Z79.2 Long term (current) use of antibiotics; Y93.89 Activity, other specified; Y92.89 Other specified places as the place of occurrence of the external cause; Y99.8 Other external cause status
CPT/HCPCS: 36415; 51702; 70450; 71045; 72125; 73502; 80048; 80053; 81001; 82306; 83605; 85007; 85014; 85018; 85025; 85610; 85730; 86850; 86900; 86901; 86920; 87040; 87086; 87186; 87641; 88305; 88311; 93005; 96374; C1713; G0238; J0171; J0690; J0692; J0780; J1100; J1630; J1885; J2001; J2060; J2270; J2370; J2405; J2543; J2704; J2795; J3010; J3490; J7030; J7050; P9016; 92526; 92610; 97110; 97116; 97530; 97535; 99285-25

== ENCOUNTER 2018-01-02 20:54 | Inpatient (IN) | payer MEDICARE, OTHER ==
[~2018-01-02] VITALS: Ht 160 cm; Wt 46.5 kg
[~2018-01-02 20:54] MED LIST: ACET500T68 PO; ALPR0.254 PO; AMLO5TAB7 PO; CALC600T4 PO; GUAI100L27 PO; LEVO50TA5 PO; LISI-130 PO; MEMA10TA PO; MULT1TAB77 PO; OXYB5TAB PO; RIVA1PAT22 TP
[2018-01-02] MEDS ORDERED: IV NORMAL SALINE 1000ML BAG 1,000 ML IV SCH (21:15)
--- NOTE | 2018-01-02 21:17 | PHYS DOC ---
Past Medical History Past Medical History: Anxiety, Dementia, Hypertension, Other Additional Past Medical Histor: Aortic Valve Insufficiency, overactive bladder Past Surgical History: Other Additional Past Surgical Histo: Unknown Alcohol Use: None Drug Use: None Adult General Chief Complaint Chief Complaint: MECHANICAL FALL HPI HPI Patient is a 77-year-old female with a history of advanced dementia, who presents to the emergency department for evaluation. Apparently she fell out of a wheelchair at the nursing facility at some point today, although exactly when is unclear. She appears to have pain in her left hip, with shortening and rotation. She does have a past history of a right hip fracture and recent surgery according to EMS report. The patient is awake and alert, but is unable to provide any meaningful history due to her underlying dementia although she does follow some basic commands. She is not able to localize a verbalize any other complaints. There are no alleviating or exacerbating factors to her symptoms although movement of her left hip seems to worsen her pain. The patient was given 50 g of fentanyl by EMS. Review of Systems Review of Systems Unable to obtain review of systems secondary to dementia. Current Medications Current Medications Current Medications Medications (Trade) Dose Ordered Sig/Zafar Start Time Stop Time Status Last Admin Dose Admin Sodium Chloride 1,000 ml @ 100 mls/hr Q10H 01/02/18 21:15 01/03/18 01:25 DC 01/02/18 22:17 100 MLS/HR Allergies Allergies Allergies Coded Allergies Type Severity Reaction Last Updated Verified No Known Drug Allergies 11/30/17 No Physical Exam Physical Exam PHYSICAL EXAM: CONSTITUTIONAL: Well developed, well nourished HEAD: normocephalic, atraumatic EENT: PERRL, EOMI. Conjunctivae normal color, sclerae non-icteric; moist mucous membranes. NECK: Supple, non-tender; no meningismus. LUNGS: Lungs CTA, breathing even and unlabored. Normal air movement. HEART: Regular rate and rhythm, no murmur CHEST: No deformity; non-tender ABDOMEN: The abdomen is soft, and non-tender, no masses or bruits. EXTREM: There is shortening and rotation, lateral, left leg relative to the right. There is tenderness to palpation at left hip. The remainder of the extremities are atraumatic, demonstrating Normal ROM; no deformity, no calf tenderness. Normal pulses palpable in all extremities. There is no pedal edema. SKIN: No rash; no diaphoresis NEURO: Alert;, impaired cognition secondary to dementia; CN's grossly intact; strength grossly intact without focal deficit. BACK: No CVA TTP. Current Patient Data Vital Signs Vital Signs Date Time Temp Pulse Resp B/P (MAP) Pulse Ox O2 Delivery O2 Flow Rate FiO2 01/02/18 22:12 109 98 01/02/18 21:12 98.0 17 188/86 (120) Room Air 98.0 EKG EKG Normal sinus rhythm at a rate of 103 bpm, normal axis, normal intervals, there is lateral T wave inversion, without acute ischemic ST elevation or other changes noted. The patient's EKG is not significantly changed compared to her prior EKG. Radiology/Procedures Radiology/Procedures [PROCEDURE: CT HEAD AND CERVICAL SPINE WO Examination: CT head and cervical spine without contrast HISTORY: History of fall, dementia COMPARISON: 11/30/2017 Exposure: One or more of the following individualized dose reduction techniques were utilized for this examination: 1. Automated exposure control 2. Adjustment of the mA and/or kV according to patient size 3. Use of iterative reconstruction technique CT HEAD INDICATION: fall, dementia, priors sent from last month TECHNIQUE: 5 mm contiguous axial images were obtained from the skull base to the vertex in both bone and soft tissue algorithm. FINDINGS: Moderate bilateral periventricular white matter hypodensities likely chronic small vessel ischemic disease. No evidence of acute intracranial hemorrhage. No extra-axial fluid collections. No mass effect or midline shift. Ventricular size is appropriate. Basal cisterns are patent. No fractures identified.Chung-white differentiation is preserved.Globes and orbits are within normal limits. Paranasal sinuses and mastoid air cells are clear. IMPRESSION: No acute intracranial findings. CT CERVICAL SPINE INDICATION: fall, dementia, priors sent from last month Technique: 2.5 mm contiguous axial images were obtained from the skull base through the cervicothoracic junction in both bone and soft tissue algorithm. Additional sagittal and coronal reconstructions were also performed. FINDINGS: Vertebral body heights are maintained. Cervical lordosis is preserved. The lateral masses of C1 are aligned upon C2. No fractures identified. The bony canal is patent throughout. Multilevel moderate degenerative changes cervical spine. The paraspinous soft tissues are unremarkable. Visualized intracranial contents are unremarkable. Apical lung scarring changes. IMPRESSION: 1. No acute fracture of the cervical spine. Correlate clinically. 2. Moderate degenerative changes cervical spine. ] ER physician preliminary chest x-ray interpretation: Cardiomegaly without acute disease. ER physician preliminary left hip x-ray interpretation: There is an intertrochanteric hip fracture. Course & Med Decision Making Course & Med Decision Making Pertinent Labs and Imaging studies reviewed. (See chart for details) [6:00 AM:The patient's condition remains stable. I spoke with the hospitalist , who accepted the patient to the hospital for further evaluation and treatment. ] Dragon Disclaimer Dragon Disclaimer This electronic medical record was generated, in whole or in part, using a voice recognition dictation system. Departure Departure Impression: Primary Impression: Intertrochanteric fracture of left hip Disposition: ADMITTED INPATIENT Admitting Physician: Tano Varner Condition: STABLE Referrals: GEETHA DIAMOND MD (PCP) AZIZA DAN MD Jan 02, 2018 21:17
--- NOTE | 2018-01-02 22:18 | RAD ---
Examination: CT head and cervical spine without contrast HISTORY: History of fall, dementia COMPARISON: 11/30/2017 Exposure: One or more of the following individualized dose reduction techniques were utilized for this examination: 1. Automated exposure control 2. Adjustment of the mA and/or kV according to patient size 3. Use of iterative reconstruction technique CT HEAD INDICATION: fall, dementia, priors sent from last month TECHNIQUE: 5 mm contiguous axial images were obtained from the skull base to the vertex in both bone and soft tissue algorithm. FINDINGS: Moderate bilateral periventricular white matter hypodensities likely chronic small vessel ischemic disease. No evidence of acute intracranial hemorrhage. No extra-axial fluid collections. No mass effect or midline shift. Ventricular size is appropriate. Basal cisterns are patent. No fractures identified.Chung-white differentiation is preserved.Globes and orbits are within normal limits. Paranasal sinuses and mastoid air cells are clear. IMPRESSION: No acute intracranial findings. CT CERVICAL SPINE INDICATION: fall, dementia, priors sent from last month Technique: 2.5 mm contiguous axial images were obtained from the skull base through the cervicothoracic junction in both bone and soft tissue algorithm. Additional sagittal and coronal reconstructions were also performed. FINDINGS: Vertebral body heights are maintained. Cervical lordosis is preserved. The lateral masses of C1 are aligned upon C2. No fractures identified. The bony canal is patent throughout. Multilevel moderate degenerative changes cervical spine. The paraspinous soft tissues are unremarkable. Visualized intracranial contents are unremarkable. Apical lung scarring changes. IMPRESSION: 1. No acute fracture of the cervical spine. Correlate clinically. 2. Moderate degenerative changes cervical spine. Electronically signed by: Bobby Burks MD (01/02/2018 10:15 PM) [facility]
[2018-01-02] MEDS ORDERED: IV DEXTROSE 5%-LACT RINGERS 1,000 ML IV ONE (22:30)
[2018-01-02] MEDS ORDERED: MORPHINE SULFATE 4 MG/ML VIAL. IV ONE (22:30)
[2018-01-02] MEDS ORDERED: ONDANSETRON PF 4 MG/2 ML VIAL. IV PRN (22:30)
[2018-01-02 22:41] LABS: BASO % 0 % (0-3); EOS % 1 % (0-3); HEMATOCRIT 31.3 % (36.0-47.0); HEMOGLOBIN 10.8 g/dL (12.0-15.5); LYMPH # 1.1 x10^3/uL (1.0-4.8); LYMPH % 13 % (24-48); MEAN CORPUSCULAR HEMOGLOBIN 30 pg (25-35); MEAN CORPUSCULAR HGB CONC 34 g/dL (31-37); MEAN CORPUSCULAR VOLUME 87 fL (79-100); MONO # 0.4 x10^3/uL (0.0-1.1); MONO % 5 % (0-9); NEUT # 6.7 x10^3uL (1.8-7.7); NEUT % 81 % (31-73); PLATELET COUNT 269 x10^3/uL (140-400); RED BLOOD COUNT 3.59 x10^6/uL (3.50-5.40); RED CELL DISTRIBUTION WIDTH 16.3 % (11.5-14.5); WHITE BLOOD COUNT 8.2 x10^3/uL (4.0-11.0)
[2018-01-02 22:48] LABS: CALCIUM 8.8 mg/dL (8.5-10.1); CREATININE 0.8 mg/dL (0.6-1.0); GFR 69.7; POTASSIUM 3.9 mmol/L (3.5-5.1)
[2018-01-02 22:49] LABS: PROTHROMBIN TIME PATIENT 23.9 SEC (11.7-14.0)
[2018-01-02 23:21] LABS: BILIRUBIN,URINE NEGATIVE (NEG); CLARITY,URINE CLOUDY; COLOR,URINE YELLOW; NITRITE,URINE POSITIVE (NEG); PH,URINE 7.5; PROTEIN,URINE NEGATIVE (NEG-TRACE); UROBILINOGEN,URINE 0.2 mg/dL (0.2 mg/dL)
[2018-01-02 23:27] LABS: BACTERIA,URINE MANY /HPF (0-FEW); RBC,URINE OCC /HPF (0-2); WBC,URINE 20-40 /HPF (0-4)
[2018-01-03] MEDS ORDERED: FERR325T14 PO (01:05)
[2018-01-03] MEDS ORDERED: ACET325T9 PO (01:05)
[2018-01-03] MEDS ORDERED: ALPR0.25 PO (01:05)
[2018-01-03] MEDS ORDERED: SENN8.6T99 PO (01:05)
[2018-01-03] MEDS ORDERED: POTA10TA12 PO (01:05)
[2018-01-03] MEDS ORDERED: ZOLP5TAB PO (01:05)
[2018-01-03] MEDS ORDERED: BISA-42 RC (01:05)
[2018-01-03] MEDS ORDERED: DOCU-109 PO (01:05)
[2018-01-03] MEDS ORDERED: FURO20TA3 PO (01:05)
[2018-01-03] MEDS ORDERED: WARF2.5T83 PO (01:05)
[2018-01-03] MEDS ORDERED: MAGN400O7 PO (01:05)
[2018-01-03] MEDS ORDERED: LACT1CAP21 PO (01:05)
[2018-01-03] MEDS ORDERED: CHOL10003 PO (01:05)
[2018-01-03 01:11] VITALS: BP 181/84
[2018-01-03] MEDS: IV NORMAL SALINE 1000ML BAG 1,000 ML IV SCH ×3 (01:30→20:30)
[2018-01-03] MEDS: MORPHINE SULFATE 4 MG/ML VIAL. IV PRN ×4 (02:39→20:37)
[2018-01-03 03:45] VITALS: BP 171/80
[2018-01-03] MEDS: METOPROLOL TARTRATE 5 MG/5 ML VIAL. IVP PRN ×3 (04:51→20:28)
[2018-01-03 07:00] VITALS: BP 171/80
--- NOTE | 2018-01-03 07:17 | EKG ---
[facility] [address] [place] [address] Test Date: 2018-01-02 Test Time: 21:43:02 Pat Name: TIA AGUILAR Department: Room: 408 1 Gender: F [employer]: : 1940 Requested By: AZIZA DAN Order Number: [id number] Reading MD: Butch Calhoun MD Measurements Intervals [place] Rate: 103 P: -99 IN: 108 QRS: 37 QRSD: 80 T: -118 QT: 354 QTc: 466 Interpretive Statements SINUS TACHYCARDIA LVH CANNOT RULE OUT ANTEROLATERAL ISCHEMIA Electronically Signed On 01-04-2018 6:53:39 CDT by Butch Calhoun MD
--- NOTE | 2018-01-03 08:52 | RAD ---
Left hip, 2 views, 01/02/2018: HISTORY: Fall, injury There is an intertrochanteric fracture of the left hip. There is moderate anterior angulation at the fracture site. The femoral head is seated within the acetabulum. There is only mild degenerative change at the left hip joint. IMPRESSION: Acute intertrochanteric fracture of the left hip. Electronically signed by: Betito Guillaume MD (01/03/2018 8:49 AM) [facility]
--- NOTE | 2018-01-03 08:55 | RAD ---
Portable chest, 01/02/2018: HISTORY: Preop evaluation, hip fracture Comparison is made to a study from 12/06/2017. The heart is enlarged. Previously seen basilar infiltrates and pleural effusions have largely cleared. There is mild residual prominence of the pulmonary markings suggesting fibrosis. Mild residual interstitial edema is less likely. No new pulmonary infiltrate is seen. There is no evidence of pneumothorax or pleural fluid. IMPRESSION: Nearly complete interval resolution of the bibasilar pulmonary edema and pleural effusions evident on 12/06/2017. Electronically signed by: Betito Guillaume MD (01/03/2018 8:52 AM) [facility]
[2018-01-03] MEDS ORDERED: PHYTONADIONE (VIT K1) IV 10 MG in IV DEXTROSE 5% 50 ML IV ONE (10:15)
--- NOTE | 2018-01-03 10:15 | PDOC2 ---
CONSULT Date of Consult Date of Consult DATE: 01/03/18 TIME: 10:09 Reason for Consult Reason for Consult: Left hip fracture Referring Physician Referring Physician: [place] Identification/Chief Complaint Chief Complaint Unobtainable Source Source: Chart review History of Present Illness Reason for Visit: Patient had a recent right hip hemiarthroplasty for fracture and had a fall from her wheelchair at her facility. Because of increased pain she was transferred to the emergency department where x-rays revealed a hip fracture. Due to her dementia, the patient does not verbalize and offers no complaints today. Past Medical History Cardiovascular: HTN, Hyperlipidemia CENTRAL NERVOUS SYSTEM: Dementia Endocrine: Hypothyroidism Past Surgical History Past Surgical History: No pertinent history Family History Family History: Family History Unknown Social History ALCOHOL: none Drugs: None Current Medications Current Medications Current Medications Sodium Chloride 1,000 ml @ 100 mls/hr Q10H IV Last administered on 01/02/18at 22 :17; Start 01/02/18 at 21:15; Stop 01/03/18 at 01:25; Status DC Morphine Sulfate (Morphine Sulfate) 4 mg 1X ONCE IV Last administered on at 22:26; Start 01/02/18 at 22:30; Stop 01/02/18 at 22:31; Status DC Ondansetron HCl (Zofran) 4 mg PRN Q8HRS PRN IV NAUSEA/VOMITING; Start 01/02/18 at 22:30; Stop 01/03/18 at 22:29 Morphine Sulfate (Morphine Sulfate) 4 mg PRN Q2HR PRN IV PAIN Last administered on 01/03/18at 04:56; Start 01/02/18 at 22:30; Stop 01/03/18 at 22:29 Dextrose/Lactated Ringer's 1,000 ml @ 125 mls/hr 1X ONCE IV Last administered on 01/02/18at 23:56; Start 01/02/18 at 22:30; Stop 01/03/18 at 06:29; Status DC Ceftriaxone Sodium 50 ml @ 100 mls/hr 1X ONCE IV Last administered on at 00:15; Start 01/03/18 at 00:15; Stop 01/03/18 at 00:44; Status DC Sodium Chloride 1,000 ml @ 100 mls/hr Q10H IV ; Start 01/03/18 at 01:30 Metoprolol Tartrate (Lopressor Vial) 5 mg PRN Q6HRS PRN IVP HYPERTENSION, SEE COMMENTS Last administered on 01/03/18at 04:51; Start 01/03/18 at 04:15 Active Scripts Active Reported Xanax (Alprazolam) 0.25 Mg Tablet 1 Tab PO BID Ambien (Zolpidem Tartrate) 5 Mg Tablet 1 Tab PO QHS Coumadin (Warfarin Sodium) 2.5 Mg Tablet 1 Tab PO DAILY Ferrous Sulfate 325 Mg Tablet 1 Tab PO BID Colace (Docusate Sodium) 100 Mg Capsule 1 Cap PO BID Culturelle (Lactobacillus Rhamnosus Gg) 1 Each Capsule 1 Each PO BID Vitamin D3 (Cholecalciferol (Vitamin D3)) 1,000 Unit Tablet 1 Tab PO DAILY Potassium Chloride 10 Meq Tab.sr.24h 10 Meq PO DAILY Furosemide 20 Mg Tablet 1 Tab PO DAILY Tylenol (Acetaminophen) 325 Mg Tablet 500 Mg PO TID Senokot (Sennosides) 8.6 Mg Tablet 1 Tab PO BID Milk Of Magnesia (Magnesium Hydroxide) 400 Mg/5 Ml Oral.susp 30 Ml PO PRN Q12HR PRN Dulcolax (Bisacodyl) 5 Mg Tablet.dr 10 Mg RC PRN DAILY PRN Robafen (Guaifenesin) 100 Mg/5 Ml Liquid 200 Mg PO PRN Q6HRS PRN Levothyroxine Sodium 50 Mcg Tablet 1 Tab PO DAILY Alprazolam 0.25 Mg Tablet 1 Tab PO TID PRN Acetaminophen 500 Mg Tablet 500 Mg PO PRN Q6HRS PRN Namenda (Memantine Hcl) 10 Mg Tablet 1 Tab PO BID Calcium (Calcium Carbonate) 600 Mg Tablet 1,200 Mg PO BID EXELON 4.6mg/24hr (Rivastigmine) 1 Each Patch.td24 1 Patch TP DAILY Allergies Allergies: Coded Allergies: No Known Drug Allergies (Unverified , 11/30/17) ROS Review of System Unobtainable secondary to patient's mental status Physical Exam General: Alert, moderate distress HEENT: Atraumatic, EOMI Lungs: Other (respirations unlabored with symmetric chest rise) Abdomen: Soft, No tenderness Extremities: No edema, Normal pulses Skin: Other (healed posterolateral skin incision at right hip.) Neuro: Other (unable to assess strength and sensation secondary to patient's inability to cooperate.) Psych/Mental Status: Other (unable to assess mental status other than her inability to communicate secondary to her dementia) MUSCULOSKELETAL: Other (left lower extremity is shorter and slightly externally rotated compared to the contralateral. Toes are warm. She spontaneously wiggles her toes. She does grimace and withdrawal with any attempted gentle rotation of her left hip.) Vitals VITALS Vital Signs Date Time Temp Pulse Resp B/P (MAP) Pulse Ox O2 Delivery O2 Flow Rate FiO2 01/03/18 07:10 Room Air 01/03/18 07:00 97.7 110 171/80 (110) 97 97.7 01/03/18 03:45 12 Labs Labs Laboratory Tests Test 01/02/18 22:25 01/02/18 23:13 White Blood Count 8.2 x10^3/uL (4.0-11.0) Red Blood Count 3.59 x10^6/uL (3.50-5.40) Hemoglobin 10.8 g/dL (12.0-15.5) Hematocrit 31.3 % (36.0-47.0) Mean Corpuscular Volume 87 fL (79-100) Mean Corpuscular Hemoglobin 30 pg (25-35) Mean Corpuscular Hemoglobin Concent 34 g/dL (31-37) Red Cell Distribution Width 16.3 % (11.5-14.5) Platelet Count 269 x10^3/uL (140-400) Neutrophils (%) (Auto) 81 % (31-73) Lymphocytes (%) (Auto) 13 % (24-48) Monocytes (%) (Auto) 5 % (0-9) Eosinophils (%) (Auto) 1 % (0-3) Basophils (%) (Auto) 0 % (0-3) Neutrophils # (Auto) 6.7 x10^3uL (1.8-7.7) Lymphocytes # (Auto) 1.1 x10^3/uL (1.0-4.8) Monocytes # (Auto) 0.4 x10^3/uL (0.0-1.1) Eosinophils # (Auto) 0.0 x10^3/uL (0.0-0.7) Basophils # (Auto) 0.0 x10^3/uL (0.0-0.2) Prothrombin Time 23.9 SEC (11.7-14.0) Prothromb Time International Ratio 2.2 (0.8-1.1) Activated Partial Thromboplast Time 39 SEC (24-38) Sodium Level 131 mmol/L (136-145) Potassium Level 3.9 mmol/L (3.5-5.1) Chloride Level 94 mmol/L (98-107) Carbon Dioxide Level 29 mmol/L (21-32) Anion Gap 8 (6-14) Blood Urea Nitrogen 16 mg/dL (7-20) Creatinine 0.8 mg/dL (0.6-1.0) Estimated GFR (Cockcroft-Gault) 69.7 Glucose Level 126 mg/dL (70-99) Calcium Level 8.8 mg/dL (8.5-10.1) Troponin I Quantitative < 0.017 ng/mL (0.000-0.055) Urine Collection Type U cath Urine Color Yellow Urine Clarity Cloudy Urine pH 7.5 Urine Specific [place] 1.010 Urine Protein Negative mg/dL (NEG-TRACE) Urine Glucose (UA) Negative mg/dL (NEG) Urine Ketones (Stick) Negative mg/dL (NEG) Urine Blood Trace (NEG) Urine Nitrite Positive (NEG) Urine Bilirubin Negative (NEG) Urine Urobilinogen Dipstick 0.2 mg/dL (0.2 mg/dL) Urine Leukocyte Esterase Large (NEG) Urine RBC Occ /HPF (0-2) Urine WBC 20-40 /HPF (0-4) Urine Bacteria Many /HPF (0-FEW) Laboratory Tests Test 01/02/18 22:25 01/02/18 23:13 White Blood Count 8.2 x10^3/uL (4.0-11.0) Red Blood Count 3.59 x10^6/uL (3.50-5.40) Hemoglobin 10.8 g/dL (12.0-15.5) Hematocrit 31.3 % (36.0-47.0) Mean Corpuscular Volume 87 fL (79-100) Mean Corpuscular Hemoglobin 30 pg (25-35) Mean Corpuscular Hemoglobin Concent 34 g/dL (31-37) Red Cell Distribution Width 16.3 % (11.5-14.5) Platelet Count 269 x10^3/uL (140-400) Neutrophils (%) (Auto) 81 % (31-73) Lymphocytes (%) (Auto) 13 % (24-48) Monocytes (%) (Auto) 5 % (0-9) Eosinophils (%) (Auto) 1 % (0-3) Basophils (%) (Auto) 0 % (0-3) Neutrophils # (Auto) 6.7 x10^3uL (1.8-7.7) Lymphocytes # (Auto) 1.1 x10^3/uL (1.0-4.8) Monocytes # (Auto) 0.4 x10^3/uL (0.0-1.1) Eosinophils # (Auto) 0.0 x10^3/uL (0.0-0.7) Basophils # (Auto) 0.0 x10^3/uL (0.0-0.2) Prothrombin Time 23.9 SEC (11.7-14.0) Prothromb Time International Ratio 2.2 (0.8-1.1) Activated Partial Thromboplast Time 39 SEC (24-38) Sodium Level 131 mmol/L (136-145) Potassium Level 3.9 mmol/L (3.5-5.1) Chloride Level 94 mmol/L (98-107) Carbon Dioxide Level 29 mmol/L (21-32) Anion Gap 8 (6-14) Blood Urea Nitrogen 16 mg/dL (7-20) Creatinine 0.8 mg/dL (0.6-1.0) Estimated GFR (Cockcroft-Gault) 69.7 Glucose Level 126 mg/dL (70-99) Calcium Level 8.8 mg/dL (8.5-10.1) Troponin I Quantitative < 0.017 ng/mL (0.000-0.055) Urine Collection Type U cath Urine Color Yellow Urine Clarity Cloudy Urine pH 7.5 Urine Specific [place] 1.010 Urine Protein Negative mg/dL (NEG-TRACE) Urine Glucose (UA) Negative mg/dL (NEG) Urine Ketones (Stick) Negative mg/dL (NEG) Urine Blood Trace (NEG) Urine Nitrite Positive (NEG) Urine Bilirubin Negative (NEG) Urine Urobilinogen Dipstick 0.2 mg/dL (0.2 mg/dL) Urine Leukocyte Esterase Large (NEG) Urine RBC Occ /HPF (0-2) Urine WBC 20-40 /HPF (0-4) Urine Bacteria Many /HPF (0-FEW) Images Images Xrays interpreted by myself, IT hip fracture Assessment/Plan Assessment/Plan Vit K for coumadin reversal today Surgery 8am tomorrow NPO FREYA ODELL II, MD Jan 03, 2018 10:15
[2018-01-03 11:00] VITALS: BP 159/97
--- NOTE | 2018-01-03 12:44 | PDOC2 ---
PALLIATIVE CARE Palliative Care Note Palliative Care Consult requested by Dr. Moon to address code status. Medical conditions per medical record Fx. Left Hip. Plan surgery on Saturday. ( patient had recent fracture of Right Hip with ORIF--was in Rehab at [facility]) Patient resting comfortably. VSS RR 18. oxygen sat 95%. No grimace or restlessness. Morphine available for pain. No family at bedside. Will attempt to reach Chace or Rossy --children. [id number] Spoke with Rossy--daughter in-law. States that her and her have discussed resuscitation. They would want patient to be DNR/DNI. Understand this order would be reascended during surgery. Chace will be here to confirm code status this evening. Outside the Hospital form to be signed by Chace. Spoke with Olena ESCOBAR who will confirm status with Chace. LULY MENARD Jan 03, 2018 12:44
[2018-01-03] MEDS ORDERED: BISACODYL 5 MG TABLET.DR. PO PRN (14:15)
[2018-01-03] MEDS ORDERED: MAGNESIUM HYDROXIDE 2,400 MG/30 ML ORAL.SUSP. PO PRN (14:15)
[2018-01-03] MEDS ORDERED: guaiFENesin ORAL 200 MG/10 ML LIQUID. PO PRN (14:15)
--- NOTE | 2018-01-03 14:18 | PDOC1 ---
History and Physical Date of Admission Date of Admission DATE: 01/03/18 TIME: 14:13 History of Present Illness History of Present Illness Ms. Pleitez is a 77-year-old female admit with hip pain after a fall she has a history of advanced dementia, and she fell out of a wheelchair and complained of hip pain with shortening and rotation. She does have a past history of a right hip fracture and recent surgery. not much other meaningful history due to her underlying dementia. Past Medical History Cardiovascular: HTN, Hyperlipidemia CENTRAL NERVOUS SYSTEM: Dementia Endocrine: Hypothyroidism Past Surgical History Past Surgical History: No pertinent history Family History Family History: Family History Unknown Social History ALCOHOL: none Drugs: None Current Medications Current Medications Current Medications Sodium Chloride 1,000 ml @ 100 mls/hr Q10H IV Last administered on 01/02/18at 22 :17; Start 01/02/18 at 21:15; Stop 01/03/18 at 01:25; Status DC Morphine Sulfate (Morphine Sulfate) 4 mg 1X ONCE IV Last administered on at 22:26; Start 01/02/18 at 22:30; Stop 01/02/18 at 22:31; Status DC Ondansetron HCl (Zofran) 4 mg PRN Q8HRS PRN IV NAUSEA/VOMITING; Start 01/02/18 at 22:30; Stop 01/03/18 at 22:29 Morphine Sulfate (Morphine Sulfate) 4 mg PRN Q2HR PRN IV PAIN Last administered on 01/03/18at 04:56; Start 01/02/18 at 22:30; Stop 01/03/18 at 22:29 Dextrose/Lactated Ringer's 1,000 ml @ 125 mls/hr 1X ONCE IV Last administered on 01/02/18at 23:56; Start 01/02/18 at 22:30; Stop 01/03/18 at 06:29; Status DC Ceftriaxone Sodium 50 ml @ 100 mls/hr 1X ONCE IV Last administered on at 00:15; Start 01/03/18 at 00:15; Stop 01/03/18 at 00:44; Status DC Sodium Chloride 1,000 ml @ 100 mls/hr Q10H IV Last administered on 01/03/18at 11 :05; Start 01/03/18 at 01:30 Metoprolol Tartrate (Lopressor Vial) 5 mg PRN Q6HRS PRN IVP HYPERTENSION, SEE COMMENTS Last administered on 01/03/18at 04:51; Start 01/03/18 at 04:15 Phytonadione 10 mg/Dextrose 51 ml @ 102 mls/hr 1X ONCE IV Last administered on 01/03/18at 11:04; Start 01/03/18 at 10:15; Stop 01/03/18 at 10:44; Status DC Cefazolin Sodium 50 ml @ 100 mls/hr 1X ONCE IV ; Start 01/03/18 at 10:15; Stop 01/03/18 at 10:44; Status DC Active Scripts Active Reported Xanax (Alprazolam) 0.25 Mg Tablet 1 Tab PO BID Ambien (Zolpidem Tartrate) 5 Mg Tablet 1 Tab PO QHS Coumadin (Warfarin Sodium) 2.5 Mg Tablet 1 Tab PO DAILY Ferrous Sulfate 325 Mg Tablet 1 Tab PO BID Colace (Docusate Sodium) 100 Mg Capsule 1 Cap PO BID Culturelle (Lactobacillus Rhamnosus Gg) 1 Each Capsule 1 Each PO BID Vitamin D3 (Cholecalciferol (Vitamin D3)) 1,000 Unit Tablet 1 Tab PO DAILY Potassium Chloride 10 Meq Tab.sr.24h 10 Meq PO DAILY Furosemide 20 Mg Tablet 1 Tab PO DAILY Tylenol (Acetaminophen) 325 Mg Tablet 500 Mg PO TID Senokot (Sennosides) 8.6 Mg Tablet 1 Tab PO BID Milk Of Magnesia (Magnesium Hydroxide) 400 Mg/5 Ml Oral.susp 30 Ml PO PRN Q12HR PRN Dulcolax (Bisacodyl) 5 Mg Tablet.dr 10 Mg RC PRN DAILY PRN Robafen (Guaifenesin) 100 Mg/5 Ml Liquid 200 Mg PO PRN Q6HRS PRN Levothyroxine Sodium 50 Mcg Tablet 1 Tab PO DAILY Alprazolam 0.25 Mg Tablet 1 Tab PO TID PRN Acetaminophen 500 Mg Tablet 500 Mg PO PRN Q6HRS PRN Namenda (Memantine Hcl) 10 Mg Tablet 1 Tab PO BID Calcium (Calcium Carbonate) 600 Mg Tablet 1,200 Mg PO BID EXELON 4.6mg/24hr (Rivastigmine) 1 Each Patch.td24 1 Patch TP DAILY Allergies Allergies: Coded Allergies: No Known Drug Allergies (Unverified , 11/30/17) ROS Review of System unable, dementia Physical Exam General: Cooperative, mild distress HEENT: PERRLA, EOMI Lungs: Clear to auscultation, Normal air movement Heart: irregularly irregular Extremities: No cyanosis Skin: No rashes Neuro: Other Psych/Mental Status: Other Vitals Vitals Vital Signs Date Time Temp Pulse Resp B/P (MAP) Pulse Ox O2 Delivery O2 Flow Rate FiO2 01/03/18 11:00 97.7 95 159/97 (117) 96 Room Air 97.7 01/03/18 03:45 12 Labs Labs Laboratory Tests Test 01/02/18 22:25 01/02/18 23:13 White Blood Count 8.2 x10^3/uL (4.0-11.0) Red Blood Count 3.59 x10^6/uL (3.50-5.40) Hemoglobin 10.8 g/dL (12.0-15.5) Hematocrit 31.3 % (36.0-47.0) Mean Corpuscular Volume 87 fL (79-100) Mean Corpuscular Hemoglobin 30 pg (25-35) Mean Corpuscular Hemoglobin Concent 34 g/dL (31-37) Red Cell Distribution Width 16.3 % (11.5-14.5) Platelet Count 269 x10^3/uL (140-400) Neutrophils (%) (Auto) 81 % (31-73) Lymphocytes (%) (Auto) 13 % (24-48) Monocytes (%) (Auto) 5 % (0-9) Eosinophils (%) (Auto) 1 % (0-3) Basophils (%) (Auto) 0 % (0-3) Neutrophils # (Auto) 6.7 x10^3uL (1.8-7.7) Lymphocytes # (Auto) 1.1 x10^3/uL (1.0-4.8) Monocytes # (Auto) 0.4 x10^3/uL (0.0-1.1) Eosinophils # (Auto) 0.0 x10^3/uL (0.0-0.7) Basophils # (Auto) 0.0 x10^3/uL (0.0-0.2) Prothrombin Time 23.9 SEC (11.7-14.0) Prothromb Time International Ratio 2.2 (0.8-1.1) Activated Partial Thromboplast Time 39 SEC (24-38) Sodium Level 131 mmol/L (136-145) Potassium Level 3.9 mmol/L (3.5-5.1) Chloride Level 94 mmol/L (98-107) Carbon Dioxide Level 29 mmol/L (21-32) Anion Gap 8 (6-14) Blood Urea Nitrogen 16 mg/dL (7-20) Creatinine 0.8 mg/dL (0.6-1.0) Estimated GFR (Cockcroft-Gault) 69.7 Glucose Level 126 mg/dL (70-99) Calcium Level 8.8 mg/dL (8.5-10.1) Troponin I Quantitative < 0.017 ng/mL (0.000-0.055) Urine Collection Type U cath Urine Color Yellow Urine Clarity Cloudy Urine pH 7.5 Urine Specific [place] 1.010 Urine Protein Negative mg/dL (NEG-TRACE) Urine Glucose (UA) Negative mg/dL (NEG) Urine Ketones (Stick) Negative mg/dL (NEG) Urine Blood Trace (NEG) Urine Nitrite Positive (NEG) Urine Bilirubin Negative (NEG) Urine Urobilinogen Dipstick 0.2 mg/dL (0.2 mg/dL) Urine Leukocyte Esterase Large (NEG) Urine RBC Occ /HPF (0-2) Urine WBC 20-40 /HPF (0-4) Urine Bacteria Many /HPF (0-FEW) Laboratory Tests Test 01/02/18 22:25 01/02/18 23:13 White Blood Count 8.2 x10^3/uL (4.0-11.0) Red Blood Count 3.59 x10^6/uL (3.50-5.40) Hemoglobin 10.8 g/dL (12.0-15.5) Hematocrit 31.3 % (36.0-47.0) Mean Corpuscular Volume 87 fL (79-100) Mean Corpuscular Hemoglobin 30 pg (25-35) Mean Corpuscular Hemoglobin Concent 34 g/dL (31-37) Red Cell Distribution Width 16.3 % (11.5-14.5) Platelet Count 269 x10^3/uL (140-400) Neutrophils (%) (Auto) 81 % (31-73) Lymphocytes (%) (Auto) 13 % (24-48) Monocytes (%) (Auto) 5 % (0-9) Eosinophils (%) (Auto) 1 % (0-3) Basophils (%) (Auto) 0 % (0-3) Neutrophils # (Auto) 6.7 x10^3uL (1.8-7.7) Lymphocytes # (Auto) 1.1 x10^3/uL (1.0-4.8) Monocytes # (Auto) 0.4 x10^3/uL (0.0-1.1) Eosinophils # (Auto) 0.0 x10^3/uL (0.0-0.7) Basophils # (Auto) 0.0 x10^3/uL (0.0-0.2) Prothrombin Time 23.9 SEC (11.7-14.0) Prothromb Time International Ratio 2.2 (0.8-1.1) Activated Partial Thromboplast Time 39 SEC (24-38) Sodium Level 131 mmol/L (136-145) Potassium Level 3.9 mmol/L (3.5-5.1) Chloride Level 94 mmol/L (98-107) Carbon Dioxide Level 29 mmol/L (21-32) Anion Gap 8 (6-14) Blood Urea Nitrogen 16 mg/dL (7-20) Creatinine 0.8 mg/dL (0.6-1.0) Estimated GFR (Cockcroft-Gault) 69.7 Glucose Level 126 mg/dL (70-99) Calcium Level 8.8 mg/dL (8.5-10.1) Troponin I Quantitative < 0.017 ng/mL (0.000-0.055) Urine Collection Type U cath Urine Color Yellow Urine Clarity Cloudy Urine pH 7.5 Urine Specific [place] 1.010 Urine Protein Negative mg/dL (NEG-TRACE) Urine Glucose (UA) Negative mg/dL (NEG) Urine Ketones (Stick) Negative mg/dL (NEG) Urine Blood Trace (NEG) Urine Nitrite Positive (NEG) Urine Bilirubin Negative (NEG) Urine Urobilinogen Dipstick 0.2 mg/dL (0.2 mg/dL) Urine Leukocyte Esterase Large (NEG) Urine RBC Occ /HPF (0-2) Urine WBC 20-40 /HPF (0-4) Urine Bacteria Many /HPF (0-FEW) VTE Prophylaxis Ordered VTE Prophylaxis Devices: No VTE Pharmacological Prophylaxi: Yes Assessment/Plan Assessment/Plan fall hip fracture, pathologic dementia weakness and debility Ortho to consider operating Palliative care consultaretha ludwig IRA W MD Jan 03, 2018 14:18
[2018-01-03 15:00] VITALS: BP 192/87
[2018-01-03 19:00] VITALS: BP 196/102
[2018-01-03] MEDS: SENNOSIDES 8.6 MG TABLET PO SCH (20:28)
[2018-01-03] MEDS: LACTOBACILLUS RHAMNOSUS GG 1 CAPSULE. PO SCH (20:29)
[2018-01-03] MEDS: ZOLPIDEM 5 MG TABLET. PO SCH (20:29)
[2018-01-03] MEDS: ACETAMINOPHEN 500 MG TABLET PO PRN (20:29)
[2018-01-03] MEDS: ALPRAZolam 0.25 MG TABLET PO PRN (20:29)
[2018-01-03] MEDS: CALCIUM CARBONATE 500 MG TABLET PO SCH (20:29)
[2018-01-03] MEDS: DOCUSATE SODIUM 100 MG CAPSULE. PO SCH (20:29)
[2018-01-03] MEDS: MEMANTINE 10 MG TABLET. PO SCH (20:29)
[2018-01-04] VITALS (12 sets, daily range): BP systolic 129–179; BP diastolic 58–90
[2018-01-04] MEDS: LEVOTHYROXINE 50 MCG TABLET PO SCH (01:13)
[2018-01-04] MEDS: MORPHINE SULFATE 2 MG/ML VIAL. IV PRN (06:00)
[2018-01-04] MEDS: IV NORMAL SALINE 1000ML BAG 1,000 ML IV SCH ×2 (06:00→16:39)
[2018-01-04 06:12] LABS: PROTHROMBIN TIME PATIENT 15.2 SEC (11.7-14.0)
[2018-01-04] MEDS ORDERED: IV RINGERS,LACTATED 1000ML 1,000 ML IV SCH (06:58)
[2018-01-04] MEDS ORDERED: PROCHLORPERAZINE 10 MG/2 ML VIAL. IV PRN (07:00)
[2018-01-04] MEDS ORDERED: ONDANSETRON PF 4 MG/2 ML VIAL. IV PRN (07:00)
[2018-01-04] MEDS ORDERED: HYDROmorphone 2 MG/ML VIAL IV PRN (07:00)
[2018-01-04] MEDS ORDERED: MORPHINE SULFATE 2 MG/ML VIAL. IV PRN (07:00)
[2018-01-04] MEDS ORDERED: fentaNYL PF VIAL 100 MCG/2 ML VIAL IV PRN ×2 (07:00)
[2018-01-04] MEDS ORDERED: LIDOCAINE 1% PF 2 ML VIAL. ID PRN (07:00)
[2018-01-04] MEDS ORDERED: MORPHINE SULFATE 5 MG, KETOROLAC 30MG VIAL 30 MG, ROPIVacaine 0.5% PF 60 ML, EPINEPHrin... INT ART ONE ×5 (07:30)
[2018-01-04] MEDS ORDERED: LIDOCAINE 1% PF 5 ML VIAL. ONE (07:37)
[2018-01-04] MEDS ORDERED: PROPOFOL 20 ML IV ONE (07:37)
[2018-01-04] MEDS ORDERED: SUCCINYLCHOLINE 200 MG/10 ML VIAL. ONE (07:37)
[2018-01-04] MEDS ORDERED: fentaNYL PF VIAL 100 MCG/2 ML VIAL ONE ×2 (07:38→09:50)
[2018-01-04] MEDS ORDERED: DEXAMETHASONE SOD PHOS 20 MG/5 ML VIAL. ONE (07:39)
[2018-01-04] MEDS ORDERED: ONDANSETRON PF 4 MG/2 ML VIAL. ONE (07:39)
[2018-01-04] MEDS ORDERED: DESFLURANE 61 TO 120 MINUTES IH ONE (08:21)
[2018-01-04] MEDS ORDERED: ceFAZolin SODIUM 1 GM VIAL ONE (08:21)
[2018-01-04] MEDS ORDERED: PHENYLEPHRINE in 0.9% NACL PF 1 MG/10 ML SYRINGE. IV ONE (08:24)
[2018-01-04] MEDS: FUROSEMIDE 20 MG TABLET PO SCH (09:00)
[2018-01-04] MEDS: SENNOSIDES 8.6 MG TABLET PO SCH ×2 (09:00→21:08)
[2018-01-04] MEDS: LACTOBACILLUS RHAMNOSUS GG 1 CAPSULE. PO SCH ×2 (09:00→21:08)
[2018-01-04] MEDS: POTASSIUM CHLORIDE 10 MEQ TABLET.ER. PO SCH (09:00)
[2018-01-04] MEDS: CHOLECALCIFEROL (VITAMIN D3) 5,000 UNIT CAPSULE PO SCH (09:00)
[2018-01-04] MEDS: DOCUSATE SODIUM 100 MG CAPSULE. PO SCH ×2 (09:00→21:06)
[2018-01-04] MEDS: CALCIUM CARBONATE 500 MG TABLET PO SCH ×2 (09:00→21:07)
[2018-01-04] MEDS ORDERED: ceFAZolin SODIUM 1 GM in IV DEXTROSE 5% 50 ML IV SCH (10:00)
--- NOTE | 2018-01-04 10:28 | PDOC4 ---
Operative Note Operative Note Date of procedure: 01/04/2018 Surgeon: Deejay Downey Asst.: Andreina Tse, certified surgical first Asst. Preoperative diagnosis: Closed, comminuted, left intertrochanteric hip fracture Postoperative diagnosis: Same Procedure performed: Closed reduction and intramedullary nailing left hip fracture Anesthesia: Gen. Complications: None Components inserted: Schneider and nephew short intertan intramedullary nail, 10 x 18 x 125 with a 85 mm lag screw and corresponding compression screw and single distal interlocking screw used Blood loss: 200 mL Findings: Acute fracture Reason for procedure: Patient is a 77-year-old female who had a ground-level fall, she fell out of her wheelchair.. Please see my consult note for full details. She underwent right hip hemiarthroplasty for femoral neck fracture several weeks ago with my colleague. I discussed the risks, benefits, and alternatives with family and they wished to proceed. Description of procedure: Patient was greeted in the preoperative holding area by myself for the correct extremity was verified and marked. She was taken the operative suite and her antibiotics were started as she was brought back. Once in the operating room, she underwent successful induction of a general anesthetic and was transferred gently supine to the fracture table and secured the bed with all pressure points padded, left leg in traction ski boot, right leg in a well-leg caputo. Padded peroneal post was used. I performed my closed reduction maneuver and checked under biplanar fluoroscopy. Left hip and lower extremity were then prepped and draped in her usual sterile fashion. Preoperative timeout was conducted. I then made an incision after referencing the ASIS and proximal femur and incised skin with a scalpel and bluntly dissected down to the proximal femur. I used fluoroscopy to advance my guidepin and then gained entry to the proximal femur with the reamer. The fracture was very unstable. I then placed my lateral aiming arm against skin and incised skin in accordance with this and then bluntly split down to the proximal femur. I seated my guide pin trochars and then advance my guidepin after accepting the position I checked under biplanar fluoroscopy. I then drilled for my compression screw and placed the derotation bar and then measured and drilled for my leg screw. I then advanced my leg screw followed by my compression screw. I then removed the guidepin and this trocar and pressed my distal interlocking screw trocar against skin and incised skin and split bluntly split down to bone. I then made sure that this trocar was fully seated against bone and drilled and measured and placed my distal locking screw. I then remove the insertion handle and other equipment and then took my final images. Traction was then let off. After this I injected my periarticular mixture into the heather- incisional soft tissues. We then irrigated out the incisions. Deep layers and subcutaneous tissues tissue was closed with inverted interrupted 2-0 Vicryl followed by jeet for skin. Sterile dressing was then applied and taped in place. All counts were correct 2 prior to wound closure. No complications. Surgery was well tolerated by the patient. At the conclusion of the surgery, she was laid gently supine on the fracture table and then transferred gently supine to the hospital bed. She was taken to the PACU in a stable and expected condition. Postoperative plan is to readmitted to the floor under the care of the hospitalist. She will receive DVT and an appropriate prophylaxis. We will follow along with her postoperative course DEEJAY DOWNEY II, MD Jan 04, 2018 10:28
--- NOTE | 2018-01-04 12:44 | PDOC ---
PROGRESS NOTES Chief Complaint Chief Complaint fall, other hip fracture, pathologic dementia w/ acute encephalopathy from UTI hyponatremia on Admit, weakness and debility, acquired History of Present Illness History of Present Illness POD #1 Closed reduction and intramedullary nailing left hip fracture Vitals Vitals Vital Signs Date Time Temp Pulse Resp B/P (MAP) Pulse Ox O2 Delivery O2 Flow Rate FiO2 01/04/18 11:30 121 158/72 (100) 94 Room Air 01/04/18 11:00 97.9 14 97.9 01/04/18 10:16 2 Physical Exam General: Alert, Cooperative, No acute distress, mild distress Lungs: Clear Abdomen: Soft, No tenderness Extremities: No cyanosis Skin: No rashes Labs LABS Laboratory Tests Test 01/04/18 04:10 Prothrombin Time 15.2 SEC (11.7-14.0) Prothromb Time International Ratio 1.3 (0.8-1.1) Assessment and Plan Assessmemt and Plan palliative care consulted, is full code Comment Review of Relevant I have reviewed the following items fabian (where applicable) has been applied. Labs Laboratory Tests Test 01/02/18 22:25 01/02/18 23:13 01/03/18 06:00 01/04/18 04:10 White Blood Count 8.2 x10^3/uL (4.0-11.0) Red Blood Count 3.59 x10^6/uL (3.50-5.40) Hemoglobin 10.8 g/dL (12.0-15.5) Hematocrit 31.3 % (36.0-47.0) Mean Corpuscular Volume 87 fL (79-100) Mean Corpuscular Hemoglobin 30 pg (25-35) Mean Corpuscular Hemoglobin Concent 34 g/dL (31-37) Red Cell Distribution Width 16.3 % (11.5-14.5) Platelet Count 269 x10^3/uL (140-400) Neutrophils (%) (Auto) 81 % (31-73) Lymphocytes (%) (Auto) 13 % (24-48) Monocytes (%) (Auto) 5 % (0-9) Eosinophils (%) (Auto) 1 % (0-3) Basophils (%) (Auto) 0 % (0-3) Neutrophils # (Auto) 6.7 x10^3uL (1.8-7.7) Lymphocytes # (Auto) 1.1 x10^3/uL (1.0-4.8) Monocytes # (Auto) 0.4 x10^3/uL (0.0-1.1) Eosinophils # (Auto) 0.0 x10^3/uL (0.0-0.7) Basophils # (Auto) 0.0 x10^3/uL (0.0-0.2) Prothrombin Time 23.9 SEC (11.7-14.0) 15.2 SEC (11.7-14.0) Prothromb Time International Ratio 2.2 (0.8-1.1) 1.3 (0.8-1.1) Activated Partial Thromboplast Time 39 SEC (24-38) Sodium Level 131 mmol/L (136-145) Potassium Level 3.9 mmol/L (3.5-5.1) Chloride Level 94 mmol/L (98-107) Carbon Dioxide Level 29 mmol/L (21-32) Anion Gap 8 (6-14) Blood Urea Nitrogen 16 mg/dL (7-20) Creatinine 0.8 mg/dL (0.6-1.0) Estimated GFR (Cockcroft-Gault) 69.7 Glucose Level 126 mg/dL (70-99) Calcium Level 8.8 mg/dL (8.5-10.1) Troponin I Quantitative < 0.017 ng/mL (0.000-0.055) Urine Collection Type U cath Urine Color Yellow Urine Clarity Cloudy Urine pH 7.5 Urine Specific [place] 1.010 Urine Protein Negative mg/dL (NEG-TRACE) Urine Glucose (UA) Negative mg/dL (NEG) Urine Ketones (Stick) Negative mg/dL (NEG) Urine Blood Trace (NEG) Urine Nitrite Positive (NEG) Urine Bilirubin Negative (NEG) Urine Urobilinogen Dipstick 0.2 mg/dL (0.2 mg/dL) Urine Leukocyte Esterase Large (NEG) Urine RBC Occ /HPF (0-2) Urine WBC 20-40 /HPF (0-4) Urine Bacteria Many /HPF (0-FEW) Nasal Screen MRSA (PCR) Negative (Negative) Laboratory Tests Test 01/04/18 04:10 Prothrombin Time 15.2 SEC (11.7-14.0) Prothromb Time International Ratio 1.3 (0.8-1.1) Medications Current Medications Sodium Chloride 1,000 ml @ 100 mls/hr Q10H IV Last administered on 01/02/18at 22 :17; Start 01/02/18 at 21:15; Stop 01/03/18 at 01:25; Status DC Morphine Sulfate (Morphine Sulfate) 4 mg 1X ONCE IV Last administered on at 22:26; Start 01/02/18 at 22:30; Stop 01/02/18 at 22:31; Status DC Ondansetron HCl (Zofran) 4 mg PRN Q8HRS PRN IV NAUSEA/VOMITING; Start 01/02/18 at 22:30; Stop 01/03/18 at 22:29; Status DC Morphine Sulfate (Morphine Sulfate) 4 mg PRN Q2HR PRN IV PAIN Last administered on 01/03/18at 20:37; Start 01/02/18 at 22:30; Stop 01/03/18 at 22:29; Status DC Dextrose/Lactated Ringer's 1,000 ml @ 125 mls/hr 1X ONCE IV Last administered on 01/02/18at 23:56; Start 01/02/18 at 22:30; Stop 01/03/18 at 06:29; Status DC Ceftriaxone Sodium 50 ml @ 100 mls/hr 1X ONCE IV Last administered on at 00:15; Start 01/03/18 at 00:15; Stop 01/03/18 at 00:44; Status DC Sodium Chloride 1,000 ml @ 100 mls/hr Q10H IV Last administered on 01/04/18at 06 :00; Start 01/03/18 at 01:30 Metoprolol Tartrate (Lopressor Vial) 5 mg PRN Q6HRS PRN IVP HYPERTENSION, SEE COMMENTS Last administered on 01/03/18at 20:28; Start 01/03/18 at 04:15 Phytonadione 10 mg/Dextrose 51 ml @ 102 mls/hr 1X ONCE IV Last administered on 01/03/18at 11:04; Start 01/03/18 at 10:15; Stop 01/03/18 at 10:44; Status DC Cefazolin Sodium 50 ml @ 100 mls/hr 1X ONCE IV Last administered on 01/03/18at 08:18; Start 01/03/18 at 10:15; Stop 01/03/18 at 10:44; Status DC Acetaminophen (Tylenol) 500 mg PRN Q6HRS PRN PO PAIN Last administered on 20:29; Start 01/03/18 at 14:15 Alprazolam (Xanax) 0.25 mg TID PRN PO ANXIETY Last administered on 01/03/18 20: 29; Start 01/03/18 at 14:15 Bisacodyl (Dulcolax Tab) 10 mg PRN DAILY PRN PO CONSTIPATION; Start 01/03/18 at 14:15 Vitamin D (Vitamin D3) 5,000 unit DAILY PO ; Start 01/04/18 at 09:00 Docusate Sodium (Colace) 100 mg BID PO Last administered on 01/03/18 20:29; Start 01/03/18 at 21:00 Furosemide (Lasix) 20 mg DAILY PO ; Start 01/04/18 at 09:00 Guaifenesin (Robitussin) 200 mg PRN Q6HRS PRN PO COUGH; Start 01/03/18 at 14:15 Magnesium Hydroxide (Milk Of Magnesia) 2,400 mg PRN Q12HR PRN PO CONSTIPATION; Start 01/03/18 at 14:15 Potassium Chloride (Klor-Con) 10 meq DAILY PO ; Start 01/04/18 at 09:00 Warfarin Sodium (Coumadin - No Dose Today) 1 each DAILY MC Last administered on 01/03/18at 16:00; Start 01/03/18 at 16:00; Stop 01/03/18 at 16:01; Status DC Zolpidem Tartrate (Ambien) 5 mg QHS PO Last administered on 01/03/18 20:29; Start 01/03/18 at 21:00 Calcium Carbonate/ Glycine (Oscal) 1,250 mg BID PO Last administered on 20:29; Start 01/03/18 at 21:00 Lactobacillus Rhamnosus (Culturelle) 1 cap BID PO Last administered on 20:29; Start 01/03/18 at 21:00 Levothyroxine Sodium (Synthroid) 50 mcg DAILY07 PO ; Start 01/04/18 at 07:00 Memantine (Namenda) 10 mg BID PO Last administered on 9/7/18at 20:29; Start 01/03/18 at 21:00 Rivastigmine (Exelon) 1 patch DAILY TD ; Start 01/04/18 at 09:00 Sennosides (Senna) 8.6 mg BID PO Last administered on 01/03/18at 20:28; Start 01/03/18 at 21:00 Morphine Sulfate (Morphine Sulfate) 2 mg PRN Q2HR PRN IV PAIN Last administered on 01/04/18at 06:00; Start 01/04/18 at 03:45 Ondansetron HCl (Zofran) 4 mg PRN Q6HRS PRN IV NAUSEA/VOMITING; Start 01/04/18 at 07:00; Stop 01/05/18 at 06:59 Fentanyl Citrate (Fentanyl 2ml Vial) 25 mcg PRN Q5MIN PRN IV MILD PAIN Last administered on 01/04/18at 09:53; Start 01/04/18 at 07:00; Stop 01/05/18 at 06:59 Fentanyl Citrate (Fentanyl 2ml Vial) 50 mcg PRN Q5MIN PRN IV MODERATE TO SEVERE PAIN; Start 01/04/18 at 07:00; Stop 01/05/18 at 06:59 Morphine Sulfate (Morphine Sulfate) 1 mg PRN Q10MIN PRN IV SEVERE PAIN; Start 01/04/18 at 07:00; Stop 01/05/18 at 06:59 Ringer's Solution 1,000 ml @ 30 mls/hr Q24H IV ; Start 01/04/18 at 06:58; Stop 01/04/18 at 18:57 Lidocaine HCl (Xylocaine-Mpf 1% 2ml Vial) 2 ml 1X PRN PRN ID IV START; Start at 07:00; Stop 01/05/18 at 06:59 Hydromorphone HCl (Dilaudid) 0.5 mg PRN Q10MIN PRN IV SEV PAIN, Second choice; Start 01/04/18 at 07:00; Stop 01/05/18 at 06:59 Prochlorperazine Edisylate (Compazine) 5 mg PACU PRN PRN IV NAUSEA, MRX1; Start 01/04/18 at 07:00; Stop 01/05/18 at 06:59 Morphine Sulfate 5 mg/Ketorolac Tromethamine 30 mg/Ropivacaine 60 ml/ Epinephrine HCl 0.5 mg/Sodium Chloride 100 ml @ 100 mls/hr 1X ONCE INT ART Last administered on 01/04/18at 08:30; Start 01/04/18 at 07:30; Stop 01/04/18 at 08: 29; Status DC Propofol 20 ml @ As Directed STK-MED ONCE IV ; Start 01/04/18 at 07:37; Stop 01/04 at 07:38; Status DC Lidocaine HCl (Xylocaine-Mpf 1% 5ml Vial) 5 ml STK-MED ONCE .ROUTE ; Start at 07:37; Stop 01/04/18 at 07:38; Status DC Succinylcholine Chloride (Anectine) 200 mg STK-MED ONCE .ROUTE ; Start 01/04/18 at 07:37; Stop 01/04/18 at 07:38; Status DC Fentanyl Citrate (Fentanyl 2ml Vial) 100 mcg STK-MED ONCE .ROUTE ; Start at 07:38; Stop 01/04/18 at 07:39; Status DC Dexamethasone Sodium Phosphate (Decadron) 20 mg STK-MED ONCE .ROUTE ; Start 01/04 at 07:39; Stop 01/04/18 at 07:40; Status DC Ondansetron HCl (Zofran) 4 mg STK-MED ONCE .ROUTE ; Start 01/04/18 at 07:39; Stop 01/04/18 at 07:40; Status DC Cefazolin Sodium (Ancef) 1 gm STK-MED ONCE .ROUTE ; Start 01/04/18 at 08:21; Stop 01/04/18 at 08:22; Status DC Desflurane (Suprane) 60 ml STK-MED ONCE IH ; Start 01/04/18 at 08:21; Stop at 08:22; Status DC Phenylephrine HCl (PHENYLEPHRINE in 0.9% NACL PF) 1 mg STK-MED ONCE IV ; Start 01/04/18 at 08:24; Stop 01/04/18 at 08:25; Status DC Warfarin Sodium (Coumadin Per Pharmacy) 1 each PRN DAILY PRN MC SEE COMMENTS; Start 01/04/18 at 09:45 Cefazolin Sodium 1 gm/Dextrose 50 ml @ 100 mls/hr Q8H IV ; Start 01/04/18 at 10: 00; Stop 01/05/18 at 18:29; Status UNV Fentanyl Citrate (Fentanyl 2ml Vial) 100 mcg STK-MED ONCE .ROUTE ; Start at 09:50; Stop 01/04/18 at 09:51; Status DC Cefazolin Sodium (Ancef) 1 gm Q8H IVP ; Start 01/04/18 at 16:30; Stop 01/05/18 at 08:31 Active Scripts Active Reported Xanax (Alprazolam) 0.25 Mg Tablet 1 Tab PO BID Ambien (Zolpidem Tartrate) 5 Mg Tablet 1 Tab PO QHS Coumadin (Warfarin Sodium) 2.5 Mg Tablet 1 Tab PO DAILY Ferrous Sulfate 325 Mg Tablet 1 Tab PO BID Colace (Docusate Sodium) 100 Mg Capsule 1 Cap PO BID Culturelle (Lactobacillus Rhamnosus Gg) 1 Each Capsule 1 Each PO BID Vitamin D3 (Cholecalciferol (Vitamin D3)) 1,000 Unit Tablet 1 Tab PO DAILY Potassium Chloride 10 Meq Tab.sr.24h 10 Meq PO DAILY Furosemide 20 Mg Tablet 1 Tab PO DAILY Tylenol (Acetaminophen) 325 Mg Tablet 500 Mg PO TID Senokot (Sennosides) 8.6 Mg Tablet 1 Tab PO BID Milk Of Magnesia (Magnesium Hydroxide) 400 Mg/5 Ml Oral.susp 30 Ml PO PRN Q12HR PRN Dulcolax (Bisacodyl) 5 Mg Tablet.dr 10 Mg RC PRN DAILY PRN Robafen (Guaifenesin) 100 Mg/5 Ml Liquid 200 Mg PO PRN Q6HRS PRN Levothyroxine Sodium 50 Mcg Tablet 1 Tab PO DAILY Alprazolam 0.25 Mg Tablet 1 Tab PO TID PRN Acetaminophen 500 Mg Tablet 500 Mg PO PRN Q6HRS PRN Namenda (Memantine Hcl) 10 Mg Tablet 1 Tab PO BID Calcium (Calcium Carbonate) 600 Mg Tablet 1,200 Mg PO BID EXELON 4.6mg/24hr (Rivastigmine) 1 Each Patch.td24 1 Patch TP DAILY Vitals/I & O Vital Sign - Last 24 Hours 01/03/18 01/03/18 01/03/18 01/03/18 15:00 15:30 16:09 16:09 Temp 97.7 97.7 Pulse 111 113 Resp 18 B/P (MAP) 192/87 (122) 192/87 Pulse Ox 96 O2 Delivery Room Air Room Air Room Air 01/03/18 01/03/18 01/03/18 01/03/18 19:00 20:00 20:28 20:37 Temp 100.3 100.3 Pulse 130 130 Resp 20 B/P (MAP) 196/102 (133) 196/102 Pulse Ox 93 O2 Delivery Room Air Room Air Room Air 01/04/18 01/04/18 01/04/18 01/04/18 03:00 06:00 07:00 07:15 Temp 98.1 98.1 Pulse 103 Resp 18 B/P (MAP) 172/86 (114) Pulse Ox 92 92 O2 Delivery Room Air Room Air Room Air Room Air 01/04/18 01/04/18 01/04/18 01/04/18 09:16 09:31 09:31 09:46 Temp 98.6 98.6 Pulse 108 110 130 Resp 16 16 16 B/P (MAP) 110/89 140/96 174/81 Pulse Ox 100 100 95 O2 Delivery Simple Mask Room Air Room Air Room Air O2 Flow Rate 10 01/04/18 01/04/18 01/04/18 01/04/18 10:01 10:16 10:31 11:00 Temp 98.6 97.9 98.6 97.9 Pulse 120 122 122 126 Resp 16 14 16 14 B/P (MAP) 174/81 178/83 177/83 165/82 (109) Pulse Ox 92 98 99 91 O2 Delivery Room Air Nasal Cannula Room Air Room Air O2 Flow Rate 2 01/04/18 01/04/18 01/04/18 11:00 11:16 11:30 Pulse 122 123 121 B/P (MAP) 166/73 (104) 160/70 (100) 158/72 (100) Pulse Ox 94 94 94 O2 Delivery Room Air Room Air Room Air Intake and Output 01/03/18 01/03/18 01/04/18 15:00 23:00 07:00 Output Total 1600 ml 950 ml Balance -1600 ml -950 ml EDDIE DAVIES MD Jan 04, 2018 12:44
[2018-01-04 13:31] LABS: BASO % 1 % (0-3); EOS % 1 % (0-3); HEMATOCRIT 30.4 % (36.0-47.0); HEMOGLOBIN 10.2 g/dL (12.0-15.5); LYMPH # 1.1 x10^3/uL (1.0-4.8); LYMPH % 17 % (24-48); MEAN CORPUSCULAR HEMOGLOBIN 30 pg (25-35); MEAN CORPUSCULAR HGB CONC 34 g/dL (31-37); MEAN CORPUSCULAR VOLUME 89 fL (79-100); MONO # 0.5 x10^3/uL (0.0-1.1); MONO % 8 % (0-9); NEUT # 4.9 x10^3uL (1.8-7.7); NEUT % 74 % (31-73); PLATELET COUNT 220 x10^3/uL (140-400); RED CELL DISTRIBUTION WIDTH 16.4 % (11.5-14.5); WHITE BLOOD COUNT 6.7 x10^3/uL (4.0-11.0)
[2018-01-04 13:38] LABS: ALBUMIN 2.6 g/dL (3.4-5.0); ALBUMIN/GLOBULIN RATIO 0.7 (1.0-1.7); CALCIUM 8.4 mg/dL (8.5-10.1); CREATININE 0.7 mg/dL (0.6-1.0); GFR 81.4; POTASSIUM 3.8 mmol/L (3.5-5.1); TOTAL BILIRUBIN 0.5 mg/dL (0.2-1.0); TOTAL PROTEIN 6.1 g/dL (6.4-8.2)
[2018-01-04] MEDS: MEMANTINE 10 MG TABLET. PO SCH ×2 (13:57→21:08)
[2018-01-04] MEDS: RIVASTIGMINE 4.6MG PATCH. TD SCH (13:57)
[2018-01-04] MEDS: METOPROLOL TARTRATE 5 MG/5 ML VIAL. IVP PRN (13:57)
[2018-01-04] MEDS: ALPRAZolam 0.25 MG TABLET PO PRN ×2 (13:57→21:08)
--- NOTE | 2018-01-04 15:04 | RAD ---
EXAM: 3 intraoperative fluoroscopic images of the left hip DATE: 01/04/2018 8:19 AM INDICATION: LEFT HIP NAILING COMPARISON: No Prior FINDINGS/ IMPRESSION: 3 very limited intraoperative fluoroscopic views of the left hip submitted from the OR. Exam shows steps toward IM nail fixation of the left hip. Note, this does not constitute a diagnostic quality exam. Please see operative report for full details. Electronically signed by: Rob Bernal MD (01/04/2018 3:00 PM) [facility]
[2018-01-04] MEDS ORDERED: WARFARIN 5 MG TABLET. PO ONE (16:00)
[2018-01-04] MEDS: ceFAZolin SODIUM IV Push 1 GM VIAL. IVP SCH (16:40)
[2018-01-04] MEDS: ZOLPIDEM 5 MG TABLET. PO SCH (21:08)
[2018-01-04] MEDS: ACETAMINOPHEN 500 MG TABLET PO PRN (21:08)
[2018-01-05] MEDS: ceFAZolin SODIUM IV Push 1 GM VIAL. IVP SCH ×2 (01:18→09:10)
[2018-01-05 03:00] VITALS: BP 126/61
[2018-01-05 05:21] LABS: BASO % 0 % (0-3); EOS % 0 % (0-3); HEMATOCRIT 21.6 % (36.0-47.0); HEMOGLOBIN 7.5 g/dL (12.0-15.5); LYMPH # 0.9 x10^3/uL (1.0-4.8); LYMPH % 12 % (24-48); MEAN CORPUSCULAR HEMOGLOBIN 30 pg (25-35); MEAN CORPUSCULAR HGB CONC 35 g/dL (31-37); MEAN CORPUSCULAR VOLUME 87 fL (79-100); MONO # 0.6 x10^3/uL (0.0-1.1); MONO % 7 % (0-9); NEUT # 6.1 x10^3uL (1.8-7.7); NEUT % 81 % (31-73); PLATELET COUNT 155 x10^3/uL (140-400); RED BLOOD COUNT 2.47 x10^6/uL (3.50-5.40); RED CELL DISTRIBUTION WIDTH 16.2 % (11.5-14.5); WHITE BLOOD COUNT 7.5 x10^3/uL (4.0-11.0)
[2018-01-05 05:37] LABS: PROTHROMBIN TIME PATIENT 16.3 SEC (11.7-14.0)
[2018-01-05] MEDS: IV NORMAL SALINE 1000ML BAG 1,000 ML IV SCH ×2 (05:40→18:03)
[2018-01-05] MEDS: ALPRAZolam 0.25 MG TABLET PO PRN ×3 (05:40→21:26)
[2018-01-05 05:59] LABS: ALBUMIN 2.1 g/dL (3.4-5.0); ALBUMIN/GLOBULIN RATIO 0.7 (1.0-1.7); CALCIUM 8.6 mg/dL (8.5-10.1); CREATININE 0.7 mg/dL (0.6-1.0); GFR 81.4; POTASSIUM 3.8 mmol/L (3.5-5.1); TOTAL BILIRUBIN 0.3 mg/dL (0.2-1.0); TOTAL PROTEIN 5.1 g/dL (6.4-8.2)
[2018-01-05 07:00] VITALS: BP 153/75
[2018-01-05] MEDS: LEVOTHYROXINE 50 MCG TABLET PO SCH (07:43)
--- NOTE | 2018-01-05 08:26 | PDOC ---
ORTHO PROGRESS NOTES Subjective Confused Vitals Vital Signs Date Time Temp Pulse Resp B/P (MAP) Pulse Ox O2 Delivery O2 Flow Rate FiO2 01/05/18 07:30 Room Air 01/05/18 03:00 98.5 92 18 126/61 (82) 96 98.5 01/04/18 10:16 2 Labs Laboratory Tests Test 01/04/18 04:10 01/05/18 03:45 White Blood Count 6.7 x10^3/uL (4.0-11.0) 7.5 x10^3/uL (4.0-11.0) Red Blood Count 3.40 x10^6/uL (3.50-5.40) 2.47 x10^6/uL (3.50-5.40) Hemoglobin 10.2 g/dL (12.0-15.5) 7.5 g/dL (12.0-15.5) Hematocrit 30.4 % (36.0-47.0) 21.6 % (36.0-47.0) Mean Corpuscular Volume 89 fL (79-100) 87 fL (79-100) Mean Corpuscular Hemoglobin 30 pg (25-35) 30 pg (25-35) Mean Corpuscular Hemoglobin Concent 34 g/dL (31-37) 35 g/dL (31-37) Red Cell Distribution Width 16.4 % (11.5-14.5) 16.2 % (11.5-14.5) Platelet Count 220 x10^3/uL (140-400) 155 x10^3/uL (140-400) Neutrophils (%) (Auto) 74 % (31-73) 81 % (31-73) Lymphocytes (%) (Auto) 17 % (24-48) 12 % (24-48) Monocytes (%) (Auto) 8 % (0-9) 7 % (0-9) Eosinophils (%) (Auto) 1 % (0-3) 0 % (0-3) Basophils (%) (Auto) 1 % (0-3) 0 % (0-3) Neutrophils # (Auto) 4.9 x10^3uL (1.8-7.7) 6.1 x10^3uL (1.8-7.7) Lymphocytes # (Auto) 1.1 x10^3/uL (1.0-4.8) 0.9 x10^3/uL (1.0-4.8) Monocytes # (Auto) 0.5 x10^3/uL (0.0-1.1) 0.6 x10^3/uL (0.0-1.1) Eosinophils # (Auto) 0.0 x10^3/uL (0.0-0.7) 0.0 x10^3/uL (0.0-0.7) Basophils # (Auto) 0.0 x10^3/uL (0.0-0.2) 0.0 x10^3/uL (0.0-0.2) Prothrombin Time 15.2 SEC (11.7-14.0) 16.3 SEC (11.7-14.0) Prothromb Time International Ratio 1.3 (0.8-1.1) 1.4 (0.8-1.1) Sodium Level 131 mmol/L (136-145) 133 mmol/L (136-145) Potassium Level 3.8 mmol/L (3.5-5.1) 3.8 mmol/L (3.5-5.1) Chloride Level 97 mmol/L (98-107) 102 mmol/L (98-107) Carbon Dioxide Level 25 mmol/L (21-32) 26 mmol/L (21-32) Anion Gap 9 (6-14) 5 (6-14) Blood Urea Nitrogen 7 mg/dL (7-20) 11 mg/dL (7-20) Creatinine 0.7 mg/dL (0.6-1.0) 0.7 mg/dL (0.6-1.0) Estimated GFR (Cockcroft-Gault) 81.4 81.4 BUN/Creatinine Ratio 10 (6-20) 16 (6-20) Glucose Level 82 mg/dL (70-99) 88 mg/dL (70-99) Calcium Level 8.4 mg/dL (8.5-10.1) 8.6 mg/dL (8.5-10.1) Total Bilirubin 0.5 mg/dL (0.2-1.0) 0.3 mg/dL (0.2-1.0) Aspartate Amino Transf (AST/SGOT) 23 U/L (15-37) 27 U/L (15-37) Alanine Aminotransferase (ALT/SGPT) 18 U/L (14-59) 15 U/L (14-59) Alkaline Phosphatase 83 U/L (46-116) 62 U/L (46-116) Total Protein 6.1 g/dL (6.4-8.2) 5.1 g/dL (6.4-8.2) Albumin 2.6 g/dL (3.4-5.0) 2.1 g/dL (3.4-5.0) Albumin/Globulin Ratio 0.7 (1.0-1.7) 0.7 (1.0-1.7) Laboratory Tests Test 01/05/18 03:45 White Blood Count 7.5 x10^3/uL (4.0-11.0) Red Blood Count 2.47 x10^6/uL (3.50-5.40) Hemoglobin 7.5 g/dL (12.0-15.5) Hematocrit 21.6 % (36.0-47.0) Mean Corpuscular Volume 87 fL (79-100) Mean Corpuscular Hemoglobin 30 pg (25-35) Mean Corpuscular Hemoglobin Concent 35 g/dL (31-37) Red Cell Distribution Width 16.2 % (11.5-14.5) Platelet Count 155 x10^3/uL (140-400) Neutrophils (%) (Auto) 81 % (31-73) Lymphocytes (%) (Auto) 12 % (24-48) Monocytes (%) (Auto) 7 % (0-9) Eosinophils (%) (Auto) 0 % (0-3) Basophils (%) (Auto) 0 % (0-3) Neutrophils # (Auto) 6.1 x10^3uL (1.8-7.7) Lymphocytes # (Auto) 0.9 x10^3/uL (1.0-4.8) Monocytes # (Auto) 0.6 x10^3/uL (0.0-1.1) Eosinophils # (Auto) 0.0 x10^3/uL (0.0-0.7) Basophils # (Auto) 0.0 x10^3/uL (0.0-0.2) Prothrombin Time 16.3 SEC (11.7-14.0) Prothromb Time International Ratio 1.4 (0.8-1.1) Sodium Level 133 mmol/L (136-145) Potassium Level 3.8 mmol/L (3.5-5.1) Chloride Level 102 mmol/L (98-107) Carbon Dioxide Level 26 mmol/L (21-32) Anion Gap 5 (6-14) Blood Urea Nitrogen 11 mg/dL (7-20) Creatinine 0.7 mg/dL (0.6-1.0) Estimated GFR (Cockcroft-Gault) 81.4 BUN/Creatinine Ratio 16 (6-20) Glucose Level 88 mg/dL (70-99) Calcium Level 8.6 mg/dL (8.5-10.1) Total Bilirubin 0.3 mg/dL (0.2-1.0) Aspartate Amino Transf (AST/SGOT) 27 U/L (15-37) Alanine Aminotransferase (ALT/SGPT) 15 U/L (14-59) Alkaline Phosphatase 62 U/L (46-116) Total Protein 5.1 g/dL (6.4-8.2) Albumin 2.1 g/dL (3.4-5.0) Albumin/Globulin Ratio 0.7 (1.0-1.7) Notes She is awake and alert, she does not answer ask questions. She does not follow commands. She moves both lower extremities spontaneously. Dressing is intact. Assessment and Plan Status post IM nail left hip fracture. No recommendations per orthopedics at this time FREYA DOWNEY II, MD Jan 05, 2018 08:26
[2018-01-05] MEDS: CHOLECALCIFEROL (VITAMIN D3) 5,000 UNIT CAPSULE PO SCH (09:10)
[2018-01-05] MEDS: MEMANTINE 10 MG TABLET. PO SCH ×2 (09:10→21:27)
[2018-01-05] MEDS: POTASSIUM CHLORIDE 10 MEQ TABLET.ER. PO SCH (09:11)
[2018-01-05] MEDS: DOCUSATE SODIUM 100 MG CAPSULE. PO SCH ×2 (09:11→21:27)
[2018-01-05] MEDS: LACTOBACILLUS RHAMNOSUS GG 1 CAPSULE. PO SCH ×2 (09:11→21:27)
[2018-01-05] MEDS: FUROSEMIDE 20 MG TABLET PO SCH (09:11)
[2018-01-05] MEDS: SENNOSIDES 8.6 MG TABLET PO SCH ×2 (09:11→21:27)
[2018-01-05] MEDS: CALCIUM CARBONATE 500 MG TABLET PO SCH ×2 (09:11→21:27)
[2018-01-05] MEDS: RIVASTIGMINE 4.6MG PATCH. TD SCH (09:12)
[2018-01-05] MEDS: POLYETHYLENE GLYCOL 3350 17 GM PACKET. PO SCH (09:30)
[2018-01-05 11:00] VITALS: BP 158/72
[2018-01-05] MEDS: MORPHINE SULFATE 2 MG/ML VIAL. IV PRN ×2 (14:13→19:49)
[2018-01-05 15:00] VITALS: BP 164/81
--- NOTE | 2018-01-05 15:37 | PDOC ---
PROGRESS NOTES Chief Complaint Chief Complaint fall, other hip fracture, pathologic dementia w/ acute encephalopathy from UTI hyponatremia on Admit, weakness and debility, acquired History of Present Illness History of Present Illness POD1 Closed reduction and intramedullary nailing left hip fracture has pain and confusion vitals stable is eating Vitals Vitals Vital Signs Date Time Temp Pulse Resp B/P (MAP) Pulse Ox O2 Delivery O2 Flow Rate FiO2 01/05/18 14:13 94 Room Air 2.0 01/05/18 11:00 97.7 122 18 158/72 (100) 97.7 Physical Exam General: Alert, Cooperative, No acute distress, mild distress Lungs: Clear Abdomen: Soft, No tenderness Extremities: No cyanosis Skin: No rashes Labs LABS Laboratory Tests Test 01/05/18 03:45 White Blood Count 7.5 x10^3/uL (4.0-11.0) Red Blood Count 2.47 x10^6/uL (3.50-5.40) Hemoglobin 7.5 g/dL (12.0-15.5) Hematocrit 21.6 % (36.0-47.0) Mean Corpuscular Volume 87 fL (79-100) Mean Corpuscular Hemoglobin 30 pg (25-35) Mean Corpuscular Hemoglobin Concent 35 g/dL (31-37) Red Cell Distribution Width 16.2 % (11.5-14.5) Platelet Count 155 x10^3/uL (140-400) Neutrophils (%) (Auto) 81 % (31-73) Lymphocytes (%) (Auto) 12 % (24-48) Monocytes (%) (Auto) 7 % (0-9) Eosinophils (%) (Auto) 0 % (0-3) Basophils (%) (Auto) 0 % (0-3) Neutrophils # (Auto) 6.1 x10^3uL (1.8-7.7) Lymphocytes # (Auto) 0.9 x10^3/uL (1.0-4.8) Monocytes # (Auto) 0.6 x10^3/uL (0.0-1.1) Eosinophils # (Auto) 0.0 x10^3/uL (0.0-0.7) Basophils # (Auto) 0.0 x10^3/uL (0.0-0.2) Prothrombin Time 16.3 SEC (11.7-14.0) Prothromb Time International Ratio 1.4 (0.8-1.1) Sodium Level 133 mmol/L (136-145) Potassium Level 3.8 mmol/L (3.5-5.1) Chloride Level 102 mmol/L (98-107) Carbon Dioxide Level 26 mmol/L (21-32) Anion Gap 5 (6-14) Blood Urea Nitrogen 11 mg/dL (7-20) Creatinine 0.7 mg/dL (0.6-1.0) Estimated GFR (Cockcroft-Gault) 81.4 BUN/Creatinine Ratio 16 (6-20) Glucose Level 88 mg/dL (70-99) Calcium Level 8.6 mg/dL (8.5-10.1) Total Bilirubin 0.3 mg/dL (0.2-1.0) Aspartate Amino Transf (AST/SGOT) 27 U/L (15-37) Alanine Aminotransferase (ALT/SGPT) 15 U/L (14-59) Alkaline Phosphatase 62 U/L (46-116) Total Protein 5.1 g/dL (6.4-8.2) Albumin 2.1 g/dL (3.4-5.0) Albumin/Globulin Ratio 0.7 (1.0-1.7) Comment Review of Relevant I have reviewed the following items fabian (where applicable) has been applied. Labs Laboratory Tests Test 01/04/18 04:10 01/05/18 03:45 White Blood Count 6.7 x10^3/uL (4.0-11.0) 7.5 x10^3/uL (4.0-11.0) Red Blood Count 3.40 x10^6/uL (3.50-5.40) 2.47 x10^6/uL (3.50-5.40) Hemoglobin 10.2 g/dL (12.0-15.5) 7.5 g/dL (12.0-15.5) Hematocrit 30.4 % (36.0-47.0) 21.6 % (36.0-47.0) Mean Corpuscular Volume 89 fL (79-100) 87 fL (79-100) Mean Corpuscular Hemoglobin 30 pg (25-35) 30 pg (25-35) Mean Corpuscular Hemoglobin Concent 34 g/dL (31-37) 35 g/dL (31-37) Red Cell Distribution Width 16.4 % (11.5-14.5) 16.2 % (11.5-14.5) Platelet Count 220 x10^3/uL (140-400) 155 x10^3/uL (140-400) Neutrophils (%) (Auto) 74 % (31-73) 81 % (31-73) Lymphocytes (%) (Auto) 17 % (24-48) 12 % (24-48) Monocytes (%) (Auto) 8 % (0-9) 7 % (0-9) Eosinophils (%) (Auto) 1 % (0-3) 0 % (0-3) Basophils (%) (Auto) 1 % (0-3) 0 % (0-3) Neutrophils # (Auto) 4.9 x10^3uL (1.8-7.7) 6.1 x10^3uL (1.8-7.7) Lymphocytes # (Auto) 1.1 x10^3/uL (1.0-4.8) 0.9 x10^3/uL (1.0-4.8) Monocytes # (Auto) 0.5 x10^3/uL (0.0-1.1) 0.6 x10^3/uL (0.0-1.1) Eosinophils # (Auto) 0.0 x10^3/uL (0.0-0.7) 0.0 x10^3/uL (0.0-0.7) Basophils # (Auto) 0.0 x10^3/uL (0.0-0.2) 0.0 x10^3/uL (0.0-0.2) Prothrombin Time 15.2 SEC (11.7-14.0) 16.3 SEC (11.7-14.0) Prothromb Time International Ratio 1.3 (0.8-1.1) 1.4 (0.8-1.1) Sodium Level 131 mmol/L (136-145) 133 mmol/L (136-145) Potassium Level 3.8 mmol/L (3.5-5.1) 3.8 mmol/L (3.5-5.1) Chloride Level 97 mmol/L (98-107) 102 mmol/L (98-107) Carbon Dioxide Level 25 mmol/L (21-32) 26 mmol/L (21-32) Anion Gap 9 (6-14) 5 (6-14) Blood Urea Nitrogen 7 mg/dL (7-20) 11 mg/dL (7-20) Creatinine 0.7 mg/dL (0.6-1.0) 0.7 mg/dL (0.6-1.0) Estimated GFR (Cockcroft-Gault) 81.4 81.4 BUN/Creatinine Ratio 10 (6-20) 16 (6-20) Glucose Level 82 mg/dL (70-99) 88 mg/dL (70-99) Calcium Level 8.4 mg/dL (8.5-10.1) 8.6 mg/dL (8.5-10.1) Total Bilirubin 0.5 mg/dL (0.2-1.0) 0.3 mg/dL (0.2-1.0) Aspartate Amino Transf (AST/SGOT) 23 U/L (15-37) 27 U/L (15-37) Alanine Aminotransferase (ALT/SGPT) 18 U/L (14-59) 15 U/L (14-59) Alkaline Phosphatase 83 U/L (46-116) 62 U/L (46-116) Total Protein 6.1 g/dL (6.4-8.2) 5.1 g/dL (6.4-8.2) Albumin 2.6 g/dL (3.4-5.0) 2.1 g/dL (3.4-5.0) Albumin/Globulin Ratio 0.7 (1.0-1.7) 0.7 (1.0-1.7) Laboratory Tests Test 01/05/18 03:45 White Blood Count 7.5 x10^3/uL (4.0-11.0) Red Blood Count 2.47 x10^6/uL (3.50-5.40) Hemoglobin 7.5 g/dL (12.0-15.5) Hematocrit 21.6 % (36.0-47.0) Mean Corpuscular Volume 87 fL (79-100) Mean Corpuscular Hemoglobin 30 pg (25-35) Mean Corpuscular Hemoglobin Concent 35 g/dL (31-37) Red Cell Distribution Width 16.2 % (11.5-14.5) Platelet Count 155 x10^3/uL (140-400) Neutrophils (%) (Auto) 81 % (31-73) Lymphocytes (%) (Auto) 12 % (24-48) Monocytes (%) (Auto) 7 % (0-9) Eosinophils (%) (Auto) 0 % (0-3) Basophils (%) (Auto) 0 % (0-3) Neutrophils # (Auto) 6.1 x10^3uL (1.8-7.7) Lymphocytes # (Auto) 0.9 x10^3/uL (1.0-4.8) Monocytes # (Auto) 0.6 x10^3/uL (0.0-1.1) Eosinophils # (Auto) 0.0 x10^3/uL (0.0-0.7) Basophils # (Auto) 0.0 x10^3/uL (0.0-0.2) Prothrombin Time 16.3 SEC (11.7-14.0) Prothromb Time International Ratio 1.4 (0.8-1.1) Sodium Level 133 mmol/L (136-145) Potassium Level 3.8 mmol/L (3.5-5.1) Chloride Level 102 mmol/L (98-107) Carbon Dioxide Level 26 mmol/L (21-32) Anion Gap 5 (6-14) Blood Urea Nitrogen 11 mg/dL (7-20) Creatinine 0.7 mg/dL (0.6-1.0) Estimated GFR (Cockcroft-Gault) 81.4 BUN/Creatinine Ratio 16 (6-20) Glucose Level 88 mg/dL (70-99) Calcium Level 8.6 mg/dL (8.5-10.1) Total Bilirubin 0.3 mg/dL (0.2-1.0) Aspartate Amino Transf (AST/SGOT) 27 U/L (15-37) Alanine Aminotransferase (ALT/SGPT) 15 U/L (14-59) Alkaline Phosphatase 62 U/L (46-116) Total Protein 5.1 g/dL (6.4-8.2) Albumin 2.1 g/dL (3.4-5.0) Albumin/Globulin Ratio 0.7 (1.0-1.7) Medications Current Medications Sodium Chloride 1,000 ml @ 100 mls/hr Q10H IV Last administered on 01/02/18at 22 :17; Start 01/02/18 at 21:15; Stop 01/03/18 at 01:25; Status DC Morphine Sulfate (Morphine Sulfate) 4 mg 1X ONCE IV Last administered on at 22:26; Start 01/02/18 at 22:30; Stop 01/02/18 at 22:31; Status DC Ondansetron HCl (Zofran) 4 mg PRN Q8HRS PRN IV NAUSEA/VOMITING; Start 01/02/18 at 22:30; Stop 01/03/18 at 22:29; Status DC Morphine Sulfate (Morphine Sulfate) 4 mg PRN Q2HR PRN IV PAIN Last administered on 01/03/18at 20:37; Start 01/02/18 at 22:30; Stop 01/03/18 at 22:29; Status DC Dextrose/Lactated Ringer's 1,000 ml @ 125 mls/hr 1X ONCE IV Last administered on 01/02/18at 23:56; Start 01/02/18 at 22:30; Stop 01/03/18 at 06:29; Status DC Ceftriaxone Sodium 50 ml @ 100 mls/hr 1X ONCE IV Last administered on at 00:15; Start 01/03/18 at 00:15; Stop 01/03/18 at 00:44; Status DC Sodium Chloride 1,000 ml @ 100 mls/hr Q10H IV Last administered on 01/05/18at 05 :40; Start 01/03/18 at 01:30 Metoprolol Tartrate (Lopressor Vial) 5 mg PRN Q6HRS PRN IVP HYPERTENSION, SEE COMMENTS Last administered on 01/04/18at 13:57; Start 01/03/18 at 04:15 Phytonadione 10 mg/Dextrose 51 ml @ 102 mls/hr 1X ONCE IV Last administered on 01/03/18at 11:04; Start 01/03/18 at 10:15; Stop 01/03/18 at 10:44; Status DC Cefazolin Sodium 50 ml @ 100 mls/hr 1X ONCE IV Last administered on 01/03/18at 08:18; Start 01/03/18 at 10:15; Stop 01/03/18 at 10:44; Status DC Acetaminophen (Tylenol) 500 mg PRN Q6HRS PRN PO MILD PAIN Last administered on 01/04/18 21:08; Start 01/03/18 at 14:15 Alprazolam (Xanax) 0.25 mg TID PRN PO ANXIETY Last administered on 01/05/18at 05: 40; Start 01/03/18 at 14:15 Bisacodyl (Dulcolax Tab) 10 mg PRN DAILY PRN PO CONSTIPATION; Start 01/03/18 at 14:15 Vitamin D (Vitamin D3) 5,000 unit DAILY PO Last administered on 01/05/18 09:10 ; Start 01/04/18 at 09:00 Docusate Sodium (Colace) 100 mg BID PO Last administered on 01/05/18 09:11; Start 01/03/18 at 21:00 Furosemide (Lasix) 20 mg DAILY PO Last administered on 01/05/18 09:11; Start at 09:00 Guaifenesin (Robitussin) 200 mg PRN Q6HRS PRN PO COUGH; Start 01/03/18 at 14:15 Magnesium Hydroxide (Milk Of Magnesia) 2,400 mg PRN Q12HR PRN PO CONSTIPATION; Start 01/03/18 at 14:15 Potassium Chloride (Klor-Con) 10 meq DAILY PO Last administered on 01/05/18at 09: 11; Start 01/04/18 at 09:00 Warfarin Sodium (Coumadin - No Dose Today) 1 each DAILY MC Last administered on 01/03/18at 16:00; Start 01/03/18 at 16:00; Stop 01/03/18 at 16:01; Status DC Zolpidem Tartrate (Ambien) 5 mg QHS PO Last administered on 01/04/18 21:08; Start 01/03/18 at 21:00 Calcium Carbonate/ Glycine (Oscal) 1,250 mg BID PO Last administered on 09:11; Start 01/03/18 at 21:00 Lactobacillus Rhamnosus (Culturelle) 1 cap BID PO Last administered on 09:11; Start 01/03/18 at 21:00 Levothyroxine Sodium (Synthroid) 50 mcg DAILY07 PO Last administered on at 07:43; Start 01/04/18 at 07:00 Memantine (Namenda) 10 mg BID PO Last administered on 01/05/18at 09:10; Start 01/03/18 at 21:00 Rivastigmine (Exelon) 1 patch DAILY TD Last administered on 01/05/18at 09:12; Start 01/04/18 at 09:00 Sennosides (Senna) 8.6 mg BID PO Last administered on 01/05/18at 09:11; Start 01/03/18 at 21:00 Morphine Sulfate (Morphine Sulfate) 2 mg PRN Q2HR PRN IV MODERATE TO SEVERE PAIN Last administered on 01/05/18at 14:13; Start 01/04/18 at 03:45 Ondansetron HCl (Zofran) 4 mg PRN Q6HRS PRN IV NAUSEA/VOMITING; Start 01/04/18 at 07:00; Stop 01/04/18 at 13:59; Status DC Fentanyl Citrate (Fentanyl 2ml Vial) 25 mcg PRN Q5MIN PRN IV MILD PAIN Last administered on 01/04/18at 09:53; Start 01/04/18 at 07:00; Stop 01/04/18 at 13:58; Status DC Fentanyl Citrate (Fentanyl 2ml Vial) 50 mcg PRN Q5MIN PRN IV MODERATE TO SEVERE PAIN; Start 01/04/18 at 07:00; Stop 01/04/18 at 13:58; Status DC Morphine Sulfate (Morphine Sulfate) 1 mg PRN Q10MIN PRN IV SEVERE PAIN; Start 01/04/18 at 07:00; Stop 01/04/18 at 13:59; Status DC Ringer's Solution 1,000 ml @ 30 mls/hr Q24H IV ; Start 01/04/18 at 06:58; Stop 01/04/18 at 18:57; Status DC Lidocaine HCl (Xylocaine-Mpf 1% 2ml Vial) 2 ml 1X PRN PRN ID IV START; Start at 07:00; Stop 01/04/18 at 13:59; Status DC Hydromorphone HCl (Dilaudid) 0.5 mg PRN Q10MIN PRN IV SEV PAIN, Second choice; Start 01/04/18 at 07:00; Stop 01/04/18 at 13:58; Status DC Prochlorperazine Edisylate (Compazine) 5 mg PACU PRN PRN IV NAUSEA, MRX1; Start 01/04/18 at 07:00; Stop 01/04/18 at 13:58; Status DC Morphine Sulfate 5 mg/Ketorolac Tromethamine 30 mg/Ropivacaine 60 ml/ Epinephrine HCl 0.5 mg/Sodium Chloride 100 ml @ 100 mls/hr 1X ONCE INT ART Last administered on 01/04/18at 08:30; Start 01/04/18 at 07:30; Stop 01/04/18 at 08: 29; Status DC Propofol 20 ml @ As Directed STK-MED ONCE IV ; Start 01/04/18 at 07:37; Stop 01/04 at 07:38; Status DC Lidocaine HCl (Xylocaine-Mpf 1% 5ml Vial) 5 ml STK-MED ONCE .ROUTE ; Start at 07:37; Stop 01/04/18 at 07:38; Status DC Succinylcholine Chloride (Anectine) 200 mg STK-MED ONCE .ROUTE ; Start 01/04/18 at 07:37; Stop 01/04/18 at 07:38; Status DC Fentanyl Citrate (Fentanyl 2ml Vial) 100 mcg STK-MED ONCE .ROUTE ; Start at 07:38; Stop 01/04/18 at 07:39; Status DC Dexamethasone Sodium Phosphate (Decadron) 20 mg STK-MED ONCE .ROUTE ; Start 01/04 at 07:39; Stop 01/04/18 at 07:40; Status DC Ondansetron HCl (Zofran) 4 mg STK-MED ONCE .ROUTE ; Start 01/04/18 at 07:39; Stop 01/04/18 at 07:40; Status DC Cefazolin Sodium (Ancef) 1 gm STK-MED ONCE .ROUTE ; Start 01/04/18 at 08:21; Stop 01/04/18 at 08:22; Status DC Desflurane (Suprane) 60 ml STK-MED ONCE IH ; Start 01/04/18 at 08:21; Stop at 08:22; Status DC Phenylephrine HCl (PHENYLEPHRINE in 0.9% NACL PF) 1 mg STK-MED ONCE IV ; Start 01/04/18 at 08:24; Stop 01/04/18 at 08:25; Status DC Warfarin Sodium (Coumadin Per Pharmacy) 1 each PRN DAILY PRN MC SEE COMMENTS Last administered on 01/05/18at 12:22; Start 01/04/18 at 09:45 Cefazolin Sodium 1 gm/Dextrose 50 ml @ 100 mls/hr Q8H IV ; Start 01/04/18 at 10: 00; Stop 01/05/18 at 18:29; Status UNV Fentanyl Citrate (Fentanyl 2ml Vial) 100 mcg STK-MED ONCE .ROUTE ; Start at 09:50; Stop 01/04/18 at 09:51; Status DC Cefazolin Sodium (Ancef) 1 gm Q8H IVP Last administered on 01/05/18at 09:10; Start 01/04/18 at 16:30; Stop 01/05/18 at 08:31; Status DC Warfarin Sodium (Coumadin) 5 mg 1X WARF ONCE PO Last administered on 01/04/18at 16:39; Start 01/04/18 at 16:00; Stop 01/04/18 at 16:01; Status DC Polyethylene Glycol (miraLAX PACKET) 17 gm DAILY PO ; Start 01/05/18 at 09:30 Warfarin Sodium (Coumadin) 5 mg 1X WARF ONCE PO ; Start 01/05/18 at 16:00; Stop 01/05/18 at 16:01 Active Scripts Active Reported Xanax (Alprazolam) 0.25 Mg Tablet 1 Tab PO BID Ambien (Zolpidem Tartrate) 5 Mg Tablet 1 Tab PO QHS Coumadin (Warfarin Sodium) 2.5 Mg Tablet 1 Tab PO DAILY Ferrous Sulfate 325 Mg Tablet 1 Tab PO BID Colace (Docusate Sodium) 100 Mg Capsule 1 Cap PO BID Culturelle (Lactobacillus Rhamnosus Gg) 1 Each Capsule 1 Each PO BID Vitamin D3 (Cholecalciferol (Vitamin D3)) 1,000 Unit Tablet 1 Tab PO DAILY Potassium Chloride 10 Meq Tab.sr.24h 10 Meq PO DAILY Furosemide 20 Mg Tablet 1 Tab PO DAILY Tylenol (Acetaminophen) 325 Mg Tablet 500 Mg PO TID Senokot (Sennosides) 8.6 Mg Tablet 1 Tab PO BID Milk Of Magnesia (Magnesium Hydroxide) 400 Mg/5 Ml Oral.susp 30 Ml PO PRN Q12HR PRN Dulcolax (Bisacodyl) 5 Mg Tablet.dr 10 Mg RC PRN DAILY PRN Robafen (Guaifenesin) 100 Mg/5 Ml Liquid 200 Mg PO PRN Q6HRS PRN Levothyroxine Sodium 50 Mcg Tablet 1 Tab PO DAILY Alprazolam 0.25 Mg Tablet 1 Tab PO TID PRN Acetaminophen 500 Mg Tablet 500 Mg PO PRN Q6HRS PRN Namenda (Memantine Hcl) 10 Mg Tablet 1 Tab PO BID Calcium (Calcium Carbonate) 600 Mg Tablet 1,200 Mg PO BID EXELON 4.6mg/24hr (Rivastigmine) 1 Each Patch.td24 1 Patch TP DAILY Vitals/I & O Vital Sign - Last 24 Hours 01/04/18 01/04/18 01/04/18 01/05/18 19:00 19:30 23:00 03:00 Temp 99.0 99.0 98.5 99.0 99.0 98.5 Pulse 120 110 92 Resp 18 18 18 B/P (MAP) 149/75 (99) 129/58 (81) 126/61 (82) Pulse Ox 95 93 96 O2 Delivery Room Air Room Air Room Air Room Air 01/05/18 01/05/18 01/05/18 01/05/18 07:00 07:30 11:00 14:13 Temp 98.8 97.7 98.8 97.7 Pulse 120 122 Resp 16 18 B/P (MAP) 153/75 (101) 158/72 (100) Pulse Ox 93 94 94 O2 Delivery Room Air Room Air Room Air Room Air O2 Flow Rate 2.0 Intake and Output 01/04/18 01/04/18 01/05/18 15:00 23:00 07:00 Intake Total 390 ml 520 ml 4510 ml Output Total 1250 ml 300 ml 625 ml Balance -860 ml 220 ml 3885 ml EDDIE DAVIES MD Jan 05, 2018 15:37
--- NOTE | 2018-01-05 15:46 | PDOC ---
ORTHO PROGRESS NOTES Subjective Doesnt verbalize any complaints Vitals Vital Signs Date Time Temp Pulse Resp B/P (MAP) Pulse Ox O2 Delivery O2 Flow Rate FiO2 01/05/18 14:13 94 Room Air 2.0 01/05/18 11:00 97.7 122 18 158/72 (100) 97.7 Labs Laboratory Tests Test 01/04/18 04:10 01/05/18 03:45 White Blood Count 6.7 x10^3/uL (4.0-11.0) 7.5 x10^3/uL (4.0-11.0) Red Blood Count 3.40 x10^6/uL (3.50-5.40) 2.47 x10^6/uL (3.50-5.40) Hemoglobin 10.2 g/dL (12.0-15.5) 7.5 g/dL (12.0-15.5) Hematocrit 30.4 % (36.0-47.0) 21.6 % (36.0-47.0) Mean Corpuscular Volume 89 fL (79-100) 87 fL (79-100) Mean Corpuscular Hemoglobin 30 pg (25-35) 30 pg (25-35) Mean Corpuscular Hemoglobin Concent 34 g/dL (31-37) 35 g/dL (31-37) Red Cell Distribution Width 16.4 % (11.5-14.5) 16.2 % (11.5-14.5) Platelet Count 220 x10^3/uL (140-400) 155 x10^3/uL (140-400) Neutrophils (%) (Auto) 74 % (31-73) 81 % (31-73) Lymphocytes (%) (Auto) 17 % (24-48) 12 % (24-48) Monocytes (%) (Auto) 8 % (0-9) 7 % (0-9) Eosinophils (%) (Auto) 1 % (0-3) 0 % (0-3) Basophils (%) (Auto) 1 % (0-3) 0 % (0-3) Neutrophils # (Auto) 4.9 x10^3uL (1.8-7.7) 6.1 x10^3uL (1.8-7.7) Lymphocytes # (Auto) 1.1 x10^3/uL (1.0-4.8) 0.9 x10^3/uL (1.0-4.8) Monocytes # (Auto) 0.5 x10^3/uL (0.0-1.1) 0.6 x10^3/uL (0.0-1.1) Eosinophils # (Auto) 0.0 x10^3/uL (0.0-0.7) 0.0 x10^3/uL (0.0-0.7) Basophils # (Auto) 0.0 x10^3/uL (0.0-0.2) 0.0 x10^3/uL (0.0-0.2) Prothrombin Time 15.2 SEC (11.7-14.0) 16.3 SEC (11.7-14.0) Prothromb Time International Ratio 1.3 (0.8-1.1) 1.4 (0.8-1.1) Sodium Level 131 mmol/L (136-145) 133 mmol/L (136-145) Potassium Level 3.8 mmol/L (3.5-5.1) 3.8 mmol/L (3.5-5.1) Chloride Level 97 mmol/L (98-107) 102 mmol/L (98-107) Carbon Dioxide Level 25 mmol/L (21-32) 26 mmol/L (21-32) Anion Gap 9 (6-14) 5 (6-14) Blood Urea Nitrogen 7 mg/dL (7-20) 11 mg/dL (7-20) Creatinine 0.7 mg/dL (0.6-1.0) 0.7 mg/dL (0.6-1.0) Estimated GFR (Cockcroft-Gault) 81.4 81.4 BUN/Creatinine Ratio 10 (6-20) 16 (6-20) Glucose Level 82 mg/dL (70-99) 88 mg/dL (70-99) Calcium Level 8.4 mg/dL (8.5-10.1) 8.6 mg/dL (8.5-10.1) Total Bilirubin 0.5 mg/dL (0.2-1.0) 0.3 mg/dL (0.2-1.0) Aspartate Amino Transf (AST/SGOT) 23 U/L (15-37) 27 U/L (15-37) Alanine Aminotransferase (ALT/SGPT) 18 U/L (14-59) 15 U/L (14-59) Alkaline Phosphatase 83 U/L (46-116) 62 U/L (46-116) Total Protein 6.1 g/dL (6.4-8.2) 5.1 g/dL (6.4-8.2) Albumin 2.6 g/dL (3.4-5.0) 2.1 g/dL (3.4-5.0) Albumin/Globulin Ratio 0.7 (1.0-1.7) 0.7 (1.0-1.7) Laboratory Tests Test 01/05/18 03:45 White Blood Count 7.5 x10^3/uL (4.0-11.0) Red Blood Count 2.47 x10^6/uL (3.50-5.40) Hemoglobin 7.5 g/dL (12.0-15.5) Hematocrit 21.6 % (36.0-47.0) Mean Corpuscular Volume 87 fL (79-100) Mean Corpuscular Hemoglobin 30 pg (25-35) Mean Corpuscular Hemoglobin Concent 35 g/dL (31-37) Red Cell Distribution Width 16.2 % (11.5-14.5) Platelet Count 155 x10^3/uL (140-400) Neutrophils (%) (Auto) 81 % (31-73) Lymphocytes (%) (Auto) 12 % (24-48) Monocytes (%) (Auto) 7 % (0-9) Eosinophils (%) (Auto) 0 % (0-3) Basophils (%) (Auto) 0 % (0-3) Neutrophils # (Auto) 6.1 x10^3uL (1.8-7.7) Lymphocytes # (Auto) 0.9 x10^3/uL (1.0-4.8) Monocytes # (Auto) 0.6 x10^3/uL (0.0-1.1) Eosinophils # (Auto) 0.0 x10^3/uL (0.0-0.7) Basophils # (Auto) 0.0 x10^3/uL (0.0-0.2) Prothrombin Time 16.3 SEC (11.7-14.0) Prothromb Time International Ratio 1.4 (0.8-1.1) Sodium Level 133 mmol/L (136-145) Potassium Level 3.8 mmol/L (3.5-5.1) Chloride Level 102 mmol/L (98-107) Carbon Dioxide Level 26 mmol/L (21-32) Anion Gap 5 (6-14) Blood Urea Nitrogen 11 mg/dL (7-20) Creatinine 0.7 mg/dL (0.6-1.0) Estimated GFR (Cockcroft-Gault) 81.4 BUN/Creatinine Ratio 16 (6-20) Glucose Level 88 mg/dL (70-99) Calcium Level 8.6 mg/dL (8.5-10.1) Total Bilirubin 0.3 mg/dL (0.2-1.0) Aspartate Amino Transf (AST/SGOT) 27 U/L (15-37) Alanine Aminotransferase (ALT/SGPT) 15 U/L (14-59) Alkaline Phosphatase 62 U/L (46-116) Total Protein 5.1 g/dL (6.4-8.2) Albumin 2.1 g/dL (3.4-5.0) Albumin/Globulin Ratio 0.7 (1.0-1.7) Notes A and A in bed spont moves LEs dressing intact Assessment and Plan s/p IMN L hip fx no new recs per Ortho placement when medically stable FREYA DOWNEY II, MD Jan 05, 2018 15:46
[2018-01-05] MEDS ORDERED: WARFARIN 5 MG TABLET. PO ONE (16:00)
[2018-01-05] MEDS: ZOLPIDEM 5 MG TABLET. PO SCH (21:26)
[2018-01-05] MEDS: ACETAMINOPHEN 500 MG TABLET PO PRN (21:27)
[2018-01-05 23:00] VITALS: BP 106/57
[2018-01-06 03:00] VITALS: BP 137/65
[2018-01-06] MEDS: IV NORMAL SALINE 1000ML BAG 1,000 ML IV SCH ×3 (03:02→22:06)
[2018-01-06 05:51] LABS: PROTHROMBIN TIME PATIENT 17.6 SEC (11.7-14.0)
[2018-01-06] MEDS: LEVOTHYROXINE 50 MCG TABLET PO SCH (06:29)
[2018-01-06 07:00] VITALS: BP 145/76
[2018-01-06] MEDS: MORPHINE SULFATE 2 MG/ML VIAL. IV PRN ×4 (08:25→17:09)
[2018-01-06] MEDS: ALPRAZolam 0.25 MG TABLET PO PRN ×2 (08:28→17:04)
[2018-01-06] MEDS: FUROSEMIDE 20 MG TABLET PO SCH (08:30)
[2018-01-06] MEDS: CHOLECALCIFEROL (VITAMIN D3) 5,000 UNIT CAPSULE PO SCH (08:31)
[2018-01-06] MEDS: POTASSIUM CHLORIDE 10 MEQ TABLET.ER. PO SCH (08:31)
[2018-01-06] MEDS: CALCIUM CARBONATE 500 MG TABLET PO SCH ×3 (08:32→22:14)
[2018-01-06] MEDS: SENNOSIDES 8.6 MG TABLET PO SCH ×2 (08:32→22:07)
[2018-01-06] MEDS: DOCUSATE SODIUM 100 MG CAPSULE. PO SCH ×2 (08:32→22:07)
[2018-01-06] MEDS: RIVASTIGMINE 4.6MG PATCH. TD SCH (08:35)
[2018-01-06] MEDS: POLYETHYLENE GLYCOL 3350 17 GM PACKET. PO SCH (08:36)
[2018-01-06] MEDS: MEMANTINE 10 MG TABLET. PO SCH ×2 (08:38→22:08)
[2018-01-06] MEDS: LACTOBACILLUS RHAMNOSUS GG 1 CAPSULE. PO SCH ×3 (08:38→22:14)
[2018-01-06 11:00] VITALS: BP 143/74
--- NOTE | 2018-01-06 11:54 | PDOC ---
ORTHO PROGRESS NOTES Subjective Patient confused and has removed clothing and dressings Post-op Day: 2 Procedure IM Naiol left hip Vitals Vital Signs Date Time Temp Pulse Resp B/P (MAP) Pulse Ox O2 Delivery O2 Flow Rate FiO2 01/06/18 10:55 97 Room Air 2.0 01/06/18 08:25 26 01/06/18 07:00 98.2 122 145/76 (99) 98.2 Labs Laboratory Tests Test 01/05/18 03:45 01/06/18 04:05 White Blood Count 7.5 x10^3/uL (4.0-11.0) Red Blood Count 2.47 x10^6/uL (3.50-5.40) Hemoglobin 7.5 g/dL (12.0-15.5) Hematocrit 21.6 % (36.0-47.0) Mean Corpuscular Volume 87 fL (79-100) Mean Corpuscular Hemoglobin 30 pg (25-35) Mean Corpuscular Hemoglobin Concent 35 g/dL (31-37) Red Cell Distribution Width 16.2 % (11.5-14.5) Platelet Count 155 x10^3/uL (140-400) Neutrophils (%) (Auto) 81 % (31-73) Lymphocytes (%) (Auto) 12 % (24-48) Monocytes (%) (Auto) 7 % (0-9) Eosinophils (%) (Auto) 0 % (0-3) Basophils (%) (Auto) 0 % (0-3) Neutrophils # (Auto) 6.1 x10^3uL (1.8-7.7) Lymphocytes # (Auto) 0.9 x10^3/uL (1.0-4.8) Monocytes # (Auto) 0.6 x10^3/uL (0.0-1.1) Eosinophils # (Auto) 0.0 x10^3/uL (0.0-0.7) Basophils # (Auto) 0.0 x10^3/uL (0.0-0.2) Prothrombin Time 16.3 SEC (11.7-14.0) 17.6 SEC (11.7-14.0) Prothromb Time International Ratio 1.4 (0.8-1.1) 1.5 (0.8-1.1) Sodium Level 133 mmol/L (136-145) Potassium Level 3.8 mmol/L (3.5-5.1) Chloride Level 102 mmol/L (98-107) Carbon Dioxide Level 26 mmol/L (21-32) Anion Gap 5 (6-14) Blood Urea Nitrogen 11 mg/dL (7-20) Creatinine 0.7 mg/dL (0.6-1.0) Estimated GFR (Cockcroft-Gault) 81.4 BUN/Creatinine Ratio 16 (6-20) Glucose Level 88 mg/dL (70-99) Calcium Level 8.6 mg/dL (8.5-10.1) Total Bilirubin 0.3 mg/dL (0.2-1.0) Aspartate Amino Transf (AST/SGOT) 27 U/L (15-37) Alanine Aminotransferase (ALT/SGPT) 15 U/L (14-59) Alkaline Phosphatase 62 U/L (46-116) Total Protein 5.1 g/dL (6.4-8.2) Albumin 2.1 g/dL (3.4-5.0) Albumin/Globulin Ratio 0.7 (1.0-1.7) Laboratory Tests Test 01/06/18 04:05 Prothrombin Time 17.6 SEC (11.7-14.0) Prothromb Time International Ratio 1.5 (0.8-1.1) Notes protect wound Assessment and Plan NVI distally no dressing in place currently calf soft and nontender PT as tolerated ZAIN VEGA APRN Jan 06, 2018 11:54
[2018-01-06] MEDS: HYDROcodone/APAP 5/325MG 1 TAB TABLET PO PRN ×2 (14:14→18:56)
--- NOTE | 2018-01-06 14:18 | PDOC ---
PROGRESS NOTES Chief Complaint Chief Complaint CC: POD #2: Closed reduction and intramedullary nailing left hip fracture L interochanteric fx Falls Dementia w/ acute encephalopathy from UTI Hyponatremia on admit Weakness and debility, acquired History of Present Illness History of Present Illness Pt. seen and examined Pt. unable to provide year or provide coherent responses Resting w/ no apparent distress; Awoke upon entrance Tachycardic Dressing clean, dry and intact Vitals Vitals Vital Signs Date Time Temp Pulse Resp B/P (MAP) Pulse Ox O2 Delivery O2 Flow Rate FiO2 01/06/18 14:00 28 Room Air 01/06/18 11:00 98.4 122 143/74 (97) 98 98.4 01/06/18 10:55 2.0 Physical Exam General: Alert, Cooperative, No acute distress, mild distress Heart: Normal S1, Normal S2, Other Lungs: Clear Abdomen: Soft, No tenderness Extremities: No clubbing, No cyanosis Skin: No rashes Labs LABS Laboratory Tests Test 01/06/18 04:05 Prothrombin Time 17.6 SEC (11.7-14.0) Prothromb Time International Ratio 1.5 (0.8-1.1) Review of Systems Review of Systems C/O pain to L hip PT. denies weakness Assessment and Plan Assessmemt and Plan CC: POD #2: Closed reduction and intramedullary nailing left hip fracture L intertochanteric fx Assessment: POD #2: Closed reduction and intramedullary nailing left hip fracture L intertochanteric fx Falls Dementia w/ acute encephalopathy from UTI Hyponatremia on admit Weakness and debility, acquired Plan: Wound care PT/OT Monitor labs Continue home meds prn narcotics Probable discharge to SNU soon Comment Review of Relevant I have reviewed the following items fabian (where applicable) has been applied. Labs Laboratory Tests Test 01/05/18 03:45 01/06/18 04:05 White Blood Count 7.5 x10^3/uL (4.0-11.0) Red Blood Count 2.47 x10^6/uL (3.50-5.40) Hemoglobin 7.5 g/dL (12.0-15.5) Hematocrit 21.6 % (36.0-47.0) Mean Corpuscular Volume 87 fL (79-100) Mean Corpuscular Hemoglobin 30 pg (25-35) Mean Corpuscular Hemoglobin Concent 35 g/dL (31-37) Red Cell Distribution Width 16.2 % (11.5-14.5) Platelet Count 155 x10^3/uL (140-400) Neutrophils (%) (Auto) 81 % (31-73) Lymphocytes (%) (Auto) 12 % (24-48) Monocytes (%) (Auto) 7 % (0-9) Eosinophils (%) (Auto) 0 % (0-3) Basophils (%) (Auto) 0 % (0-3) Neutrophils # (Auto) 6.1 x10^3uL (1.8-7.7) Lymphocytes # (Auto) 0.9 x10^3/uL (1.0-4.8) Monocytes # (Auto) 0.6 x10^3/uL (0.0-1.1) Eosinophils # (Auto) 0.0 x10^3/uL (0.0-0.7) Basophils # (Auto) 0.0 x10^3/uL (0.0-0.2) Prothrombin Time 16.3 SEC (11.7-14.0) 17.6 SEC (11.7-14.0) Prothromb Time International Ratio 1.4 (0.8-1.1) 1.5 (0.8-1.1) Sodium Level 133 mmol/L (136-145) Potassium Level 3.8 mmol/L (3.5-5.1) Chloride Level 102 mmol/L (98-107) Carbon Dioxide Level 26 mmol/L (21-32) Anion Gap 5 (6-14) Blood Urea Nitrogen 11 mg/dL (7-20) Creatinine 0.7 mg/dL (0.6-1.0) Estimated GFR (Cockcroft-Gault) 81.4 BUN/Creatinine Ratio 16 (6-20) Glucose Level 88 mg/dL (70-99) Calcium Level 8.6 mg/dL (8.5-10.1) Total Bilirubin 0.3 mg/dL (0.2-1.0) Aspartate Amino Transf (AST/SGOT) 27 U/L (15-37) Alanine Aminotransferase (ALT/SGPT) 15 U/L (14-59) Alkaline Phosphatase 62 U/L (46-116) Total Protein 5.1 g/dL (6.4-8.2) Albumin 2.1 g/dL (3.4-5.0) Albumin/Globulin Ratio 0.7 (1.0-1.7) Laboratory Tests Test 01/06/18 04:05 Prothrombin Time 17.6 SEC (11.7-14.0) Prothromb Time International Ratio 1.5 (0.8-1.1) Medications Current Medications Sodium Chloride 1,000 ml @ 100 mls/hr Q10H IV Last administered on 01/02/18at 22 :17; Start 01/02/18 at 21:15; Stop 01/03/18 at 01:25; Status DC Morphine Sulfate (Morphine Sulfate) 4 mg 1X ONCE IV Last administered on at 22:26; Start 01/02/18 at 22:30; Stop 01/02/18 at 22:31; Status DC Ondansetron HCl (Zofran) 4 mg PRN Q8HRS PRN IV NAUSEA/VOMITING; Start 01/02/18 at 22:30; Stop 01/03/18 at 22:29; Status DC Morphine Sulfate (Morphine Sulfate) 4 mg PRN Q2HR PRN IV PAIN Last administered on 01/03/18at 20:37; Start 01/02/18 at 22:30; Stop 01/03/18 at 22:29; Status DC Dextrose/Lactated Ringer's 1,000 ml @ 125 mls/hr 1X ONCE IV Last administered on 01/02/18at 23:56; Start 01/02/18 at 22:30; Stop 01/03/18 at 06:29; Status DC Ceftriaxone Sodium 50 ml @ 100 mls/hr 1X ONCE IV Last administered on at 00:15; Start 01/03/18 at 00:15; Stop 01/03/18 at 00:44; Status DC Sodium Chloride 1,000 ml @ 100 mls/hr Q10H IV Last administered on 01/06/18at 09:30; Start 01/03/18 at 01:30 Metoprolol Tartrate (Lopressor Vial) 5 mg PRN Q6HRS PRN IVP HYPERTENSION, SEE COMMENTS Last administered on 01/04/18at 13:57; Start 01/03/18 at 04:15 Phytonadione 10 mg/Dextrose 51 ml @ 102 mls/hr 1X ONCE IV Last administered on 01/03/18 11:04; Start 01/03/18 at 10:15; Stop 01/03/18 at 10:44; Status DC Cefazolin Sodium 50 ml @ 100 mls/hr 1X ONCE IV Last administered on 01/03/18 08:18; Start 01/03/18 at 10:15; Stop 01/03/18 at 10:44; Status DC Acetaminophen (Tylenol) 500 mg PRN Q6HRS PRN PO MILD PAIN Last administered on 01/05/18 21:27; Start 01/03/18 at 14:15 Alprazolam (Xanax) 0.25 mg TID PRN PO ANXIETY Last administered on 01/06/18 08 :28; Start 01/03/18 at 14:15 Bisacodyl (Dulcolax Tab) 10 mg PRN DAILY PRN PO CONSTIPATION 1ST CHOICE; Start 01/03/18 at 14:15 Vitamin D (Vitamin D3) 5,000 unit DAILY PO Last administered on 01/06/18at 08:31 ; Start 01/04/18 at 09:00 Docusate Sodium (Colace) 100 mg BID PO Last administered on 01/06/18 08:32; Start 01/03/18 at 21:00 Furosemide (Lasix) 20 mg DAILY PO Last administered on 01/06/18 08:30; Start 01/04/18 at 09:00 Guaifenesin (Robitussin) 200 mg PRN Q6HRS PRN PO COUGH; Start 01/03/18 at 14:15 Magnesium Hydroxide (Milk Of Magnesia) 2,400 mg PRN Q12HR PRN PO CONSTIPATION 2ND CHOICE; Start 01/03/18 at 14:15 Potassium Chloride (Klor-Con) 10 meq DAILY PO Last administered on 01/06/18 08 :31; Start 01/04/18 at 09:00 Warfarin Sodium (Coumadin - No Dose Today) 1 each DAILY MC Last administered on 01/03/18at 16:00; Start 01/03/18 at 16:00; Stop 01/03/18 at 16:01; Status DC Zolpidem Tartrate (Ambien) 5 mg QHS PO Last administered on 01/05/18at 21:26; Start 01/03/18 at 21:00 Calcium Carbonate/ Glycine (Oscal) 1,250 mg BID PO Last administered on 08:32; Start 01/03/18 at 21:00 Lactobacillus Rhamnosus (Culturelle) 1 cap BID PO Last administered on at 08:38; Start 01/03/18 at 21:00 Levothyroxine Sodium (Synthroid) 50 mcg DAILY07 PO Last administered on 06:29; Start 01/04/18 at 07:00 Memantine (Namenda) 10 mg BID PO Last administered on 01/06/18 08:38; Start at 21:00 Rivastigmine (Exelon) 1 patch DAILY TD Last administered on 01/06/18 08:35; Start 01/04/18 at 09:00 Sennosides (Senna) 8.6 mg BID PO Last administered on 01/06/18 08:32; Start at 21:00 Morphine Sulfate (Morphine Sulfate) 2 mg PRN Q2HR PRN IV MODERATE TO SEVERE PAIN Last administered on 01/06/18at 13:22; Start 01/04/18 at 03:45 Ondansetron HCl (Zofran) 4 mg PRN Q6HRS PRN IV NAUSEA/VOMITING; Start 01/04/18 at 07:00; Stop 01/04/18 at 13:59; Status DC Fentanyl Citrate (Fentanyl 2ml Vial) 25 mcg PRN Q5MIN PRN IV MILD PAIN Last administered on 01/04/18at 09:53; Start 01/04/18 at 07:00; Stop 01/04/18 at 13:58; Status DC Fentanyl Citrate (Fentanyl 2ml Vial) 50 mcg PRN Q5MIN PRN IV MODERATE TO SEVERE PAIN; Start 01/04/18 at 07:00; Stop 01/04/18 at 13:58; Status DC Morphine Sulfate (Morphine Sulfate) 1 mg PRN Q10MIN PRN IV SEVERE PAIN; Start 01/04/18 at 07:00; Stop 01/04/18 at 13:59; Status DC Ringer's Solution 1,000 ml @ 30 mls/hr Q24H IV ; Start 01/04/18 at 06:58; Stop 01/04/18 at 18:57; Status DC Lidocaine HCl (Xylocaine-Mpf 1% 2ml Vial) 2 ml 1X PRN PRN ID IV START; Start at 07:00; Stop 01/04/18 at 13:59; Status DC Hydromorphone HCl (Dilaudid) 0.5 mg PRN Q10MIN PRN IV SEV PAIN, Second choice; Start 01/04/18 at 07:00; Stop 01/04/18 at 13:58; Status DC Prochlorperazine Edisylate (Compazine) 5 mg PACU PRN PRN IV NAUSEA, MRX1; Start 01/04/18 at 07:00; Stop 01/04/18 at 13:58; Status DC Morphine Sulfate 5 mg/Ketorolac Tromethamine 30 mg/Ropivacaine 60 ml/ Epinephrine HCl 0.5 mg/Sodium Chloride 100 ml @ 100 mls/hr 1X ONCE INT ART Last administered on 01/04/18at 08:30; Start 01/04/18 at 07:30; Stop 01/04/18 at 08: 29; Status DC Propofol 20 ml @ As Directed STK-MED ONCE IV ; Start 01/04/18 at 07:37; Stop 01/04 at 07:38; Status DC Lidocaine HCl (Xylocaine-Mpf 1% 5ml Vial) 5 ml STK-MED ONCE .ROUTE ; Start at 07:37; Stop 01/04/18 at 07:38; Status DC Succinylcholine Chloride (Anectine) 200 mg STK-MED ONCE .ROUTE ; Start 01/04/18 at 07:37; Stop 01/04/18 at 07:38; Status DC Fentanyl Citrate (Fentanyl 2ml Vial) 100 mcg STK-MED ONCE .ROUTE ; Start at 07:38; Stop 01/04/18 at 07:39; Status DC Dexamethasone Sodium Phosphate (Decadron) 20 mg STK-MED ONCE .ROUTE ; Start 01/04 at 07:39; Stop 01/04/18 at 07:40; Status DC Ondansetron HCl (Zofran) 4 mg STK-MED ONCE .ROUTE ; Start 01/04/18 at 07:39; Stop 01/04/18 at 07:40; Status DC Cefazolin Sodium (Ancef) 1 gm STK-MED ONCE .ROUTE ; Start 01/04/18 at 08:21; Stop 01/04/18 at 08:22; Status DC Desflurane (Suprane) 60 ml STK-MED ONCE IH ; Start 01/04/18 at 08:21; Stop at 08:22; Status DC Phenylephrine HCl (PHENYLEPHRINE in 0.9% NACL PF) 1 mg STK-MED ONCE IV ; Start 01/04/18 at 08:24; Stop 01/04/18 at 08:25; Status DC Warfarin Sodium (Coumadin Per Pharmacy) 1 each PRN DAILY PRN MC SEE COMMENTS Last administered on 01/06/18at 13:08; Start 01/04/18 at 09:45 Cefazolin Sodium 1 gm/Dextrose 50 ml @ 100 mls/hr Q8H IV ; Start 01/04/18 at 10: 00; Stop 01/05/18 at 18:29; Status UNV Fentanyl Citrate (Fentanyl 2ml Vial) 100 mcg STK-MED ONCE .ROUTE ; Start at 09:50; Stop 01/04/18 at 09:51; Status DC Cefazolin Sodium (Ancef) 1 gm Q8H IVP Last administered on 01/05/18at 09:10; Start 01/04/18 at 16:30; Stop 01/05/18 at 08:31; Status DC Warfarin Sodium (Coumadin) 5 mg 1X WARF ONCE PO Last administered on 01/04/18at 16:39; Start 01/04/18 at 16:00; Stop 01/04/18 at 16:01; Status DC Polyethylene Glycol (miraLAX PACKET) 17 gm DAILY PO Last administered on at 08:36; Start 01/05/18 at 09:30 Warfarin Sodium (Coumadin) 5 mg 1X WARF ONCE PO Last administered on 01/05/18at 17:22; Start 01/05/18 at 16:00; Stop 01/05/18 at 16:01; Status DC Warfarin Sodium (Coumadin) 4 mg 1X WARF ONCE PO ; Start 01/06/18 at 16:00; Stop 01/06/18 at 16:01 Acetaminophen/ Hydrocodone Bitart (Lortab 5/325) 1 tab PRN Q4HRS PRN PO MODERATE PAIN; Start 01/06/18 at 13:30 Active Scripts Active Reported Xanax (Alprazolam) 0.25 Mg Tablet 1 Tab PO BID Ambien (Zolpidem Tartrate) 5 Mg Tablet 1 Tab PO QHS Coumadin (Warfarin Sodium) 2.5 Mg Tablet 1 Tab PO DAILY Ferrous Sulfate 325 Mg Tablet 1 Tab PO BID Colace (Docusate Sodium) 100 Mg Capsule 1 Cap PO BID Culturelle (Lactobacillus Rhamnosus Gg) 1 Each Capsule 1 Each PO BID Vitamin D3 (Cholecalciferol (Vitamin D3)) 1,000 Unit Tablet 1 Tab PO DAILY Potassium Chloride 10 Meq Tab.sr.24h 10 Meq PO DAILY Furosemide 20 Mg Tablet 1 Tab PO DAILY Tylenol (Acetaminophen) 325 Mg Tablet 500 Mg PO TID Senokot (Sennosides) 8.6 Mg Tablet 1 Tab PO BID Milk Of Magnesia (Magnesium Hydroxide) 400 Mg/5 Ml Oral.susp 30 Ml PO PRN Q12HR PRN Dulcolax (Bisacodyl) 5 Mg Tablet.dr 10 Mg RC PRN DAILY PRN Robafen (Guaifenesin) 100 Mg/5 Ml Liquid 200 Mg PO PRN Q6HRS PRN Levothyroxine Sodium 50 Mcg Tablet 1 Tab PO DAILY Alprazolam 0.25 Mg Tablet 1 Tab PO TID PRN Acetaminophen 500 Mg Tablet 500 Mg PO PRN Q6HRS PRN Namenda (Memantine Hcl) 10 Mg Tablet 1 Tab PO BID Calcium (Calcium Carbonate) 600 Mg Tablet 1,200 Mg PO BID EXELON 4.6mg/24hr (Rivastigmine) 1 Each Patch.td24 1 Patch TP DAILY Vitals/I & O Vital Sign - Last 24 Hours 01/05/18 01/05/18 01/05/18 01/05/18 14:43 15:00 18:05 19:35 Temp 99.1 99.1 Pulse 135 120 Resp 18 B/P (MAP) 164/81 (108) Pulse Ox 94 94 O2 Delivery Room Air Room Air 01/05/18 01/05/18 01/06/18 01/06/18 19:49 23:00 03:00 07:00 Temp 98.3 98.4 98.2 98.3 98.4 98.2 Pulse 111 110 122 Resp 16 18 18 18 B/P (MAP) 106/57 (73) 137/65 (89) 145/76 (99) Pulse Ox 94 95 94 97 O2 Delivery Room Air Room Air Room Air Room Air O2 Flow Rate 2.0 01/06/18 01/06/18 01/06/18 01/06/18 08:00 08:25 10:55 11:00 Temp 98.4 98.4 Pulse 122 Resp 26 18 B/P (MAP) 143/74 (97) Pulse Ox 97 98 O2 Delivery Room Air Room Air Room Air Room Air O2 Flow Rate 2.0 01/06/18 01/06/18 13:22 14:00 Resp 26 28 O2 Delivery Room Air Room Air Intake and Output 01/05/18 01/05/18 01/06/18 15:00 23:00 07:00 Intake Total 500 ml Output Total 3450 ml 210 ml Balance -2950 ml -210 ml HELEN ZAMORA III DO Jan 06, 2018 14:18
[2018-01-06 15:00] VITALS: BP 165/78
[2018-01-06] MEDS ORDERED: WARFARIN 4 MG TABLET. PO ONE (16:00)
[2018-01-06 19:00] VITALS: BP 154/79
[2018-01-06] MEDS: ZOLPIDEM 5 MG TABLET. PO SCH (22:08)
[2018-01-06 23:00] VITALS: BP 151/75
[2018-01-07] VITALS (7 sets, daily range): BP systolic 140–173; BP diastolic 65–83
[2018-01-07] MEDS: IV NORMAL SALINE 1000ML BAG 1,000 ML IV SCH ×2 (06:22→18:13)
[2018-01-07] MEDS: LEVOTHYROXINE 50 MCG TABLET PO SCH (06:25)
[2018-01-07] MEDS: HYDROcodone/APAP 5/325MG 1 TAB TABLET PO PRN ×4 (06:25→20:45)
[2018-01-07] MEDS: ALPRAZolam 0.25 MG TABLET PO PRN ×3 (06:26→20:35)
[2018-01-07] MEDS: MORPHINE SULFATE 2 MG/ML VIAL. IV PRN ×4 (06:34→20:36)
[2018-01-07] MEDS: METOPROLOL TARTRATE 5 MG/5 ML VIAL. IVP PRN (08:04)
[2018-01-07] MEDS: FUROSEMIDE 20 MG TABLET PO SCH (08:17)
[2018-01-07] MEDS: POTASSIUM CHLORIDE 10 MEQ TABLET.ER. PO SCH (08:17)
[2018-01-07] MEDS: DOCUSATE SODIUM 100 MG CAPSULE. PO SCH ×2 (08:17→20:38)
[2018-01-07] MEDS: LACTOBACILLUS RHAMNOSUS GG 1 CAPSULE. PO SCH ×2 (08:17→20:38)
[2018-01-07] MEDS: CALCIUM CARBONATE 500 MG TABLET PO SCH ×2 (08:19→20:38)
[2018-01-07] MEDS: SENNOSIDES 8.6 MG TABLET PO SCH ×2 (08:19→20:38)
[2018-01-07] MEDS: POLYETHYLENE GLYCOL 3350 17 GM PACKET. PO SCH (08:19)
[2018-01-07] MEDS: MEMANTINE 10 MG TABLET. PO SCH ×2 (08:19→20:38)
[2018-01-07] MEDS: CHOLECALCIFEROL (VITAMIN D3) 5,000 UNIT CAPSULE PO SCH (08:19)
[2018-01-07 08:22] LABS: BASO % 0 % (0-3); EOS # 0.1 x10^3/uL (0.0-0.7); EOS % 2 % (0-3); HEMATOCRIT 23.8 % (36.0-47.0); LYMPH # 1.1 x10^3/uL (1.0-4.8); LYMPH % 17 % (24-48); MEAN CORPUSCULAR HEMOGLOBIN 30 pg (25-35); MEAN CORPUSCULAR HGB CONC 34 g/dL (31-37); MEAN CORPUSCULAR VOLUME 88 fL (79-100); MONO # 0.3 x10^3/uL (0.0-1.1); MONO % 6 % (0-9); NEUT # 4.6 x10^3uL (1.8-7.7); NEUT % 75 % (31-73); PLATELET COUNT 219 x10^3/uL (140-400); RED BLOOD COUNT 2.69 x10^6/uL (3.50-5.40); RED CELL DISTRIBUTION WIDTH 16.4 % (11.5-14.5); WHITE BLOOD COUNT 6.2 x10^3/uL (4.0-11.0)
[2018-01-07] MEDS: RIVASTIGMINE 4.6MG PATCH. TD SCH (08:22)
[2018-01-07 08:43] LABS: CREATININE 0.7 mg/dL (0.6-1.0); GFR 81.4; POTASSIUM 3.6 mmol/L (3.5-5.1)
[2018-01-07 09:32] LABS: PROTHROMBIN TIME PATIENT 22.4 SEC (11.7-14.0)
--- NOTE | 2018-01-07 13:25 | PDOC ---
PROGRESS NOTES Chief Complaint Chief Complaint CC: POD #2: Closed reduction and intramedullary nailing left hip fracture L interochanteric fx Falls Dementia w/ acute encephalopathy from UTI Hyponatremia on admit Weakness and debility, acquired History of Present Illness History of Present Illness Pt. seen and examined Pt. unable to provide year or provide coherent responses Resting w/ no apparent distress; Dressing clean, dry and intact Vitals Vitals Vital Signs Date Time Temp Pulse Resp B/P (MAP) Pulse Ox O2 Delivery O2 Flow Rate FiO2 01/07/18 13:00 18 Room Air 01/07/18 11:00 97.7 120 140/77 (98) 93 97.7 01/07/18 06:34 2.0 Physical Exam General: Alert, Oriented X3, Cooperative, No acute distress, mild distress Heart: Regular rate, Normal S1, Normal S2, Other Lungs: Clear Abdomen: Soft, No tenderness Extremities: No clubbing, No cyanosis Skin: No rashes Labs LABS Laboratory Tests Test 01/07/18 07:28 White Blood Count 6.2 x10^3/uL (4.0-11.0) Red Blood Count 2.69 x10^6/uL (3.50-5.40) Hemoglobin 8.0 g/dL (12.0-15.5) Hematocrit 23.8 % (36.0-47.0) Mean Corpuscular Volume 88 fL (79-100) Mean Corpuscular Hemoglobin 30 pg (25-35) Mean Corpuscular Hemoglobin Concent 34 g/dL (31-37) Red Cell Distribution Width 16.4 % (11.5-14.5) Platelet Count 219 x10^3/uL (140-400) Neutrophils (%) (Auto) 75 % (31-73) Lymphocytes (%) (Auto) 17 % (24-48) Monocytes (%) (Auto) 6 % (0-9) Eosinophils (%) (Auto) 2 % (0-3) Basophils (%) (Auto) 0 % (0-3) Neutrophils # (Auto) 4.6 x10^3uL (1.8-7.7) Lymphocytes # (Auto) 1.1 x10^3/uL (1.0-4.8) Monocytes # (Auto) 0.3 x10^3/uL (0.0-1.1) Eosinophils # (Auto) 0.1 x10^3/uL (0.0-0.7) Basophils # (Auto) 0.0 x10^3/uL (0.0-0.2) Prothrombin Time 22.4 SEC (11.7-14.0) Prothromb Time International Ratio 2.0 (0.8-1.1) Sodium Level 134 mmol/L (136-145) Potassium Level 3.6 mmol/L (3.5-5.1) Chloride Level 102 mmol/L (98-107) Carbon Dioxide Level 27 mmol/L (21-32) Anion Gap 5 (6-14) Blood Urea Nitrogen 10 mg/dL (7-20) Creatinine 0.7 mg/dL (0.6-1.0) Estimated GFR (Cockcroft-Gault) 81.4 Glucose Level 103 mg/dL (70-99) Calcium Level 8.0 mg/dL (8.5-10.1) Comment Review of Relevant I have reviewed the following items fabian (where applicable) has been applied. Labs Laboratory Tests Test 01/06/18 04:05 01/07/18 07:28 Prothrombin Time 17.6 SEC (11.7-14.0) 22.4 SEC (11.7-14.0) Prothromb Time International Ratio 1.5 (0.8-1.1) 2.0 (0.8-1.1) White Blood Count 6.2 x10^3/uL (4.0-11.0) Red Blood Count 2.69 x10^6/uL (3.50-5.40) Hemoglobin 8.0 g/dL (12.0-15.5) Hematocrit 23.8 % (36.0-47.0) Mean Corpuscular Volume 88 fL (79-100) Mean Corpuscular Hemoglobin 30 pg (25-35) Mean Corpuscular Hemoglobin Concent 34 g/dL (31-37) Red Cell Distribution Width 16.4 % (11.5-14.5) Platelet Count 219 x10^3/uL (140-400) Neutrophils (%) (Auto) 75 % (31-73) Lymphocytes (%) (Auto) 17 % (24-48) Monocytes (%) (Auto) 6 % (0-9) Eosinophils (%) (Auto) 2 % (0-3) Basophils (%) (Auto) 0 % (0-3) Neutrophils # (Auto) 4.6 x10^3uL (1.8-7.7) Lymphocytes # (Auto) 1.1 x10^3/uL (1.0-4.8) Monocytes # (Auto) 0.3 x10^3/uL (0.0-1.1) Eosinophils # (Auto) 0.1 x10^3/uL (0.0-0.7) Basophils # (Auto) 0.0 x10^3/uL (0.0-0.2) Sodium Level 134 mmol/L (136-145) Potassium Level 3.6 mmol/L (3.5-5.1) Chloride Level 102 mmol/L (98-107) Carbon Dioxide Level 27 mmol/L (21-32) Anion Gap 5 (6-14) Blood Urea Nitrogen 10 mg/dL (7-20) Creatinine 0.7 mg/dL (0.6-1.0) Estimated GFR (Cockcroft-Gault) 81.4 Glucose Level 103 mg/dL (70-99) Calcium Level 8.0 mg/dL (8.5-10.1) Laboratory Tests Test 01/07/18 07:28 White Blood Count 6.2 x10^3/uL (4.0-11.0) Red Blood Count 2.69 x10^6/uL (3.50-5.40) Hemoglobin 8.0 g/dL (12.0-15.5) Hematocrit 23.8 % (36.0-47.0) Mean Corpuscular Volume 88 fL (79-100) Mean Corpuscular Hemoglobin 30 pg (25-35) Mean Corpuscular Hemoglobin Concent 34 g/dL (31-37) Red Cell Distribution Width 16.4 % (11.5-14.5) Platelet Count 219 x10^3/uL (140-400) Neutrophils (%) (Auto) 75 % (31-73) Lymphocytes (%) (Auto) 17 % (24-48) Monocytes (%) (Auto) 6 % (0-9) Eosinophils (%) (Auto) 2 % (0-3) Basophils (%) (Auto) 0 % (0-3) Neutrophils # (Auto) 4.6 x10^3uL (1.8-7.7) Lymphocytes # (Auto) 1.1 x10^3/uL (1.0-4.8) Monocytes # (Auto) 0.3 x10^3/uL (0.0-1.1) Eosinophils # (Auto) 0.1 x10^3/uL (0.0-0.7) Basophils # (Auto) 0.0 x10^3/uL (0.0-0.2) Prothrombin Time 22.4 SEC (11.7-14.0) Prothromb Time International Ratio 2.0 (0.8-1.1) Sodium Level 134 mmol/L (136-145) Potassium Level 3.6 mmol/L (3.5-5.1) Chloride Level 102 mmol/L (98-107) Carbon Dioxide Level 27 mmol/L (21-32) Anion Gap 5 (6-14) Blood Urea Nitrogen 10 mg/dL (7-20) Creatinine 0.7 mg/dL (0.6-1.0) Estimated GFR (Cockcroft-Gault) 81.4 Glucose Level 103 mg/dL (70-99) Calcium Level 8.0 mg/dL (8.5-10.1) Microbiology 01/02/18 Urine Culture - Final, Complete 01/02/18 Urine Culture Result 1 (OLGA) - Final, Complete 01/02/18 Antimicrobic Susceptibility - Final, Complete Medications Current Medications Sodium Chloride 1,000 ml @ 100 mls/hr Q10H IV Last administered on 01/02/18at 22 :17; Start 01/02/18 at 21:15; Stop 01/03/18 at 01:25; Status DC Morphine Sulfate (Morphine Sulfate) 4 mg 1X ONCE IV Last administered on at 22:26; Start 01/02/18 at 22:30; Stop 01/02/18 at 22:31; Status DC Ondansetron HCl (Zofran) 4 mg PRN Q8HRS PRN IV NAUSEA/VOMITING; Start 01/02/18 at 22:30; Stop 01/03/18 at 22:29; Status DC Morphine Sulfate (Morphine Sulfate) 4 mg PRN Q2HR PRN IV PAIN Last administered on 01/03/18at 20:37; Start 01/02/18 at 22:30; Stop 01/03/18 at 22:29; Status DC Dextrose/Lactated Ringer's 1,000 ml @ 125 mls/hr 1X ONCE IV Last administered on 01/02/18at 23:56; Start 01/02/18 at 22:30; Stop 01/03/18 at 06:29; Status DC Ceftriaxone Sodium 50 ml @ 100 mls/hr 1X ONCE IV Last administered on at 00:15; Start 01/03/18 at 00:15; Stop 01/03/18 at 00:44; Status DC Sodium Chloride 1,000 ml @ 100 mls/hr Q10H IV Last administered on 01/07/18at 06:22; Start 01/03/18 at 01:30 Metoprolol Tartrate (Lopressor Vial) 5 mg PRN Q6HRS PRN IVP HYPERTENSION, SEE COMMENTS Last administered on 01/07/18at 08:04; Start 01/03/18 at 04:15 Phytonadione 10 mg/Dextrose 51 ml @ 102 mls/hr 1X ONCE IV Last administered on 01/03/18at 11:04; Start 01/03/18 at 10:15; Stop 01/03/18 at 10:44; Status DC Cefazolin Sodium 50 ml @ 100 mls/hr 1X ONCE IV Last administered on 01/03/18 08:18; Start 01/03/18 at 10:15; Stop 01/03/18 at 10:44; Status DC Acetaminophen (Tylenol) 500 mg PRN Q6HRS PRN PO MILD PAIN Last administered on 01/05/18 21:27; Start 01/03/18 at 14:15 Alprazolam (Xanax) 0.25 mg TID PRN PO ANXIETY Last administered on 01/07/18 12 :41; Start 01/03/18 at 14:15 Bisacodyl (Dulcolax Tab) 10 mg PRN DAILY PRN PO CONSTIPATION 1ST CHOICE Last administered on 01/07/18 10:38; Start 01/03/18 at 14:15 Vitamin D (Vitamin D3) 5,000 unit DAILY PO Last administered on 01/07/18 08:19 ; Start 01/04/18 at 09:00 Docusate Sodium (Colace) 100 mg BID PO Last administered on 01/07/18 08:17; Start 01/03/18 at 21:00 Furosemide (Lasix) 20 mg DAILY PO Last administered on 01/07/18 08:17; Start 01/04/18 at 09:00 Guaifenesin (Robitussin) 200 mg PRN Q6HRS PRN PO COUGH; Start 01/03/18 at 14:15 Magnesium Hydroxide (Milk Of Magnesia) 2,400 mg PRN Q12HR PRN PO CONSTIPATION 2ND CHOICE; Start 01/03/18 at 14:15 Potassium Chloride (Klor-Con) 10 meq DAILY PO Last administered on 01/07/18 08 :17; Start 01/04/18 at 09:00 Warfarin Sodium (Coumadin - No Dose Today) 1 each DAILY MC Last administered on 01/03/18 16:00; Start 01/03/18 at 16:00; Stop 01/03/18 at 16:01; Status DC Zolpidem Tartrate (Ambien) 5 mg QHS PO Last administered on 01/06/18at 22:08; Start 01/03/18 at 21:00 Calcium Carbonate/ Glycine (Oscal) 1,250 mg BID PO Last administered on 08:19; Start 01/03/18 at 21:00 Lactobacillus Rhamnosus (Culturelle) 1 cap BID PO Last administered on 08:17; Start 01/03/18 at 21:00 Levothyroxine Sodium (Synthroid) 50 mcg DAILY07 PO Last administered on at 06:25; Start 01/04/18 at 07:00 Memantine (Namenda) 10 mg BID PO Last administered on 01/07/18 08:19; Start at 21:00 Rivastigmine (Exelon) 1 patch DAILY TD Last administered on 01/07/18 08:22; Start 01/04/18 at 09:00 Sennosides (Senna) 8.6 mg BID PO Last administered on 01/07/18 08:19; Start at 21:00 Morphine Sulfate (Morphine Sulfate) 2 mg PRN Q2HR PRN IV MODERATE TO SEVERE PAIN Last administered on 01/07/18at 12:23; Start 01/04/18 at 03:45 Ondansetron HCl (Zofran) 4 mg PRN Q6HRS PRN IV NAUSEA/VOMITING; Start 01/04/18 at 07:00; Stop 01/04/18 at 13:59; Status DC Fentanyl Citrate (Fentanyl 2ml Vial) 25 mcg PRN Q5MIN PRN IV MILD PAIN Last administered on 01/04/18at 09:53; Start 01/04/18 at 07:00; Stop 01/04/18 at 13:58; Status DC Fentanyl Citrate (Fentanyl 2ml Vial) 50 mcg PRN Q5MIN PRN IV MODERATE TO SEVERE PAIN; Start 01/04/18 at 07:00; Stop 01/04/18 at 13:58; Status DC Morphine Sulfate (Morphine Sulfate) 1 mg PRN Q10MIN PRN IV SEVERE PAIN; Start 01/04/18 at 07:00; Stop 01/04/18 at 13:59; Status DC Ringer's Solution 1,000 ml @ 30 mls/hr Q24H IV ; Start 01/04/18 at 06:58; Stop 01/04/18 at 18:57; Status DC Lidocaine HCl (Xylocaine-Mpf 1% 2ml Vial) 2 ml 1X PRN PRN ID IV START; Start at 07:00; Stop 01/04/18 at 13:59; Status DC Hydromorphone HCl (Dilaudid) 0.5 mg PRN Q10MIN PRN IV SEV PAIN, Second choice; Start 01/04/18 at 07:00; Stop 01/04/18 at 13:58; Status DC Prochlorperazine Edisylate (Compazine) 5 mg PACU PRN PRN IV NAUSEA, MRX1; Start 01/04/18 at 07:00; Stop 01/04/18 at 13:58; Status DC Morphine Sulfate 5 mg/Ketorolac Tromethamine 30 mg/Ropivacaine 60 ml/ Epinephrine HCl 0.5 mg/Sodium Chloride 100 ml @ 100 mls/hr 1X ONCE INT ART Last administered on 01/04/18at 08:30; Start 01/04/18 at 07:30; Stop 01/04/18 at 08: 29; Status DC Propofol 20 ml @ As Directed STK-MED ONCE IV ; Start 01/04/18 at 07:37; Stop 01/04 at 07:38; Status DC Lidocaine HCl (Xylocaine-Mpf 1% 5ml Vial) 5 ml STK-MED ONCE .ROUTE ; Start at 07:37; Stop 01/04/18 at 07:38; Status DC Succinylcholine Chloride (Anectine) 200 mg STK-MED ONCE .ROUTE ; Start 01/04/18 at 07:37; Stop 01/04/18 at 07:38; Status DC Fentanyl Citrate (Fentanyl 2ml Vial) 100 mcg STK-MED ONCE .ROUTE ; Start at 07:38; Stop 01/04/18 at 07:39; Status DC Dexamethasone Sodium Phosphate (Decadron) 20 mg STK-MED ONCE .ROUTE ; Start 01/04 at 07:39; Stop 01/04/18 at 07:40; Status DC Ondansetron HCl (Zofran) 4 mg STK-MED ONCE .ROUTE ; Start 01/04/18 at 07:39; Stop 01/04/18 at 07:40; Status DC Cefazolin Sodium (Ancef) 1 gm STK-MED ONCE .ROUTE ; Start 01/04/18 at 08:21; Stop 01/04/18 at 08:22; Status DC Desflurane (Suprane) 60 ml STK-MED ONCE IH ; Start 01/04/18 at 08:21; Stop at 08:22; Status DC Phenylephrine HCl (PHENYLEPHRINE in 0.9% NACL PF) 1 mg STK-MED ONCE IV ; Start 01/04/18 at 08:24; Stop 01/04/18 at 08:25; Status DC Warfarin Sodium (Coumadin Per Pharmacy) 1 each PRN DAILY PRN MC SEE COMMENTS Last administered on 01/07/18at 11:07; Start 01/04/18 at 09:45 Cefazolin Sodium 1 gm/Dextrose 50 ml @ 100 mls/hr Q8H IV ; Start 01/04/18 at 10: 00; Stop 01/05/18 at 18:29; Status UNV Fentanyl Citrate (Fentanyl 2ml Vial) 100 mcg STK-MED ONCE .ROUTE ; Start at 09:50; Stop 01/04/18 at 09:51; Status DC Cefazolin Sodium (Ancef) 1 gm Q8H IVP Last administered on 01/05/18at 09:10; Start 01/04/18 at 16:30; Stop 01/05/18 at 08:31; Status DC Warfarin Sodium (Coumadin) 5 mg 1X WARF ONCE PO Last administered on 01/04/18at 16:39; Start 01/04/18 at 16:00; Stop 01/04/18 at 16:01; Status DC Polyethylene Glycol (miraLAX PACKET) 17 gm DAILY PO Last administered on at 08:19; Start 01/05/18 at 09:30 Warfarin Sodium (Coumadin) 5 mg 1X WARF ONCE PO Last administered on 01/05/18at 17:22; Start 01/05/18 at 16:00; Stop 01/05/18 at 16:01; Status DC Warfarin Sodium (Coumadin) 4 mg 1X WARF ONCE PO Last administered on at 17:09; Start 01/06/18 at 16:00; Stop 01/06/18 at 16:01; Status DC Acetaminophen/ Hydrocodone Bitart (Lortab 5/325) 1 tab PRN Q4HRS PRN PO MODERATE PAIN Last administered on 01/07/18at 10:36; Start 01/06/18 at 13:30 Warfarin Sodium (Coumadin) 2 mg 1X WARF ONCE PO ; Start 01/07/18 at 16:00; Stop 01/07/18 at 16:01 Active Scripts Active Reported Xanax (Alprazolam) 0.25 Mg Tablet 1 Tab PO BID Ambien (Zolpidem Tartrate) 5 Mg Tablet 1 Tab PO QHS Coumadin (Warfarin Sodium) 2.5 Mg Tablet 1 Tab PO DAILY Ferrous Sulfate 325 Mg Tablet 1 Tab PO BID Colace (Docusate Sodium) 100 Mg Capsule 1 Cap PO BID Culturelle (Lactobacillus Rhamnosus Gg) 1 Each Capsule 1 Each PO BID Vitamin D3 (Cholecalciferol (Vitamin D3)) 1,000 Unit Tablet 1 Tab PO DAILY Potassium Chloride 10 Meq Tab.sr.24h 10 Meq PO DAILY Furosemide 20 Mg Tablet 1 Tab PO DAILY Tylenol (Acetaminophen) 325 Mg Tablet 500 Mg PO TID Senokot (Sennosides) 8.6 Mg Tablet 1 Tab PO BID Milk Of Magnesia (Magnesium Hydroxide) 400 Mg/5 Ml Oral.susp 30 Ml PO PRN Q12HR PRN Dulcolax (Bisacodyl) 5 Mg Tablet.dr 10 Mg RC PRN DAILY PRN Robafen (Guaifenesin) 100 Mg/5 Ml Liquid 200 Mg PO PRN Q6HRS PRN Levothyroxine Sodium 50 Mcg Tablet 1 Tab PO DAILY Alprazolam 0.25 Mg Tablet 1 Tab PO TID PRN Acetaminophen 500 Mg Tablet 500 Mg PO PRN Q6HRS PRN Namenda (Memantine Hcl) 10 Mg Tablet 1 Tab PO BID Calcium (Calcium Carbonate) 600 Mg Tablet 1,200 Mg PO BID EXELON 4.6mg/24hr (Rivastigmine) 1 Each Patch.td24 1 Patch TP DAILY Vitals/I & O Vital Sign - Last 24 Hours 01/06/18 01/06/18 01/06/18 01/06/18 14:14 15:00 17:09 18:56 Temp 98.3 98.3 Pulse 122 Resp 24 16 28 18 B/P (MAP) 165/78 (107) Pulse Ox 98 O2 Delivery Room Air Room Air Room Air Room Air 01/06/18 01/06/18 01/06/18 01/06/18 19:00 20:00 20:45 23:00 Temp 98.2 98.6 98.2 98.6 Pulse 130 127 Resp 16 15 B/P (MAP) 154/79 (104) 151/75 (100) Pulse Ox 94 94 92 O2 Delivery Room Air Room Air Room Air 01/07/18 01/07/18 01/07/18 01/07/18 03:00 06:25 06:34 07:00 Temp 98.2 97.9 98.2 97.9 Pulse 116 129 Resp 16 16 B/P (MAP) 141/76 (97) 155/79 (104) Pulse Ox 96 96 96 94 O2 Delivery Room Air Room Air Room Air Room Air O2 Flow Rate 2.0 2.0 01/07/18 01/07/18 01/07/18 01/07/18 08:00 08:04 09:22 10:36 Pulse 128 95 Resp 16 16 B/P (MAP) 155/79 143/65 (91) O2 Delivery Room Air Room Air Room Air 01/07/18 01/07/18 01/07/18 01/07/18 11:00 11:53 12:23 13:00 Temp 97.7 97.7 Pulse 120 Resp 16 16 24 18 B/P (MAP) 140/77 (98) Pulse Ox 93 O2 Delivery Room Air Room Air Room Air Room Air Intake and Output 01/06/18 01/06/18 01/07/18 15:00 23:00 07:00 Intake Total 1050 ml 100 ml 1461 ml Output Total 1300 ml 100 ml Balance 1050 ml -1200 ml 1361 ml STEPHANI QUIJANO MD Jan 07, 2018 13:25
[2018-01-07] MEDS ORDERED: WARFARIN 2 MG TABLET. PO ONE (16:00)
[2018-01-07] MEDS: ZOLPIDEM 5 MG TABLET. PO SCH (20:37)
[2018-01-08] MEDS: IV NORMAL SALINE 1000ML BAG 1,000 ML IV SCH ×2 (01:35→03:44)
[2018-01-08 03:32] VITALS: BP 148/89
[2018-01-08] MEDS: MORPHINE SULFATE 2 MG/ML VIAL. IV PRN ×2 (03:46→09:05)
[2018-01-08 05:47] LABS: BASO # 0.1 x10^3/uL (0.0-0.2); BASO % 1 % (0-3); EOS # 0.1 x10^3/uL (0.0-0.7); EOS % 3 % (0-3); HEMATOCRIT 22.6 % (36.0-47.0); HEMOGLOBIN 7.8 g/dL (12.0-15.5); LYMPH # 1.1 x10^3/uL (1.0-4.8); LYMPH % 23 % (24-48); MEAN CORPUSCULAR HEMOGLOBIN 30 pg (25-35); MEAN CORPUSCULAR HGB CONC 34 g/dL (31-37); MEAN CORPUSCULAR VOLUME 88 fL (79-100); MONO # 0.3 x10^3/uL (0.0-1.1); MONO % 7 % (0-9); NEUT # 3.2 x10^3uL (1.8-7.7); NEUT % 67 % (31-73); PLATELET COUNT 216 x10^3/uL (140-400); RED BLOOD COUNT 2.57 x10^6/uL (3.50-5.40); RED CELL DISTRIBUTION WIDTH 16.1 % (11.5-14.5); WHITE BLOOD COUNT 4.9 x10^3/uL (4.0-11.0)
[2018-01-08 05:51] LABS: PROTHROMBIN TIME PATIENT 24.6 SEC (11.7-14.0)
[2018-01-08 05:56] LABS: CALCIUM 8.8 mg/dL (8.5-10.1); CREATININE 0.5 mg/dL (0.6-1.0); POTASSIUM 3.7 mmol/L (3.5-5.1)
[2018-01-08] MEDS: LEVOTHYROXINE 50 MCG TABLET PO SCH (06:05)
[2018-01-08] MEDS: HYDROcodone/APAP 5/325MG 1 TAB TABLET PO PRN ×2 (06:06→14:56)
[2018-01-08 07:00] VITALS: BP 166/100
--- NOTE | 2018-01-08 07:27 | PDOC ---
PROGRESS NOTES Chief Complaint Chief Complaint CC: POD #4: Closed reduction and intramedullary nailing left hip fracture L interochanteric fx Falls Dementia w/ acute encephalopathy from UTI Hyponatremia on admit Weakness and debility, acquired History of Present Illness History of Present Illness Pt. seen and examined Pt. unable to provide year or provide coherent responses Pt. was in mild distress; points to L hip and leg to indicate pain Dressing clean, dry and intact DW nursing VSS Vitals Vitals Vital Signs Date Time Temp Pulse Resp B/P (MAP) Pulse Ox O2 Delivery O2 Flow Rate FiO2 01/08/18 06:06 Room Air 01/08/18 03:32 98.6 113 16 148/89 (108) 95 98.6 01/07/18 15:00 2.0 Physical Exam General: Alert, mild distress Heart: Regular rate, Normal S1, Normal S2, Other Lungs: Clear Abdomen: Soft, No tenderness Extremities: No clubbing, No cyanosis Skin: No rashes, No breakdown Labs LABS Laboratory Tests Test 01/07/18 07:28 01/08/18 04:35 White Blood Count 6.2 x10^3/uL (4.0-11.0) 4.9 x10^3/uL (4.0-11.0) Red Blood Count 2.69 x10^6/uL (3.50-5.40) 2.57 x10^6/uL (3.50-5.40) Hemoglobin 8.0 g/dL (12.0-15.5) 7.8 g/dL (12.0-15.5) Hematocrit 23.8 % (36.0-47.0) 22.6 % (36.0-47.0) Mean Corpuscular Volume 88 fL (79-100) 88 fL (79-100) Mean Corpuscular Hemoglobin 30 pg (25-35) 30 pg (25-35) Mean Corpuscular Hemoglobin Concent 34 g/dL (31-37) 34 g/dL (31-37) Red Cell Distribution Width 16.4 % (11.5-14.5) 16.1 % (11.5-14.5) Platelet Count 219 x10^3/uL (140-400) 216 x10^3/uL (140-400) Neutrophils (%) (Auto) 75 % (31-73) 67 % (31-73) Lymphocytes (%) (Auto) 17 % (24-48) 23 % (24-48) Monocytes (%) (Auto) 6 % (0-9) 7 % (0-9) Eosinophils (%) (Auto) 2 % (0-3) 3 % (0-3) Basophils (%) (Auto) 0 % (0-3) 1 % (0-3) Neutrophils # (Auto) 4.6 x10^3uL (1.8-7.7) 3.2 x10^3uL (1.8-7.7) Lymphocytes # (Auto) 1.1 x10^3/uL (1.0-4.8) 1.1 x10^3/uL (1.0-4.8) Monocytes # (Auto) 0.3 x10^3/uL (0.0-1.1) 0.3 x10^3/uL (0.0-1.1) Eosinophils # (Auto) 0.1 x10^3/uL (0.0-0.7) 0.1 x10^3/uL (0.0-0.7) Basophils # (Auto) 0.0 x10^3/uL (0.0-0.2) 0.1 x10^3/uL (0.0-0.2) Prothrombin Time 22.4 SEC (11.7-14.0) 24.6 SEC (11.7-14.0) Prothromb Time International Ratio 2.0 (0.8-1.1) 2.3 (0.8-1.1) Sodium Level 134 mmol/L (136-145) 135 mmol/L (136-145) Potassium Level 3.6 mmol/L (3.5-5.1) 3.7 mmol/L (3.5-5.1) Chloride Level 102 mmol/L (98-107) 100 mmol/L (98-107) Carbon Dioxide Level 27 mmol/L (21-32) 27 mmol/L (21-32) Anion Gap 5 (6-14) 8 (6-14) Blood Urea Nitrogen 10 mg/dL (7-20) 7 mg/dL (7-20) Creatinine 0.7 mg/dL (0.6-1.0) 0.5 mg/dL (0.6-1.0) Estimated GFR (Cockcroft-Gault) 81.4 120.0 Glucose Level 103 mg/dL (70-99) 83 mg/dL (70-99) Calcium Level 8.0 mg/dL (8.5-10.1) 8.8 mg/dL (8.5-10.1) Review of Systems Review of Systems Indicates pain to L hip and L leg Pt. unable to verbalize additional information Assessment and Plan Assessmemt and Plan CC: POD #4: Closed reduction and intramedullary nailing left hip fracture L intertochanteric fx Assessment: POD #4: Closed reduction and intramedullary nailing left hip fracture L intertochanteric fx Falls Dementia w/ acute encephalopathy from UTI Hyponatremia on admit Weakness and debility, acquired Plan: Wound care PT/OT Monitor labs Continue home meds prn narcotics Probable discharge to SNU soon Comment Review of Relevant I have reviewed the following items fabian (where applicable) has been applied. Labs Laboratory Tests Test 01/07/18 07:28 01/08/18 04:35 White Blood Count 6.2 x10^3/uL (4.0-11.0) 4.9 x10^3/uL (4.0-11.0) Red Blood Count 2.69 x10^6/uL (3.50-5.40) 2.57 x10^6/uL (3.50-5.40) Hemoglobin 8.0 g/dL (12.0-15.5) 7.8 g/dL (12.0-15.5) Hematocrit 23.8 % (36.0-47.0) 22.6 % (36.0-47.0) Mean Corpuscular Volume 88 fL (79-100) 88 fL (79-100) Mean Corpuscular Hemoglobin 30 pg (25-35) 30 pg (25-35) Mean Corpuscular Hemoglobin Concent 34 g/dL (31-37) 34 g/dL (31-37) Red Cell Distribution Width 16.4 % (11.5-14.5) 16.1 % (11.5-14.5) Platelet Count 219 x10^3/uL (140-400) 216 x10^3/uL (140-400) Neutrophils (%) (Auto) 75 % (31-73) 67 % (31-73) Lymphocytes (%) (Auto) 17 % (24-48) 23 % (24-48) Monocytes (%) (Auto) 6 % (0-9) 7 % (0-9) Eosinophils (%) (Auto) 2 % (0-3) 3 % (0-3) Basophils (%) (Auto) 0 % (0-3) 1 % (0-3) Neutrophils # (Auto) 4.6 x10^3uL (1.8-7.7) 3.2 x10^3uL (1.8-7.7) Lymphocytes # (Auto) 1.1 x10^3/uL (1.0-4.8) 1.1 x10^3/uL (1.0-4.8) Monocytes # (Auto) 0.3 x10^3/uL (0.0-1.1) 0.3 x10^3/uL (0.0-1.1) Eosinophils # (Auto) 0.1 x10^3/uL (0.0-0.7) 0.1 x10^3/uL (0.0-0.7) Basophils # (Auto) 0.0 x10^3/uL (0.0-0.2) 0.1 x10^3/uL (0.0-0.2) Prothrombin Time 22.4 SEC (11.7-14.0) 24.6 SEC (11.7-14.0) Prothromb Time International Ratio 2.0 (0.8-1.1) 2.3 (0.8-1.1) Sodium Level 134 mmol/L (136-145) 135 mmol/L (136-145) Potassium Level 3.6 mmol/L (3.5-5.1) 3.7 mmol/L (3.5-5.1) Chloride Level 102 mmol/L (98-107) 100 mmol/L (98-107) Carbon Dioxide Level 27 mmol/L (21-32) 27 mmol/L (21-32) Anion Gap 5 (6-14) 8 (6-14) Blood Urea Nitrogen 10 mg/dL (7-20) 7 mg/dL (7-20) Creatinine 0.7 mg/dL (0.6-1.0) 0.5 mg/dL (0.6-1.0) Estimated GFR (Cockcroft-Gault) 81.4 120.0 Glucose Level 103 mg/dL (70-99) 83 mg/dL (70-99) Calcium Level 8.0 mg/dL (8.5-10.1) 8.8 mg/dL (8.5-10.1) Laboratory Tests Test 01/07/18 07:28 01/08/18 04:35 White Blood Count 6.2 x10^3/uL (4.0-11.0) 4.9 x10^3/uL (4.0-11.0) Red Blood Count 2.69 x10^6/uL (3.50-5.40) 2.57 x10^6/uL (3.50-5.40) Hemoglobin 8.0 g/dL (12.0-15.5) 7.8 g/dL (12.0-15.5) Hematocrit 23.8 % (36.0-47.0) 22.6 % (36.0-47.0) Mean Corpuscular Volume 88 fL (79-100) 88 fL (79-100) Mean Corpuscular Hemoglobin 30 pg (25-35) 30 pg (25-35) Mean Corpuscular Hemoglobin Concent 34 g/dL (31-37) 34 g/dL (31-37) Red Cell Distribution Width 16.4 % (11.5-14.5) 16.1 % (11.5-14.5) Platelet Count 219 x10^3/uL (140-400) 216 x10^3/uL (140-400) Neutrophils (%) (Auto) 75 % (31-73) 67 % (31-73) Lymphocytes (%) (Auto) 17 % (24-48) 23 % (24-48) Monocytes (%) (Auto) 6 % (0-9) 7 % (0-9) Eosinophils (%) (Auto) 2 % (0-3) 3 % (0-3) Basophils (%) (Auto) 0 % (0-3) 1 % (0-3) Neutrophils # (Auto) 4.6 x10^3uL (1.8-7.7) 3.2 x10^3uL (1.8-7.7) Lymphocytes # (Auto) 1.1 x10^3/uL (1.0-4.8) 1.1 x10^3/uL (1.0-4.8) Monocytes # (Auto) 0.3 x10^3/uL (0.0-1.1) 0.3 x10^3/uL (0.0-1.1) Eosinophils # (Auto) 0.1 x10^3/uL (0.0-0.7) 0.1 x10^3/uL (0.0-0.7) Basophils # (Auto) 0.0 x10^3/uL (0.0-0.2) 0.1 x10^3/uL (0.0-0.2) Prothrombin Time 22.4 SEC (11.7-14.0) 24.6 SEC (11.7-14.0) Prothromb Time International Ratio 2.0 (0.8-1.1) 2.3 (0.8-1.1) Sodium Level 134 mmol/L (136-145) 135 mmol/L (136-145) Potassium Level 3.6 mmol/L (3.5-5.1) 3.7 mmol/L (3.5-5.1) Chloride Level 102 mmol/L (98-107) 100 mmol/L (98-107) Carbon Dioxide Level 27 mmol/L (21-32) 27 mmol/L (21-32) Anion Gap 5 (6-14) 8 (6-14) Blood Urea Nitrogen 10 mg/dL (7-20) 7 mg/dL (7-20) Creatinine 0.7 mg/dL (0.6-1.0) 0.5 mg/dL (0.6-1.0) Estimated GFR (Cockcroft-Gault) 81.4 120.0 Glucose Level 103 mg/dL (70-99) 83 mg/dL (70-99) Calcium Level 8.0 mg/dL (8.5-10.1) 8.8 mg/dL (8.5-10.1) Microbiology 01/02/18 Urine Culture - Final, Complete 01/02/18 Urine Culture Result 1 (OLGA) - Final, Complete 01/02/18 Antimicrobic Susceptibility - Final, Complete Medications Current Medications Sodium Chloride 1,000 ml @ 100 mls/hr Q10H IV Last administered on 01/02/18at 22 :17; Start 01/02/18 at 21:15; Stop 01/03/18 at 01:25; Status DC Morphine Sulfate (Morphine Sulfate) 4 mg 1X ONCE IV Last administered on at 22:26; Start 01/02/18 at 22:30; Stop 01/02/18 at 22:31; Status DC Ondansetron HCl (Zofran) 4 mg PRN Q8HRS PRN IV NAUSEA/VOMITING; Start 01/02/18 at 22:30; Stop 01/03/18 at 22:29; Status DC Morphine Sulfate (Morphine Sulfate) 4 mg PRN Q2HR PRN IV PAIN Last administered on 01/03/18at 20:37; Start 01/02/18 at 22:30; Stop 01/03/18 at 22:29; Status DC Dextrose/Lactated Ringer's 1,000 ml @ 125 mls/hr 1X ONCE IV Last administered on 01/02/18at 23:56; Start 01/02/18 at 22:30; Stop 01/03/18 at 06:29; Status DC Ceftriaxone Sodium 50 ml @ 100 mls/hr 1X ONCE IV Last administered on at 00:15; Start 01/03/18 at 00:15; Stop 01/03/18 at 00:44; Status DC Sodium Chloride 1,000 ml @ 100 mls/hr Q10H IV Last administered on 01/08/18at 03:44; Start 01/03/18 at 01:30 Metoprolol Tartrate (Lopressor Vial) 5 mg PRN Q6HRS PRN IVP HYPERTENSION, SEE COMMENTS Last administered on 01/07/18at 08:04; Start 01/03/18 at 04:15 Phytonadione 10 mg/Dextrose 51 ml @ 102 mls/hr 1X ONCE IV Last administered on 01/03/18at 11:04; Start 01/03/18 at 10:15; Stop 01/03/18 at 10:44; Status DC Cefazolin Sodium 50 ml @ 100 mls/hr 1X ONCE IV Last administered on 01/03/18at 08:18; Start 01/03/18 at 10:15; Stop 01/03/18 at 10:44; Status DC Acetaminophen (Tylenol) 500 mg PRN Q6HRS PRN PO MILD PAIN Last administered on 01/05/18 21:27; Start 01/03/18 at 14:15 Alprazolam (Xanax) 0.25 mg TID PRN PO ANXIETY Last administered on 01/07/18 20 :35; Start 01/03/18 at 14:15 Bisacodyl (Dulcolax Tab) 10 mg PRN DAILY PRN PO CONSTIPATION 1ST CHOICE Last administered on 01/07/18 10:38; Start 01/03/18 at 14:15 Vitamin D (Vitamin D3) 5,000 unit DAILY PO Last administered on 01/07/18 08:19 ; Start 01/04/18 at 09:00 Docusate Sodium (Colace) 100 mg BID PO Last administered on 01/07/18 20:38; Start 01/03/18 at 21:00 Furosemide (Lasix) 20 mg DAILY PO Last administered on 01/07/18 08:17; Start 01/04/18 at 09:00 Guaifenesin (Robitussin) 200 mg PRN Q6HRS PRN PO COUGH; Start 01/03/18 at 14:15 Magnesium Hydroxide (Milk Of Magnesia) 2,400 mg PRN Q12HR PRN PO CONSTIPATION 2ND CHOICE; Start 01/03/18 at 14:15 Potassium Chloride (Klor-Con) 10 meq DAILY PO Last administered on 01/07/18 08 :17; Start 01/04/18 at 09:00 Warfarin Sodium (Coumadin - No Dose Today) 1 each DAILY MC Last administered on 01/03/18 16:00; Start 01/03/18 at 16:00; Stop 01/03/18 at 16:01; Status DC Zolpidem Tartrate (Ambien) 5 mg QHS PO Last administered on 01/07/18 20:37; Start 01/03/18 at 21:00 Calcium Carbonate/ Glycine (Oscal) 1,250 mg BID PO Last administered on 20:38; Start 01/03/18 at 21:00 Lactobacillus Rhamnosus (Culturelle) 1 cap BID PO Last administered on 20:38; Start 01/03/18 at 21:00 Levothyroxine Sodium (Synthroid) 50 mcg DAILY07 PO Last administered on at 06:05; Start 01/04/18 at 07:00 Memantine (Namenda) 10 mg BID PO Last administered on 01/07/18at 20:38; Start at 21:00 Rivastigmine (Exelon) 1 patch DAILY TD Last administered on 01/07/18at 08:22; Start 01/04/18 at 09:00 Sennosides (Senna) 8.6 mg BID PO Last administered on 01/07/18at 20:38; Start at 21:00 Morphine Sulfate (Morphine Sulfate) 2 mg PRN Q2HR PRN IV MODERATE TO SEVERE PAIN Last administered on 01/08/18at 03:46; Start 01/04/18 at 03:45 Ondansetron HCl (Zofran) 4 mg PRN Q6HRS PRN IV NAUSEA/VOMITING; Start 01/04/18 at 07:00; Stop 01/04/18 at 13:59; Status DC Fentanyl Citrate (Fentanyl 2ml Vial) 25 mcg PRN Q5MIN PRN IV MILD PAIN Last administered on 01/04/18at 09:53; Start 01/04/18 at 07:00; Stop 01/04/18 at 13:58; Status DC Fentanyl Citrate (Fentanyl 2ml Vial) 50 mcg PRN Q5MIN PRN IV MODERATE TO SEVERE PAIN; Start 01/04/18 at 07:00; Stop 01/04/18 at 13:58; Status DC Morphine Sulfate (Morphine Sulfate) 1 mg PRN Q10MIN PRN IV SEVERE PAIN; Start 01/04/18 at 07:00; Stop 01/04/18 at 13:59; Status DC Ringer's Solution 1,000 ml @ 30 mls/hr Q24H IV ; Start 01/04/18 at 06:58; Stop 01/04/18 at 18:57; Status DC Lidocaine HCl (Xylocaine-Mpf 1% 2ml Vial) 2 ml 1X PRN PRN ID IV START; Start at 07:00; Stop 01/04/18 at 13:59; Status DC Hydromorphone HCl (Dilaudid) 0.5 mg PRN Q10MIN PRN IV SEV PAIN, Second choice; Start 01/04/18 at 07:00; Stop 01/04/18 at 13:58; Status DC Prochlorperazine Edisylate (Compazine) 5 mg PACU PRN PRN IV NAUSEA, MRX1; Start 01/04/18 at 07:00; Stop 01/04/18 at 13:58; Status DC Morphine Sulfate 5 mg/Ketorolac Tromethamine 30 mg/Ropivacaine 60 ml/ Epinephrine HCl 0.5 mg/Sodium Chloride 100 ml @ 100 mls/hr 1X ONCE INT ART Last administered on 01/04/18at 08:30; Start 01/04/18 at 07:30; Stop 01/04/18 at 08: 29; Status DC Propofol 20 ml @ As Directed STK-MED ONCE IV ; Start 01/04/18 at 07:37; Stop 01/04 at 07:38; Status DC Lidocaine HCl (Xylocaine-Mpf 1% 5ml Vial) 5 ml STK-MED ONCE .ROUTE ; Start at 07:37; Stop 01/04/18 at 07:38; Status DC Succinylcholine Chloride (Anectine) 200 mg STK-MED ONCE .ROUTE ; Start 01/04/18 at 07:37; Stop 01/04/18 at 07:38; Status DC Fentanyl Citrate (Fentanyl 2ml Vial) 100 mcg STK-MED ONCE .ROUTE ; Start at 07:38; Stop 01/04/18 at 07:39; Status DC Dexamethasone Sodium Phosphate (Decadron) 20 mg STK-MED ONCE .ROUTE ; Start 01/04 at 07:39; Stop 01/04/18 at 07:40; Status DC Ondansetron HCl (Zofran) 4 mg STK-MED ONCE .ROUTE ; Start 01/04/18 at 07:39; Stop 01/04/18 at 07:40; Status DC Cefazolin Sodium (Ancef) 1 gm STK-MED ONCE .ROUTE ; Start 01/04/18 at 08:21; Stop 01/04/18 at 08:22; Status DC Desflurane (Suprane) 60 ml STK-MED ONCE IH ; Start 01/04/18 at 08:21; Stop at 08:22; Status DC Phenylephrine HCl (PHENYLEPHRINE in 0.9% NACL PF) 1 mg STK-MED ONCE IV ; Start 01/04/18 at 08:24; Stop 01/04/18 at 08:25; Status DC Warfarin Sodium (Coumadin Per Pharmacy) 1 each PRN DAILY PRN MC SEE COMMENTS Last administered on 01/07/18at 11:07; Start 01/04/18 at 09:45 Cefazolin Sodium 1 gm/Dextrose 50 ml @ 100 mls/hr Q8H IV ; Start 01/04/18 at 10: 00; Stop 01/05/18 at 18:29; Status UNV Fentanyl Citrate (Fentanyl 2ml Vial) 100 mcg STK-MED ONCE .ROUTE ; Start at 09:50; Stop 01/04/18 at 09:51; Status DC Cefazolin Sodium (Ancef) 1 gm Q8H IVP Last administered on 01/05/18at 09:10; Start 01/04/18 at 16:30; Stop 01/05/18 at 08:31; Status DC Warfarin Sodium (Coumadin) 5 mg 1X WARF ONCE PO Last administered on 01/04/18at 16:39; Start 01/04/18 at 16:00; Stop 01/04/18 at 16:01; Status DC Polyethylene Glycol (miraLAX PACKET) 17 gm DAILY PO Last administered on at 08:19; Start 01/05/18 at 09:30 Warfarin Sodium (Coumadin) 5 mg 1X WARF ONCE PO Last administered on 01/05/18at 17:22; Start 01/05/18 at 16:00; Stop 01/05/18 at 16:01; Status DC Warfarin Sodium (Coumadin) 4 mg 1X WARF ONCE PO Last administered on at 17:09; Start 01/06/18 at 16:00; Stop 01/06/18 at 16:01; Status DC Acetaminophen/ Hydrocodone Bitart (Lortab 5/325) 1 tab PRN Q4HRS PRN PO MODERATE PAIN Last administered on 01/08/18at 06:06; Start 01/06/18 at 13:30 Warfarin Sodium (Coumadin) 2 mg 1X WARF ONCE PO Last administered on at 17:17; Start 01/07/18 at 16:00; Stop 9/11/18 at 16:01; Status DC Active Scripts Active Reported Xanax (Alprazolam) 0.25 Mg Tablet 1 Tab PO BID Ambien (Zolpidem Tartrate) 5 Mg Tablet 1 Tab PO QHS Coumadin (Warfarin Sodium) 2.5 Mg Tablet 1 Tab PO DAILY Ferrous Sulfate 325 Mg Tablet 1 Tab PO BID Colace (Docusate Sodium) 100 Mg Capsule 1 Cap PO BID Culturelle (Lactobacillus Rhamnosus Gg) 1 Each Capsule 1 Each PO BID Vitamin D3 (Cholecalciferol (Vitamin D3)) 1,000 Unit Tablet 1 Tab PO DAILY Potassium Chloride 10 Meq Tab.sr.24h 10 Meq PO DAILY Furosemide 20 Mg Tablet 1 Tab PO DAILY Tylenol (Acetaminophen) 325 Mg Tablet 500 Mg PO TID Senokot (Sennosides) 8.6 Mg Tablet 1 Tab PO BID Milk Of Magnesia (Magnesium Hydroxide) 400 Mg/5 Ml Oral.susp 30 Ml PO PRN Q12HR PRN Dulcolax (Bisacodyl) 5 Mg Tablet.dr 10 Mg RC PRN DAILY PRN Robafen (Guaifenesin) 100 Mg/5 Ml Liquid 200 Mg PO PRN Q6HRS PRN Levothyroxine Sodium 50 Mcg Tablet 1 Tab PO DAILY Alprazolam 0.25 Mg Tablet 1 Tab PO TID PRN Acetaminophen 500 Mg Tablet 500 Mg PO PRN Q6HRS PRN Namenda (Memantine Hcl) 10 Mg Tablet 1 Tab PO BID Calcium (Calcium Carbonate) 600 Mg Tablet 1,200 Mg PO BID EXELON 4.6mg/24hr (Rivastigmine) 1 Each Patch.td24 1 Patch TP DAILY Vitals/I & O Vital Sign - Last 24 Hours 01/07/18 01/07/18 01/07/18 01/07/18 08:00 08:04 09:22 10:36 Pulse 128 95 Resp 16 16 B/P (MAP) 155/79 143/65 (91) O2 Delivery Room Air Room Air Room Air 01/07/18 01/07/18 01/07/18 01/07/18 11:00 12:23 15:00 17:11 Temp 97.7 97.7 97.7 97.7 Pulse 120 114 Resp 16 24 16 28 B/P (MAP) 140/77 (98) 147/74 (98) Pulse Ox 93 97 O2 Delivery Room Air Room Air Nasal Cannula Room Air O2 Flow Rate 2.0 01/07/18 01/07/18 01/07/18 01/07/18 17:14 18:00 18:00 19:20 Temp 98.5 98.5 Pulse 129 Resp 16 16 16 22 B/P (MAP) 173/83 (113) Pulse Ox 94 O2 Delivery Room Air Room Air 01/07/18 01/07/18 01/07/18 01/07/18 20:15 20:36 20:45 22:02 O2 Delivery Room Air Room Air Room Air Room Air 01/07/18 01/08/18 01/08/18 01/08/18 23:20 03:32 03:46 04:16 Temp 98.5 98.6 98.5 98.6 Pulse 119 113 Resp 16 16 B/P (MAP) 140/75 (96) 148/89 (108) Pulse Ox 92 95 O2 Delivery Room Air Room Air Room Air Room Air 01/08/18 06:06 O2 Delivery Room Air Intake and Output 01/07/18 01/07/18 01/08/18 15:00 23:00 07:00 Intake Total 2319 ml Output Total 1150 ml 630 ml Balance -1150 ml 1689 ml HELEN ZAMORA III DO Jan 08, 2018 07:27
[2018-01-08] MEDS: CHOLECALCIFEROL (VITAMIN D3) 5,000 UNIT CAPSULE PO SCH (09:00)
[2018-01-08] MEDS: LACTOBACILLUS RHAMNOSUS GG 1 CAPSULE. PO SCH (09:00)
[2018-01-08] MEDS: CALCIUM CARBONATE 500 MG TABLET PO SCH (09:03)
[2018-01-08] MEDS: FUROSEMIDE 20 MG TABLET PO SCH (09:03)
[2018-01-08] MEDS: POTASSIUM CHLORIDE 10 MEQ TABLET.ER. PO SCH (09:03)
[2018-01-08] MEDS: DOCUSATE SODIUM 100 MG CAPSULE. PO SCH (09:04)
[2018-01-08] MEDS: MEMANTINE 10 MG TABLET. PO SCH (09:04)
[2018-01-08] MEDS: SENNOSIDES 8.6 MG TABLET PO SCH (09:04)
[2018-01-08] MEDS: ALPRAZolam 0.25 MG TABLET PO PRN ×2 (09:04→15:01)
[2018-01-08] MEDS: POLYETHYLENE GLYCOL 3350 17 GM PACKET. PO SCH (09:04)
[2018-01-08] MEDS: RIVASTIGMINE 4.6MG PATCH. TD SCH (09:06)
[2018-01-08 11:21] VITALS: BP 160/80
--- NOTE | 2018-01-08 11:59 | DISCH ---
DISCHARGE DISCHARGE INFORMATION: CONDITION ON DISCHARGE: Stable CODE STATUS: Code Status: Full [facility]CI: SNF STAY <30 DAYS: No HOSPICE: HOSPICE: No HOSPICE EVAL & TREAT: No LTAC: ADMIT TO LTAC: Yes POST DISCHARGE ORDERS: ACTIVITY ORDERS: Activity as tolerated WEIGHT BEARING STATUS: As tolerated BATHING ORDERS: Shower-keep dressing dry DIET AFTER DISCHARGE: ADA WOUND/INCISION CARE: Ice to area for comfort TREATMENT/EQUIPMENT ORDERS: Physical Therapy For: Evalulation/Treatment Occupational Therapy For: Evaluation/Treatment DISCHARGE MEDICATIONS: Home Meds Reported Medications Alprazolam (XANAX) 0.25 Mg Tablet, 1 TAB PO BID, #60 TAB 01/03/18 Zolpidem Tartrate (AMBIEN) 5 Mg Tablet, 1 TAB PO QHS, #30 TAB 2 Refills 01/03/18 Warfarin Sodium (COUMADIN) 2.5 Mg Tablet, 1 TAB PO DAILY, #30 TAB 3 Refills 01/03/18 Ferrous Sulfate (FERROUS SULFATE) 325 Mg Tablet, 1 TAB PO BID, #60 TAB 3 Refills 01/03/18 Docusate Sodium (COLACE) 100 Mg Capsule, 1 CAP PO BID, #30 CAP 01/03/18 Lactobacillus Rhamnosus Gg (CULTURELLE) 1 Each Capsule, 1 EACH PO BID, CAP 01/03/18 Cholecalciferol (Vitamin D3) (VITAMIN D3) 1,000 Unit Tablet, 1 TAB PO DAILY, # 30 TAB 5 Refills 01/03/18 Potassium Chloride (POTASSIUM CHLORIDE) 10 Meq Tab.sr.24h, 10 MEQ PO DAILY, TAB.SR 01/03/18 Furosemide (FUROSEMIDE) 20 Mg Tablet, 1 TAB PO DAILY, #90 TAB 1 Refill 01/03/18 Acetaminophen (TYLENOL) 325 Mg Tablet, 500 MG PO TID, TAB 01/03/18 Sennosides (SENOKOT) 8.6 Mg Tablet, 1 TAB PO BID, #40 TAB 01/03/18 Magnesium Hydroxide (MILK OF MAGNESIA) 400 Mg/5 Ml Oral.susp, 30 ML PO PRN Q12HR PRN for CONSTIPATION, MISC 01/03/18 Bisacodyl (DULCOLAX) 5 Mg Tablet.dr, 10 MG RC PRN DAILY PRN for CONSTIPATION, TAB 0 Refills 01/03/18 Guaifenesin (ROBAFEN) 100 Mg/5 Ml Liquid, 200 MG PO PRN Q6HRS PRN for COUGH, LIQUID 11/30/17 Levothyroxine Sodium (LEVOTHYROXINE SODIUM) 50 Mcg Tablet, 1 TAB PO DAILY, #30 TAB 5 Refills 11/30/17 Alprazolam (ALPRAZOLAM) 0.25 Mg Tablet, 1 TAB PO TID PRN for ANXIETY, #90 TAB 11/30/17 Acetaminophen (ACETAMINOPHEN) 500 Mg Tablet, 500 MG PO PRN Q6HRS PRN for PAIN, TAB 11/30/17 Memantine Hcl (NAMENDA) 10 Mg Tablet, 1 TAB PO BID, #180 TAB 1 Refill 11/30/17 Calcium Carbonate (CALCIUM) 600 Mg Tablet, 1200 MG PO BID, TAB 11/30/17 Rivastigmine (EXELON 4.6mg/24hr) 1 Each Patch.td24, 1 PATCH TP DAILY, #30 PATCH 3 Refills 11/30/17 HELEN ZAMORA III DO Jan 08, 2018 11:59
[2018-01-08 14:54] VITALS: BP 138/72
[2018-01-08] MEDS ORDERED: WARFARIN 1 MG TABLET. PO ONE (16:00)
== END 2018-01-08 15:15 | disposition home or self-care (01) | DRG 480 ==
LOC: ER 20:54 → 4 NORTH 22:15
PROVIDERS: ADMIT Family Medicine; ATTEND Family Medicine
PROC: 0QS736Z Reposition Left Upper Femur with Intramedullary Internal Fixation Device, Percutaneous Approach (ICD-10-PCS; principal; 2018-01-04 08:00)
DX: S72.142A Displaced intertrochanteric fracture of left femur, initial encounter for closed fracture (principal); G93.40 Encephalopathy, unspecified; N39.0 Urinary tract infection, site not specified; E87.1 Hypo-osmolality and hyponatremia; F41.9 Anxiety disorder, unspecified; F03.90 Unspecified dementia, unspecified severity, without behavioral disturbance, psychotic disturbance, mood disturbance, and anxiety; I10 Essential (primary) hypertension; I35.1 Nonrheumatic aortic (valve) insufficiency; E78.5 Hyperlipidemia, unspecified; E03.9 Hypothyroidism, unspecified; N32.81 Overactive bladder; Z51.5 Encounter for palliative care; W05.0XXA Fall from non-moving wheelchair, initial encounter; Y93.89 Activity, other specified; Y92.128 Other place in nursing home as the place of occurrence of the external cause; Y99.8 Other external cause status
CPT/HCPCS: 36415; 70450; 71045; 72125; 73502; 76000; 80048; 80053; 81001; 84484; 85025; 85610; 85730; 87086; 87186; 87641; 93005; 96361; 96365; 96368; A7015; C1713; C1887; J0171; J0330; J0690; J1100; J1885; J2270; J2370; J2405; J2704; J2795; J3010; J3430; J3490; J7030; J7120; 97110; 97116; 97530; 97535; 99285-25

== ENCOUNTER 2018-01-14 07:14 | Emergency (ER) | payer MEDICARE, OTHER ==
[~2018-01-14] VITALS: Ht 152.4 cm; Wt 46.3 kg
[~2018-01-14 07:14] MED LIST changes: +ACET325T9 PO; +ALPR0.25 PO; +BISA-42 RC; +CHOL10003 PO; +DOCU-109 PO; +FERR325T14 PO; +FURO20TA3 PO; +LACT1CAP21 PO; +MAGN400O7 PO; +POTA10TA12 PO; +SENN8.6T99 PO; +WARF2.5T83 PO; +ZOLP5TAB PO
--- NOTE | 2018-01-14 08:45 | RAD ---
EXAM: Left hip and pelvis, 3 views. HISTORY: Pain. COMPARISON: 01/02/2018. FINDINGS: Frontal and lateral views of the left hip are obtained. There is internal fixation of a left femoral intertrochanteric fracture. There is no evidence of instrumentation loosening. There is a butterfly fracture fragment involving the lesser trochanter adjacent to the main fracture line. There are lateral skin jeet due to recent surgery. There is a right hip arthroplasty. There is degenerative change throughout the lower lumbar spine. There is large amount of stool within the colon. IMPRESSION: 1. Internal fixation of a left femoral intertrochanteric fracture, with surrounding soft tissue change due to recent surgery. 2. Right hip arthroplasty. 3. Large amount of colonic stool. Correlate for constipation. Electronically signed by: Myra Moser MD (01/14/2018 8:42 AM) [id number]
--- NOTE | 2018-01-14 09:06 | PHYS DOC ---
Past Medical History Past Medical History: Anxiety, Dementia, High Cholesterol, Hypertension, Hypothyroid, Other Additional Past Medical Histor: Aortic Valve Insufficiency, overactive bladder Past Surgical History: Hip Replacement, Other Additional Past Surgical Histo: RIGHT HIP REPLACEMENT, UROGENITAL IMPLANTS Alcohol Use: None Drug Use: None Adult General Chief Complaint Chief Complaint: LOWEREXTREMITY INJURY HPI HPI Patient is a 77 [facility] with history of left intertrochanteric fracture with ORIF on January 04 brought in by EMS because of possible injury to left hip. Patient has dementia and unable to give history. intermediate staff reported that they tried to move her around in her bed and felt a pop in her left. Patient did not have complaining of pain but did not move her legs after the injury. Review of Systems Review of Systems Unable to obtain because of dementia Current Medications Current Medications Current Medications Medications (Trade) Dose Ordered Sig/Zafar Start Time Stop Time Status Last Admin Dose Admin Fentanyl Citrate (Fentanyl 2ml Vial) 25 mcg 1X ONCE 01/14/18 09:45 01/14/18 09:46 DC 01/14/18 09:57 25 MCG Allergies Allergies Allergies Coded Allergies Type Severity Reaction Last Updated Verified No Known Drug Allergies 11/30/17 No Physical Exam Physical Exam Constitutional: Well nourished, no acute distress, non-toxic appearance. [] HENT: Normocephalic, atraumatic Eyes: PERRLA, EOMI, conjunctiva normal, no discharge. [] Neck: Normal range of motion, no tenderness, supple, no stridor. [] Cardiovascular:Heart rate regular rhythm, no murmur [] Lungs & Thorax: Bilateral breath sounds clear to auscultation [] Abdomen: Bowel sounds normal, soft, no tenderness, no masses, no pulsatile masses. [] Skin: Warm, dry, no erythema, no rash. [] Back: No tenderness, no CVA tenderness. [] Extremities: Left lower extremity without sign of injury, clean surgical for, no drinking internal rotation and avoid of moving her extremity, no neurovascular deficit Neurologic: Alert and oriented X 1, normal motor function, normal sensory function, no focal deficits noted. [] Psychologic: Affect normal Current Patient Data Vital Signs Vital Signs Date Time Temp Pulse Resp B/P (MAP) Pulse Ox O2 Delivery O2 Flow Rate FiO2 01/14/18 11:25 102 18 129/82 (98) 95 Room Air 01/14/18 07:24 98.2 98.2 EKG EKG [] Radiology/Procedures Radiology/Procedures [id number] [place] [address] IMAGING REPORT Signed PATIENT: TIA AGUILAR ACCOUNT: [id number] : 1940 LOCATION: ER AGE: 77 SEX: F EXAM STATUS: PRE ER ORD. PHYSICIAN: IBETH CASTRO MD REASON: deformity after surgery PROCEDURE: HIP LEFT 2V WITH PELVIS EXAM: Left hip and pelvis, 3 views. HISTORY: Pain. COMPARISON: 01/02/2018. FINDINGS: Frontal and lateral views of the left hip are obtained. There is internal fixation of a left femoral intertrochanteric fracture. There is no evidence of instrumentation loosening. There is a butterfly fracture fragment involving the lesser trochanter adjacent to the main fracture line. There are lateral skin jeet due to recent surgery. There is a right hip arthroplasty. There is degenerative change throughout the lower lumbar spine. There is large amount of stool within the colon. IMPRESSION: 1. Internal fixation of a left femoral intertrochanteric fracture, with surrounding soft tissue change due to recent surgery. 2. Right hip arthroplasty. 3. Large amount of colonic stool. Correlate for constipation. Electronically signed by: Myra Shine MD (01/14/2018 8:42 AM) [place] [id number] DICTATED and SIGNED BY: MYRA SHINE MD DATE: 01/14/18 0841 [id number] [place] [address] IMAGING REPORT Signed PATIENT: TIA AGUILAR ACCOUNT: [id number] : 1940 LOCATION: ER AGE: 77 SEX: F EXAM STATUS: REG ER ORD. PHYSICIAN: IBETH CASTRO MD REASON: pain after surgery PROCEDURE: VENOUS LOWER EXTREMITY LEFT Left lower extremity venous doppler ultrasound History: Left leg pain after surgery Comparison: None Findings: Multiple grayscale, color, and duplex spectral analysis sonographic images were acquired of the left lower extremity veins to evaluate for the presence of DVT. There is normal phasicity. Normal compression, color-flow, and augmentation is demonstrated from the left common femoral to the popliteal veins. There is normal color flow of the proximal greater saphenous and profunda femoris veins. There is normal color flow of segments of the calf veins. Impression: 1. There is no evidence of deep venous thrombosis from the left common femoral to popliteal veins. Electronically signed by: Christal Bosch MD (01/14/2018 10:28 AM) [id number] DICTATED and SIGNED BY: CHRISTAL BOSCH MD DATE: 01/14/18 1027 Course & Med Decision Making Course & Med Decision Making Pertinent Imaging studies reviewed. (See chart for details) Evaluation of patient in ER showed 77-year-old female patient with history of recent left hip surgery brought in from [facility] with concern for injury to her hip. X-ray did not show fracture or dislocation. Patient did not have pain when she was in ER but at time of discharge complaining of pain and treated with fentanyl and felt better. Ultrasound of lower extremity did not show DVT. Dragon Disclaimer Dragon Disclaimer This electronic medical record was generated, in whole or in part, using a voice recognition dictation system. Departure Departure Impression: Primary Impression: Injury of left lower extremity Additional Impressions: Dementia Status post closed fracture of left femur Disposition: 03 TRANSFER SNF (at 0904) Condition: STABLE Referrals: GEETHA DIAMOND MD (PCP) Patient Instructions: Constipation, Adult, Hip Injury Additional Instructions: Avoid of injury to left lower extremity Follow-up with your primary care physician in 1-2 days for treatment of constipation Return to ER if not getting better Problem Qualifiers IBETH CASTRO MD Jan 14, 2018 09:06
[2018-01-14] MEDS ORDERED: fentaNYL PF VIAL 100 MCG/2 ML VIAL IV ONE (09:45)
--- NOTE | 2018-01-14 10:31 | RAD ---
Left lower extremity venous doppler ultrasound History: Left leg pain after surgery Comparison: None Findings: Multiple grayscale, color, and duplex spectral analysis sonographic images were acquired of the left lower extremity veins to evaluate for the presence of DVT. There is normal phasicity. Normal compression, color-flow, and augmentation is demonstrated from the left common femoral to the popliteal veins. There is normal color flow of the proximal greater saphenous and profunda femoris veins. There is normal color flow of segments of the calf veins. Impression: 1. There is no evidence of deep venous thrombosis from the left common femoral to popliteal veins. Electronically signed by: Onofre Bosch MD (01/14/2018 10:28 AM) [id number]
[2018-01-14 11:25] VITALS: BP 129/82
== END 2018-01-14 11:30 | disposition home or self-care (01) ==
LOC: ER 07:14
DX: S79.912A Unspecified injury of left hip, initial encounter (principal); F03.90 Unspecified dementia, unspecified severity, without behavioral disturbance, psychotic disturbance, mood disturbance, and anxiety; G89.18 Other acute postprocedural pain; M79.605 Pain in left leg; E78.00 Pure hypercholesterolemia, unspecified; I10 Essential (primary) hypertension; E03.9 Hypothyroidism, unspecified; Z96.641 Presence of right artificial hip joint; Z87.81 Personal history of (healed) traumatic fracture; X50.9XXA Other and unspecified overexertion or strenuous movements or postures, initial encounter; Y93.89 Activity, other specified; Y92.89 Other specified places as the place of occurrence of the external cause; Y99.8 Other external cause status
CPT/HCPCS: 73502; 93971; 96374; 99284; J3010